=== PATIENT | male | born 1940 | race Caucasian/White ===

== ENCOUNTER → 2017-09-01 08:42 | Day surgery (SDC) | payer MEDICARE, SELFPAY ==
[2017-08-29 15:36] LABS: Bacteria 0 SEEN /hpf (None Seen); Mucous, Urine 0 SEEN /hpf (<or=2+); Red Blood Cells-Urine 0 SEEN /hpf (0-5); Squamous Epithelial Cells - UA 0 SEEN /hpf (0-5)
[2017-08-29 17:16] LABS: Color, Urine Yellow (Yellow); Glucose, Dipstick 250 mg/dl (Normal); Ketone-Dipstick Negative (Negative); Leukocyte Esterase-Dipstick 500 /ul (Negative); Nitrite-Dipstick Negative (Negative); Occult Blood-Urine 10 /ul (Negative); Protein-Dipstick 15 mg/dl (Negative); Specific Gravity, Urine 1.015 (1.002-1.030); Urine Bilirubin Dipstick Negative (Negative); Urine Clarity Clear (Clear); Urine Urobilinogen Normal (Normal)
[2017-08-29 17:18] LABS: Hematocrit 38.8 % (40-54); Mean Corp Hgb Conc 30.9 g/gl (32-36); Mean Corpuscular Hgb 28.4 pg (27.0-32.0); Mean Corpuscular Volume 91.9 fL (80-94); Mean Platelet Vol. 10.6 fl (6.2-12.0); Platelet Count 152 K/mm3 (150-450); RBC Distribution Width CV 14.8 % (11.6-14.6); RBC Distribution Width SD 49.3 fl (35.1-43.9); Red Blood Count 4.22 M/mm3 (4.6-6.2); White Blood Count 8.1 K/mm3 (4.4-11.0)
[2017-08-29 17:23] LABS: White Blood Cells 5-10 SEEN /hpf (0-5)
[2017-08-29 17:45] LABS: Anion Gap 6 (5-15); BUN 17 mg/dL (7-18); BUN/Creat Ratio 12.3 RATIO (10-20); Calcium,Total 9.8 mg/dL (8.5-10.1); Chloride 101 mmol/L (98-107); Creatinine, Serum 1.38 mg/dL (0.70-1.30); EST Glomerular Filtration Rate 53 mL/min (>60); Est Glom Filt Rate - Afr Amer 64 mL/min (>60); Glucose 259 mg/dL (70-110); International Normalized Ratio 1.4; Potassium 4.3 mmol/L (3.5-5.1); Sodium Level 140 mmol/L (136-145)
[2017-08-29 17:50] LABS: Scan Indicated on CBC? Y/N NO
[2017-08-31 09:07] VITALS: BMI 32.5
[2017-09-01 09:26] LABS: Bedside Glucose 192 mg/dL (70-110)
--- NOTE | 2017-09-01 11:57 | OP.PCM_ITS ---
Problem List (1) Automatic implantable cardiac defibrillator in situ Status: Chronic Comment: ICD implant: 02/2010 Operative Report Date of Procedure: 09/01/17 Preoperative diagnosis is device at end of life for normal battery depletion. Postoperative diagnosis same as above. After informed consent and IV antibiotics the patient was brought to the [facility] catheterization laboratory and the skin over the device was prepped and draped in the usual sterile manner. Intermittent boluses of Versed, fentanyl and propofol were used for sedation and analgesia as well as 1% subcutaneous lidocaine. An incision was made over the pre-existing device. Using blunt and Bovie dissection the pocket was opened and the dual chamber AV ICD device was removed. Careful attention was paid not to injure the pre-existing leads. The leads were removed from the device header and they were interrogated. There is normal lead function. Hemostasis was obtained. The pocket was flushed with antibiotic solution. The sponge and needle count were correct. The new device was brought to the field. The leads were placed in the appropriate position in the header and secured by the set screw. The leads and the device were then placed in the pocket. The pocket was closed with a deep layer of running 2-0 Vicryl, a superficial layer of running 4-0 Vicryl, skin with Steri-Strips which were covered with a rolled 4 x 4 and Tegaderm. Patient left the room with the device programmed to proper parameters and there were no complications. All lead parameters were tested and found to be functionally normal. Lead and device serial and model numbers are available in the chart documents provided by the device company sales representative cash registers procedure summary.
== END ==
PROVIDERS: Physician Assistant Medical; Family Provider Family Medicine Geriatric Medicine; PCP Family Medicine Geriatric Medicine; Visit Provider Internal Medicine Cardiovascular Disease
DX: Z45.02 Encounter for adjustment and management of automatic implantable cardiac defibrillator (principal); Z00.6 Encounter for examination for normal comparison and control in clinical research program; I25.10 Atherosclerotic heart disease of native coronary artery without angina pectoris; I73.9 Peripheral vascular disease, unspecified; E78.5 Hyperlipidemia, unspecified; I10 Essential (primary) hypertension; Z95.1 Presence of aortocoronary bypass graft; Z87.891 Personal history of nicotine dependence
CPT/HCPCS: 33263; 36415; 80048; 81001; 82962; 85027; 85610; 93641; 99152; 99153; J7040; J7050

== ENCOUNTER → 2017-09-28 16:21 | Outpatient (CLI) | payer MEDICARE, SELFPAY ==
[2017-09-28 17:28] LABS: Hematocrit 35.7 % (40-54); Hemoglobin 10.6 g/dl (13.0-16.5); Mean Corp Hgb Conc 29.7 g/gl (32-36); Mean Corpuscular Hgb 27.3 pg (27.0-32.0); Platelet Count 164 K/mm3 (150-450); RBC Distribution Width CV 15.4 % (11.6-14.6); RBC Distribution Width SD 51.8 fl (35.1-43.9); Red Blood Count 3.88 M/mm3 (4.6-6.2)
[2017-09-28 17:29] LABS: Differential Indicated MANUAL DIFF; POSITIVE COUNT YES; POSITIVE DIFFERENTIAL NO; POSITIVE MORPHOLOGY YES
[2017-09-28 17:48] LABS: Eosinophil 2 % (0-5); Lymphocyte 22 % (19-41); Monocyte 5 % (0-10); Neutrophil-Band 2 % (0-5); Neutrophil-Segmented 69 % (47-70); Total Cells Counted 100 (MANUAL DIFF)
[2017-09-28 17:49] LABS: Platelet Estimate ADEQUATE (ADEQ); Red Cell Morphology NORM C+C NORMAL (NORM C&C)
[2017-09-28 18:15] LABS: BUN 25 mg/dL (7-18); Creatinine, Serum 1.41 mg/dL (0.70-1.30); Glucose 206 mg/dL (74-106)
[2017-09-28 18:16] LABS: AST(SGOT) 15 U/L (15-37); Alanine Aminotransfer ALT/SGPT 27 U/L (16-61); Albumin, Serum 3.2 g/dL (3.2-5.0); Alkaline Phosphatase 53 U/L (45-117); Anion Gap 6 (5-15); BUN/Creat Ratio 17.7 RATIO (10-20); Calcium,Total 9.6 mg/dL (8.5-10.1); Chloride 103 mmol/L (98-107); EST Glomerular Filtration Rate 52 mL/min (>60); Est Glom Filt Rate - Afr Amer 63 mL/min (>60); Globulin 3.3 g/dL (2.2-4.2); Potassium 4.1 mmol/L (3.5-5.1); Protein, Total 6.5 g/dL (6.4-8.2); Sodium Level 141 mmol/L (136-145)
[2017-09-28 21:38] LABS: BNP,B-Type NATRIURETIC PEPTIDE 841.1 pg/mL (0-100)
[2017-09-29 00:21] LABS: Absolute Lymphocyte Count 1.98 X10^3/ul (0.83-4.51); Absolute Neutrophil Count 6.3 X10^3/uL (2.0-7.7)
[2017-09-29 10:25] LABS: Pathologist Review Reviewed
== END ==
PROVIDERS: Family Provider Family Medicine Geriatric Medicine; PCP Family Medicine Geriatric Medicine; Visit Provider Family Medicine Geriatric Medicine
DX: R06.02 Shortness of breath (principal); I50.9 Heart failure, unspecified; R60.9 Edema, unspecified
CPT/HCPCS: 36415; 80053; 83880; 85025

== ENCOUNTER → 2017-09-29 10:43 | Outpatient (CLI) | payer MEDICARE, SELFPAY ==
--- NOTE | 2017-09-29 10:45 | VDLE_ITS ---
Reason For Study: edema RIGHT LEFT GSV is normal. CFV is compressible, spontaneous, phasic, CFV is compressible, spontaneous, phasic, competent, and demonstrates normal competent and demonstrates normal augmentation. augmentation. FV is compressible, spontaneous, phasic, FV is compressible, spontaneous, phasic, competent and demonstrates normal competent and demonstrates normal augmentation. augmentation. POP V is compressible, spontaneous, phasic, POP V is compressible, spontaneous, phasic, competent and demonstrates normal competent and demonstrates normal augmentation. augmentation. T/P Trunk is compressible. T/P Trunk is compressible. PTV is compressible. PTV is compressible. GSV is harvested. Unable to image Peroneal V due to edema. Unable to image Peroneal V due to edema. Procedure Exam performed in department. The exam was of fair technical quality due to edema. A preliminary report was called and/or faxed to Dr. Gu. Interpretation Summary Deep veins of the lower extremities are bilaterally patent and compressible segmentally. There is no evidence of deep vein thrombosis on either side. Valvular competence appears intact within the proximal deep venous systems bilaterally. The right greater saphenous vein appears patent and compressible segmentally. The left greater saphenous vein is absent, having been previously harvested. Peroneal veins were not visualized on either side due to edema. Ordering Physician: Guy Gu Performed By: Chirag Palacios RVT
== END ==
PROVIDERS: Family Provider Family Medicine Geriatric Medicine; PCP Family Medicine Geriatric Medicine; Visit Provider Family Medicine Geriatric Medicine
DX: R60.0 Localized edema (principal)
CPT/HCPCS: 93970

== ENCOUNTER → 2017-10-19 16:11 | Outpatient (CLI) | payer MEDICARE, SELFPAY ==
[2017-10-19 17:11] LABS: Hematocrit 34.7 % (40-54); Hemoglobin 10.6 g/dl (13.0-16.5); Mean Corp Hgb Conc 30.5 g/gl (32-36); Mean Corpuscular Hgb 27.7 pg (27.0-32.0); Mean Corpuscular Volume 90.8 fL (80-94); Mean Platelet Vol. 10.4 fl (6.2-12.0); Platelet Count 158 K/mm3 (150-450); RBC Distribution Width CV 15.3 % (11.6-14.6); RBC Distribution Width SD 49.5 fl (35.1-43.9); Red Blood Count 3.82 M/mm3 (4.6-6.2); White Blood Count 9.4 K/mm3 (4.4-11.0)
[2017-10-19 17:34] LABS: AST(SGOT) 17 U/L (15-37); Alanine Aminotransfer ALT/SGPT 25 U/L (16-61); Albumin, Serum 3.2 g/dL (3.2-5.0); Alkaline Phosphatase 55 U/L (45-117); Anion Gap 7 (5-15); BUN 32 mg/dL (7-18); BUN/Creat Ratio 22.1 RATIO (10-20); Calcium,Total 9.5 mg/dL (8.5-10.1); Chloride 103 mmol/L (98-107); Cholesterol 160 mg/dL (200); Creatinine, Serum 1.45 mg/dL (0.70-1.30); EST Glomerular Filtration Rate 50 mL/min (>60); Est Glom Filt Rate - Afr Amer 61 mL/min (>60); Globulin 3.2 g/dL (2.2-4.2); Glucose 107 mg/dL (74-106); High Density Lipoprotein 45 mg/dL; Potassium 3.7 mmol/L (3.5-5.1); Protein, Total 6.4 g/dL (6.4-8.2); Sodium Level 143 mmol/L (136-145); Thyroid Stim Hormone (TSH) 0.77 uIU/mL (0.358-3.74); Triglycerides 98 mg/dL; Very Low Density Lipoprotein 20 mg/dL (5-40)
[2017-10-19 17:35] LABS: Vitamin D,25 Hydroxy 33.1 ng/mL (29.95-100.01)
[2017-10-19 18:11] LABS: Basophil 1 % (0-1); Lymphocyte 16 % (19-41); Metamyelocyte 1 % (0-1); Myelocyte 3 (0-0); Neutrophil-Band 2 % (0-5); Neutrophil-Segmented 77 % (47-70); Total Cells Counted 100 (MANUAL DIFF)
[2017-10-19 18:12] LABS: Ovalocyte RARE; Schistocytes RARE
[2017-10-19 18:13] LABS: Differential Indicated MANUAL DIFF; POSITIVE COUNT YES; POSITIVE DIFFERENTIAL NO; POSITIVE MORPHOLOGY YES
[2017-10-19 18:14] LABS: Absolute Neutrophil Count 7.4 X10^3/uL (2.0-7.7)
[2017-10-19 18:15] LABS: Absolute Lymphocyte Count 1.51 X10^3/ul (0.83-4.51)
[2017-10-20 14:11] LABS: Pathologist Review Reviewed
== END ==
PROVIDERS: Family Provider Family Medicine Geriatric Medicine; PCP Family Medicine Geriatric Medicine; Visit Provider Family Medicine Geriatric Medicine
DX: E11.9 Type 2 diabetes mellitus without complications (principal); E55.9 Vitamin D deficiency, unspecified; I10 Essential (primary) hypertension; E78.4 Other hyperlipidemia
CPT/HCPCS: 36415; 80053; 80061; 82306; 84443; 85025

== ENCOUNTER → 2017-10-28 16:41 | Outpatient (CLI) | payer MEDICARE, SELFPAY ==
--- NOTE | 2017-10-28 16:47 | VDLE_ITS ---
Reason For Study: LLE pain RIGHT LEFT CFV is compressible, spontaneous, phasic, CFV is compressible, spontaneous, phasic, competent and demonstrates normal competent, and demonstrates normal augmentation. augmentation. Procedure FV is compressible, spontaneous, phasic, Exam performed in department. competent and demonstrates normal The study was technically difficult. augmentation. The study was technically limited. POP V is compressible, spontaneous, phasic, A preliminary report was called and/or faxed competent and demonstrates normal to Dr. Suarez @ [phone] @ 5:20 pm. augmentation. T/P Trunk is compressible. PTV is compressible. GSV is absent due to CABG. Unable to visualize PER V due to edema. Interpretation Summary Deep veins of the left lower extremity are patent and compressible segmentally. There is no evidence of left lower extremity deep vein thrombosis. Valvular competence appears intact within the proximal deep venous system on the left . The left greater saphenous vein is absent, having been previously harvested. The left peroneal vein was not visualized due to edema. Ordering Physician: Madina Suarez Referring Physician: Messi Velazquez Performed By: Estelle Wagner, CHLOE, RVT
== END ==
PROVIDERS: Family Provider Family Medicine Geriatric Medicine; PCP Family Medicine Geriatric Medicine; Visit Provider Podiatrist
DX: M79.605 Pain in left leg (principal)
CPT/HCPCS: 93971

== ENCOUNTER 2017-10-29 11:28 | Emergency (ER) | payer MEDICARE, SELFPAY ==
--- NOTE | 2017-10-29 11:31 | EKG12_ITS ---
Test Reason : Blood Pressure : / mmHG Vent. Rate : 086 BPM Atrial Rate : 086 BPM P-R Int : 236 ms QRS Dur : 114 ms QT Int : 376 ms P-R-T Axes : 012 -35 130 degrees QTc Int : 449 ms Sinus rhythm with 1st degree A-V block with occasional Premature ventricular complexes and Fusion com plexes Left axis deviation Incomplete left bundle branch block Marked ST abnormality, possible lateral subendocardial injury Abnormal ECG Confirmed by JUAN CARRILLO, IRAIS ([id number]), desk editor DERECK MARAVILLA ([id number]) on 11/01/2017 3:01:27 PM Referred By: LACY Confirmed By:IRAIS MARTINEZ MD
--- NOTE | 2017-10-29 11:32 | RAD_ITS ---
STUDY: X-RAY CHEST REASON FOR EXAM: Male, 77 years old. COPD TECHNIQUE: 2 views of the chest were obtained COMPARISON: None. FINDINGS: Small left-sided pleural effusion with left lower lobe atelectasis and subtle airspace opacities. Bilateral perihilar congestive changes. Trace right-sided pleural effusion. Accentuated thoracic kyphotic curvature with chronic compression deformities. Pacemaker device is seen RAD/Chest PA and Lateral IMPRESSION: Small bilateral pleural effusions with bilateral pulmonary vascular congestion and subsegmental atelectasis in the left lower lobe with subtle airspace opacities. Subtle ill-defined nodules in the right upper lobe which can be assessed with follow-up chest radiograph in 3-6 months Electronically Signed: Jeff Jaffe, at 12:23 EDT Tel , Service support ,
[2017-10-29 11:37] VITALS: BP 122/72; PULSE 87; PULSE 90; RESP 14; RESP 18; TEMP 36.5; O2SAT 100; O2SAT 96; BMI 32.5
--- NOTE | 2017-10-29 11:48 | NURSING ---
NO LW OR POA
[2017-10-29 11:59] LABS: Anion Gap 6 (5-15); BUN 29 mg/dL (7-18); BUN/Creat Ratio 19.6 RATIO (10-20); Calcium,Total 9.7 mg/dL (8.5-10.1); Chloride 104 mmol/L (98-107); Creatinine, Serum 1.48 mg/dL (0.70-1.30); EST Glomerular Filtration Rate 49 mL/min (>60); Est Glom Filt Rate - Afr Amer 59 mL/min (>60); Glucose 141 mg/dL (74-106); Potassium 4.2 mmol/L (3.5-5.1); Sodium Level 141 mmol/L (136-145)
--- NOTE | 2017-10-29 12:00 | ED.DCSUM_ITS ---
- ER Visit Summary Date of Service: 10/29/17 Chief Complaint: Confusion History of Present Illness: The patient is a 77 M who is brought in by EMS after his called the ambulance for confusion. states that about 0300 hours this morning he was confused. He was sweaty. She tried to take his blood sugar but the machine was not working. She fed him peanut butter, candy bar, and a variety of other foods. She got their glucometer to work and his blood sugar read 103. states that he went back to bed got up around 10 and seemed confused again. Though this time not as severe as during the night. He has had hypoglycemic episodes in the past. He has not had any more to eat. He has not had any of his medications. Physical Examination: Afebrile vital signs are stable Gen: Well-nourished well-developed Head: Normocephalic atraumatic Eyes: Perrl EOMI ENT: TMs clear no rhinorrhea moist mucous membranes Neck: Supple no lymphadenopathy no JVD nontender CVS: Regular rate rhythm no murmurs normal S1-S2 Respiratory: No distress clear to auscultation bilaterally chest nontender Abdomen: Soft nontender nondistended normal bowel sounds no masses Back: Nontender Extremity: Nontender 3+ lower extremity edema Skin: Normal color no rash Neuro: alert orientated ?3 CN II-XII intact normal strength sensation Psych: Normal affect normal mood Test Results: EKG shows a sinus rhythm with a first-degree AV block with PVC. Globin 10.5. Creatinine 1.48. Digoxin low. Urinalysis no obvious infection Emergency Department Course and Treatment: Patient was fed lunch. He is resting comfortably. This point I believe the patient most likely had a hypoglycemic episode during the night. He is to return home continue eating and resume his medications. Return if worsening or concerns. I spoke with his at the bedside she is comfortable with this plan. Impression: 1. Diabetic hypoglycemia This note was generated with [employer] dictation software. It may contain incorrect words, spelling, and punctuation that were not noted in review of the chart prior to signing ED Disposition - Plan for ED Patient: Disposition: Home or Assisted Living Chief Complaint: Confusion Instructions: ED Diabetes Hypoglycemia Insulin React Referrals: Guy Gu Chi, MD [Primary Care Provider] - As Needed
[2017-10-29 12:10] LABS: Absolute Lymphocyte Count 0.84 X10^3/ul (0.83-4.51); Absolute Neutrophil Count 6.1 X10^3/uL (2.0-7.7); Basophil# 0.02 X10^3/uL; Basophil% 0.3 % (0-1); Eosinophil# 0.06 X10^3/uL; Eosinophils% 0.8 % (0-5); Hematocrit 35.4 % (40-54); Hemoglobin 10.5 g/dl (13.0-16.5); Lymphocyte # 0.84 X10^3/ul (4.0); Lymphocyte % 11.2 % (19-41); Mean Corp Hgb Conc 29.7 g/gl (32-36); Mean Corpuscular Hgb 26.5 pg (27.0-32.0); Mean Corpuscular Volume 89.4 fL (80-94); Mean Platelet Vol. 10.3 fl (6.2-12.0); Monocyte# 0.41 X10^3/uL; Monocyte% 5.5 % (0-10); Neutrophil # 6.08 X10^3/uL (2.7-7.7); Neutrophil % 80.7 % (47-70); POSITIVE COUNT NO; POSITIVE DIFFERENTIAL NO; POSITIVE MORPHOLOGY NO; Platelet Count 120 K/mm3 (150-450); RBC Distribution Width CV 15.3 % (11.6-14.6); RBC Distribution Width SD 50.1 fl (35.1-43.9); Red Blood Count 3.96 M/mm3 (4.6-6.2); White Blood Count 7.5 K/mm3 (4.4-11.0)
[2017-10-29 12:56] LABS: Mucous, Urine 0 SEEN /hpf (<or=2+)
[2017-10-29 13:01] LABS: Color, Urine Yellow (Yellow); Glucose, Dipstick Normal (Normal); Ketone-Dipstick Negative (Negative); Leukocyte Esterase-Dipstick 25 /ul (Negative); Nitrite-Dipstick Negative (Negative); Occult Blood-Urine 25 /ul (Negative); Protein-Dipstick 30 mg/dl (Negative); Urine Bilirubin Dipstick Negative (Negative); Urine Clarity Clear (Clear); Urine Urobilinogen Normal (Normal)
[2017-10-29 13:11] LABS: Bacteria RARE /hpf (None Seen); Red Blood Cells-Urine 0-5 SEEN /hpf (0-5); Squamous Epithelial Cells - UA 0-5 SEEN /hpf (0-5); White Blood Cells 0-5 SEEN /hpf (0-5)
[2017-10-29 13:45] VITALS: BP 122/77; PULSE 80; RESP 14; O2SAT 98
[2017-10-29 14:33] LABS: Digoxin Level 0.16 ng/mL (0.80-2.00)
[2017-10-29 15:22] VITALS: BP 118/70; PULSE 78; RESP 14; O2SAT 98
== END 2017-10-29 15:24 | disposition home or self-care (01) ==
PROVIDERS: Emergency Provider Emergency Medicine; Family Provider Family Medicine Geriatric Medicine; PCP Family Medicine Geriatric Medicine
DX: E11.649 Type 2 diabetes mellitus with hypoglycemia without coma (principal); I44.0 Atrioventricular block, first degree; I49.3 Ventricular premature depolarization; I12.9 Hypertensive chronic kidney disease with stage 1 through stage 4 chronic kidney disease, or unspecified chronic kidney disease; N18.9 Chronic kidney disease, unspecified; J44.9 Chronic obstructive pulmonary disease, unspecified; I25.10 Atherosclerotic heart disease of native coronary artery without angina pectoris; Z95.1 Presence of aortocoronary bypass graft; Z87.891 Personal history of nicotine dependence; Z95.810 Presence of automatic (implantable) cardiac defibrillator
CPT/HCPCS: 71046; 80048; 80162; 81001; 85025; 93005; 99285; A4216

== ENCOUNTER 2017-11-09 10:11 | Outpatient (RCR) | payer MEDICARE, SELFPAY ==
[2017-11-09 12:57] VITALS: BP 97/61; PULSE 72; RESP 18; TEMP 36.8; BMI 35.1
[2017-11-09 13:25] VITALS: BMI 35.1
--- NOTE | 2017-11-09 16:49 | PCM.WC.HP ---
(1) Ulcer of left lower extremity with fat layer exposed Status: Chronic Current Visit: Yes Code(s): L97.922 - Non-pressure chronic ulcer of unspecified part of left lower leg with fat layer exposed (2) Type 2 diabetes mellitus with diabetic polyneuropathy Status: Chronic Current Visit: Yes Code(s): E11.42 - Type 2 diabetes mellitus with diabetic polyneuropathy (3) Palpitations Status: Chronic Current Visit: Yes Code(s): R00.2 - Palpitations (4) Lymphedema of both lower extremities Status: Chronic Current Visit: Yes Code(s): I89.0 - Lymphedema, not elsewhere classified (5) Chronic renal insufficiency, stage III (moderate) Status: Chronic Current Visit: Yes Code(s): N18.3 - Chronic kidney disease, stage 3 (moderate) History of Present Illness Date of Service: 11/09/17 Chief Complaint: Follow-up left lower leg ulcer simon, bilateral lower leg edema. History of Wound: 77-year-old white male a month ago developed an ulcer on his left lower leg. History of diabetes type II uncontrolled severe edema of the lower extremities. History of coronary artery disease. Has been at the wound center before for edema of his lower extremities no longer wears his stockings. He is use compression pumps in the past and has an adjustable compressive garment that he will try to bring to his follow-up visit for evaluation. He denies redness odor or new trauma. He denies fever, chill, nausea, vomiting. Past Medical History Past Medical History: Chronic Problems (Last Updated 08/29/17 @ 10:33 by Karon Nick) Ulcer of left lower extremity with fat layer exposed (Chronic) Type 2 diabetes mellitus with diabetic polyneuropathy (Chronic) Pacemaker (Chronic) Atherosclerosis of [place] coronary artery of [place] heart without angina pectoris (Chronic) MOULTON to LAD, SVG to circumflex, and SVG to RCA in 1986 PVCs (premature ventricular contractions) (Chronic) Left ventricular failure (Chronic) Fatigue (Chronic) Edema (Chronic) Palpitations (Chronic) Peripheral vascular disease (Chronic) ASHD (arteriosclerotic heart disease) (Chronic) Automatic implantable cardiac defibrillator in situ (Chronic) ICD implant: 02/2010 HLD (hyperlipidemia) (Chronic) HTN (hypertension) (Chronic) Atherosclerosis 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 [facility] 1987, 01/29/2010, 02/24. Ischemic cardiomyopathy (Chronic) Paroxysmal ventricular tachycardia (Chronic) H/O coronary artery bypass surgery (Chronic) CABG MOULTON graft to anterior descending, saphenous vein graft to CFX, saphenous vein graft to RCA 1986. 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) Open wound of lower extremity without complication (Chronic) Chronic renal insufficiency, stage III (moderate) (Chronic) PAOD (peripheral arterial occlusive disease) (Chronic) Surgical History: coronary bypass surgery, pacemaker implantation, TURP Allergies/Adverse Reactions: Allergies cyclobenzaprine HCl [From Flexeril] Allergy (Verified 10/29/17 11:31) Rash latex Allergy (Verified 10/29/17 11:31) Swelling Penicillins Allergy (Verified 10/29/17 11:31) Rash Sulfa (Sulfonamide Antibiotics) Allergy (Verified 10/29/17 11:31) Rash erythromycin base Adverse Reaction (Mild, Verified 10/29/17 11:49) Hives tetracycline Adverse Reaction (Verified 10/29/17 11:31) Hives iv dye Adverse Reaction (Uncoded 10/29/17 11:49) only has 1 kidney Home Medications: Ambulatory Orders Medication Instructions Recorded Aspirin [Aspirin, Baby] 81 mg PO DAILY@0800 11/30/16 Insulin Glargine,Hum.rec.anlog 60 unit SQ BID 11/30/16 [Lantus] Doxazosin Mesylate [Cardura] 4 mg PO BID 07/24/17 Finasteride [Proscar] 5 mg PO DAILY 07/24/17 Furosemide [Furosemide] 40 mg PO BID 07/24/17 isosorbide mononitrate ER 30 mg 30 mg PO QDAY tab 01/15/18 tablet,extended release 24 hr Baclofen 10 mg PO DAILY 08/31/17 apixaban 5 mg tablet 5 mg PO BID #180 tab 09/01/17 digoxin 125 mcg tablet 125 mcg PO QDAY #90 tab 09/01/17 Amlodipine [Norvasc] 5 mg PO DAILY 11/09/17 Ergocalciferol [Vitamin D] 50,000 unit PO QMONTH 11/09/17 Insulin Lispro Protamin/Lispro 40 unit SQ TID 11/09/17 [Humalog Mix 75-25 Kwikpen] Sertraline HCl [Zoloft] 100 mg PO DAILY 11/09/17 - Family History Maternal Family History: Family History (Last Updated 08/29/17 @ 10:09 by Karon Nick) Father Diabetes CHF (congestive heart failure) Mother CHF (congestive heart failure) Hypertension Sister Hypertension Myocardial infarction, Onset Age: 79 No pertinent history Paternal Family History: Family History (Last Updated 08/29/17 @ 10:09 by Karon Nick) Father Diabetes CHF (congestive heart failure) Mother CHF (congestive heart failure) Hypertension Sister Hypertension Myocardial infarction, Onset Age: 79 No pertinent history Smoking Status: Former smoker Review of Systems Constitutional: Denies: Chills, Fever Gastrointestinal: Denies: Diarrhea, Nausea, Vomiting Musculoskeletal: Denies: Leg Pain Skin: Reports: Skin Changes, Wounds Neurological: Reports: Incoordination, Numbness Hematologic/ Lymphatic: Reports: Easy Bruising, Easy Bleeding - Physical Exam Vital Signs Temp Pulse Resp BP 98.2 F 72 18 97/61 11/09/17 12:57 11/09/17 12:57 11/09/17 12:57 11/09/17 12:57 General: Alert, Oriented x3, Cooperative HEENT: Atraumatic Extremities: No cyanosis, Capillary Refill Less than 3 Seconds, No Calf Tenderness, Diminished Peripheral Pulses, Edema Skin: Ulcer/ Wound - No purulence, no erythema, streaking, no infection. The fat layer is exposed. The skin is atrophic and without hair to bilateral lower extremities. Wound Measurements and Assessment WC - Nurse 1 - General Ulcer Measurement Start: 11/09/17 12:54 Freq: Status: Active Protocol: Activity Type Activity Date Activity User E-Sign Co-Sign Detail Recorded Client Recorded Date Recorded By Document 11/09/17 12:57 [facility] [id number] 11/09/17 13:13 [facility] 11/09/17 12:57 Wound Center Nurse 1 [Ulcer Assessment] #3- LT LOWER CALF CLUSTER -Combined with other wound No -Current Size (cm) - Length 1.8 -Current Size (cm) - Width 0.7 -Current Size (cm) - Depth 0.1 -Total Square Cm 1.26 -Date of Last Picture (Recall this 11/09/17 field) -Photo Taken Yes -Epithelialization None Present -Tunneling No -Undermining/Tunneling No -Circular Undermining No -Exudate Amt Small (1-33%) -Exudate Type Serosanguineous -Wound Margin Distinct, Outline Attached -Granulation Amt None Present (0 %) -Slough/Fibrin Yes -Necrosis Amt Large (67-100%) -Necrotic Tissue Type Adherent Slough -Structure Exposed N/A -Texture (Maggie-wound Skin Appearance) Scarring -Moisture (Maggie-wound Skin Appearance Maceration ) Dry/Scaly -Color (Maggie-wound Skin Appearance) Erythema Hemosiderin Staining -Temperature (Maggie-wound Skin No Abnormality Appearance) (Pt Warm) -Tenderness on Palpation (Maggie-wound No Skin Appearance) -Ulcer Cleansing Rinsed/ Irrigated with Saline -Foul Odor after Cleansing No -Anesthetic Used 4% Lidocaine Solution #2- LT SIMON CLUSTER -Combined with other wound No -Current Size (cm) - Length 9.5 -Current Size (cm) - Width 6.8 -Current Size (cm) - Depth 0.1 -Total Square Cm 64.60 -Date of Last Picture (Recall this 11/09/17 field) -Photo Taken Yes -Epithelialization None Present -Tunneling No -Undermining/Tunneling No -Exudate Amt Medium (34-66%) -Exudate Type Serosanguineous -Wound Margin Distinct, Outline Attached -Granulation Amt Large (67-100%) -Granulation Quality Red -Slough/Fibrin No -Necrosis Amt None Present (0 %) -Structure Exposed None/Limited to Skin Breakdown -Texture (Maggie-wound Skin Appearance) Scarring -Moisture (Maggie-wound Skin Appearance Maceration ) Weeping -Color (Maggie-wound Skin Appearance) Erythema Hemosiderin Staining -Temperature (Maggie-wound Skin No Abnormality Appearance) (Pt Warm) -Tenderness on Palpation (Maggie-wound No Skin Appearance) -Ulcer Cleansing Rinsed/ Irrigated with Saline -Foul Odor after Cleansing No -Anesthetic Used 4% Lidocaine Solution [Edema Assessment] -Lower Limb Edema Present Yes -Right Calf (cm) 40.7 -Right Ankle (cm) 29.6 -Left Calf (cm) 42.9 -Left Ankle (cm) 28.9 WC - Nurse 2 - General Ulcer CM Notes Start: 11/09/17 12:54 Freq: Status: Active Protocol: Activity Type Activity Date Activity User E-Sign Co-Sign Detail Recorded Client Recorded Date Recorded By Document 11/09/17 14:39 [id number] 11/09/17 14:45 11/09/17 14:39 Wound Center Nurse 2 [Procedure/Treatment] #3- LT LOWER CALF CLUSTER -Time 14:39 -Correct Patient Yes -Correct Side, Site, Position Yes -Correct Procedure Yes -Procedure Performed Yes -Type of Procedure Debridement -Clinical Debridement Subcutaneous -Post Debridement Size (cm) - Length 1.9 -Post Debridement Size (cm) - Width 0.8 -Post Debridement Size (cm) - Depth 0.1 -Total Square Cm 1.52 -Wound/Ulcer Outcome Not Healed -Ulcer Cleansing Rinsed/ Irrigated with Saline -Foul Odor after Cleansing No -Bioengineered Tissue No -Topical Lidocaine (%) 5 -Bleeding Controlled with Pressure -Treatment Response Procedure Tolerated Well #2- LT SIMON CLUSTER -Time 14:40 -Correct Patient Yes -Correct Side, Site, Position Yes -Correct Procedure Yes -Procedure Performed Yes -Type of Procedure Debridement -Clinical Debridement Subcutaneous -Post Debridement Size (cm) - Length 9.6 -Post Debridement Size (cm) - Width 6.9 -Post Debridement Size (cm) - Depth 0.1 -Total Square Cm 66.24 -Wound/Ulcer Outcome Not Healed -Ulcer Cleansing Rinsed/ Irrigated with Saline -Foul Odor after Cleansing No -Bioengineered Tissue No -Topical Lidocaine (%) 5 -Bleeding Controlled with Pressure -Treatment Response Procedure Tolerated Well [See Physician Procedure note for Specifics] Pain Scale: 0-10 Numeric [Pain] -Is Patient Pain Free? Yes Musculoskeletal: No Tenderness to Palpation of Joints or Extremities, Tenderness - No pain with wound manipulation left lower extremity. The compartments of bilateral lower extremities remains. Lymphedema is clinically noted., - - 5 out of 5 ankle muscle strength in all directions bilateral Neurological: - - Lack of epicritic sensation light touch consistent with neuropathy bilateral Psych/Mental Status: Normal Affect, Appropriate Debridement Note Post-Debridement Measurements/Treatment WC - Nurse 2 - General Ulcer CM Notes Start: 11/09/17 12:54 Freq: Status: Active Protocol: Activity Type Activity Date Activity User E-Sign Co-Sign Detail Recorded Client Recorded Date Recorded By Document 11/09/17 14:39 [id number] 11/09/17 14:45 11/09/17 14:39 Wound Center Nurse 2 #3- LT LOWER CALF CLUSTER -Time 14:39 -Correct Patient Yes -Correct Side, Site, Position Yes -Correct Procedure Yes -Procedure Performed Yes -Type of Procedure Debridement -Clinical Debridement Subcutaneous -Post Debridement Size (cm) - Length 1.9 -Post Debridement Size (cm) - Width 0.8 -Post Debridement Size (cm) - Depth 0.1 -Total Square Cm 1.52 -Wound/Ulcer Outcome Not Healed -Ulcer Cleansing Rinsed/ Irrigated with Saline -Foul Odor after Cleansing No -Bioengineered Tissue No -Topical Lidocaine (%) 5 -Bleeding Controlled with Pressure -Treatment Response Procedure Tolerated Well #2- LT SIMON CLUSTER -Time 14:40 -Correct Patient Yes -Correct Side, Site, Position Yes -Correct Procedure Yes -Procedure Performed Yes -Type of Procedure Debridement -Clinical Debridement Subcutaneous -Post Debridement Size (cm) - Length 9.6 -Post Debridement Size (cm) - Width 6.9 -Post Debridement Size (cm) - Depth 0.1 -Total Square Cm 66.24 -Wound/Ulcer Outcome Not Healed -Ulcer Cleansing Rinsed/ Irrigated with Saline -Foul Odor after Cleansing No -Bioengineered Tissue No -Topical Lidocaine (%) 5 -Bleeding Controlled with Pressure -Treatment Response Procedure Tolerated Well Pain Scale: 0-10 Numeric Is Patient Pain Free? Yes Wound debrided: anterior simon cluster Laterality: Left Wound Grade/Stage: grade 1 Type of Debridement: Excisional debridement Anesthesia Used: 4% Lidocaine Solution Depth: in the subcutaneous layer Percentage of wound debrided: - - 25% Instrument Used: #15 blade Tissue Removed: fibrous, devitalized subcutaneous, biofilm, slough Severity: Fat Layer Exposed Amount of bleeding with debridement: Mild Bleeding Controlled with: Pressure Patient tolerated procedure well - Additional Wound Wound debrided: posterior leg Laterality: Left Wound Grade/Stage: grade 1 Type of Debridement: Excisional debridement Anesthesia Used: 4% Lidocaine Solution Depth: in the subcutaneous layer Percentage of wound debrided: 100 Instrument Used: #15 blade Tissue Removed: fibrous, devitalized subcutaneous, biofilm, slough Severity: Fat Layer Exposed Amount of bleeding with debridement: Mild Bleeding Controlled with: Pressure Patient tolerated procedure: Patient tolerated procedure well Assessment/Plan Active Problems (Last Updated 08/29/17 @ 10:33 by Karon Nick) Ulcer of left lower extremity with fat layer exposed (Chronic) Type 2 diabetes mellitus with diabetic polyneuropathy (Chronic) Palpitations (Chronic) Lymphedema of both lower extremities (Chronic) Chronic renal insufficiency, stage III (moderate) (Chronic) Assessment: left leg ulcers with fat layer exposed. Lymphedema and edema of the bilateral lower legs. Diabetes type II uncontrolled. Stasis dermatitis with varicosities superficial. Peripheral arterial occlusive disease Plan: I reviewed and discussed the case with the patient today including his recommended care plan. His ulcer sites were debrided as noted in the clinical panel. I recommended application of hydrogel and Adaptic. Changes daily. I recommended compression dressing; these were applied today. I do not see any clinical signs of infection he was reassured. He was advised to elevate his limbs at rest. I reviewed his recent venous Doppler exam which was negative for deep venous thrombosis in the vessels appeared to be compressible. It is noted he had significant edema and some of the more distal veins were not visualized. He had noninvasive vascular studies performed over a year and a half ago which demonstrate normal arterial flow. Recommend updating his exam at this time. I also recommended nutritional supplementation with Rayshawn. Lymphedema clinic referral will also be considered even though it appears he has been through this workup in the past. To return to clinic in 1 week or call sooner if he has any questions or concerns.
== END 2017-11-12 23:59 ==
LOC: WC 10:11
PROVIDERS: Family Provider Family Medicine Geriatric Medicine; PCP Family Medicine Geriatric Medicine; Visit Provider Podiatrist
DX: E11.622 Type 2 diabetes mellitus with other skin ulcer (principal); L97.822 Non-pressure chronic ulcer of other part of left lower leg with fat layer exposed; E11.51 Type 2 diabetes mellitus with diabetic peripheral angiopathy without gangrene; E11.42 Type 2 diabetes mellitus with diabetic polyneuropathy; R00.2 Palpitations; I89.0 Lymphedema, not elsewhere classified; E11.22 Type 2 diabetes mellitus with diabetic chronic kidney disease; N18.3 Chronic kidney disease, stage 3 (moderate); R60.0 Localized edema; E11.65 Type 2 diabetes mellitus with hyperglycemia; I25.10 Atherosclerotic heart disease of native coronary artery without angina pectoris; Z95.810 Presence of automatic (implantable) cardiac defibrillator; E78.5 Hyperlipidemia, unspecified; I13.0 Hypertensive heart and chronic kidney disease with heart failure and stage 1 through stage 4 chronic kidney disease, or unspecified chronic kidney disease; I50.1 Left ventricular failure, unspecified; Z95.1 Presence of aortocoronary bypass graft; J44.9 Chronic obstructive pulmonary disease, unspecified; Z79.899 Other long term (current) drug therapy; Z79.4 Long term (current) use of insulin; Z79.82 Long term (current) use of aspirin
CPT/HCPCS: 11042; 99213; G0463

== ENCOUNTER 2017-11-21 12:29 | Inpatient (IN) | payer MEDICARE, SELFPAY ==
[2017-11-21] VITALS (9 sets, daily range): BP systolic 101–122; BP diastolic 51–71; PULSE 75–97; RESP 14–23; TEMP 36.3–38.2; O2SAT 82–100; BMI 35.2; BMI 35.3; BMI 33.7
--- NOTE | 2017-11-21 12:50 | EKG12_ITS ---
Test Reason : WEAKNESS Blood Pressure : / mmHG Vent. Rate : 090 BPM Atrial Rate : 090 BPM P-R Int : 310 ms QRS Dur : 110 ms QT Int : 370 ms P-R-T Axes : 000 -08 120 degrees QTc Int : 452 ms Sinus rhythm with 1st degree A-V block Inferior infarct , age undetermined Abnormal ECG Confirmed by JUAN CARRILLO, IRAIS ([id number]), department editor DERECK MARAVILLA ([id number]) on 11/24/2017 1:52:03 PM Referred By: JALEESA Confirmed By:IRAIS MARTINEZ MD
--- NOTE | 2017-11-21 12:50 | RAD_ITS ---
STUDY: X-RAY CHEST REASON FOR EXAM: Male, 77 years old. Rales at the left lung base. TECHNIQUE: Single AP portable view of the chest. COMPARISON: Comparison is made with prior study dated October 29, 2017. FINDINGS: EKG electrodes are seen. Increased markings at the lung bases with areas of confluence worse in the left lower lobe suggestive of bibasilar atelectasis and/or infiltrates. Blunting of both cost phrenic angles. Sternal cerclage wires and vascular clips are present from a prior sternotomy and coronary artery bypass graft procedure (CABG). Mild cardiomegaly. Left-sided ICD is seen. Normal mediastinum and gaye. Normal visualized pulmonary arteries. There is atherosclerotic calcification of the aortic arch with tortuosity. There are diffuse degenerative changes of the visualized thoracic spine. Normal visualized ribs, clavicles, and shoulders. There is no demonstrated abnormality of the visualized soft tissue structures of the upper abdomen. RAD/Chest 1 View (Portable) IMPRESSION: Findings suggesting bibasilar atelectasis and/or infiltrates worse on the left side with blunting of both cost phrenic angles. Electronically Signed: Peterson Horne MD at 13:15 EDT Tel [phone], Service support ,
--- NOTE | 2017-11-21 12:55 | ED.RN ---
PT HAS BLE WRAPPED WITH SPECIAL SHOES. SEES [facility]. PETECHIE LEFT LEG. DAUGHTER STATES LEGS WEEPING MORE THAN NORMAL. PT HAS SCD-LIKE MACHINE AT HOME THAT HE IS NONCOMPLIANT WITH. BLE EDEMA WORSENING.
[2017-11-21 13:04] LABS: Absolute Lymphocyte Count 0.53 X10^3/ul (0.83-4.51); Absolute Neutrophil Count 10.5 X10^3/uL (2.0-7.7); Basophil# 0.03 X10^3/uL; Basophil% 0.3 % (0-1); Eosinophil# 0.06 X10^3/uL; Eosinophils% 0.5 % (0-5); Hematocrit 34.3 % (40-54); Hemoglobin 10.6 g/dl (13.0-16.5); Lymphocyte # 0.53 X10^3/ul (4.0); Lymphocyte % 4.5 % (19-41); Mean Corp Hgb Conc 30.9 g/gl (32-36); Mean Corpuscular Hgb 27.2 pg (27.0-32.0); Mean Corpuscular Volume 87.9 fL (80-94); Mean Platelet Vol. 10.1 fl (6.2-12.0); Monocyte# 0.71 X10^3/uL; Neutrophil # 10.49 X10^3/uL (2.7-7.7); Platelet Count 120 K/mm3 (150-450); RBC Distribution Width CV 15.4 % (11.6-14.6); RBC Distribution Width SD 49.6 fl (35.1-43.9); White Blood Count 11.9 K/mm3 (4.4-11.0)
[2017-11-21 13:05] LABS: Differential Indicated SCAN CRITERIA MET; POSITIVE COUNT NO; POSITIVE DIFFERENTIAL YES; POSITIVE MORPHOLOGY NO
[2017-11-21 13:08] LABS: International Normalized Ratio 1.6
[2017-11-21 13:09] LABS: Partial Thromboplast Time 30.7 Seconds (24.1-36.2)
[2017-11-21 13:11] LABS: AST(SGOT) 12 U/L (15-37); Alanine Aminotransfer ALT/SGPT 22 U/L (16-61); Albumin, Serum 3.1 g/dL (3.2-5.0); Alkaline Phosphatase 46 U/L (45-117); Anion Gap 8 (5-15); BUN 29 mg/dL (7-18); BUN/Creat Ratio 19.2 RATIO (10-20); Calcium,Total 9.4 mg/dL (8.5-10.1); Chloride 107 mmol/L (98-107); Creatinine, Serum 1.51 mg/dL (0.70-1.30); EST Glomerular Filtration Rate 48 mL/min (>60); Est Glom Filt Rate - Afr Amer 58 mL/min (>60); Estimated Creatinine Clearance 39.64 ml/min; Globulin 3.2 g/dL (2.2-4.2); Glucose 109 mg/dL (74-106); Potassium 3.1 mmol/L (3.5-5.1); Protein, Total 6.3 g/dL (6.4-8.2); Sodium Level 146 mmol/L (136-145)
[2017-11-21 13:17] LABS: Lactic Acid 2.1 mmol/L (0.4-2.0)
[2017-11-21] MEDS: 0.9% Normal Saline 1,000 ML 250 ML IV (13:42)
[2017-11-21 13:53] LABS: Bacteria 0 SEEN /hpf (None Seen); Mucous, Urine 0 SEEN /hpf (<or=2+)
[2017-11-21 14:01] LABS: Color, Urine Yellow (Yellow); Glucose, Dipstick Normal (Normal); Ketone-Dipstick Negative (Negative); Leukocyte Esterase-Dipstick 500 /ul (Negative); Nitrite-Dipstick Negative (Negative); Occult Blood-Urine 10 /ul (Negative); Protein-Dipstick 15 mg/dl (Negative); Specific Gravity, Urine 1.015 (1.002-1.030); Urine Bilirubin Dipstick Negative (Negative); Urine Clarity Sl. Cloudy (Clear); Urine Urobilinogen Normal (Normal)
[2017-11-21 14:07] LABS: Red Blood Cells-Urine 0-5 SEEN /hpf (0-5); Squamous Epithelial Cells - UA 0-5 SEEN /hpf (0-5); White Blood Cells 25-50 SEEN /hpf (0-5)
--- NOTE | 2017-11-21 14:13 | ED.DCSUM_ITS ---
- ER Visit Summary Date of Service: 11/21/17 Chief Complaint: Confusion and generalized weakness History of Present Illness: The patient is a 77 M who was brought to the ER because of confusion, rapid heart rate and falling. Onset between 0700 and 1000 today. He is not alert nor is he oriented to date. He is not a good informant. Daughter was the informant. He was in his normal state of wellness yesterday. He was at his sister's house. Apparently his sister and just do smoke. Patient does not smoke. According to family member he does have history of frequent/recurrent urinary tract infections. Physical Examination: Vital signs are remarkable for a temperature 100.4?F orally and heart rate of 91%. Oxygen saturation 90% on oxygen. He is on oxygen for history of COPD. HEENT exam is marked for dry mucosa. Lungs remarkable for rales left base posteriorly. Heart is regular without appreciable murmur gallop rub. Abdomen soft nontender. He does have edema of the lower extremities and is seen at the lymphedema/wound center. Family member is concerned because of nonblanching red rash proximal the dressing. She states that the rash was not present last evening when she changed his dressings. He is not alert and he is not oriented today. Test Results: White count is 11.9 thousand with 88 segs. H&H 7.6 and 34.3. Electronic panel is marked for sodium of 146 and potassium 3.1. B1 and creatinine are 29 and 1.54 with a GFR 48. Coags are normal. Lactate elevated 2.1. Portable chest x-ray revealed increased interstitial markings left base compared to prior dated October 29, 2017. Urine was obtained by catheterization and reveals 25-50 WBCs and is positive for leukoesterase and blood. Negative for nitrites and no bacteria noted. Emergency Department Course and Treatment: Because there is a change in mental status elevated temperature infectious workup was undertaken. His urine dips positive for leukoesterase and blood and his chest x-ray is suggestive of an infiltrate. Will prescribe Rocephin and azithromycin will cover both respiratory and urogenital pathogens. Treatment Plan: Patient has acute change in mental status does have an elevated temperature and elevated white count however by definition does not qualify as serves will page hospitalist for 23 hour observation continued care MedSurg. Recent heart rate is 92 and respirator 28. Nurses obtained 8 temperature, which is 100 Disposition: 23 observation MedSurg Impression: 1. Acute change in mental status 2. Pyuria 3. History of coronary disease with history of ischemic cardia myopathy 4. History of diabetes 5. History of hypertension 6. History hypercholesteremia 7. History of end-stage renal disease 8. History of peripheral arterial disease 9. Infiltrate versus atelectasis left lower lobe 10. Elevated lactate, 2.1 This note was generated with [employer] dictation software. It may contain incorrect words, spelling, and punctuation that were not noted in review of the chart prior to signing ED Disposition - Plan for ED Patient: Chief Complaint: Weakness Referrals: Guy Gu Chi, MD [Primary Care Provider] -
[2017-11-21] MEDS: Ceftriaxone 1 GM/50 mL Premix x1 IV (14:38)
--- NOTE | 2017-11-21 16:14 | PCM.HP.STD ---
Problem List (1) Metabolic encephalopathy Status: Acute (2) UTI (urinary tract infection) Status: Acute Qualifiers: Urinary tract infection type: acute cystitis Hematuria presence: without hematuria Qualified Code(s): N30.00 - Acute cystitis without hematuria (3) Paroxysmal ventricular tachycardia Status: Chronic (4) Benign hypertension Status: Chronic (5) BPH (benign prostatic hypertrophy) with urinary obstruction Status: Chronic (6) CAD (coronary artery disease) Status: Chronic (7) Pacemaker Status: Chronic (8) COPD (chronic obstructive pulmonary disease) Status: Chronic (9) Type II diabetes mellitus Status: Chronic (10) HLD (hyperlipidemia) Status: Chronic Qualifiers: (11) Hypothyroidism Status: Chronic (12) Ischemic cardiomyopathy Status: Chronic (13) Diabetes mellitus type 2, uncontrolled, with complications Status: Chronic (14) Lymphedema of both lower extremities Status: Chronic (15) 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 She called her daughter who arrived and noted patient just was more listless today and sent the patient to the emergency room. In the emergency room, patient was noted to have a fever of 38.2 with respiratory rate as high as 23. White count was 11.9. Patient did have a lactic acid come back at 2.1. Patient had a chest x-ray that was equivocal and a urinalysis also that was equivocal. Patient received ceftriaxone and Rocephin to cover both pulmonary as well as a urinary source. Given the patient's change in mental status and unclear etiology of infection patient is being admitted for further evaluation and workup. [] Past Medical History Past Medical History (Chronic Problems): Chronic Problems (Last Updated 08/29/17 @ 10:33 by Karon Nick) Ulcer of left lower extremity with fat layer exposed (Chronic) Type 2 diabetes mellitus with diabetic polyneuropathy (Chronic) Foot ulcer with fat layer exposed (Chronic) Onycholysis (Chronic) Tinea unguium (Chronic) Ulcer of left lower extremity with fat layer exposed (Chronic) Pacemaker (Chronic) Atherosclerosis of [place] coronary artery of [place] heart without angina pectoris (Chronic) MOULTON to LAD, SVG to circumflex, and SVG to RCA in 1986 PVCs (premature ventricular contractions) (Chronic) Left ventricular failure (Chronic) Fatigue (Chronic) Edema (Chronic) Palpitations (Chronic) Peripheral vascular disease (Chronic) ASHD (arteriosclerotic heart disease) (Chronic) Automatic implantable cardiac defibrillator in situ (Chronic) ICD implant: 02/2010 HLD (hyperlipidemia) (Chronic) HTN (hypertension) (Chronic) Atherosclerosis 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 [facility] 1987, 01/29/2010, 02/24. Ischemic cardiomyopathy (Chronic) Paroxysmal ventricular tachycardia (Chronic) H/O coronary artery bypass surgery (Chronic) CABG MOULTON graft to anterior descending, saphenous vein graft to CFX, saphenous vein graft to RCA 1986. 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) Open wound of lower extremity without complication (Chronic) Chronic renal insufficiency, stage III (moderate) (Chronic) PAOD (peripheral arterial occlusive disease) (Chronic) Allergies cyclobenzaprine HCl [From Flexeril] Allergy (Verified 11/21/17 12:35) Rash latex Allergy (Verified 11/21/17 12:35) Swelling Penicillins Allergy (Verified 11/21/17 12:35) Rash Sulfa (Sulfonamide Antibiotics) Allergy (Verified 11/21/17 12:35) Rash erythromycin base Adverse Reaction (Mild, Verified 11/21/17 12:35) Hives acetaminophen [From Percocet] Adverse Reaction (Verified 11/21/17 12:35) Other HALLUCINATES oxycodone [From Percocet] Adverse Reaction (Verified 11/21/17 12:35) Other HALLUCINATES tetracycline Adverse Reaction (Verified 11/21/17 12:35) Hives iv dye Adverse Reaction (Uncoded 11/21/17 12:35) only has 1 kidney Home Medications: Ambulatory Orders Medication Instructions Recorded Baclofen 10 mg PO DAILY 08/31/17 Apixaban [Eliquis] 5 mg PO BID 11/21/17 Aspirin [Aspirin, Baby] 81 mg PO DAILY@0800 11/21/17 Carvedilol [Coreg] 25 mg PO BID 11/21/17 Doxazosin Mesylate [Cardura Xl] 4 mg PO BID 11/21/17 Ergocalciferol [Vitamin D] 50,000 unit PO Q7D 11/21/17 Escitalopram Oxalate [Lexapro] 20 mg PO DAILY 11/21/17 Finasteride [Proscar] 5 mg PO DAILY 11/21/17 Furosemide [Lasix] 40 mg PO BIDLX 11/21/17 Insulin Glargine,Hum.rec.anlog 60 unit SQ BID 11/21/17 [Lantus] Insulin Lispro Protamin/Lispro 40 unit SQ TID 11/21/17 [Humalog Mix 75-25 Kwikpen] Potassium Chloride [K-Dur] 20 meq PO DAILY 11/21/17 Prednisone 5 mg PO DAILY 11/21/17 Surgical History: coronary bypass surgery, pacemaker implantation, TURP Lives: Spouse/ Significant Other Smoking Status: Former smoker Tobacco Use: Non-smoker Alcohol: None Drugs: None - *Family History Maternal History Items: No pertinent history Paternal History Items: Heart Disease, No pertinent history Review of Systems Constitutional: Reports: Fever. Denies: Anorexia, Chills Eyes: Denies: Blurred vision, Double vision HEENT: Denies: Head Aches, Sinus Congestion, Sinus Drainage Cardiovascular: Reports: Edema. Denies: Chest Pain Respiratory: Denies: Cough, Shortness of Breath Gastrointestinal: Denies: Abdominal Pain, Constipation, Diarrhea, Hematemesis, Hematochezia Genitourinary: Reports: - - Abbott catheter placed in the emergency room.. Denies: Dysuria, Hematuria, Hesitancy Musculoskeletal: Denies: Arm Pain, Back Pain, Foot Pain, Hand Pain Skin: Denies: Dryness, Jaundice Neurological: Reports: - - Confusion. Denies: Focal weakness, Numbness, Tingling Psychiatric: Denies: Anxiety, Depression Endocrine: Reports: Change in Body Habitus - Patient is put on 10 pounds in the past 3-4 weeks. Denies: Heat/ Cold Intolerance Hematologic/ Lymphatic: Reports: Hx of blood clot. Denies: Easy Bruising, Easy Bleeding VTE Information - Inpt Only VTE Present on Admission: No VTE Pharm Prophylaxis ordered?: No Reason prophylaxis not ordered:: Medical Contraindication Patient Problems: Active and Suspected Problems (Last Updated 08/29/17 @ 10:33 by Karon Nick) Metabolic encephalopathy (Acute) UTI (urinary tract infection) (Acute) - Physical Exam General: Alert, Cooperative, No apparent distress, - - Oriented ?2 HEENT: Atraumatic, PERRLA, Normocephalic, - - No icterus Oral: Moist Mucosa, - - soft pallets erythema Lungs: Clear to auscultation, Normal air movement, No rhonchi, No wheeze Cardiovascular: Regular rate, Regular Rhythm, Normal S1, Normal S2, No murmurs Abdomen: Bowel Sounds Present, Soft, Non Tender, Non-Distended, No Hepato-splenomegaly Extremities: No Calf Tenderness, Edema - 3+ Skin: No rashes, - - His stasis ulcers on the distal left calf the right forefoot. Petechial rash just underneath the left knee. Musculoskeletal: No Tenderness to Palpation of Joints or Extremities, No Muscle Wasting Neurological: Neuro grossly intact, Muscle tone normal Psych/Mental Status: Normal Affect, Appropriate Vital Signs Temp Pulse Resp BP Pulse Ox 37.7 C H 88 22 H 101/58 L 99 11/21/17 15:54 11/21/17 15:54 11/21/17 15:54 11/21/17 15:54 11/21/17 15:54 Oxygen Flow Rate (L/min) 2 Oxygen Delivery Method Nasal Cannula Weight: 105.2 kg Body Mass Index (BMI) 35.2 Finger Stick Blood Glucose 357 Laboratory Tests Past 24 Hrs 11/21/17 11/21/17 11/21/17 12:40 12:40 12:40 WBC 11.9 H RBC 3.90 L Hgb 10.6 L Hct 34.3 L MCV 87.9 MCH 27.2 MCHC 30.9 L RDW 15.4 H RDW Differential 49.6 H Plt Count 120 L MPV 10.1 Immature Gran % (Auto) 0.700 Neut % (Auto) 88.0 H Lymph % (Auto) 4.5 L [place] % (Auto) 6.0 Eos % (Auto) 0.5 Baso % (Auto) 0.3 Absolute Neuts (auto) 10.5 H Absolute Lymphs (auto) 0.53 L Total Counted Not Reportable PT 19.0 H INR 1.6 APTT 30.7 Sodium 146 H Potassium 3.1 L Chloride 107 Carbon Dioxide 31.0 Anion Gap 8 BUN 29 H Creatinine 1.51 H Estim Creat Clear Calc 39.64 Est GFR (MDRD) Af Amer 58 L Est GFR (MDRD) Non-Af 48 L BUN/Creatinine Ratio 19.2 Glucose 109 H Lactic Acid Calcium 9.4 Total Bilirubin 0.60 AST 12 L ALT 22 Alkaline Phosphatase 46 Total Protein 6.3 L Albumin 3.1 L Globulin 3.2 Albumin/Globulin Ratio 1.0 Urine Color Urine Clarity Urine pH Ur Specific [place] Urine Protein Urine Glucose (UA) Urine Ketones Urine Occult Blood Urine Nitrite Urine Bilirubin Urine Urobilinogen Ur Leukocyte Esterase Urine RBC Urine WBC Ur Squamous Epith Cells Urine Bacteria Urine Mucus 11/21/17 11/21/17 12:40 13:35 WBC RBC Hgb Hct MCV MCH MCHC RDW RDW Differential Plt Count MPV Immature Gran % (Auto) Neut % (Auto) Lymph % (Auto) [place] % (Auto) Eos % (Auto) Baso % (Auto) Absolute Neuts (auto) Absolute Lymphs (auto) Total Counted PT INR APTT Sodium Potassium Chloride Carbon Dioxide Anion Gap BUN Creatinine Estim Creat Clear Calc Est GFR (MDRD) Af Amer Est GFR (MDRD) Non-Af BUN/Creatinine Ratio Glucose Lactic Acid 2.1 H Calcium Total Bilirubin AST ALT Alkaline Phosphatase Total Protein Albumin Globulin Albumin/Globulin Ratio Urine Color Yellow Urine Clarity Sl. Cloudy Urine pH 5.0 Ur Specific [place] 1.015 Urine Protein 15 H Urine Glucose (UA) Normal Urine Ketones Negative Urine Occult Blood 10 H Urine Nitrite Negative Urine Bilirubin Negative Urine Urobilinogen Normal Ur Leukocyte Esterase 500 H Urine RBC 0-5 SEEN Urine WBC 25-50 SEEN Ur Squamous Epith Cells 0-5 SEEN Urine Bacteria 0 SEEN Urine Mucus 0 SEEN EKG reviewed and showed normal sinus rhythm with first-degree AV block Chest x-ray reviewed and showed hypoventilatory film questionable infiltrate versus atelectasis in left lower lobe but this is obscured due to the patient's pacemaker. Unchanged from October 29 of this year. Assessment/Plan Active and Suspected Problems (Last Updated 08/29/17 @ 10:33 by Karon Nick) Metabolic encephalopathy (Acute) UTI (urinary tract infection) (Acute) 1. Metabolic encephalopathy Presumably due to an underlying infection Will monitor and assess for any decline. I do not feel that a stroke workup is necessary at this time. 2. UTI Urinalysis was equivocal but the patient be treated for potential urinary tract infection nonetheless Rocephin Follow-up urine culture and blood cultures. 3. Petechial rash It is slightly warm but does not confluence is to suggest cellulitis at this time. Could be a viral exanthem but will monitor for any change. 4. Debility Patient has a poor performance status at baseline Will ask for physical and occupational therapy to evaluate the patient 5. Venous stasis ulcers Will monitor but he will have wound care evaluate. No evidence of any infection at this time. 6. Venous thromboembolic disease Continue with Eliquis 7. CODE STATUS Addressed with the patient and his daughter, patient is DNR Comfort Care arrest at this time. 8. Elevated lactic acid Will monitor and reassess. Code Visit Inpatient E&M: 87520 Init Hosp L3
--- NOTE | 2017-11-21 16:26 | HP.PCM_ITS ---
Problem List (1) Metabolic encephalopathy Status: Acute (2) UTI (urinary tract infection) Status: Acute Qualifiers: Urinary tract infection type: acute cystitis Hematuria presence: without hematuria Qualified Code(s): N30.00 - Acute cystitis without hematuria (3) Paroxysmal ventricular tachycardia Status: Chronic (4) Benign hypertension Status: Chronic (5) BPH (benign prostatic hypertrophy) with urinary obstruction Status: Chronic (6) CAD (coronary artery disease) Status: Chronic (7) Pacemaker Status: Chronic (8) COPD (chronic obstructive pulmonary disease) Status: Chronic (9) Type II diabetes mellitus Status: Chronic (10) HLD (hyperlipidemia) Status: Chronic Qualifiers: (11) Hypothyroidism Status: Chronic (12) Ischemic cardiomyopathy Status: Chronic (13) Diabetes mellitus type 2, uncontrolled, with complications Status: Chronic (14) Lymphedema of both lower extremities Status: Chronic (15) 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 She called her daughter who arrived and noted patient just was more listless today and sent the patient to the emergency room. In the emergency room, patient was noted to have a fever of 38.2 with respiratory rate as high as 23. White count was 11.9. Patient did have a lactic acid come back at 2.1. Patient had a chest x-ray that was equivocal and a urinalysis also that was equivocal. Patient received ceftriaxone and Rocephin to cover both pulmonary as well as a urinary source. Given the patient's change in mental status and unclear etiology of infection patient is being admitted for further evaluation and workup. [] Past Medical History Past Medical History (Chronic Problems): Chronic Problems (Last Updated 08/29/17 @ 10:33 by Karon Nick) Ulcer of left lower extremity with fat layer exposed (Chronic) Type 2 diabetes mellitus with diabetic polyneuropathy (Chronic) Foot ulcer with fat layer exposed (Chronic) Onycholysis (Chronic) Tinea unguium (Chronic) Ulcer of left lower extremity with fat layer exposed (Chronic) Pacemaker (Chronic) Atherosclerosis of [place] coronary artery of [place] heart without angina pectoris (Chronic) MOULTON to LAD, SVG to circumflex, and SVG to RCA in 1986 PVCs (premature ventricular contractions) (Chronic) Left ventricular failure (Chronic) Fatigue (Chronic) Edema (Chronic) Palpitations (Chronic) Peripheral vascular disease (Chronic) ASHD (arteriosclerotic heart disease) (Chronic) Automatic implantable cardiac defibrillator in situ (Chronic) ICD implant: 02/2010 HLD (hyperlipidemia) (Chronic) HTN (hypertension) (Chronic) Atherosclerosis of coronary artery bypass graft without angina pectoris (Chronic ) CABG MOULTON graft to anterior descending, saphenous vein graft to CFX, saphenous vein graft to RCA 1986. [facility] 1987, 01/29/2010, 02/24. Ischemic cardiomyopathy (Chronic) Paroxysmal ventricular tachycardia (Chronic) H/O coronary artery bypass surgery (Chronic) CABG MOULTON graft to anterior descending, saphenous vein graft to CFX, saphenous vein graft to RCA 1986. 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) Open wound of lower extremity without complication (Chronic) Chronic renal insufficiency, stage III (moderate) (Chronic) PAOD (peripheral arterial occlusive disease) (Chronic) Allergies cyclobenzaprine HCl [From Flexeril] Allergy (Verified 11/21/17 12:35) Rash latex Allergy (Verified 11/21/17 12:35) Swelling Penicillins Allergy (Verified 11/21/17 12:35) Rash Sulfa (Sulfonamide Antibiotics) Allergy (Verified 11/21/17 12:35) Rash erythromycin base Adverse Reaction (Mild, Verified 11/21/17 12:35) Hives acetaminophen [From Percocet] Adverse Reaction (Verified 11/21/17 12:35) Other HALLUCINATES oxycodone [From Percocet] Adverse Reaction (Verified 11/21/17 12:35) Other HALLUCINATES tetracycline Adverse Reaction (Verified 11/21/17 12:35) Hives iv dye Adverse Reaction (Uncoded 11/21/17 12:35) only has 1 kidney Home Medications: Ambulatory Orders Medication Instructions Recorded Baclofen 10 mg PO DAILY 08/31/17 Apixaban [Eliquis] 5 mg PO BID 11/21/17 Aspirin [Aspirin, Baby] 81 mg PO DAILY@0800 11/21/17 Carvedilol [Coreg] 25 mg PO BID 11/21/17 Doxazosin Mesylate [Cardura Xl] 4 mg PO BID 11/21/17 Ergocalciferol [Vitamin D] 50,000 unit PO Q7D 11/21/17 Escitalopram Oxalate [Lexapro] 20 mg PO DAILY 11/21/17 Finasteride [Proscar] 5 mg PO DAILY 11/21/17 Furosemide [Lasix] 40 mg PO BIDLX 11/21/17 Insulin Glargine,Hum.rec.anlog 60 unit SQ BID 11/21/17 [Lantus] Insulin Lispro Protamin/Lispro 40 unit SQ TID 11/21/17 [Humalog Mix 75-25 Kwikpen] Potassium Chloride [K-Dur] 20 meq PO DAILY 11/21/17 Prednisone 5 mg PO DAILY 11/21/17 Surgical History: coronary bypass surgery, pacemaker implantation, TURP Lives: Spouse/ Significant Other Smoking Status: Former smoker Tobacco Use: Non-smoker Alcohol: None Drugs: None - *Family History Maternal History Items: No pertinent history Paternal History Items: Heart Disease, No pertinent history Review of Systems Constitutional: Reports: Fever. Denies: Anorexia, Chills Eyes: Denies: Blurred vision, Double vision HEENT: Denies: Head Aches, Sinus Congestion, Sinus Drainage Cardiovascular: Reports: Edema. Denies: Chest Pain Respiratory: Denies: Cough, Shortness of Breath Gastrointestinal: Denies: Abdominal Pain, Constipation, Diarrhea, Hematemesis, Hematochezia Genitourinary: Reports: - - Abbott catheter placed in the emergency room.. Denies: Dysuria, Hematuria, Hesitancy Musculoskeletal: Denies: Arm Pain, Back Pain, Foot Pain, Hand Pain Skin: Denies: Dryness, Jaundice Neurological: Reports: - - Confusion. Denies: Focal weakness, Numbness, Tingling Psychiatric: Denies: Anxiety, Depression Endocrine: Reports: Change in Body Habitus - Patient is put on 10 pounds in the past 3-4 weeks. Denies: Heat/ Cold Intolerance Hematologic/ Lymphatic: Reports: Hx of blood clot. Denies: Easy Bruising, Easy Bleeding VTE Information - Inpt Only VTE Present on Admission: No VTE Pharm Prophylaxis ordered?: No Reason prophylaxis not ordered:: Medical Contraindication Patient Problems: Active and Suspected Problems (Last Updated 08/29/17 @ 10:33 by Karon Nick) Metabolic encephalopathy (Acute) UTI (urinary tract infection) (Acute) - Physical Exam General: Alert, Cooperative, No apparent distress, - - Oriented ?2 HEENT: Atraumatic, PERRLA, Normocephalic, - - No icterus Oral: Moist Mucosa, - - soft pallets erythema Lungs: Clear to auscultation, Normal air movement, No rhonchi, No wheeze Cardiovascular: Regular rate, Regular Rhythm, Normal S1, Normal S2, No murmurs Abdomen: Bowel Sounds Present, Soft, Non Tender, Non-Distended, No Hepato- splenomegaly Extremities: No Calf Tenderness, Edema - 3+ Skin: No rashes, - - His stasis ulcers on the distal left calf the right forefoot. Petechial rash just underneath the left knee. Musculoskeletal: No Tenderness to Palpation of Joints or Extremities, No Muscle Wasting Neurological: Neuro grossly intact, Muscle tone normal Psych/Mental Status: Normal Affect, Appropriate Vital Signs Temp Pulse Resp BP Pulse Ox 37.7 C H 88 22 H 101/58 L 99 11/21/17 15:54 11/21/17 15:54 11/21/17 15:54 11/21/17 15:54 11/21/17 15:54 Oxygen Flow Rate (L/min) 2 Oxygen Delivery Method Nasal Cannula Weight: 105.2 kg Body Mass Index (BMI) 35.2 Finger Stick Blood Glucose 357 Laboratory Tests Past 24 Hrs 11/21/17 11/21/17 11/21/17 12:40 12:40 12:40 WBC 11.9 H RBC 3.90 L Hgb 10.6 L Hct 34.3 L MCV 87.9 MCH 27.2 MCHC 30.9 L RDW 15.4 H RDW Differential 49.6 H Plt Count 120 L MPV 10.1 Immature Gran % (Auto) 0.700 Neut % (Auto) 88.0 H Lymph % (Auto) 4.5 L [place] % (Auto) 6.0 Eos % (Auto) 0.5 Baso % (Auto) 0.3 Absolute Neuts (auto) 10.5 H Absolute Lymphs (auto) 0.53 L Total Counted Not Reportable PT 19.0 H INR 1.6 APTT 30.7 Sodium 146 H Potassium 3.1 L Chloride 107 Carbon Dioxide 31.0 Anion Gap 8 BUN 29 H Creatinine 1.51 H Estim Creat Clear Calc 39.64 Est GFR (MDRD) Af Amer 58 L Est GFR (MDRD) Non-Af 48 L BUN/Creatinine Ratio 19.2 Glucose 109 H Lactic Acid Calcium 9.4 Total Bilirubin 0.60 AST 12 L ALT 22 Alkaline Phosphatase 46 Total Protein 6.3 L Albumin 3.1 L Globulin 3.2 Albumin/Globulin Ratio 1.0 Urine Color Urine Clarity Urine pH Ur Specific [place] Urine Protein Urine Glucose (UA) Urine Ketones Urine Occult Blood Urine Nitrite Urine Bilirubin Urine Urobilinogen Ur Leukocyte Esterase Urine RBC Urine WBC Ur Squamous Epith Cells Urine Bacteria Urine Mucus 11/21/17 11/21/17 12:40 13:35 WBC RBC Hgb Hct MCV MCH MCHC RDW RDW Differential Plt Count MPV Immature Gran % (Auto) Neut % (Auto) Lymph % (Auto) [place] % (Auto) Eos % (Auto) Baso % (Auto) Absolute Neuts (auto) Absolute Lymphs (auto) Total Counted PT INR APTT Sodium Potassium Chloride Carbon Dioxide Anion Gap BUN Creatinine Estim Creat Clear Calc Est GFR (MDRD) Af Amer Est GFR (MDRD) Non-Af BUN/Creatinine Ratio Glucose Lactic Acid 2.1 H Calcium Total Bilirubin AST ALT Alkaline Phosphatase Total Protein Albumin Globulin Albumin/Globulin Ratio Urine Color Yellow Urine Clarity Sl. Cloudy Urine pH 5.0 Ur Specific [place] 1.015 Urine Protein 15 H Urine Glucose (UA) Normal Urine Ketones Negative Urine Occult Blood 10 H Urine Nitrite Negative Urine Bilirubin Negative Urine Urobilinogen Normal Ur Leukocyte Esterase 500 H Urine RBC 0-5 SEEN Urine WBC 25-50 SEEN Ur Squamous Epith Cells 0-5 SEEN Urine Bacteria 0 SEEN Urine Mucus 0 SEEN EKG reviewed and showed normal sinus rhythm with first-degree AV block Chest x-ray reviewed and showed hypoventilatory film questionable infiltrate versus atelectasis in left lower lobe but this is obscured due to the patient's pacemaker. Unchanged from October 29 of this year. Assessment/Plan Active and Suspected Problems (Last Updated 08/29/17 @ 10:33 by Karon Nick) Metabolic encephalopathy (Acute) UTI (urinary tract infection) (Acute) 1. Metabolic encephalopathy * Presumably due to an underlying infection * Will monitor and assess for any decline. * I do not feel that a stroke workup is necessary at this time. 2. UTI * Urinalysis was equivocal but the patient be treated for potential urinary tract infection nonetheless * Rocephin * Follow-up urine culture and blood cultures. 3. Petechial rash * It is slightly warm but does not confluence is to suggest cellulitis at this time. * Could be a viral exanthem but will monitor for any change. 4. Debility * Patient has a poor performance status at baseline * Will ask for physical and occupational therapy to evaluate the patient 5. Venous stasis ulcers * Will monitor but he will have wound care evaluate. No evidence of any infection at this time. 6. Venous thromboembolic disease * Continue with Eliquis 7. CODE STATUS * Addressed with the patient and his daughter, patient is DNR Comfort Care arrest at this time. 8. Elevated lactic acid * Will monitor and reassess. Code Visit Inpatient E&M: [id number] Init Hosp L3
[2017-11-21 16:56] LABS: Reflex Lactate? Y
[2017-11-21] MEDS: Furosemide 40 MG Tablet PO (17:56)
[2017-11-21] MEDS: Acetaminophen 325 MG Tablet 650 MG PO (17:56)
[2017-11-21 19:40] LABS: Lactic Acid 2.9 mmol/L (0.4-2.0)
[2017-11-21] MEDS: Doxazosin 4 MG Tablet PO (22:14)
[2017-11-21] MEDS: Carvedilol 25 MG Tablet PO (22:14)
[2017-11-21] MEDS: APIXABAN 5 MG TABLET PO (22:14)
[2017-11-21 22:21] LABS: Bedside Glucose 139 mg/dL (70-110)
[2017-11-21 22:59] LABS: Reflex Lactate? Y
[2017-11-21 23:23] LABS: Lactic Acid 1.5 mmol/L (0.4-2.0)
[2017-11-22] MEDS: Acetaminophen 325 MG Tablet 650 MG PO ×3 (02:12→23:05)
[2017-11-22 02:14] VITALS: BP 137/69; PULSE 92; RESP 20; TEMP 36.7; O2SAT 100
[2017-11-22 05:16] LABS: Bedside Glucose 54 mg/dL (70-110)
[2017-11-22 05:36] LABS: Bedside Glucose 84 mg/dL (70-110)
[2017-11-22 06:50] LABS: Absolute Lymphocyte Count 0.78 X10^3/ul (0.83-4.51); Absolute Neutrophil Count 7.8 X10^3/uL (2.0-7.7); Basophil# 0.01 X10^3/uL; Basophil% 0.1 % (0-1); Eosinophil# 0.03 X10^3/uL; Eosinophils% 0.3 % (0-5); Hematocrit 32.7 % (40-54); Lymphocyte # 0.78 X10^3/ul (4.0); Lymphocyte % 8.5 % (19-41); Mean Corp Hgb Conc 30.6 g/gl (32-36); Mean Corpuscular Hgb 27.2 pg (27.0-32.0); Mean Corpuscular Volume 88.9 fL (80-94); Mean Platelet Vol. 10.2 fl (6.2-12.0); Monocyte% 5.4 % (0-10); Neutrophil # 7.84 X10^3/uL (2.7-7.7); Neutrophil % 84.9 % (47-70); Platelet Count 109 K/mm3 (150-450); RBC Distribution Width CV 15.6 % (11.6-14.6); Red Blood Count 3.68 M/mm3 (4.6-6.2); White Blood Count 9.2 K/mm3 (4.4-11.0)
[2017-11-22 06:52] LABS: Anion Gap 5 (5-15); BUN 25 mg/dL (7-18); BUN/Creat Ratio 18.2 RATIO (10-20); Calcium,Total 9.6 mg/dL (8.5-10.1); Chloride 105 mmol/L (98-107); Creatinine, Serum 1.37 mg/dL (0.70-1.30); EST Glomerular Filtration Rate 54 mL/min (>60); Est Glom Filt Rate - Afr Amer 65 mL/min (>60); Estimated Creatinine Clearance 43.69 ml/min; Glucose 67 mg/dL (74-106); Potassium 3.4 mmol/L (3.5-5.1); Sodium Level 143 mmol/L (136-145)
[2017-11-22 07:02] LABS: POSITIVE COUNT NO; POSITIVE DIFFERENTIAL NO; POSITIVE MORPHOLOGY NO
[2017-11-22] MEDS: Aspirin 81 MG TAB.CHEW PO (08:13)
[2017-11-22] MEDS: predniSONE 5 MG Tablet PO (08:14)
--- NOTE | 2017-11-22 08:19 | NURSING ---
wound photo: right lower leg
--- NOTE | 2017-11-22 08:20 | NURSING ---
wound photo: left anterior lower leg
--- NOTE | 2017-11-22 08:20 | NURSING ---
wound photo: left posterior lower leg
[2017-11-22 08:40] VITALS: BP 122/71; PULSE 89; RESP 18; TEMP 36.6; O2SAT 93
--- NOTE | 2017-11-22 09:53 | PN_ITS ---
Patient Problems: Active and Suspected Problems (Last Updated 08/29/17 @ 10:33 by Karon Nick) Metabolic encephalopathy (Acute) UTI (urinary tract infection) (Acute) Subjective: The patient is more awake and alert today. The patient is oriented to time place and person. No fever. Patient had Abbott catheter in the ER; exact indication unclear probably for urine collection with mild hematuria and blood clots; as per the nursing staff. Patient has BPH and lower urinary tract symptoms of urgency for long time. He also has incontinence. Patient having pericatheter urine leak and perineal region is wet. 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 Petechial rash was noticed in the legs. Patient follows Dr. balderas at the wound healing center. Patient does have lymphedema pumps at home and wears compression wraps most of the time. Patient had a scattered skin tear on right dorsal foot and abrasion on the right lateral simon. Vitals/I&O's: Vital Signs Temp Pulse Resp BP Pulse Ox 97.9 F 89 18 122/71 H 93 11/22/17 08:40 11/22/17 08:40 11/22/17 08:40 11/22/17 08:40 11/22/17 08:40 Oxygen Flow Rate (L/min) 2 Oxygen Delivery Method Room Air Weight: 223 lb 1.725 oz Body Mass Index (BMI) 33.7 Intake and Output for Last 24 Hours 11/20/17 11/21/17 11/22/17 23:59 23:59 23:59 Intake Total 2191 / 2191 Output Total 950 / 950 Balance 1241 / 1241 General: Alert, Oriented x3, Cooperative HEENT: Atraumatic, PERRLA, EOMI, Normocephalic Neck: Supple, No JVD, Negative Carotid Bruits Lungs: No rhonchi, No wheeze, Diminished Cardiovascular: Regular rate, Regular Rhythm, Normal S1, Normal S2, No murmurs, - - AICD Abdomen: Bowel Sounds Present, Soft, Non Tender, Non-Distended Extremities: Capillary Refill Less than 3 Seconds, Edema Skin: Skin Tear, Rash Present - Petechial rash Musculoskeletal: Arthritic Changes, Muscle Wasting Neurological: Cranial nerves II-XII grossly intact, Neuro grossly intact Psych/Mental Status: Normal Affect, Appropriate Laboratory Results 11/21/17 18:47: Lactic Acid 2.9 H 11/21/17 22:11: POC Glucose 139 H 11/21/17 22:50: Lactic Acid 1.5 11/22/17 04:53: POC Glucose 54 L 11/22/17 05:29: POC Glucose 84 11/22/17 06:20: Sodium 143, Potassium 3.4 L, Chloride 105, Carbon Dioxide 33.0 H , Anion Gap 5, BUN 25 H, Creatinine 1.37 H, Estim Creat Clear Calc 43.69, Est GFR (MDRD) Af Amer 65, Est GFR (MDRD) Non-Af 54 L, BUN/Creatinine Ratio 18.2, Glucose 67 L, Calcium 9.6 11/22/17 06:27: WBC 9.2, RBC 3.68 L, Hgb 10.0 L, Hct 32.7 L, MCV 88.9, MCH 27.2 , MCHC 30.6 L, RDW 15.6 H, RDW Differential 50.0 H, Plt Count 109 L, MPV 10.2, Immature Gran % (Auto) 0.800, Neut % (Auto) 84.9 H, Lymph % (Auto) 8.5 L, Ventura % (Auto) 5.4, Eos % (Auto) 0.3, Baso % (Auto) 0.1, Absolute Neuts (auto) 7.8 H, Absolute Lymphs (auto) 0.78 L, Total Counted Not Reportable Current Medications Acetaminophen (Tylenol) 650 mg PO Q6H PRN PRN PRN Reason: Mild Pain (1-3)/Temp > 100.7 F Last Admin: 11/22/17 02:12 Dose: 650 mg Apixaban (Eliquis) 5 mg PO BID [facility] Last Admin: 11/21/17 22:14 Dose: 5 mg Aspirin (Aspirin, Baby) 81 mg PO DAILY@0800 [facility] Last Admin: 11/22/17 08:13 Dose: 81 mg Baclofen (Lioresal) 10 mg PO DAILY [facility] Carvedilol (Coreg) 25 mg PO BID [facility] Last Admin: 11/21/17 22:14 Dose: 25 mg Doxazosin Mesylate (Cardura) 4 mg PO BID [facility] Last Admin: 11/21/17 22:14 Dose: 4 mg Ergocalciferol (Vitamin D) 50,000 unit PO Q7D [facility] Last Admin: 11/22/17 08:16 Dose: 50,000 unit Escitalopram Oxalate (Lexapro) 20 mg PO DAILY [facility] Finasteride (Proscar) 5 mg PO DAILY [facility] Furosemide (Lasix) 40 mg PO BIDLX [facility] Last Admin: 11/21/17 17:56 Dose: 40 mg Ceftriaxone Sodium (Rocephin) 1 gm in 50 mls @ 100 mls/hr IV Q24 [facility] Insulin Aspart (Novolog Mix 70-30 Flexpen Syrn) 40 units SC TIDCM [facility] Last Admin: 11/22/17 08:15 Dose: 40 u Insulin Detemir (Levemir (Bkc)) 60 units SC BID [facility] Last Admin: 11/21/17 22:15 Dose: 30 unit Magnesium Hydroxide (Milk Of Magnesia) 30 ml PO DAILY PRN PRN PRN Reason: Constipation Ondansetron HCl (Zofran) 4 mg IV Q8H PRN PRN PRN Reason: NAUSEA Potassium Chloride (K-Dur) 20 meq PO DAILY [facility] Prednisone () 5 mg PO DAILY@0800 [facility] Last Admin: 11/22/17 08:14 Dose: 5 mg Sodium Chloride () 5 - 30 ml IV UD PRN PRN Reason: SALINE FLUSH Medical Necessity - Tobacco Use Smoking Status: Former smoker Tobacco Use: Non-smoker Assessment/Plan Active and Suspected Problems (Last Updated 08/29/17 @ 10:33 by Karon Nick) Metabolic encephalopathy (Acute) UTI (urinary tract infection) (Acute) This is a 77 gentleman with multiple comorbidities as listed above was admitted for confusion, altered mental status and restlessness through the emergency room. Patient was noted to have fever, T 38.2?C, RR 23/min, mild leukocytosis 11.9 thousand and lactic acidosis 2.1. Patient is on ceftriaxone. He was further admitted on the regular [facility] floor. 1. Acute metabolic/infectious encephalopathy * Presumably due to an underlying infection * No further stroke workup required. 2. SIRS (fever, T 38.2?C, RR 23/min, mild leukocytosis 11.9 thousand and lactic acidosis 2.1, 2.9) with sepsis due to UTI and gram-negative rods bacteremia * Urinalysis was pyuria and LE but negative nitrite. * Rocephin increased to 1 g every 12 hourly. * Follow-up urine culture and blood cultures. * Suspicion of left lower lobe community acquired pneumonia: There is worsening of infiltrate on the left lower lung as compared to August 29, 2017. This might be atelectatic band too. For suspicion, Zithromax was added. Urinary antigens ordered. Flu test ordered. 3. Petechial rash is clearly from mild thrombocytopenia * It is slightly warm but does not confluence is to suggest cellulitis at this time. * Could be a viral exanthem but will monitor for any change/due to mild thrombocytopenia platelet count is 109,000. 4. Debility * Patient has a poor performance status at baseline * PT and OT 5. Venous stasis ulcers with lymphedema and stasis dermatitis * Seen by Lisa wound nurse.. No evidence of any infection at this time. Wound dressing advised with hydrogel and Adaptic 6. Lower extremities peripheral arterial disease AND venous thromboembolic disease Patient is lower extremities arterial study in February 2016 which showed evidence of arterial calcification bilaterally and resting MADHURI cannot be calculated. Biphasic waveforms were noted at ankle level bilaterally. Digital brachial indices are moderately to severely diminished consistent with moderate to severe arterial occlusive disease in lower extremities bilaterally. * Continue with Eliquis. If significant hematuria, can discontinue Eliquis. 7. Cardiovascular disease: Coronary artery disease status post CABG, chronic combined systolic and diastolic heart failure status post AICD: Patient had echo in November 2014 which showed mildly dilated left ventricle, EF 50%, mild segmental systolic dysfunction, LA moderately enlarged with mild concentric LVH Diabetes mellitus type 2: Patient is running low blood sugar, 67 in BMP today. Will hold Levemir and NPH insulin. On coverage sliding scale NovoLog insulin. a1c jesus CODE STATUS * patient is DNR Comfort Care arrest at this time. Microbiology Past 72 Hours 11/21/17 12:40 Blood Culture (Wb) - Left Forearm Blood Culture - Preliminary Laboratory Results 11/21/17 12:40: WBC 11.9 H, RBC 3.90 L, Hgb 10.6 L, Hct 34.3 L, MCV 87.9, MCH 27.2, MCHC 30.9 L, RDW 15.4 H, RDW Differential 49.6 H, Plt Count 120 L, MPV 10.1, Immature Gran % (Auto) 0.700, Neut % (Auto) 88.0 H, Lymph % (Auto) 4.5 L, Ventura % (Auto) 6.0, Eos % (Auto) 0.5, Baso % (Auto) 0.3, Absolute Neuts (auto) 10.5 H, Absolute Lymphs (auto) 0.53 L, Total Counted Not Reportable 11/21/17 12:40: PT 19.0 H, INR 1.6, APTT 30.7 11/21/17 12:40: Sodium 146 H, Potassium 3.1 L, Chloride 107, Carbon Dioxide 31.0 , Anion Gap 8, BUN 29 H, Creatinine 1.51 H, Estim Creat Clear Calc 39.64, Est GFR (MDRD) Af Amer 58 L, Est GFR (MDRD) Non-Af 48 L, BUN/Creatinine Ratio 19.2, Glucose 109 H, Calcium 9.4, Total Bilirubin 0.60, AST 12 L, ALT 22, Alkaline Phosphatase 46, Total Protein 6.3 L, Albumin 3.1 L, Globulin 3.2, Albumin/ Globulin Ratio 1.0 11/21/17 12:40: Lactic Acid 2.1 H 11/21/17 13:35: Urine Color Yellow, Urine Clarity Sl. Cloudy, Urine pH 5.0, Ur Specific Hoyt 1.015, Urine Protein 15 H, Urine Glucose (UA) Normal, Urine Ketones Negative, Urine Occult Blood 10 H, Urine Nitrite Negative, Urine Bilirubin Negative, Urine Urobilinogen Normal, Ur Leukocyte Esterase 500 H, Urine RBC 0-5 SEEN, Urine WBC 25-50 SEEN, Ur Squamous Epith Cells 0-5 SEEN, Urine Bacteria 0 SEEN, Urine Mucus 0 SEEN 11/21/17 18:47: Lactic Acid 2.9 H 11/21/17 22:11: POC Glucose 139 H 11/21/17 22:50: Lactic Acid 1.5 11/22/17 04:53: POC Glucose 54 L 11/22/17 05:29: POC Glucose 84 11/22/17 06:20: Sodium 143, Potassium 3.4 L, Chloride 105, Carbon Dioxide 33.0 H , Anion Gap 5, BUN 25 H, Creatinine 1.37 H, Estim Creat Clear Calc 43.69, Est GFR (MDRD) Af Amer 65, Est GFR (MDRD) Non-Af 54 L, BUN/Creatinine Ratio 18.2, Glucose 67 L, Calcium 9.6 11/22/17 06:27: WBC 9.2, RBC 3.68 L, Hgb 10.0 L, Hct 32.7 L, MCV 88.9, MCH 27.2 , MCHC 30.6 L, RDW 15.6 H, RDW Differential 50.0 H, Plt Count 109 L, MPV 10.2, Immature Gran % (Auto) 0.800, Neut % (Auto) 84.9 H, Lymph % (Auto) 8.5 L, Ventura % (Auto) 5.4, Eos % (Auto) 0.3, Baso % (Auto) 0.1, Absolute Neuts (auto) 7.8 H, Absolute Lymphs (auto) 0.78 L, Total Counted Not Reportable Clinical Impression(s) from Imaging Studies Chest X-Ray 11/21/17 12:50 IMPRESSION: Findings suggesting bibasilar atelectasis and/or infiltrates worse on the left side with blunting of both cost phrenic angles. Electronically Signed: Peterson Horne MD at 13:15 EDT Tel [phone], Service support , Code Visit Inpatient E&M: 46497 Subs Hosp L3
[2017-11-22] MEDS: Ceftriaxone 1 GM/50 ML BAG IV ×2 (10:01→22:39)
[2017-11-22] MEDS: Doxazosin 4 MG Tablet PO ×2 (10:02→22:40)
[2017-11-22] MEDS: 0.9% NaCl Peripheral Flush Adult/Peds IV ×4 (10:02→23:41)
[2017-11-22] MEDS: Furosemide 40 MG Tablet PO (10:02)
[2017-11-22] MEDS: Escitalopram Oxalate 20 MG Tablet PO (10:03)
[2017-11-22] MEDS: Finasteride 5 MG Tablet PO (10:03)
[2017-11-22] MEDS: APIXABAN 5 MG TABLET PO (10:03)
[2017-11-22] MEDS: Carvedilol 25 MG Tablet PO ×2 (10:03→22:40)
--- NOTE | 2017-11-22 11:19 | CASEMGMT ---
ZAKIA BAUER Face to Face with patient for initial transition planning/care coordination assessment. RN CM introduced self and role at [facility]. Patient sitting in chair, alert and oriented. Patient willing to participate in assessment and is able to answer all questions appropriately. Care providers, pharmacy, and demographics verified. See link attached. Patient wishes to discharge home with possible HHC. Patient requested that RN CM follow-up with . Patient states he has no further needs or concerns at this time. CM to follow for discharge planning needs that may arise. Disposition Plan: Patient to discharge home with family support and follow-up plans in place. RN CM will follow up with family regarding possible HHC referral.
[2017-11-22] MEDS: Baclofen 10 MG Tablet 5 MG PO (11:22)
[2017-11-22 11:41] LABS: Bedside Glucose 82 mg/dL (70-110)
[2017-11-22 13:00] VITALS: O2SAT 93
[2017-11-22 14:48] VITALS: BP 112/65; PULSE 94; RESP 18; TEMP 36.4; O2SAT 94
[2017-11-22 15:01] LABS: Bedside Glucose 56 mg/dL (70-110)
--- NOTE | 2017-11-22 15:18 | NURSING ---
Pt daughter was called Jayshree Sanchez and updated that test result this am for infuenza A /B are all negative also his urine for strep pneumo. Also updated that pt is having hematuria prior hammer that was dc this am. Pt has voided hematuria post hammer removal.
[2017-11-22] MEDS: Dextrose 50%-Water 25 GM/50 ML DISP.SYRIN IV (16:03)
--- NOTE | 2017-11-22 16:35 | CHAPLAIN ---
Type of Pastoral Visit _x__ Initial Visit ___ Follow-up Visit ___ On-call Visit ___ General Patient Visit ___ Spiritual Assessment ___ Family Conference ___ Bereavement ___ Rapid Response ___ Code Blue ___ Other (describe below) Pastoral Care Referral From _x__ Patient ___ Family ___ Nurse ___ Physician ___ Hay Rake Operator ___ Management Recruiter ___ Other (describe below) Sacrament/Intervention _x__ Active listening ___ Anointing ___ Orthodox ___ Bereavement ___ Communion ___ Katalina exploration ___ _x__ Life review _x__ Prayer ___ Reconciliation ___ Sacrament of Sick _x__ Supportive presence ___ Wedding ___ Other (describe below) Pastoral Comments
[2017-11-22 17:06] LABS: Bedside Glucose 197 mg/dL (70-110)
--- NOTE | 2017-11-22 17:11 | CT_ITS ---
STUDY: CT ABDOMEN AND PELVIS WITHOUT CONTRAST REASON FOR EXAM: Male, 77 years old. Gross hematuria RADIATION DOSAGE (If Supplied By Facility): CTDIvol = ( 22.12 ) mGy, DLP = ( 1370.86 ) mGycm TECHNIQUE: Transaxial images were obtained from the dome of the diaphragm to the symphysis pubis without oral contrast, and without intravenous contrast. Sagittal and coronal images were reconstructed. Individualized dose optimization techniques were used for this CT. COMPARISON: May 08, 2015. FINDINGS: The visualized lung bases demonstrate pleural effusion with basilar consolidation/atelectasis. Mild cardiomegaly. Left hilar calcifications. There are partially visualized anterior mediastinal nodules measuring up to 3.8 cm. 3 cm right hepatic cyst adjacent to the gallbladder. Left hepatic 2 cm cyst. Normal gallbladder and extrahepatic biliary system. Granulomatous calcifications in the spleen. Slightly prominent spleen. There is a question of a 1.5 cm hypoattenuating nodule at the body of the pancreas posteriorly. Thickening of the right adrenal gland with a 1.5 cm nodule. 8 mm nonobstructive stone in the right kidney. Surgical removal of the left kidney. Normal visualized stomach. Normal small intestine. Normal colon. The appendix is visualized and appears normal. Calcified abdominal aorta. Mild focal dilatation at the infrarenal segment measuring 2.1 cm diameter Normal inferior vena cava. Normal retroperitoneum. Mild diffuse nonspecific mesenteric thickening. Wall thickening of a decompressed urinary bladder. Enlarged prostate measuring 4.7 x 5.8 cm. Fatty density at the inguinal canals. There is nonspecific presacral mesenteric thickening, not seen on previous study. Normal abdominal wall. Degenerative vertebral changes. CT/Abdomen/Pelvis without Cont IMPRESSION: Nonobstructive right renal stone. No hydronephrosis. Status post left nephrectomy. Mild wall thickening of a decompressed urinary bladder. Nonspecific mesenteric thickening in the presacral space. Enlarged prostate. Right renal thickening with a small nodule similar to previous study. Bilateral pleural effusion with basilar consolidation/atelectasis. Hepatic cysts. Questionable hypoattenuated pancreatic nodule posteriorly. Evaluation is limited without contrast. Partially visualized anterior mediastinal nodular densities requiring further evaluation. Cardiomegaly. Mild nonspecific diffuse mesenteric thickening. Mild focal infrarenal abdominal aortic dilatation. Electronically Signed: Renato Matute DO at 19:08 EDT Tel [phone], Service support ,
--- NOTE | 2017-11-22 17:11 | CON.PCM_ITS ---
Reason for Consult Date of Consultation: 11/22/17 Reason for Consultation: Urinary tract infection and sepsis and gross hematuria History of Present Illness: The patient is a 77 year old male with a history of solitary kidney he had his other kidney removed because of cancer long time ago by Dr. Lara. He also has a history of kidney stones in the past and BPH with obstruction he did require TURP in the past. At this point is a medical therapy for his prostate. He did have a bladder stone removed from his bladder in the past as well. Came into the hospital with a UTI and mental status changes positive blood cultures urine culture still pending. He does have gross hematuria. Past Medical History Past Medical History (Chronic Problems): Chronic Problems (Last Updated 08/29/17 @ 10:33 by Karon Nick) Ulcer of left lower extremity with fat layer exposed (Chronic) Type 2 diabetes mellitus with diabetic polyneuropathy (Chronic) Foot ulcer with fat layer exposed (Chronic) Onycholysis (Chronic) Tinea unguium (Chronic) Ulcer of left lower extremity with fat layer exposed (Chronic) Pacemaker (Chronic) Atherosclerosis of [place] coronary artery of [place] heart without angina pectoris (Chronic) MOULTON to LAD, SVG to circumflex, and SVG to RCA in 1986 PVCs (premature ventricular contractions) (Chronic) Left ventricular failure (Chronic) Fatigue (Chronic) Edema (Chronic) Palpitations (Chronic) Peripheral vascular disease (Chronic) ASHD (arteriosclerotic heart disease) (Chronic) Automatic implantable cardiac defibrillator in situ (Chronic) ICD implant: 02/2010 HLD (hyperlipidemia) (Chronic) HTN (hypertension) (Chronic) Atherosclerosis of coronary artery bypass graft without angina pectoris (Chronic ) CABG MOULTON graft to anterior descending, saphenous vein graft to CFX, saphenous vein graft to RCA 1986. [facility] 1987, 01/29/2010, 02/24. Ischemic cardiomyopathy (Chronic) Paroxysmal ventricular tachycardia (Chronic) H/O coronary artery bypass surgery (Chronic) CABG MOULTON graft to anterior descending, saphenous vein graft to CFX, saphenous vein graft to RCA 1986. 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) Open wound of lower extremity without complication (Chronic) Chronic renal insufficiency, stage III (moderate) (Chronic) PAOD (peripheral arterial occlusive disease) (Chronic) Allergies erythromycin base Allergy (Mild, Verified 11/22/17 10:36) Hives cyclobenzaprine HCl [From Flexeril] Allergy (Verified 11/21/17 12:35) Rash latex Allergy (Verified 11/21/17 12:35) Swelling Penicillins Allergy (Verified 11/21/17 12:35) Rash Sulfa (Sulfonamide Antibiotics) Allergy (Verified 11/21/17 12:35) Rash tetracycline Allergy (Verified 11/22/17 10:36) Hives acetaminophen [From Percocet] Adverse Reaction (Verified 11/21/17 12:35) Other HALLUCINATES oxycodone [From Percocet] Adverse Reaction (Verified 11/21/17 12:35) Other HALLUCINATES iv dye Adverse Reaction (Uncoded 11/21/17 12:35) only has 1 kidney Home Medications: Ambulatory Orders Medication Instructions Recorded Baclofen 10 mg PO DAILY 08/31/17 Apixaban [Eliquis] 5 mg PO BID 11/21/17 Aspirin [Aspirin, Baby] 81 mg PO DAILY@0800 11/21/17 Carvedilol [Coreg] 25 mg PO BID 11/21/17 Doxazosin Mesylate [Cardura Xl] 4 mg PO BID 11/21/17 Ergocalciferol [Vitamin D] 50,000 unit PO QMONTH 11/21/17 Escitalopram Oxalate [Lexapro] 20 mg PO DAILY 11/21/17 Finasteride [Proscar] 5 mg PO DAILY 11/21/17 Furosemide [Lasix] 40 mg PO BIDLX 11/21/17 Insulin Glargine,Hum.rec.anlog 60 unit SQ BID 11/21/17 [Lantus] Insulin Lispro Protamin/Lispro 40 unit SQ TID 11/21/17 [Humalog Mix 75-25 Kwikpen] Potassium Chloride [K-Dur] 20 meq PO DAILY 11/21/17 Prednisone 5 mg PO DAILY 11/21/17 Surgical History: coronary bypass surgery, pacemaker implantation, TURP Lives: Spouse/ Significant Other Smoking Status: Former smoker Tobacco Use: Non-smoker Alcohol: None Drugs: None - *Family History Maternal History Items: No pertinent history Paternal History Items: Heart Disease, No pertinent history Review of Systems Constitutional: Denies: Chills, Fever, Weight Change HEENT: Denies: Head Aches, Sinus Congestion, Sinus Drainage Cardiovascular: Denies: Chest Pain, Palpitations Respiratory: Denies: Cough, Shortness of breath at rest, Sputum production Gastrointestinal: Denies: Abdominal Pain, Nausea, Vomiting Genitourinary: Reports: Dysuria, Frequency, Hematuria Musculoskeletal: Denies: Joint Pain, Joint Tenderness Skin: Denies: Rash, Wounds Neurological: Denies: Numbness, Tingling, Focal weakness Psychiatric: Denies: Anxiety, Depression, Homicidal Ideations, Suicidal Ideations Hematologic/ Lymphatic: Denies: Easy Bruising, Easy Bleeding Physical Exam - Physical Exam Vital Signs Temp 97.5 F L 11/22/17 14:48 Pulse 94 11/22/17 14:48 Resp 18 11/22/17 14:48 BP 112/65 11/22/17 14:48 Pulse Ox 94 11/22/17 14:48 Intake & Output 11/20/17 11/21/17 11/22/17 23:59 23:59 23:59 Intake Total 2606 / 2606 Output Total 1250 / 1250 Balance 1356 / 1356 Weight: 101.2 kg 101.2 kg Intake: Oral 1480 / 1480 IV fluid/meds 1126 / 1126 Output: Urine 1250 / 1250 Other: Number of Bowel Movements 1 General: Alert, Oriented x3 HEENT: Atraumatic Oral: Moist Mucosa Neck: Supple Lungs: Normal air movement Cardiovascular: Regular rate Abdomen: Bowel Sounds Present, Soft, Obese Rectal: Exam deferred Microbiology Past 72 Hours 11/22/17 13:56 Streptococcus pneumoniae Antigen (M - Final Urine, Random 11/22/17 13:56 Legionella Antigen - Final Urine, Clean Catch 11/22/17 13:00 Influenza Types A,B Direct FA (KOURTNEY) - Final Mucosa - Nasopharyngeal Laboratory Tests Past 24 Hrs 11/21/17 11/21/17 11/22/17 18:47 22:50 06:20 WBC RBC Hgb Hct MCV MCH MCHC RDW RDW Differential Plt Count MPV Immature Gran % (Auto) Neut % (Auto) Lymph % (Auto) Tripp % (Auto) Eos % (Auto) Baso % (Auto) Absolute Neuts (auto) Absolute Lymphs (auto) Total Counted Sodium 143 Potassium 3.4 L Chloride 105 Carbon Dioxide 33.0 H Anion Gap 5 BUN 25 H Creatinine 1.37 H Estim Creat Clear Calc 43.69 Est GFR (MDRD) Af Amer 65 Est GFR (MDRD) Non-Af 54 L BUN/Creatinine Ratio 18.2 Glucose 67 L Lactic Acid 2.9 H 1.5 Calcium 9.6 11/22/17 06:27 WBC 9.2 RBC 3.68 L Hgb 10.0 L Hct 32.7 L MCV 88.9 MCH 27.2 MCHC 30.6 L RDW 15.6 H RDW Differential 50.0 H Plt Count 109 L MPV 10.2 Immature Gran % (Auto) 0.800 Neut % (Auto) 84.9 H Lymph % (Auto) 8.5 L Tripp % (Auto) 5.4 Eos % (Auto) 0.3 Baso % (Auto) 0.1 Absolute Neuts (auto) 7.8 H Absolute Lymphs (auto) 0.78 L Total Counted Not Reportable Sodium Potassium Chloride Carbon Dioxide Anion Gap BUN Creatinine Estim Creat Clear Calc Est GFR (MDRD) Af Amer Est GFR (MDRD) Non-Af BUN/Creatinine Ratio Glucose Lactic Acid Calcium Assessment/Plan Active and Suspected Problems (Last Updated 08/29/17 @ 10:33 by aKron Nick) Metabolic encephalopathy (Acute) UTI (urinary tract infection) (Acute) 77-year-old patient well-known to me with a history of BPH obstruction, history of kidney stones, history of a TURP in the past, history of prior nephrectomy from kidney cancer in the past. Comes in with gross hematuria. Multiple factors most likely hematuria is from a UTI. We will do a CT scan stone protocol just to evaluate. If this is clear he can follow-up in my office after discharge for urine check and follow-up.
[2017-11-22 20:00] VITALS: BP 123/75; PULSE 95; RESP 20; TEMP 37.3; O2SAT 96
[2017-11-22 21:27] LABS: Hematocrit 34.3 % (40-54); Hemoglobin 10.3 g/dl (13.0-16.5)
[2017-11-22 22:40] VITALS: BP 119/74; PULSE 88
[2017-11-22 23:01] LABS: Bedside Glucose 88 mg/dL (70-110)
[2017-11-23 01:21] LABS: Bedside Glucose 108 mg/dL (70-110)
[2017-11-23 03:00] VITALS: BP 134/82; PULSE 93; RESP 20; TEMP 36.7; O2SAT 100
--- NOTE | 2017-11-23 03:19 | NURSING ---
Pt blood sugar 72, gave crackers with peanut butter and oj, pt was slightly diaphoretic.
[2017-11-23 03:26] LABS: Bedside Glucose 72 mg/dL (70-110)
--- NOTE | 2017-11-23 06:35 | NURSING ---
blood sugar 67, gave oj as per protocol, pt stated he was asymptomatic.
[2017-11-23 06:43] LABS: Absolute Lymphocyte Count 1.01 X10^3/ul (0.83-4.51); Absolute Neutrophil Count 6.7 X10^3/uL (2.0-7.7); Basophil# 0.02 X10^3/uL; Basophil% 0.2 % (0-1); Eosinophil# 0.07 X10^3/uL; Eosinophils% 0.8 % (0-5); Hematocrit 34.9 % (40-54); Hemoglobin 10.5 g/dl (13.0-16.5); Lymphocyte # 1.01 X10^3/ul (4.0); Lymphocyte % 11.9 % (19-41); Mean Corp Hgb Conc 30.1 g/gl (32-36); Mean Corpuscular Hgb 26.5 pg (27.0-32.0); Mean Corpuscular Volume 88.1 fL (80-94); Mean Platelet Vol. 10.6 fl (6.2-12.0); Monocyte# 0.56 X10^3/uL; Monocyte% 6.6 % (0-10); Platelet Count 125 K/mm3 (150-450); RBC Distribution Width CV 15.5 % (11.6-14.6); RBC Distribution Width SD 49.8 fl (35.1-43.9); Red Blood Count 3.96 M/mm3 (4.6-6.2); White Blood Count 8.5 K/mm3 (4.4-11.0)
[2017-11-23 06:44] LABS: POSITIVE COUNT NO; POSITIVE DIFFERENTIAL NO; POSITIVE MORPHOLOGY NO
--- NOTE | 2017-11-23 06:45 | NURSING ---
Blood sugar 75, gave peanut butter cracker and milk
[2017-11-23 06:55] LABS: Hemoglobin A1c 8.5 % (4.2-6.3)
[2017-11-23 06:56] LABS: Bedside Glucose 75 mg/dL (70-110)
[2017-11-23 06:56] LABS: Bedside Glucose 67 mg/dL (70-110)
[2017-11-23 07:04] LABS: Anion Gap 7 (5-15); BUN 27 mg/dL (7-18); Calcium,Total 9.9 mg/dL (8.5-10.1); Chloride 103 mmol/L (98-107); Creatinine, Serum 1.59 mg/dL (0.70-1.30); EST Glomerular Filtration Rate 45 mL/min (>60); Est Glom Filt Rate - Afr Amer 55 mL/min (>60); Estimated Creatinine Clearance 37.64 ml/min; Glucose 62 mg/dL (74-106); Potassium 3.6 mmol/L (3.5-5.1); Sodium Level 140 mmol/L (136-145)
[2017-11-23 07:30] LABS: Bedside Glucose 105 mg/dL (70-110)
[2017-11-23] MEDS: Acetaminophen 325 MG Tablet 650 MG PO (07:52)
[2017-11-23 08:20] VITALS: BP 118/70; PULSE 86; RESP 18; TEMP 36.1; O2SAT 100
[2017-11-23] MEDS: predniSONE 5 MG Tablet PO (08:32)
[2017-11-23 08:52] VITALS: BP 134/72; PULSE 70; RESP 18; TEMP 36.8; O2SAT 100
[2017-11-23] MEDS: Carvedilol 25 MG Tablet PO (09:26)
[2017-11-23] MEDS: Escitalopram Oxalate 20 MG Tablet PO (09:30)
[2017-11-23] MEDS: Finasteride 5 MG Tablet PO (09:31)
[2017-11-23] MEDS: Furosemide 20 MG Tablet PO (09:32)
[2017-11-23] MEDS: Baclofen 10 MG Tablet 5 MG PO (09:32)
[2017-11-23] MEDS: Doxazosin 4 MG Tablet PO (09:33)
[2017-11-23 09:39] VITALS: PULSE 90; RESP 18
[2017-11-23] MEDS: Ceftriaxone 1 GM/50 ML BAG IV (10:46)
[2017-11-23] MEDS: Glucerna Shake 120 ML LIQUID PO (10:46)
[2017-11-23] MEDS: 0.9% NaCl Peripheral Flush Adult/Peds IV (10:46)
[2017-11-23 11:11] LABS: Bedside Glucose 228 mg/dL (70-110)
--- NOTE | 2017-11-23 11:58 | DCINST_ITS ---
- Discharge Diagnoses Current Active Problems: Current Active and Chronic Problems (Last Updated 08/29/17 @ 10:33 by Karon Nick) Metabolic encephalopathy (Acute) UTI (urinary tract infection) (Acute) You will use the following diet at home:: Calorie/Carbohydrate Controlled ( specify 1200, 1400, etc) - 1800 ADA diet Discharge Activity: May Not Drive Additional Instructions: Follow up wound center for skin tear/venous edema Allergies/Adverse Reactions: Allergies erythromycin base Allergy (Mild, Verified 11/22/17 10:36) Hives cyclobenzaprine HCl [From Flexeril] Allergy (Verified 11/21/17 12:35) Rash latex Allergy (Verified 11/21/17 12:35) Swelling Penicillins Allergy (Verified 11/21/17 12:35) Rash Sulfa (Sulfonamide Antibiotics) Allergy (Verified 11/21/17 12:35) Rash tetracycline Allergy (Verified 11/22/17 10:36) Hives acetaminophen [From Percocet] Adverse Reaction (Verified 11/21/17 12:35) Other HALLUCINATES oxycodone [From Percocet] Adverse Reaction (Verified 11/21/17 12:35) Other HALLUCINATES iv dye Adverse Reaction (Uncoded 11/21/17 12:35) only has 1 kidney Medications to take at Discharge Aspirin [Aspirin, Baby] 81 mg PO DAILY@0800 11/21/17 Carvedilol [Coreg (Beta Tae)] 25 mg PO BID 11/21/17 Doxazosin Mesylate [Cardura Xl] 4 mg PO BID 11/21/17 Ergocalciferol [Vitamin D] 50,000 unit PO QMONTH 11/21/17 Escitalopram Oxalate [Lexapro] 20 mg PO DAILY 11/21/17 Finasteride [Proscar] 5 mg PO DAILY 11/21/17 Potassium Chloride [K-Dur] 20 meq PO DAILY 11/21/17 Prednisone 5 mg PO DAILY 11/21/17 Apixaban [Eliquis] 5 mg PO BID #0 11/23/17 Baclofen 10 mg PO DAILY #0 11/23/17 Cefadroxil [Duracef] 500 mg PO BID #6 cap 11/23/17 Furosemide [Lasix] 20 mg PO BIDLX #0 11/23/17 Insulin Aspart [Novolog] See Protocol SQ ACHS #1 vial 11/23/17 Insulin Glargine,Hum.rec.anlog [Lantus] 20 unit SQ DAILY #0 11/23/17 The following prescriptions were given: Insulin Aspart [Novolog] See Protocol SQ ACHS #1 vial Cefadroxil [Duracef] 500 mg PO BID #6 cap Primary Care Physician: Guy Gu Chi, MD [Primary Care Provider] - Please follow up with your Primary Care Physician in: in 2 weeks Please Follow Up With: Vince Pérez MD When: in 4 weeks for hematuia, BPH
--- NOTE | 2017-11-23 11:59 | DS.PCM_ITS ---
Discharge Date and Diagnosis Date of Admission: 11/21/17 Date of Discharge: 11/23/17 - Primary Discharge Diagnosis Active and Suspected Problems (Last Updated 08/29/17 @ 10:33 by Karon Nick) 1. Acute metabolic/infectious encephalopathy most probably from UTI and possible pneumonia 2. SIRS (fever, T 38.2?C, RR 23/min, mild leukocytosis 11.9 thousand and lactic acidosis 2.1, 2.9) with sepsis due to UTI and gram-negative rods bacteremia Suspicion of left lower lobe community acquired pneumonia: 3. Petechial rash is clearly from mild thrombocytopenia 4 Hematuria, most probably from UTI/traumatic Abbott catheter and patient has history of kidney stones, BPH status post TURP and left renal cancer status post prior nephrectomy: - Secondary Discharge Diagnosis Chronic Problems (Last Updated 08/29/17 @ 10:33 by Karon Nick) Ulcer of left lower extremity with fat layer exposed (Chronic) Type 2 diabetes mellitus with diabetic polyneuropathy (Chronic) Foot ulcer with fat layer exposed (Chronic) Onycholysis (Chronic) Tinea unguium (Chronic) Ulcer of left lower extremity with fat layer exposed (Chronic) Pacemaker (Chronic) Atherosclerosis of [place] coronary artery of [place] heart without angina pectoris (Chronic) MOULTON to LAD, SVG to circumflex, and SVG to RCA in 1986 PVCs (premature ventricular contractions) (Chronic) Left ventricular failure (Chronic) Fatigue (Chronic) Edema (Chronic) Palpitations (Chronic) Peripheral vascular disease (Chronic) ASHD (arteriosclerotic heart disease) (Chronic) Automatic implantable cardiac defibrillator in situ (Chronic) ICD implant: 02/2010 HLD (hyperlipidemia) (Chronic) HTN (hypertension) (Chronic) Atherosclerosis of coronary artery bypass graft without angina pectoris (Chronic ) CABG MOULTON graft to anterior descending, saphenous vein graft to CFX, saphenous vein graft to RCA 1986. [facility] 1987, 01/29/2010, 02/24. Ischemic cardiomyopathy (Chronic) Paroxysmal ventricular tachycardia (Chronic) H/O coronary artery bypass surgery (Chronic) CABG MOULTON graft to anterior descending, saphenous vein graft to CFX, saphenous vein graft to RCA 1986. 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 Patient was noted to have fever, T 38.2?C, RR 23/min, mild leukocytosis 11.9 thousand and lactic acidosis 2.1. Patient is on ceftriaxone. [facility] 1. Acute metabolic/infectious encephalopathy * Presumably due to an underlying infection * No further stroke workup required. 2. SIRS (fever, T 38.2?C, RR 23/min, mild leukocytosis 11.9 thousand and lactic acidosis 2.1, 2.9) with sepsis due to UTI and gram-negative rods bacteremia * Urinalysis was pyuria and LE but negative nitrite. Preliminary urine culture shows gram-positive cocci. Prelim blood culture shows gram-negative rods therefore no consistency. * Rocephin increased to 1 g every 12 hourly. Patient is discharged on cefadroxil 500 mg twice daily for 10 more days. * Follow-up PCP in 1 weeks. Follow-up PCP for final blood and urine culture. Suspicion of left lower lobe community acquired pneumonia: There is worsening of infiltrate on the left lower lung as compared to August 29, 2017. This might be atelectatic band too. As patient has hives allergic history with erythromycin base and tetracycline and blood culture positive gram-negative rods , patient discharged on cefadroxil. 3. Petechial rash is clearly from mild thrombocytopenia * It is slightly warm but does not confluence is to suggest cellulitis at this time. * Could be a viral exanthem but will monitor for any change/due to mild thrombocytopenia platelet count is 109,000. 4. Debility * Patient has a poor performance status at baseline * PT and OT 5. Venous stasis ulcers with lymphedema and stasis dermatitis * Seen by Lisa wound nurse.. No evidence of any infection at this time. Wound dressing advised with hydrogel and Adaptic 6. Lower extremities peripheral arterial disease AND venous thromboembolic disease Patient is lower extremities arterial study in February 2016 which showed evidence of arterial calcification bilaterally and resting MADHURI cannot be calculated. Biphasic waveforms were noted at ankle level bilaterally. Digital brachial indices are moderately to severely diminished consistent with moderate to severe arterial occlusive disease in lower extremities bilaterally. 7 Hematuria, most probably from UTI/traumatic Abbott catheter and patient has history of kidney stones, BPH status post TURP and left renal cancer status post prior nephrectomy: Patient had gross hematuria yesterday probably from traumatic or from UTI. Urologist Dr. Pérez was consulted viewed CT scan stone protocol was ordered by urologist. CT scan shows 8 mm nonobstructive stone in right kidney. Enlarged prostate 4.[address] scan was reviewed by neurologist and no obvious obstructive kidney stone or abnormality of bladder. Earlier Abbott catheter was removed yesterday. Urine has cleared. Patient was advised to hold Eliquis for 3 days. Follow-up with the urologist in the office. 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 Will hold Levemir and NPH insulin. On coverage sliding scale NovoLog insulin. a1c jesus CODE STATUS * patient is DNR Comfort Care arrest at this time. Patient is being discharged home. Discharge meds reconciliation done. Was advised to follow-up PCP in 1 week follow with blood and urine culture. We will follow-up blood and urine cultures. Total time spent, exact 35 minutes on discharge meds reconciliation, examination , review of imaging and blood test and discussion with the patient on follow-up instructions. Clinical Impression(s) from Imaging Studies Chest X-Ray 11/21/17 12:50 IMPRESSION: Findings suggesting bibasilar atelectasis and/or infiltrates worse on the left side with blunting of both cost phrenic angles. Electronically Signed: Peterson Horne MD at 13:15 EDT Tel [phone], Service support , Abdomen/Pelvis CT 11/22/17 17:11 IMPRESSION: Nonobstructive right renal stone. No hydronephrosis. Status post left nephrectomy. Mild wall thickening of a decompressed urinary bladder. Nonspecific mesenteric thickening in the presacral space. Enlarged prostate. Right renal thickening with a small nodule similar to previous study. Bilateral pleural effusion with basilar consolidation/atelectasis. Hepatic cysts. Questionable hypoattenuated pancreatic nodule posteriorly. Evaluation is limited without contrast. Partially visualized anterior mediastinal nodular densities requiring further evaluation. Cardiomegaly. Mild nonspecific diffuse mesenteric thickening. Mild focal infrarenal abdominal aortic dilatation. Discharge Activity: May Not Drive Home Medications: Medications to take at Discharge Aspirin [Aspirin, Baby] 81 mg PO DAILY@0800 11/21/17 Carvedilol [Coreg (Beta Tae)] 25 mg PO BID 11/21/17 Doxazosin Mesylate [Cardura Xl] 4 mg PO BID 11/21/17 Ergocalciferol [Vitamin D] 50,000 unit PO QMONTH 11/21/17 Escitalopram Oxalate [Lexapro] 20 mg PO DAILY 11/21/17 Finasteride [Proscar] 5 mg PO DAILY 11/21/17 Potassium Chloride [K-Dur] 20 meq PO DAILY 11/21/17 Prednisone 5 mg PO DAILY 11/21/17 Apixaban [Eliquis] 5 mg PO BID #0 11/23/17 Baclofen 10 mg PO DAILY #0 11/23/17 Cefadroxil [Duracef] 500 mg PO BID #6 cap 11/23/17 Furosemide [Lasix] 20 mg PO BIDLX #0 11/23/17 Insulin Aspart [Novolog] See Protocol SQ ACHS #1 vial 11/23/17 Insulin Glargine,Hum.rec.anlog [Lantus] 20 unit SQ DAILY #0 11/23/17 Following Prescrptions Were Given to Patient: Insulin Aspart [Novolog] See Protocol SQ ACHS #1 vial Cefadroxil [Duracef] 500 mg PO BID #6 cap Primary Care Physician: Guy Gu Chi, MD [Primary Care Provider] - Please follow up with your Primary Care Physician in: in 2 weeks Please Follow Up With: Vince Pérez MD When: in 4 weeks for hematuia, BPH Medical Necessity - Tobacco Use Smoking Status: Former smoker Tobacco Use: Non-smoker Meaningful Use Info Meaningful Use Diagnoses (Choose all that apply): None applicable Code Visit Inpatient E&M: 72311 Disch Hosp
--- NOTE | 2017-11-23 12:08 | CASEMGMT ---
ZAKIA BAUER received update from MILLIE Hong that Dr. Du requesting [facility]. ZAKIA BAUER called patient's to discuss discharge needs. agreeable to [facility] and requesting [facility]. Denied need for additional DME at this time. RN CM sent referral to [facility] and they are able to accept the patient. ZAKIA BAUER will continue to follow and plan for a safe discharge.
[2017-11-23 12:46] VITALS: BP 119/72; PULSE 89; RESP 18; TEMP 36.8; O2SAT 100
[2017-11-23 16:01] VITALS: BP 114/74; PULSE 84; RESP 18; TEMP 36.8; O2SAT 98
--- NOTE | 2017-11-25 16:08 | CASEMGMT ---
ZAKIA BAUER Discharge Follow-UP Phone Call Cori:12 Strata:4 Call Date: 11/25/14 Discharge Date: 11/23/17 Time of Call:1605 Duration: 4 min Adm Dx:Metabolic Encephalopathy RN JUANCARLOS spoke with patient's Stephanie. states that patient has been tired since he has been home. stated that [facility] had been to see patient yesterday and to see him again tomorrow 11/26. stated she had no questions regarding discharge instructions and filled prescriptions with no problems. did voice concern regarding insulin vial and syringes and not sure on how to draw medication, had been using flex pens before. stated that she would ask C tomorrow at visit. No discharge appointment were scheduled prior to discharge. states she has numbers to schedule appt with PCP and Elisa. ZAKIA BAUER call [facility] liaison Jena and asked if nursing could do some teaching with regarding insulin and syringe. ZAKIA BAUER left contact information should she have any concerns.
== END 2017-11-23 16:02 | disposition home health service (06) | DRG 871 ==
LOC: ED 15:27 → MS3 16:21
PROVIDERS: Family Medicine; Emergency Provider Emergency Medicine; Family Provider Family Medicine Geriatric Medicine; PCP Family Medicine Geriatric Medicine; Visit Provider Internal Medicine
DX: A41.50 Gram-negative sepsis, unspecified (principal); G93.41 Metabolic encephalopathy; J18.9 Pneumonia, unspecified organism; I50.42 Chronic combined systolic (congestive) and diastolic (congestive) heart failure; N39.0 Urinary tract infection, site not specified; L97.922 Non-pressure chronic ulcer of unspecified part of left lower leg with fat layer exposed; I11.0 Hypertensive heart disease with heart failure; B09 Unspecified viral infection characterized by skin and mucous membrane lesions; N40.1 Benign prostatic hyperplasia with lower urinary tract symptoms; R31.0 Gross hematuria; D69.6 Thrombocytopenia, unspecified; Z87.442 Personal history of urinary calculi; Z95.810 Presence of automatic (implantable) cardiac defibrillator; Z87.891 Personal history of nicotine dependence; Z90.5 Acquired absence of kidney; Z85.528 Personal history of other malignant neoplasm of kidney; Z95.1 Presence of aortocoronary bypass graft; R32 Unspecified urinary incontinence; R39.15 Urgency of urination; I89.0 Lymphedema, not elsewhere classified; Z66 Do not resuscitate; E11.42 Type 2 diabetes mellitus with diabetic polyneuropathy; E78.5 Hyperlipidemia, unspecified; J44.9 Chronic obstructive pulmonary disease, unspecified; I25.10 Atherosclerotic heart disease of native coronary artery without angina pectoris; E03.9 Hypothyroidism, unspecified; E11.22 Type 2 diabetes mellitus with diabetic chronic kidney disease; N18.3 Chronic kidney disease, stage 3 (moderate); I87.2 Venous insufficiency (chronic) (peripheral); B35.1 Tinea unguium; L60.1 Onycholysis; I25.5 Ischemic cardiomyopathy; Z79.4 Long term (current) use of insulin
CPT/HCPCS: 36415; 51702; 71045; 74176; 80048; 80053; 81001; 82962; 83036; 83605; 85014; 85018; 85025; 85610; 85730; 87040; 87077; 87086; 87088; 87186; 87449; 87804; 93005; 97162; 97165; 97535; 97802; 99285; J7030; A4216

== ENCOUNTER → 2017-11-24 14:16 | Outpatient (CLI) | payer MEDICARE, SELFPAY | LOC: LAB 14:19 | PROVIDERS: Family Provider Family Medicine Geriatric Medicine; PCP Family Medicine Geriatric Medicine; Visit Provider Internal Medicine | DX: Z79.899 Other long term (current) drug therapy (principal) | CPT/HCPCS: 36415; 87040 ==

== ENCOUNTER → 2017-12-01 16:23 | Outpatient (CLI) | payer MEDICARE, SELFPAY | PROVIDERS: Family Provider Family Medicine Geriatric Medicine; PCP Family Medicine Geriatric Medicine; Visit Provider Family Medicine Geriatric Medicine | DX: N39.0 Urinary tract infection, site not specified (principal) | CPT/HCPCS: 87086; 87088 ==

== ENCOUNTER 2017-12-07 15:00 | Outpatient (RCR) | payer MEDICARE, SELFPAY ==
[2017-11-13 01:21] VITALS: PULSE 72; RESP 18; TEMP 36.8
[2017-11-16 14:16] VITALS: BP 132/74; PULSE 80; RESP 18; TEMP 36
--- NOTE | 2017-11-16 15:28 | PCM.WC.PN ---
(1) Ulcer of left lower extremity with fat layer exposed Status: Chronic Current Visit: Yes Code(s): L97.922 - Non-pressure chronic ulcer of unspecified part of left lower leg with fat layer exposed (2) Foot ulcer with fat layer exposed Status: Chronic Current Visit: Yes Qualifiers: Laterality: left Qualified Code(s): L97.522 - Non-pressure chronic ulcer of other part of left foot with fat layer exposed Code(s): L97.502 - Non-pressure chronic ulcer of other part of unspecified foot with fat layer exposed (3) Onycholysis Status: Chronic Current Visit: Yes Code(s): L60.1 - Onycholysis (4) Tinea unguium Status: Chronic Current Visit: Yes Code(s): B35.1 - Tinea unguium (5) Ulcer of left lower extremity with fat layer exposed Status: Chronic Current Visit: Yes Code(s): L97.922 - Non-pressure chronic ulcer of unspecified part of left lower leg with fat layer exposed (6) Type 2 diabetes mellitus with diabetic polyneuropathy Status: Chronic Current Visit: Yes Code(s): E11.42 - Type 2 diabetes mellitus with diabetic polyneuropathy (7) Edema Status: Chronic Current Visit: Yes Qualifiers: Code(s): R60.9 - Edema, unspecified (8) Peripheral vascular disease Status: Chronic Current Visit: Yes Code(s): I73.9 - Peripheral vascular disease, unspecified (9) Lymphedema of both lower extremities Status: Chronic Current Visit: Yes Code(s): I89.0 - Lymphedema, not elsewhere classified Type of Wound Date of Service: 11/18/17 Chief Complaint: Follow-up left lower leg ulcer simon, bilateral lower leg edema. History of Wound: 77-year-old white male a month ago developed an ulcer on his left lower leg. History of diabetes type II uncontrolled severe edema of the lower extremities. History of coronary artery disease. He is use compression pumps in the past and has an adjustable compressive garment that he will try to bring to his follow-up visit for evaluation. He denies redness odor or new trauma. He denies fever, chill, nausea, vomiting. He also complains his left fifth toenail is loose and causes discomfort while getting in and out of socks and shoes. All of his other toenails are long, thick and tender. he asks for help safely trimming his toenails today because he does not feel safe performing this on his own. He has diabetic neuropathy with continued rest parasthesias. Progress of Wound: stable - Physical Exam Vital Signs Temp Pulse Resp BP 96.8 F L 80 18 132/74 H 11/16/17 14:16 11/16/17 14:16 11/16/17 14:16 11/16/17 14:16 General: Alert, Oriented x3, Cooperative HEENT: Atraumatic Extremities: No cyanosis, Capillary Refill Less than 3 Seconds, No Calf Tenderness, Diminished Peripheral Pulses - palpable dp, left, Edema Skin: Ulcer/ Wound - no purulence, no erythema, no streaking, no infection noted., - - the skin is atrophic and hairless bilateral lower extremities. long thick and dystrophic nails with subungual debris is noted bilateral 1,2,3,4,5. loosening off the left 5th toe nail is noted and it is barely hanging on to the nail plate/bed. Upon removal, no deep tissue or infection is noted. Wound Measurements and Assessment WC - Nurse 1 - General Ulcer Measurement Start: 11/16/17 14:16 Freq: Status: Active Protocol: Activity Type Activity Date Activity User E-Sign Co-Sign Detail Recorded Client Recorded Date Recorded By Document 11/16/17 14:16 [facility] [id number] 11/16/17 14:35 [facility] 11/16/17 14:16 Wound Center Nurse 1 [Ulcer Assessment] #3- LT LOWER CALF CLUSTER -Current Size (cm) - Length 2 -Current Size (cm) - Width 1.1 -Current Size (cm) - Depth 0.2 -Total Square Cm 2.2 -Tunneling No -Undermining/Tunneling No -Circular Undermining No -Classification - Thickness Full Thickness without Exposed Support Structure -Exudate Amt Small (1-33%) -Exudate Type Serosanguineous -Wound Margin Distinct, Outline Attached -Granulation Amt Medium (34-66%) -Granulation Quality [place] -Slough/Fibrin Yes -Necrosis Amt Medium (34-66%) -Necrotic Tissue Type Adherent Slough -Structure Exposed N/A -Texture (Maggie-wound Skin Appearance) Assessed -Moisture (Maggie-wound Skin Appearance Assessed ) -Color (Maggie-wound Skin Appearance) Assessed -Temperature (Maggie-wound Skin No Abnormality Appearance) (Pt Warm) -Tenderness on Palpation (Maggie-wound No Skin Appearance) -Ulcer Cleansing Rinsed/ Irrigated with Saline -Foul Odor after Cleansing No -Anesthetic Used 4% Lidocaine Solution #2- LT SIMON CLUSTER -Combined with other wound No -Current Size (cm) - Length 4.6 -Current Size (cm) - Width 1.4 -Current Size (cm) - Depth 0.1 -Total Square Cm 6.44 -Tunneling No -Undermining/Tunneling No -Circular Undermining No -Classification - Thickness Full Thickness without Exposed Support Structure -Exudate Amt Small (1-33%) -Exudate Type Serosanguineous -Wound Margin Distinct, Outline Attached -Granulation Amt Medium (34-66%) -Granulation Quality [place] -Slough/Fibrin Yes -Necrosis Amt Medium (34-66%) -Necrotic Tissue Type Adherent Slough -Structure Exposed N/A -Texture (Maggie-wound Skin Appearance) Assessed -Moisture (Maggie-wound Skin Appearance Assessed ) -Color (Maggie-wound Skin Appearance) Assessed -Temperature (Maggie-wound Skin No Abnormality Appearance) (Pt Warm) -Tenderness on Palpation (Maggie-wound No Skin Appearance) -Ulcer Cleansing Rinsed/ Irrigated with Saline -Foul Odor after Cleansing No -Anesthetic Used 4% Lidocaine Solution [Edema Assessment] -Lower Limb Edema Present Yes -Right Calf (cm) 42.7 -Right Ankle (cm) 32.4 -Left Calf (cm) 44 -Left Ankle (cm) 30.1 WC - Nurse 2 - General Ulcer CM Notes Start: 11/16/17 14:16 Freq: Status: Active Protocol: Activity Type Activity Date Activity User E-Sign Co-Sign Detail Recorded Client Recorded Date Recorded By Document 11/16/17 15:16 [id number] 11/16/17 15:22 TM 11/16/17 15:16 Wound Center Nurse 2 [Procedure/Treatment] #3- LT LOWER CALF CLUSTER -Time 15:21 -Correct Patient Yes -Correct Side, Site, Position Yes -Correct Procedure Yes -Procedure Performed Yes -Type of Procedure Debridement -Clinical Debridement Subcutaneous -Post Debridement Size (cm) - Length 2.1 -Post Debridement Size (cm) - Width 1.2 -Post Debridement Size (cm) - Depth 0.2 -Total Square Cm 2.52 -Wound/Ulcer Outcome Not Healed -Ulcer Cleansing Rinsed/ Irrigated with Saline -Foul Odor after Cleansing No -Bioengineered Tissue No -Topical Lidocaine (%) 4 -Bleeding Controlled with Pressure -Treatment Response Procedure Tolerated Well #2- LT SIMON CLUSTER -Time 15:22 -Correct Patient Yes -Correct Side, Site, Position Yes -Correct Procedure Yes -Procedure Performed Yes -Type of Procedure Debridement -Clinical Debridement Subcutaneous -Post Debridement Size (cm) - Length 4.7 -Post Debridement Size (cm) - Width 1.5 -Post Debridement Size (cm) - Depth 0.1 -Total Square Cm 7.05 -Wound/Ulcer Outcome Not Healed -Ulcer Cleansing Rinsed/ Irrigated with Saline -Foul Odor after Cleansing No -Bioengineered Tissue No -Topical Lidocaine (%) 4 -Bleeding Controlled with Pressure -Treatment Response Procedure Tolerated Well [See Physician Procedure note for Specifics] Pain Scale: 0-10 Numeric [Pain] -Is Patient Pain Free? Yes Musculoskeletal: No Tenderness to Palpation of Joints or Extremities, Muscle Wasting Neurological: - - lack of epicritic sensation to lower extremity with light touch and to palpation to the ulcer site Psych/Mental Status: Normal Affect, Appropriate Debridement Note Post-Debridement Measurements/Treatment WC - Nurse 2 - General Ulcer CM Notes Start: 11/16/17 14:16 Freq: Status: Active Protocol: Activity Type Activity Date Activity User E-Sign Co-Sign Detail Recorded Client Recorded Date Recorded By Document 11/16/17 15:16 [id number] 11/16/17 15:22 11/16/17 15:16 Wound Center Nurse 2 #3- LT LOWER CALF CLUSTER -Time 15:21 -Correct Patient Yes -Correct Side, Site, Position Yes -Correct Procedure Yes -Procedure Performed Yes -Type of Procedure Debridement -Clinical Debridement Subcutaneous -Post Debridement Size (cm) - Length 2.1 -Post Debridement Size (cm) - Width 1.2 -Post Debridement Size (cm) - Depth 0.2 -Total Square Cm 2.52 -Wound/Ulcer Outcome Not Healed -Ulcer Cleansing Rinsed/ Irrigated with Saline -Foul Odor after Cleansing No -Bioengineered Tissue No -Topical Lidocaine (%) 4 -Bleeding Controlled with Pressure -Treatment Response Procedure Tolerated Well #2- LT SIMON CLUSTER -Time 15:22 -Correct Patient Yes -Correct Side, Site, Position Yes -Correct Procedure Yes -Procedure Performed Yes -Type of Procedure Debridement -Clinical Debridement Subcutaneous -Post Debridement Size (cm) - Length 4.7 -Post Debridement Size (cm) - Width 1.5 -Post Debridement Size (cm) - Depth 0.1 -Total Square Cm 7.05 -Wound/Ulcer Outcome Not Healed -Ulcer Cleansing Rinsed/ Irrigated with Saline -Foul Odor after Cleansing No -Bioengineered Tissue No -Topical Lidocaine (%) 4 -Bleeding Controlled with Pressure -Treatment Response Procedure Tolerated Well Pain Scale: 0-10 Numeric Is Patient Pain Free? Yes Wound debrided: simon Laterality: Left Wound Grade/Stage: grade 1 Type of Debridement: Excisional debridement Anesthesia Used: 4% Lidocaine Solution Depth: in the subcutaneous layer Percentage of wound debrided: 100 Instrument Used: #15 blade Tissue Removed: fibrous, devitalized subcutaneous, biofilm, slough Severity: Fat Layer Exposed Amount of bleeding with debridement: Mild Bleeding Controlled with: Pressure Patient tolerated procedure well - Additional Wound Wound debrided: lower leg Laterality: Left Wound Grade/Stage: grade 1 Type of Debridement: Excisional debridement Anesthesia Used: 4% Lidocaine Solution Depth: in the subcutaneous layer Percentage of wound debrided: 100 Instrument Used: #15 blade Tissue Removed: fibrous, devitalized subcutaneous, biofilm, slough Severity: Fat Layer Exposed Amount of bleeding with debridement: Mild Bleeding Controlled with: Pressure Patient tolerated procedure: Patient tolerated procedure well Assessment/Plan Active Problems (Last Updated 08/29/17 @ 10:33 by Karon Nick) Ulcer of left lower extremity with fat layer exposed (Chronic) Type 2 diabetes mellitus with diabetic polyneuropathy (Chronic) Foot ulcer with fat layer exposed (Chronic) Onycholysis (Chronic) Tinea unguium (Chronic) Ulcer of left lower extremity with fat layer exposed (Chronic) Edema (Chronic) Peripheral vascular disease (Chronic) Lymphedema of both lower extremities (Chronic) Assessment: left leg ulcers with fat layer exposed. Lymphedema and edema of the bilateral lower legs. Diabetes type II uncontrolled. Stasis dermatitis with varicosities superficial. Peripheral arterial occlusive disease Plan: I reviewed and discussed the case with the patient today including his recommended care plan. His ulcer sites were debrided as noted in the clinical panel.Hydrogel and adaptic was applied to the ulcers. I recommend the application of an advanced wound care product, epifix. The preauthorization will be started. I recommended compression dressing; these were applied today.To continue circaid compression wraps. I do not see any clinical signs of infection he was reassured. He was advised to elevate his limbs at rest. I reviewed his recent venous Doppler exam which was negative for deep venous thrombosis in the vessels appeared to be compressible. It is noted he had significant edema and some of the more distal veins were not visualized. He had noninvasive vascular studies performed over a year and a half ago which demonstrate normal arterial flow. An updated test was ordered. New labs were also ordered today; cbc and cmp. I also recommended nutritional supplementation with Rayshawn. Lymphedema clinic referral will also be considered even though it appears he has been through this workup in the past. A left fifth to nail avulsion was performed and he tolerted this. Local anesthetic was not needed due to his lack ok sensation. scant bleeding was noted and pressure was applied. a light gauze dressing was applied. An order for a left surgical shoe was provided to offload this site while healing is permitted. The toenails were cut with a nail nipper bilateral 1,2,3,4 and right 5th. He tolerated this well. To return to clinic in 1 week or call sooner if he has any questions or concerns.
[2017-11-30 14:26] VITALS: BP 123/71; PULSE 75; RESP 18; TEMP 36.3
--- NOTE | 2017-11-30 14:43 | WC ---
pt states when I woke up this morning my right foot was bruised in morning . eccomoysis of right dorsum foot and toes
--- NOTE | 2017-11-30 15:40 | PCM.WC.PN ---
(1) Ulcer of left lower extremity with fat layer exposed Status: Chronic Current Visit: Yes Code(s): L97.922 - Non-pressure chronic ulcer of unspecified part of left lower leg with fat layer exposed (2) Foot ulcer with fat layer exposed Status: Chronic Current Visit: Yes Qualifiers: Laterality: left Qualified Code(s): L97.522 - Non-pressure chronic ulcer of other part of left foot with fat layer exposed Code(s): L97.502 - Non-pressure chronic ulcer of other part of unspecified foot with fat layer exposed (3) Type 2 diabetes mellitus with diabetic polyneuropathy Status: Chronic Current Visit: Yes Code(s): E11.42 - Type 2 diabetes mellitus with diabetic polyneuropathy (4) Edema Status: Chronic Current Visit: Yes Qualifiers: Code(s): R60.9 - Edema, unspecified (5) Peripheral vascular disease Status: Chronic Current Visit: Yes Code(s): I73.9 - Peripheral vascular disease, unspecified (6) Lymphedema of both lower extremities Status: Chronic Current Visit: Yes Code(s): I89.0 - Lymphedema, not elsewhere classified Type of Wound Date of Service: 12/01/17 Chief Complaint: Follow-up left lower leg ulcer and toe ulcer bilateral lower leg edema. History of Wound: 77-year-old white male a month ago developed an ulcer on his left lower leg. History of diabetes type II uncontrolled severe edema of the lower extremities. History of coronary artery disease. He uses compression pumps in the past and has an adjustable compressive garment that he will try to bring to his follow-up visit for evaluation; he did not bring this today. He denies redness odor or new trauma. He denies fever, chill, nausea, vomiting. He is unaware of his toe ulcer. He has continued swelling of the limbs. He complains of right foot bruising he denies trauma. He denies night disturbance drainage or redness. Progress of Wound: stable - Physical Exam Vital Signs Temp Pulse Resp BP 97.3 F L 75 18 123/71 H 11/30/17 14:26 11/30/17 14:26 11/30/17 14:26 11/30/17 14:26 General: Alert, Oriented x3, Cooperative Extremities: No cyanosis, Capillary Refill Less than 3 Seconds, No Calf Tenderness - Negative Cory and Dietrich sign bilateral, Diminished Peripheral Pulses, Edema Skin: Ulcer/ Wound - No purulence, no erythema, streaking, odor, no acute infection noted bilateral lower extremities. There is a small posterior leg wound open that is fibrous and granular. There is no anterior leg or ankle ulcers noted; epithelialization noted. There is a small skin discontinuity to the dorsal proximal left second toe., - - New ecchymosis to the dorsal diffuse right midfoot and digital area. No plantar foot ecchymosis is noted. There is increased edema to the right foot Wound Measurements and Assessment WC - Nurse 1 - General Ulcer Measurement Start: 11/16/17 14:16 Freq: Status: Active Protocol: Activity Type Activity Date Activity User E-Sign Co-Sign Detail Recorded Client Recorded Date Recorded By Document 11/30/17 14:26 RB [id number] 11/30/17 14:44 RB 11/30/17 14:26 Wound Center Nurse 1 [Ulcer Assessment] #3- LT LOWER CALF CLUSTER -Combined with other wound No -Current Size (cm) - Length 1.8 -Current Size (cm) - Width 1 -Current Size (cm) - Depth 0.2 -Total Square Cm 1.8 -Photo Taken No -Epithelialization Small 1-33% -Tunneling No -Undermining/Tunneling No -Circular Undermining No -Classification - Thickness Full Thickness without Exposed Support Structure -Exudate Amt Small (1-33%) -Exudate Type Serosanguineous -Wound Margin Distinct, Outline Attached -Granulation Amt Medium (34-66%) -Granulation Quality [place] -Slough/Fibrin Yes -Necrosis Amt Large (67-100%) -Necrotic Tissue Type Adherent Slough -Structure Exposed N/A -Texture (Maggie-wound Skin Appearance) Assessed Excoriation -Moisture (Maggie-wound Skin Appearance Weeping ) -Color (Maggie-wound Skin Appearance) Assessed -Temperature (Maggie-wound Skin No Abnormality Appearance) (Pt Warm) -Tenderness on Palpation (Maggie-wound No Skin Appearance) -Ulcer Cleansing Rinsed/ Irrigated with Saline -Foul Odor after Cleansing No -Anesthetic Used 4% Lidocaine Solution #2- LT [place] CLUSTER -Combined with other wound No -Current Size (cm) - Length 0 -Current Size (cm) - Width 0 -Current Size (cm) - Depth 0 -Total Square Cm 0 -Photo Taken Yes -Epithelialization Large 67-100% -Tunneling No -Undermining/Tunneling No -Circular Undermining No -Classification - Thickness Full Thickness without Exposed Support Structure -Exudate Amt None Present (0 %) -Wound Margin Distinct, Outline Attached -Granulation Amt Large (67-100%) -Granulation Quality [place] -Necrosis Amt None Present (0 %) -Structure Exposed N/A -Texture (Maggie-wound Skin Appearance) Assessed -Moisture (Maggie-wound Skin Appearance Assessed ) -Color (Maggie-wound Skin Appearance) Assessed -Temperature (Maggie-wound Skin No Abnormality Appearance) (Pt Warm) -Tenderness on Palpation (Maggie-wound No Skin Appearance) -Ulcer Cleansing Rinsed/ Irrigated with Saline -Foul Odor after Cleansing No [Edema Assessment] -Lower Limb Edema Present Yes -Right Calf (cm) 43.5 -Right Ankle (cm) 32 -Left Calf (cm) 47 -Left Ankle (cm) 32 11/30/17 14:43 Wound Center by No [place] pt states when I woke up this morning my right foot was bruised in morning . eccomoysis of right dorsum foot and toes Initialized on 11/30/17 14:43 - END OF NOTE WC - Nurse 2 - General Ulcer CM Notes Start: 11/16/17 14:16 Freq: Status: Active Protocol: Activity Type Activity Date Activity User E-Sign Co-Sign Detail Recorded Client Recorded Date Recorded By Document 11/30/17 15:31 [id number] 11/30/17 15:38 11/30/17 15:31 Wound Center Nurse 2 [Procedure/Treatment] #4 left 2nd toe -Time 15:37 -Correct Patient Yes -Correct Side, Site, Position Yes -Correct Procedure Yes -Procedure Performed Yes -Type of Procedure Debridement -Clinical Debridement Subcutaneous -Post Debridement Size (cm) - Length 0.3 -Post Debridement Size (cm) - Width 0.3 -Post Debridement Size (cm) - Depth 0.1 -Total Square Cm 0.09 -Wound/Ulcer Outcome Not Healed -Ulcer Cleansing Rinsed/ Irrigated with Saline -Foul Odor after Cleansing No -Bioengineered Tissue No -Topical Lidocaine (%) 4 -Bleeding Controlled with Pressure -Treatment Response Procedure Tolerated Well #3- LT LOWER CALF CLUSTER -Time 15:31 -Correct Patient Yes -Correct Side, Site, Position Yes -Correct Procedure Yes -Procedure Performed Yes -Type of Procedure Debridement -Clinical Debridement Subcutaneous -Post Debridement Size (cm) - Length 1.9 -Post Debridement Size (cm) - Width 1.1 -Post Debridement Size (cm) - Depth 0.2 -Total Square Cm 2.09 -Wound/Ulcer Outcome Not Healed -Ulcer Cleansing Rinsed/ Irrigated with Saline -Foul Odor after Cleansing No -Bioengineered Tissue No -Topical Lidocaine (%) 4 -Bleeding Controlled with Pressure -Treatment Response Procedure Tolerated Well [See Physician Procedure note for Specifics] Pain Scale: 0-10 Numeric [Pain] -Is Patient Pain Free? Yes Musculoskeletal: No Tenderness to Palpation of Joints or Extremities, Muscle Wasting, Tenderness - No pain with manipulation left lower extremity. Pain with palpation to the dorsal right midfoot and not specifically with metatarsophalangeal joint or midfoot passive range of motion. No laxity or increased warmth or erythema is noted with manipulation of the right toes, foot, ankle. Lymphatic: - - Lymphedema presentation noted bilateral lower external Neurological: - - Lack of epicritic sensation light touch bilateral lower extremities Psych/Mental Status: Normal Affect, Appropriate Debridement Note Post-Debridement Measurements/Treatment WC - Nurse 2 - General Ulcer CM Notes Start: 11/16/17 14:16 Freq: Status: Active Protocol: Activity Type Activity Date Activity User E-Sign Co-Sign Detail Recorded Client Recorded Date Recorded By Document 11/16/17 15:16 [id number] 11/16/17 15:22 TM Document 11/30/17 15:31 [id number] 11/30/17 15:38 TM 11/16/17 11/30/17 15:16 15:31 Wound Center Nurse 2 #4 left 2nd toe -Time 15:37 -Correct Patient Yes -Correct Side, Site, Position Yes -Correct Procedure Yes -Procedure Performed Yes -Type of Procedure Debridement -Clinical Debridement Subcutaneous -Post Debridement Size (cm) - Length 0.3 -Post Debridement Size (cm) - Width 0.3 -Post Debridement Size (cm) - Depth 0.1 -Total Square Cm 0.09 -Wound/Ulcer Outcome Not Healed -Ulcer Cleansing Rinsed/ Irrigated with Saline -Foul Odor after Cleansing No -Bioengineered Tissue No -Topical Lidocaine (%) 4 -Bleeding Controlled with Pressure -Treatment Response Procedure Tolerated Well #3- LT LOWER CALF CLUSTER -Time 15:21 15:31 -Correct Patient Yes Yes -Correct Side, Site, Position Yes Yes -Correct Procedure Yes Yes -Procedure Performed Yes Yes -Type of Procedure Debridement Debridement -Clinical Debridement Subcutaneous Subcutaneous -Post Debridement Size (cm) - Length 2.1 1.9 -Post Debridement Size (cm) - Width 1.2 1.1 -Post Debridement Size (cm) - Depth 0.2 0.2 -Total Square Cm 2.52 2.09 -Wound/Ulcer Outcome Not Healed Not Healed -Ulcer Cleansing Rinsed/ Rinsed/ Irrigated with Irrigated with Saline Saline -Foul Odor after Cleansing No No -Bioengineered Tissue No No -Topical Lidocaine (%) 4 4 -Bleeding Controlled with Pressure Pressure -Treatment Response Procedure Procedure Tolerated Well Tolerated Well #2- LT HENDERSON CLUSTER -Time 15:22 -Correct Patient Yes -Correct Side, Site, Position Yes -Correct Procedure Yes -Procedure Performed Yes -Type of Procedure Debridement -Clinical Debridement Subcutaneous -Post Debridement Size (cm) - Length 4.7 -Post Debridement Size (cm) - Width 1.5 -Post Debridement Size (cm) - Depth 0.1 -Total Square Cm 7.05 -Wound/Ulcer Outcome Not Healed -Ulcer Cleansing Rinsed/ Irrigated with Saline -Foul Odor after Cleansing No -Bioengineered Tissue No -Topical Lidocaine (%) 4 -Bleeding Controlled with Pressure -Treatment Response Procedure Tolerated Well Pain Scale: 0-10 Numeric Is Patient Pain Free? Yes Yes Wound debrided: posterior leg Laterality: Left Wound Grade/Stage: grade 1 Type of Debridement: Excisional debridement Anesthesia Used: 4% Lidocaine Solution Depth: in the subcutaneous layer Percentage of wound debrided: 100 Instrument Used: #15 blade Tissue Removed: fibrous, devitalized subcutaneous, biofilm, slough Severity: Fat Layer Exposed Amount of bleeding with debridement: Mild Bleeding Controlled with: Pressure Patient tolerated procedure well - Additional Wound Wound debrided: dorsal second toe Laterality: Left Wound Grade/Stage: grade 1 Type of Debridement: Excisional debridement Anesthesia Used: 4% Lidocaine Solution Depth: in the subcutaneous layer Percentage of wound debrided: 100 Instrument Used: #15 blade Tissue Removed: fibrous, devitalized subcutaneous, biofilm, slough Severity: Fat Layer Exposed Amount of bleeding with debridement: Mild Bleeding Controlled with: Pressure Patient tolerated procedure: Patient tolerated procedure well Assessment/Plan Active Problems (Last Updated 08/29/17 @ 10:33 by Karon Nick) Ulcer of left lower extremity with fat layer exposed (Chronic) Type 2 diabetes mellitus with diabetic polyneuropathy (Chronic) Foot ulcer with fat layer exposed (Chronic) Edema (Chronic) Peripheral vascular disease (Chronic) Lymphedema of both lower extremities (Chronic) Assessment: left leg ulcers with fat layer exposed. Left second toe ulcer with fat layer exposed. New bruising and rule out injury right foot. Lymphedema and edema of the bilateral lower legs. Diabetes type II uncontrolled. Stasis dermatitis with varicosities superficial. Peripheral arterial occlusive disease Plan: I reviewed and discussed the case with the patient today including his recommended care plan. His ulcer sites were debrided as noted in the clinical panel.Hydrogel and adaptic was applied to the ulcers. I recommend the application of an advanced wound care product, epifix. The preauthorization was started and this is still pending. I recommended compression dressing; these were applied today.To continue circaid compression wraps. I do not see any clinical signs of infection he was reassured. He was advised to elevate his limbs at rest. I reviewed his recent venous Doppler exam which was negative for deep venous thrombosis in the vessels appeared to be compressible. It is noted he had significant edema and some of the more distal veins were not visualized. His left greater saphenous vein was also previously harvested and is absent on exam. He had noninvasive vascular studies performed over a year and a half ago which demonstrate normal arterial flow. He had biphasic PT and DP waveforms bilateral, and toe brachial index on the right of 0.38 and left 0.52. It is noted his ABIs were not calculated because they were not able and this makes this test is not reliable. An updated test was ordered and vascular referral will be considered pending results and progression with wound healing. New labs were previously, obtained on November 23, and reviewed today as the following; cbc and cmp. He did not demonstrate a leukocytosis and his white blood cell count was 8.5. His INR was 1.6 creatinine 1.59 and hemoglobin A1c 8.5%. I also recommended nutritional supplementation with R[place]hawn. Lymphedema clinic referral will also be considered even though it appears he has been through this workup in the past. I recommended he use his compression pumps for 1 hour twice daily. I am concerned she sustained a new right foot injury due to his bruising and pain on physical exam. I ordered a right foot x-ray and advised him to obtain this today. To heel weight-bear until he obtains exam to rule out fracture dislocation or other acute injuries. He relates he is amenable to this plan. To return to clinic in 1 week or call sooner if he has any questions or concerns.
--- NOTE | 2017-12-01 14:45 | RAD_ITS ---
STUDY: X-RAY - RIGHT FOOT CLINICAL: Male, 77 years old. Generalized right foot pain and swelling TECHNIQUE: 3 view(s) of the foot. COMPARISON: None. FINDINGS: There is demineralization of the rear and midfoot bones. There is a plantar spur. There is diffuse bony demineralization. Focal fracture or obvious cortical loss is not visualized. Normal visualized subtalar, talonavicular, calcaneocuboid, tarsal and tarsometatarsal articulations. There is demineralization of the metatarsi. Normal metatarsophalangeal joint of the great toe. Normal tibial and fibular sesamoid bones. There is degenerative arthrosis of the interphalangeal joint of the great toe. Normal phalanges of the great toe. Normal second through fifth metatarsophalangeal joints. Normal interphalangeal joints and phalanges of the lesser toes. No soft tissue calcifications. There is marked soft tissue swelling overlying the foot. This is primarily seen overlying the metatarsals and distal foot. RAD/Foot min 3 Views IMPRESSION: Soft tissue swelling. Consider cellulitis. Potentially venous insufficiency. No visualized fracture. There are vascular calcifications. Electronically Signed: Tejal Romeo MD at 15:12 EDT Tel , Service support ,
[2017-12-07 15:36] VITALS: BP 111/70; PULSE 85; RESP 18; TEMP 36.8
--- NOTE | 2017-12-07 15:47 | WC ---
left foot between toes maceration noted. left simon suoerfical small laceration noted.
--- NOTE | 2017-12-07 16:46 | PN.PCM_ITS ---
(1) Ulcer of left lower extremity with fat layer exposed Status: Chronic Current Visit: Yes Code(s): L97.922 - Non-pressure chronic ulcer of unspecified part of left lower leg with fat layer exposed (2) Foot ulcer with fat layer exposed Status: Chronic Current Visit: Yes Qualifiers: Laterality: left Qualified Code(s): L97.522 - Non-pressure chronic ulcer of other part of left foot with fat layer exposed Code(s): L97.502 - Non-pressure chronic ulcer of other part of unspecified foot with fat layer exposed (3) Type 2 diabetes mellitus with diabetic polyneuropathy Status: Chronic Current Visit: Yes Code(s): E11.42 - Type 2 diabetes mellitus with diabetic polyneuropathy (4) Edema Status: Chronic Current Visit: Yes Qualifiers: Code(s): R60.9 - Edema, unspecified (5) Peripheral vascular disease Status: Chronic Current Visit: Yes Code(s): I73.9 - Peripheral vascular disease, unspecified (6) Lymphedema of both lower extremities Status: Chronic Current Visit: Yes Code(s): I89.0 - Lymphedema, not elsewhere classified Type of Wound Date of Service: 12/08/17 Chief Complaint: Follow-up left lower leg ulcer and toe ulcer bilateral lower leg edema. History of Wound: 77-year-old white male a month ago developed an ulcer on his left lower leg. History of diabetes type II uncontrolled severe edema of the lower extremities. History of coronary artery disease. He uses compression pumps in the past and has an adjustable compressive garment that he will try to bring to his follow-up visit for evaluation; he did not bring this today. He denies redness odor or new trauma. He denies fever, chill, nausea, vomiting. He is unaware of his toe ulcer. He has continued swelling of the limbs. He complains of right foot bruising and is unable to bear full weight. He uses a surgical shoe and a walker. He does not understand his insurance deductible and elects to hold off on the advanced wound care product epi fix application until this anticipated cost is confirmed. Progress of Wound: stable - Physical Exam Vital Signs Temp Pulse Resp BP 98.2 F 85 18 111/70 12/07/17 15:36 12/07/17 15:36 12/07/17 15:36 12/07/17 15:36 General: Alert, Oriented x3, Cooperative HEENT: Atraumatic Extremities: No cyanosis, Capillary Refill Less than 3 Seconds, No Calf Tenderness - Negative Cory and Dietrich bilateral, Diminished Peripheral Pulses, Edema, - - Lymphedema bilateral lower extremities with induration Skin: Ulcer/ Wound - No purulence, no erythema, streaking, odor, no patient. The wound bed is fibrous and granular to the toe in the posterior left leg, - - Ecchymosis to right foot persists with diffuse palpation pain to the foot dorsum Wound Measurements and Assessment WC - Nurse 1 - General Ulcer Measurement Start: 11/16/17 14:16 Freq: Status: Active Protocol: Activity Type Activity Date Activity User E-Sign Co-Sign Detail Recorded Client Recorded Date Recorded By Document 12/07/17 15:36 RB [id number] 12/07/17 15:49 RB 12/07/17 15:36 Wound Center Nurse 1 [Ulcer Assessment] #4 left 2nd toe -Combined with other wound No -Current Size (cm) - Length 0.3 -Current Size (cm) - Width 0.2 -Current Size (cm) - Depth 0.1 -Total Square Cm 0.06 -Tunneling No -Undermining/Tunneling No -Circular Undermining No -Classification - Thickness Full Thickness without Exposed Support Structure -Exudate Amt Small (1-33%) -Exudate Type Serosanguineous -Wound Margin Distinct, Outline Attached -Granulation Amt Medium (34-66%) -Granulation Quality [place] -Slough/Fibrin Yes -Necrosis Amt Small (1-33%) -Structure Exposed N/A -Texture (Maggie-wound Skin Appearance) Assessed -Moisture (Maggie-wound Skin Appearance Assessed ) Maceration -Color (Maggie-wound Skin Appearance) Assessed -Temperature (Maggie-wound Skin No Abnormality Appearance) (Pt Warm) -Tenderness on Palpation (Maggie-wound No Skin Appearance) -Ulcer Cleansing Rinsed/ Irrigated with Saline -Anesthetic Used 5% Lidocaine Gel #3- LT LOWER CALF CLUSTER -Combined with other wound No -Current Size (cm) - Length 1.8 -Current Size (cm) - Width 0.9 -Current Size (cm) - Depth 0.2 -Total Square Cm 1.62 -Epithelialization Small 1-33% -Tunneling No -Undermining/Tunneling No -Circular Undermining No -Classification - Thickness Full Thickness without Exposed Support Structure -Exudate Amt Medium (34-66%) -Exudate Type Serosanguineous -Wound Margin Distinct, Outline Attached -Granulation Amt Medium (34-66%) -Granulation Quality [place] -Slough/Fibrin Yes -Necrosis Amt Small (1-33%) -Necrotic Tissue Type Adherent Slough -Structure Exposed N/A -Texture (Maggie-wound Skin Appearance) Assessed -Moisture (Maggie-wound Skin Appearance Assessed ) Maceration -Color (Maggie-wound Skin Appearance) Assessed -Temperature (Maggie-wound Skin No Abnormality Appearance) (Pt Warm) -Tenderness on Palpation (Maggie-wound No Skin Appearance) -Ulcer Cleansing Rinsed/ Irrigated with Saline -Foul Odor after Cleansing No -Anesthetic Used 5% Lidocaine Gel [Edema Assessment] -Lower Limb Edema Present Yes -Right Calf (cm) 44.5 -Right Ankle (cm) 33.5 -Left Calf (cm) 46.5 -Left Ankle (cm) 32 12/07/17 15:47 Wound Center by No [place] left foot between toes maceration noted. left simon suoerfical small laceration noted. Initialized on 12/07/17 15:47 - END OF NOTE WC - Nurse 2 - General Ulcer CM Notes Start: 11/16/17 14:16 Freq: Status: Active Protocol: Activity Type Activity Date Activity User E-Sign Co-Sign Detail Recorded Client Recorded Date Recorded By Document 12/07/17 16:06 [id number] 12/07/17 16:20 12/07/17 16:06 Wound Center Nurse 2 [Procedure/Treatment] #4 left 2nd toe -Time 16:07 -Correct Patient Yes -Correct Side, Site, Position Yes -Correct Procedure Yes -Procedure Performed Yes -Type of Procedure Debridement -Clinical Debridement Subcutaneous -Post Debridement Size (cm) - Length 0.4 -Post Debridement Size (cm) - Width 0.3 -Post Debridement Size (cm) - Depth 0.1 -Total Square Cm 0.12 -Wound/Ulcer Outcome Not Healed -Ulcer Cleansing Rinsed/ Irrigated with Saline -Foul Odor after Cleansing No -Bioengineered Tissue No -Topical Lidocaine (%) 5 -Bleeding Controlled with Pressure -Treatment Response Procedure Tolerated Well #3- LT LOWER CALF CLUSTER -Time 16:08 -Correct Patient Yes -Correct Side, Site, Position Yes -Correct Procedure Yes -Procedure Performed Yes -Type of Procedure Debridement -Clinical Debridement Subcutaneous -Post Debridement Size (cm) - Length 1.9 -Post Debridement Size (cm) - Width 1.0 -Post Debridement Size (cm) - Depth 0.2 -Total Square Cm 1.90 -Wound/Ulcer Outcome Not Healed -Ulcer Cleansing Rinsed/ Irrigated with Saline -Foul Odor after Cleansing No -Bioengineered Tissue No -Topical Lidocaine (%) 5 -Bleeding Controlled with Pressure -Treatment Response Procedure Tolerated Well [See Physician Procedure note for Specifics] Pain Scale: 0-10 Numeric [Pain] -Is Patient Pain Free? Yes Musculoskeletal: No Tenderness to Palpation of Joints or Extremities - Left, Muscle Wasting - ranges of motion, Tenderness - Pain to palpate right foot not distinctly with midfoot manipulation or metatarsophalangeal joint or digital Neurological: - - Lack of sensation light touch left lower extremity Psych/Mental Status: Normal Affect, Appropriate Debridement Note Post-Debridement Measurements/Treatment WC - Nurse 2 - General Ulcer CM Notes Start: 11/16/17 14:16 Freq: Status: Active Protocol: Activity Type Activity Date Activity User E-Sign Co-Sign Detail Recorded Client Recorded Date Recorded By Document 11/16/17 15:16 [id number] 11/16/17 15:22 TM Document 11/30/17 15:31 [id number] 11/30/17 15:38 TM Document 12/07/17 16:06 TM [id number] 12/07/17 16:20 TM 11/16/17 11/30/17 12/07/17 15:16 15:31 16:06 Wound Center Nurse 2 #4 left 2nd toe -Time 15:37 16:07 -Correct Patient Yes Yes -Correct Side, Site, Position Yes Yes -Correct Procedure Yes Yes -Procedure Performed Yes Yes -Type of Procedure Debridement Debridement -Clinical Debridement Subcutaneous Subcutaneous -Post Debridement Size (cm) - Length 0.3 0.4 -Post Debridement Size (cm) - Width 0.3 0.3 -Post Debridement Size (cm) - Depth 0.1 0.1 -Total Square Cm 0.09 0.12 -Wound/Ulcer Outcome Not Healed Not Healed -Ulcer Cleansing Rinsed/ Rinsed/ Irrigated with Irrigated with Saline Saline -Foul Odor after Cleansing No No -Bioengineered Tissue No No -Topical Lidocaine (%) 4 5 -Bleeding Controlled with Pressure Pressure -Treatment Response Procedure Procedure Tolerated Well Tolerated Well #3- LT LOWER CALF CLUSTER -Time 15:21 15:31 16:08 -Correct Patient Yes Yes Yes -Correct Side, Site, Position Yes Yes Yes -Correct Procedure Yes Yes Yes -Procedure Performed Yes Yes Yes -Type of Procedure Debridement Debridement Debridement -Clinical Debridement Subcutaneous Subcutaneous Subcutaneous -Post Debridement Size (cm) - Length 2.1 1.9 1.9 -Post Debridement Size (cm) - Width 1.2 1.1 1.0 -Post Debridement Size (cm) - Depth 0.2 0.2 0.2 -Total Square Cm 2.52 2.09 1.90 -Wound/Ulcer Outcome Not Healed Not Healed Not Healed -Ulcer Cleansing Rinsed/ Rinsed/ Rinsed/ Irrigated with Irrigated with Irrigated with Saline Saline Saline -Foul Odor after Cleansing No No No -Bioengineered Tissue No No No -Topical Lidocaine (%) 4 4 5 -Bleeding Controlled with Pressure Pressure Pressure -Treatment Response Procedure Procedure Procedure Tolerated Well Tolerated Well Tolerated Well #2- LT SIMON CLUSTER -Time 15:22 -Correct Patient Yes -Correct Side, Site, Position Yes -Correct Procedure Yes -Procedure Performed Yes -Type of Procedure Debridement -Clinical Debridement Subcutaneous -Post Debridement Size (cm) - Length 4.7 -Post Debridement Size (cm) - Width 1.5 -Post Debridement Size (cm) - Depth 0.1 -Total Square Cm 7.05 -Wound/Ulcer Outcome Not Healed -Ulcer Cleansing Rinsed/ Irrigated with Saline -Foul Odor after Cleansing No -Bioengineered Tissue No -Topical Lidocaine (%) 4 -Bleeding Controlled with Pressure -Treatment Response Procedure Tolerated Well Pain Scale: 0-10 Numeric Is Patient Pain Free? Yes Yes Yes Wound debrided: dorsal 2nd toe Laterality: Left Wound Grade/Stage: grade 1 Type of Debridement: Excisional debridement Anesthesia Used: 4% Lidocaine Solution Depth: Down to and including healthy tissue Percentage of wound debrided: 100 Instrument Used: #15 blade Tissue Removed: fibrous, devitalized subcutaneous, biofilm, slough Severity: Fat Layer Exposed Amount of bleeding with debridement: Mild Bleeding Controlled with: Pressure Patient tolerated procedure well - Additional Wound Wound debrided: posterior leg Laterality: Left Wound Grade/Stage: grade 1 Type of Debridement: Excisional debridement Anesthesia Used: 5% Lidocaine Gel Depth: in the subcutaneous layer Percentage of wound debrided: 100 Instrument Used: #15 blade Tissue Removed: fibrous, devitalized subcutaneous, biofilm, slough Severity: Fat Layer Exposed Amount of bleeding with debridement: Mild Bleeding Controlled with: Pressure Patient tolerated procedure: Patient tolerated procedure well Assessment/Plan Clinical Impression(s) from Imaging Studies Foot X-Ray 12/01/17 14:45 IMPRESSION: Soft tissue swelling. Consider cellulitis. Potentially venous insufficiency. No visualized fracture. There are vascular calcifications. Electronically Signed: Tejal Romeo MD at 15:12 EDT Tel , Service support , Active Problems (Last Updated 08/29/17 @ 10:33 by Karon Nick) Ulcer of left lower extremity with fat layer exposed (Chronic) Type 2 diabetes mellitus with diabetic polyneuropathy (Chronic) Foot ulcer with fat layer exposed (Chronic) Edema (Chronic) Peripheral vascular disease (Chronic) Lymphedema of both lower extremities (Chronic) Assessment: left leg ulcers with fat layer exposed. Left second toe ulcer with fat layer exposed. continued contusion right foot versus sprain. Lymphedema and edema of the bilateral lower legs. Diabetes type II uncontrolled. Stasis dermatitis with varicosities superficial. Peripheral arterial occlusive disease Plan: I reviewed and discussed the case with the patient today including his recommended care plan. His ulcer sites were debrided as noted in the clinical panel.Hydrogel and adaptic was applied to the ulcers. I recommend the application of an advanced wound care product, epifix. The preauthorization was sent over today and the patient does not understand his full out of pocket cost of deductible cost. I personally completed a peer to peer to progress this to get authorized due to his medical necessity. He would like to hold off until this is confirmed in the what is likely covered. I recommended compression dressing; these were applied today.To continue circaid compression wraps. I do not see any clinical signs of infection he was reassured. He was advised to elevate his limbs at rest. I reviewed his recent venous Doppler exam which was negative for deep venous thrombosis in the vessels appeared to be compressible. It is noted he had significant edema and some of the more distal veins were not visualized. His left greater saphenous vein was also previously harvested and is absent on exam. He had noninvasive vascular studies performed over a year and a half ago which demonstrate normal arterial flow. He had biphasic PT and DP waveforms bilateral, and toe brachial index on the right of 0.38 and left 0.52. It is noted his ABIs were not calculated because they were not able and this makes this test is not reliable. An updated test was ordered and vascular referral will be considered pending results and progression with wound healing. New labs were previously, obtained on November 23, and reviewed today as the following; cbc and cmp. He did not demonstrate a leukocytosis and his white blood cell count was 8.5. His INR was 1.6 creatinine 1.59 and hemoglobin A1c 8.5%. I also recommended nutritional supplementation with Rayshawn. Lymphedema clinic referral was recommended and he defers today because he is already been through the program. I recommended he use his compression pumps for 1 hour twice daily. He reports he has not even been doing this because they hurt and he is wondering if he can decrease the pressure slightly until he works in a tolerating this again. He reports today that he is actually not sure the pump are working at this time. I advised him to look for a local on the pump and bring this information with him next week. He is also advised to bring the pump consult and for evaluation. I am concerned he sustained a new right foot injury due to his bruising and pain on physical exam. I ordered a right foot x-ray and reviewed this with him in which no fracture dislocation or Charcot was identified. His distinct foot edema is noted on x-ray and correlates clinically. To heel weight-bear in his surgical shoe with walker assistance and to go nonweightbearing if this is not tolerated. He relates he is amenable to this plan. I offered him a cam walker boot. Further workup with MRI may be warranted if his pain persists. To return to clinic in 1 week or call sooner if he has any questions or concerns.
== END 2017-12-12 23:59 ==
LOC: WC 15:00
PROVIDERS: Family Provider Family Medicine Geriatric Medicine; PCP Family Medicine Geriatric Medicine; Visit Provider Podiatrist
DX: E11.622 Type 2 diabetes mellitus with other skin ulcer (principal); E11.621 Type 2 diabetes mellitus with foot ulcer; E11.42 Type 2 diabetes mellitus with diabetic polyneuropathy; L97.522 Non-pressure chronic ulcer of other part of left foot with fat layer exposed; L97.822 Non-pressure chronic ulcer of other part of left lower leg with fat layer exposed; L60.1 Onycholysis; B35.1 Tinea unguium; E11.51 Type 2 diabetes mellitus with diabetic peripheral angiopathy without gangrene; R60.0 Localized edema; I25.10 Atherosclerotic heart disease of native coronary artery without angina pectoris; E11.65 Type 2 diabetes mellitus with hyperglycemia; S93.601A Unspecified sprain of right foot, initial encounter; X58.XXXA Exposure to other specified factors, initial encounter; R09.89 Other specified symptoms and signs involving the circulatory and respiratory systems; M79.675 Pain in left toe(s); M79.674 Pain in right toe(s)
CPT/HCPCS: 11042; 11721; 11730; 73630

== ENCOUNTER 2017-12-14 12:43 | Inpatient (IN) | payer MEDICARE, SELFPAY ==
[2017-12-14] VITALS (8 sets, daily range): BP systolic 114–119; BP diastolic 58–96; PULSE 86–99; RESP 18–31; TEMP 36.1–36.4; O2SAT 92–100; BMI 33.3; BMI 33.4; BMI 32.4
--- NOTE | 2017-12-14 13:12 | CT_ITS ---
STUDY: CT BRAIN WITHOUT CONTRAST REASON FOR EXAM: Male, 77 years old. Confusion. RADIATION DOSAGE (If Supplied By Facility): CTDIvol = ( 44.99 ) mGy, DLP = ( 796.11 ) mGycm TECHNIQUE: Transaxial CT imaging of the brain was performed without administration of intravenous contrast material. Individualized dose optimization techniques were used for this CT. COMPARISON: None. FINDINGS: Normal soft tissue structures. Normal calvarium. There are atherosclerotic calcifications of the distal internal carotid and vertebral arteries. There is mild cerebral atrophy with widening of the extra-axial spaces and ventricular dilatation. There are areas of decreased attenuation within the white matter tracts of the supratentorial brain, consistent with microvascular disease changes. Normal basal ganglia and thalami. Normal brainstem. Normal cerebellum. There is no intracranial hemorrhage. There are no findings of an acute ischemic infarction. There is moderate mucoperiosteal thickening of the mid to anterior ethmoid sinuses and inferior recesses of the frontal sinuses. CT/Brain/Head without Contrast IMPRESSION: 1. Chronic involutional/microvascular ischemic changes of the brain. No acute intracranial pathology. 2. 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 Electronically Signed: Flavio Fischer MD at 14:25 EDT , Service support ,
--- NOTE | 2017-12-14 13:12 | RAD_ITS ---
STUDY: X-RAY CHEST REASON FOR EXAM: Male, 77 years old. Confusion. TECHNIQUE: Single AP portable upright view of the chest. COMPARISON: Portable AP upright chest x-ray November 21, 2017. FINDINGS: The dual lead left subclavian cardiac pacemaker/AICD is unchanged. The lungs again are under expanded, and there is stable right base subsegmental atelectasis. Stable ill-defined density in the left base may be additional atelectasis or infection. There is no demonstrated pleural abnormality. There is stable borderline to mild cardiac enlargement. Sternal cerclage wires and vascular clips are present from a prior sternotomy and coronary artery bypass graft procedure (CABG). Stable mediastinal fullness likely due to crowding. There are stable calcified lymph nodes at the left hilum. Normal visualized pulmonary arteries. There is stable mild atherosclerotic calcification of the aortic arch. There are stable multilevel degenerative changes of the visualized thoracic spine. Normal visualized ribs, clavicles, and shoulders. Surgical clips again seen in the left base of the neck. Surgical clips of prior left nephrectomy again noted to the left of the upper lumbar spine. RAD/Chest 1 View (Portable) IMPRESSION: Stable x-ray examination of the chest, as described. Electronically Signed: Flavio Fischer MD at 14:50 EDT , Service support ,
--- NOTE | 2017-12-14 13:12 | EKG12_ITS ---
Test Reason : ALTLOC Blood Pressure : / mmHG Vent. Rate : 096 BPM Atrial Rate : 096 BPM P-R Int : 084 ms QRS Dur : 118 ms QT Int : 376 ms P-R-T Axes : 180 018 143 degrees QTc Int : 475 ms Unusual P axis, possible ectopic atrial rhythm with occasional Premature ventricular complexes Inferior infarct , age undetermined ST & T wave abnormality, consider lateral ischemia Abnormal ECG Confirmed by JUAN CARRILLO, IRAIS ([id number]), editor managing director DERECK MARAVILLA ([id number]) on 12/16/2017 3:39:40 PM Referred By: PREETHI Confirmed By:IRAIS MARTINEZ MD
[2017-12-14 13:28] LABS: Absolute Lymphocyte Count 1.01 X10^3/ul (0.83-4.51); Absolute Neutrophil Count 5.8 X10^3/uL (2.0-7.7); Basophil# 0.04 X10^3/uL; Basophil% 0.5 % (0-1); Eosinophil# 0.03 X10^3/uL; Eosinophils% 0.4 % (0-5); Hematocrit 34.3 % (40-54); Hemoglobin 10.5 g/dl (13.0-16.5); Lymphocyte # 1.01 X10^3/ul (4.0); Lymphocyte % 13.4 % (19-41); Mean Corp Hgb Conc 30.6 g/gl (32-36); Mean Corpuscular Hgb 25.9 pg (27.0-32.0); Mean Corpuscular Volume 84.7 fL (80-94); Mean Platelet Vol. 10.5 fl (6.2-12.0); Monocyte# 0.51 X10^3/uL; Monocyte% 6.8 % (0-10); Neutrophil # 5.75 X10^3/uL (2.7-7.7); Neutrophil % 76.1 % (47-70); Platelet Count 145 K/mm3 (150-450); RBC Distribution Width CV 16.2 % (11.6-14.6); RBC Distribution Width SD 49.9 fl (35.1-43.9); Red Blood Count 4.05 M/mm3 (4.6-6.2); White Blood Count 7.6 K/mm3 (4.4-11.0)
[2017-12-14 13:29] LABS: POSITIVE COUNT YES; POSITIVE DIFFERENTIAL NO; POSITIVE MORPHOLOGY YES
--- NOTE | 2017-12-14 13:36 | NURSING ---
NO LW OR POA
[2017-12-14 13:40] LABS: AST(SGOT) 108 U/L (15-37); Alanine Aminotransfer ALT/SGPT 96 U/L (16-61); Albumin, Serum 3.2 g/dL (3.2-5.0); Alkaline Phosphatase 54 U/L (45-117); Anion Gap 8 (5-15); BUN 46 mg/dL (7-18); BUN/Creat Ratio 19.7 RATIO (10-20); Bilirubin, Direct 0.23 mg/dL (0.00-0.30); Calcium,Total 10.4 mg/dL (8.5-10.1); Chloride 95 mmol/L (98-107); Creatinine, Serum 2.34 mg/dL (0.70-1.30); EST Glomerular Filtration Rate 29 mL/min (>60); Est Glom Filt Rate - Afr Amer 35 mL/min (>60); Globulin 3.8 g/dL (2.2-4.2); Glucose 332 mg/dL (74-106); Potassium 4.6 mmol/L (3.5-5.1); Sodium Level 131 mmol/L (136-145)
[2017-12-14 13:48] LABS: Lactic Acid 2.4 mmol/L (0.4-2.0)
--- NOTE | 2017-12-14 13:48 | ED.RN ---
DR ORO NOTIFIED OF LACTIC ACID RESULTS
--- NOTE | 2017-12-14 14:00 | CPS ---
TWO UNSUCCESSFUL ATTEMPTS AT BLOOD GAS MADE, DR. ORO AWARE AND VERBAL ORDER TO DC ABG ORDER.
--- NOTE | 2017-12-14 14:03 | CASEMGMT ---
Social Work Note In to complete initial assessment as pt is targeted for admission. Pt being transported down for imaging. Will return to assess as time allows. Alea Camacho, RECORDS AND TAPE RECORDINGS ENGINEER, FORESTRY AIDE
--- NOTE | 2017-12-14 14:05 | RAD_ITS ---
STUDY: X-RAY - RIGHT FOOT CLINICAL: Male, 77 years old. Trauma. Swelling. TECHNIQUE: 3 view(s) of the foot. COMPARISON: 3 views of the right foot December 01, 2017. FINDINGS: There is a stable large enthesophyte involving the posterior superior calcaneus at the site of insertion of the Achilles tendon. There is a stable small plantar calcaneal spur. Normal talus and remaining tarsal bones. Normal visualized subtalar, talonavicular, calcaneocuboid, tarsal and tarsometatarsal articulations. Normal metatarsi. Normal metatarsophalangeal joint of the great toe. Mild degenerative sclerosis of the tibial and fibular sesamoid bones. Normal interphalangeal joint of the great toe. Mild cortical thickening along the lateral base of the first proximal phalanx. Normal distal phalanx of the great toe. Normal second through fifth metatarsophalangeal joints. Normal interphalangeal joints and phalanges of the lesser toes. There is stable anterior soft tissue swelling from the distal lower leg to the toes. Atherosclerotic vascular calcifications again noted. There is no demonstrated osseous destructive lesion or fracture. RAD/Foot min 3 Views IMPRESSION: Stable soft tissue swelling extending from the distal lower leg to the toes. Atherosclerotic vascular calcifications also again noted. No acute osseous abnormality. Electronically Signed: Flavio Fischer MD at 14:53 EDT , Service support ,
[2017-12-14 14:48] LABS: Bacteria 0 SEEN /hpf (None Seen); Mucous, Urine 0 SEEN /hpf (<or=2+); Red Blood Cells-Urine 0 SEEN /hpf (0-5); Squamous Epithelial Cells - UA 0 SEEN /hpf (0-5); White Blood Cells 0 SEEN /hpf (0-5)
[2017-12-14 14:49] LABS: Color, Urine Yellow (Yellow); Glucose, Dipstick 50 mg/dl (Normal); Ketone-Dipstick Negative (Negative); Leukocyte Esterase-Dipstick Negative /ul (Negative); Nitrite-Dipstick Negative (Negative); Occult Blood-Urine Negative /ul (Negative); Protein-Dipstick 30 mg/dl (Negative); Urine Bilirubin Dipstick Negative (Negative); Urine Clarity Clear (Clear); Urine Urobilinogen Normal (Normal)
[2017-12-14 15:06] LABS: Hyaline Cast 0-5 SEEN /lpf (0-5)
--- NOTE | 2017-12-14 16:16 | ED.VISSUMM ---
- ER Visit Summary Date of Service: 12/14/17 Chief Complaint: Confusion and decreased level of consciousness History of Present Illness: The patient is a [address] Marcus Gu. reports that Tuesday he had diarrhea 3-4 times. It was watery without blood. He has not had diarrhea since then. He also complained of abdominal pain and nausea at that time. That has since resolved. He has not vomited. reports that he was in his usual state of health until 945 this morning when he became confused. Family reports patient fell approximately 1 week ago. X-rays of his foot there were negative. He fell again 2 days ago. Did have a blow to head or loss of consciousness. He is on Eliquis. Patient is DNR Comfort Care arrest. Physical Examination: Vitals: 97.6, 118/79, 94, 24, 90% on 3 L nasal cannula.. General: Well-nourished and well-developed. Head: Normocephalic atraumatic. Neck: Supple, no lymphadenopathy. No JVD. Nontender. Cardiovascular: Regular rate and rhythm. 2 out of 6 systolic murmur. Respiratory: No respiratory distress. Clear to auscultation bilaterally. Abdominal: Soft, nontender, nondistended, normal bowel sounds. No guarding, rebound, or peritoneal signs. Back: Nontender. Extremities: Nontender, 4+ pitting edema to his lower extremities bilaterally. He has ecchymosis on his right foot. Skin: Normal color, no rash. Neurologic: Lethargic, but arouses to voice. Cranial nerves II through XII are intact. Normal strength and sensation. Test Results: EKG is sinus at [address] changes and artifact. It is not significantly changed from last month. CBC is marked for an H&H 10.5 and 34.3, segmented neutrophils 76, lymphocytes of 13, immature granulocytes 2.8%. Chem-7 is more for sodium 131, chloride 95, glucose of 332, BUN 46, creatinine 2.34, calcium 10.4. LFTs marked for an AST of 108 and ALT of 96. Troponin is indeterminate 0.35. Chest x-ray shows chronic changes. Atelectasis. Right foot x-ray shows swelling and no acute disease. CT brain shows chronic changes. No intracranial hemorrhage. He does have chronic mid to anterior ethmoid and inferior frontal sinusitis. Emergency Department Course and Treatment: Patient was given aspirin p.o. He was given a 500 cc bolus of normal saline. His blood pressures remained stable while here. Despite the lactic acidosis I do not think that giving him more fluids is in his best interest as he is clearly third spacing. Treatment Plan: Patient was discussed with Dr. Du. He will be admitted to the hospital for further evaluation and treatment. Disposition: Admitted in serious condition. Impression: 1. Mental status change. 2. Lactic acidosis. 3. Acute renal insufficiency. 4. Coagulopathy on Eliquis. 5. Indeterminate troponin. 6. Peripheral edema. 7. DNR Comfort Care arrest. This note was generated with [employer] dictation software. It may contain incorrect words, spelling, and punctuation that were not noted in review of the chart prior to signing ED Disposition - Plan for ED Patient: Chief Complaint: General Illness Referrals: Guy Gu Chi, MD [Primary Care Provider] -
--- NOTE | 2017-12-14 16:51 | ED.RN ---
HOME MED LIST REVIEWED WITH FAMILY AND PCP LIST. UNABLE TO VERIFY INSULINE KIND AND DOSAGE. DR BRADY NOTIFIED.
--- NOTE | 2017-12-14 17:11 | PCM.HP.STD ---
Problem List (1) Contusion of right foot Status: Acute (2) Ulcer of left lower extremity with fat layer exposed Status: Chronic (3) Type 2 diabetes mellitus with diabetic polyneuropathy Status: Chronic (4) Foot ulcer with fat layer exposed Status: Chronic Qualifiers: (5) Onycholysis Status: Chronic (6) Tinea unguium Status: Chronic (7) Ulcer of left lower extremity with fat layer exposed Status: Chronic (8) Metabolic encephalopathy Status: Acute (9) UTI (urinary tract infection) Status: Chronic Qualifiers: (10) Atherosclerosis of kashia coronary artery of kashia heart without angina pectoris Status: Chronic Comment: MOULTON to LAD, SVG to circumflex, and SVG to RCA in 1986 (11) Left ventricular failure Status: Chronic (12) Peripheral vascular disease Status: Chronic (13) ASHD (arteriosclerotic heart disease) Status: Chronic (14) Automatic implantable cardiac defibrillator in situ Status: Chronic Comment: ICD implant: 02/2010 (15) HLD (hyperlipidemia) Status: Chronic (16) HTN (hypertension) Status: Chronic Qualifiers: (17) Atherosclerosis of coronary artery bypass graft without angina pectoris Status: Chronic Comment: CABG MOULTON graft to anterior descending, saphenous vein graft to CFX, saphenous vein graft to RCA 1986. [facility] 1987, 01/29/2010, 02/24. (18) Ischemic cardiomyopathy Status: Chronic (19) Paroxysmal ventricular tachycardia Status: Chronic (20) H/O coronary artery bypass surgery Status: Chronic Comment: CABG MOULTON graft to anterior descending, saphenous vein graft to CFX, saphenous vein graft to RCA 1986. (21) Benign hypertension Status: Chronic (22) BPH (benign prostatic hypertrophy) with urinary obstruction Status: Chronic (23) Hx of CABG Status: Chronic (24) CAD (coronary artery disease) Status: Chronic (25) CRF (chronic renal failure) Status: Chronic Qualifiers: (26) Pacemaker Status: Chronic (27) COPD (chronic obstructive pulmonary disease) Status: Chronic (28) Type II diabetes mellitus Status: Chronic (29) HLD (hyperlipidemia) Status: Chronic Qualifiers: (30) Hypothyroidism Status: Chronic (31) Ischemic cardiomyopathy Status: Chronic (32) History of nephrolithiasis Status: Chronic (33) Diabetes mellitus type 2, uncontrolled, with complications Status: Chronic (34) Lymphedema of both lower extremities Status: Chronic (35) 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 As per the he had a diarrhea about 3-4 times since Tuesday, watery in consistency without blood and then has decreased intake and urine output. Patient is also confused, disoriented, drowsy and lethargic with eyes closed since morning today. As per the , he had some chills about 2 days ago. Bilateral lower extremity swelling. Denies chest pressure/shortness of breath. Patient had fall a week ago and has purple color/bruise on the right toes. [] In the ED, EKG shows unusual P-wave, possible ectopic atrial rhythm with multiple PACs. Nonspecific ST-T changes. Preliminary strep throat is negative. CT head shows chronic changes along with chronic ethmoid and inferior frontal sinusitis. Chest x-ray no acute change. In blood work his creatinine is 2.34, BUN 46 suggestive of acute on chronic kidney disease. His baseline creatinine runs around 1.35-1.6. Patient has left nephrectomy. He also has elevated lactic acid most probably from dehydration, mildly elevated troponin 0 0.35 and 38 ALT and AST and mild hyponatremia Past Medical History Past Medical History (Chronic Problems): Chronic Problems (Last Updated 08/29/17 @ 10:33 by Karon Nick) Ulcer of left lower extremity with fat layer exposed (Chronic) Type 2 diabetes mellitus with diabetic polyneuropathy (Chronic) Foot ulcer with fat layer exposed (Chronic) Onycholysis (Chronic) Tinea unguium (Chronic) Ulcer of left lower extremity with fat layer exposed (Chronic) UTI (urinary tract infection) (Chronic) Atherosclerosis of kashia coronary artery of kashia heart without angina pectoris (Chronic) MOULTON to LAD, SVG to circumflex, and SVG to RCA in 1986 Left ventricular failure (Chronic) Peripheral vascular disease (Chronic) ASHD (arteriosclerotic heart disease) (Chronic) Automatic implantable cardiac defibrillator in situ (Chronic) ICD implant: 02/2010 HLD (hyperlipidemia) (Chronic) HTN (hypertension) (Chronic) Atherosclerosis 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 [facility] 1987, 01/29/2010, 02/24. Ischemic cardiomyopathy (Chronic) Paroxysmal ventricular tachycardia (Chronic) H/O coronary artery bypass surgery (Chronic) CABG MOULTON graft to anterior descending, saphenous vein graft to CFX, saphenous vein graft to RCA 1986. 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) Open wound of lower extremity without complication (Chronic) Chronic renal insufficiency, stage III (moderate) (Chronic) PAOD (peripheral arterial occlusive disease) (Chronic) Allergies erythromycin base Allergy (Mild, Verified 11/22/17 10:36) Hives cyclobenzaprine HCl [From Flexeril] Allergy (Verified 11/21/17 12:35) Rash latex Allergy (Verified 11/21/17 12:35) Swelling Penicillins Allergy (Verified 11/21/17 12:35) Rash Sulfa (Sulfonamide Antibiotics) Allergy (Verified 11/21/17 12:35) Rash tetracycline Allergy (Verified 11/22/17 10:36) Hives acetaminophen [From Percocet] Adverse Reaction (Verified 11/21/17 12:35) Other HALLUCINATES oxycodone [From Percocet] Adverse Reaction (Verified 11/21/17 12:35) Other HALLUCINATES iv dye Adverse Reaction (Uncoded 11/21/17 12:35) only has 1 kidney Home Medications: Ambulatory Orders Medication Instructions Recorded Carvedilol [Coreg (Beta Tae)] 25 mg PO BID 11/21/17 Ergocalciferol [Vitamin D] 50,000 unit PO QMONTH 11/21/17 Escitalopram Oxalate [Lexapro] 20 mg PO DAILY 11/21/17 Finasteride [Proscar] 5 mg PO DAILY 11/21/17 Potassium Chloride [K-Dur] 20 meq PO DAILY 11/21/17 Apixaban [Eliquis] 5 mg PO BID #0 11/23/17 Insulin Aspart [Novolog] See Protocol SQ ACHS #1 vial 11/23/17 Doxazosin Mesylate [Cardura Xl] 4 mg PO BID 12/07/17 Baclofen 10 mg PO DAILY PRN PRN 12/14/17 Digoxin [Digox] 125 mcg PO DAILY 12/14/17 Doxazosin Mesylate [Cardura] 8 mg PO DAILY 12/14/17 Furosemide [Lasix] 40 mg PO DAILY 12/14/17 Insulin Degludec [Tresiba unit SQ 12/14/17 Flextouch U-100] Insulin Glargine,Hum.rec.anlog 20 unit SQ BID 12/14/17 [Lantus] Sertraline HCl [Zoloft] 100 mg PO DAILY 12/14/17 Surgical History: coronary bypass surgery, pacemaker implantation, TURP Smoking Status: Former smoker - *Family History Maternal History Items: No pertinent history Paternal History Items: Heart Disease, No pertinent history Review of Systems Constitutional: Reports: Chills, Malaise, Weakness HEENT: Reports: Difficulty Hearing Cardiovascular: Denies: Chest Pain Respiratory: Denies: Cough, Shortness of breath at rest, Sputum production Gastrointestinal: Reports: Diarrhea. Denies: Abdominal Pain, Nausea, Vomiting Neurological: Reports: Balance problems Unable to obtain accurate/complete ROS d/t: Rest 12 are all systems are unobtainable VTE Information - Inpt Only VTE Present on Admission: No VTE Mechan Device Prophylaxis: SCD's - On Eliquis Patient Problems: Active and Suspected Problems (Last Updated 08/29/17 @ 10:33 by Karon Nick) Acute metabolic encephalopathy (Acute) Acute kidney injury on CKD stage III (Acute) - Physical Exam General: Alert, Oriented x3, Cooperative HEENT: Atraumatic, PERRLA, EOMI, Normocephalic Neck: Supple, No JVD, Negative Carotid Bruits Lungs: Clear to auscultation, No rhonchi, No wheeze, No rales, Diminished Cardiovascular: Regular rate, Regular Rhythm, Normal S1, Normal S2, Murmur, - - Status post AICD CABG scar Abdomen: Bowel Sounds Present, Soft, Non Tender, Non-Distended Extremities: Capillary Refill Less than 3 Seconds, Edema Skin: No rashes, No breakdown Musculoskeletal: No Tenderness to Palpation of Joints or Extremities Neurological: Cranial nerves II-XII grossly intact Psych/Mental Status: Normal Affect, Appropriate Vital Signs Temp Pulse Resp BP Pulse Ox 97.6 F L 94 24 H 118/84 H 96 12/14/17 12:44 12/14/17 16:19 12/14/17 16:19 12/14/17 16:19 12/14/17 16:19 Assessment/Plan Active and Suspected Problems (Last Updated 08/29/17 @ 10:33 by Karon Nick) Acute metabolic encephalopathy (Acute) Acute kidney injury on CKD stage III (Acute) The patient is a 77 year old M with multiple comorbidities as listed above was brought in by family members for multiple complaints. As per the he had a diarrhea about 3-4 times since Tuesday, watery in consistency without blood and then has decreased intake and urine output. Patient is also confused, disoriented, drowsy and lethargic with eyes closed since morning today. As per the , he had some chills about 2 days ago. Bilateral lower extremity swelling. Denies chest pressure/shortness of breath. Patient had fall a week ago and has purple color/bruise on the right toes. [] In the ED, EKG shows unusual P-wave, possible ectopic atrial rhythm with multiple PACs. Nonspecific ST-T changes. Preliminary strep throat is negative. CT head shows chronic changes along with chronic ethmoid and inferior frontal sinusitis. Chest x-ray no acute change. In blood work his creatinine is 2.34, BUN 46 suggestive of acute on chronic kidney disease. His baseline creatinine runs around 1.35-1.6. Patient has left nephrectomy. He also has elevated lactic acid most probably from dehydration, mildly elevated troponin 0 0.35 and 38 ALT and AST and mild hyponatremia 1. Altered mental status most rapidly acute encephalopathy secondary to metabolic encephalopathy; rule out infectious encephalopathy: Patient is being admitted in PCU. IV fluid normal saline to correct her dehydration and lactic acid. UA is negative for pyuria, hematuria although shows mild proteinuria. Respiratory panel ordered. The patient was discharged on 11/23/2017 after admission for similar complaint with metabolic and infectious encephalopathy. 2. Acute kidney injury on CKD stage III status post nephrectomy: On IV fluid normal saline. Monitor kidney function and electrolytes. Monitor intake and output. Adult failure to thrive with multiple comorbidities: [facility] Chaplain consult. PT and OT ordered. Patient family refused for prison placement. 3. Lower extremities peripheral arterial disease AND venous thromboembolic disease Patient is lower extremities arterial study in February 2016 which showed evidence of arterial calcification bilaterally and resting MADHURI cannot be calculated. Biphasic waveforms were noted at ankle level bilaterally. Digital brachial indices are moderately to severely diminished consistent with moderate to severe arterial occlusive disease in lower extremities bilaterally. on Eliquis. 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 COPD: Stable. Does not seem to be an exacerbation. Continue inhalers Multiple other comorbidities including nephrolithiasis, left nephrectomy, foot ulcer, onychomycosis, hypertension, dyslipidemia, BPH and hypothyroidism on home medication reconciliation done CODE STATUS: Advanced directive discussed with the patient's and daughter. As per the , patient has living will and does not want intubation, life support measures or CPR. Time spent in [id number] encounter and discussion with the advanced directive 17 minutes patient is DNR Comfort Care arrest at this time. Microbiology Past 72 Hours 12/14/17 14:23 Mucosa - Throat Group A Streptococcus Rapid Screen - Preliminary Laboratory Results 12/14/17 12:59: WBC 7.6, RBC 4.05 L, Hgb 10.5 L, Hct 34.3 L, MCV 84.7, MCH 25.9 L, MCHC 30.6 L, RDW 16.2 H, RDW Differential 49.9 H, Plt Count 145 L, MPV 10.5, Immature Gran % (Auto) 2.800 H, Neut % (Auto) 76.1 H, Lymph % (Auto) 13.4 L, [place] % (Auto) 6.8, Eos % (Auto) 0.4, Baso % (Auto) 0.5, Absolute Neuts (auto) 5.8, Absolute Lymphs (auto) 1.01, Total Counted Not Reportable, Diff Path Review May 12/14/17 12:59: Sodium 131 L, Potassium 4.6, Chloride 95 L, Carbon Dioxide 28.0, Anion Gap 8, BUN 46 H, Creatinine 2.34 H, Estim Creat Clear Calc 27.30, Est GFR (MDRD) Af Amer 35 L, Est GFR (MDRD) Non-Af 29 L, BUN/Creatinine Ratio 19.7, Glucose 332 H, Calcium 10.4 H, Total Bilirubin 0.70, Direct Bilirubin 0.23, AST 108 H, ALT 96 H, Alkaline Phosphatase 54, Troponin I 0.35 H, Total Protein 7.0, Albumin 3.2, Globulin 3.8 12/14/17 12:59: Lactic Acid 2.4 H 12/14/17 14:37: Urine Color Yellow, Urine Clarity Clear, Urine pH 5.0, Ur Specific Warren 1.020, Urine Protein 30 H, Urine Glucose (UA) 50 H, Urine Ketones Negative, Urine Occult Blood Negative, Urine Nitrite Negative, Urine Bilirubin Negative, Urine Urobilinogen Normal, Ur Leukocyte Esterase Negative, Urine RBC 0 SEEN, Urine WBC 0 SEEN, Ur Squamous Epith Cells 0 SEEN, Urine Bacteria 0 SEEN, Hyaline Casts 0-5 SEEN, Urine Mucus 0 SEEN Clinical Impression(s) from Imaging Studies Brain CT 12/14/17 13:12 IMPRESSION: 1. Chronic involutional/microvascular ischemic changes of the brain. No acute intracranial pathology. 2. 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 Electronically Signed: Flavio Fischer MD at 14:25 EDT , Service support , Chest X-Ray 12/14/17 13:12 IMPRESSION: Stable x-ray examination of the chest, as described. Electronically Signed: Flavio Fischer MD at 14:50 EDT , Service support , Foot X-Ray 12/14/17 14:05 IMPRESSION: Stable soft tissue swelling extending from the distal lower leg to the toes. Atherosclerotic vascular calcifications also again noted. No acute osseous abnormality. Electronically Signed: Flavio Fischer MD at 14:53 EDT , Service support , Code Visit Inpatient E&M: 66759 Init Hosp L3 Procedures: 84316 Advncd Care Plan 30 Min
[2017-12-14 17:22] LABS: Reflex Lactate? Y
--- NOTE | 2017-12-14 17:25 | HP.PCM_ITS ---
Problem List (1) Contusion of right foot Status: Acute (2) Ulcer of left lower extremity with fat layer exposed Status: Chronic (3) Type 2 diabetes mellitus with diabetic polyneuropathy Status: Chronic (4) Foot ulcer with fat layer exposed Status: Chronic Qualifiers: (5) Onycholysis Status: Chronic (6) Tinea unguium Status: Chronic (7) Ulcer of left lower extremity with fat layer exposed Status: Chronic (8) Metabolic encephalopathy Status: Acute (9) UTI (urinary tract infection) Status: Chronic Qualifiers: (10) Atherosclerosis of [place] coronary artery of [place] heart without angina pectoris Status: Chronic Comment: MOULTON to LAD, SVG to circumflex, and SVG to RCA in 1986 (11) Left ventricular failure Status: Chronic (12) Peripheral vascular disease Status: Chronic (13) ASHD (arteriosclerotic heart disease) Status: Chronic (14) Automatic implantable cardiac defibrillator in situ Status: Chronic Comment: ICD implant: 02/2010 (15) HLD (hyperlipidemia) Status: Chronic (16) HTN (hypertension) Status: Chronic Qualifiers: (17) Atherosclerosis of coronary artery bypass graft without angina pectoris Status: Chronic Comment: CABG MOULTON graft to anterior descending, saphenous vein graft to CFX, saphenous vein graft to RCA 1986. [facility] 1987, 01/29/2010, 02/24. (18) Ischemic cardiomyopathy Status: Chronic (19) Paroxysmal ventricular tachycardia Status: Chronic (20) H/O coronary artery bypass surgery Status: Chronic Comment: CABG MOULTON graft to anterior descending, saphenous vein graft to CFX, saphenous vein graft to RCA 1986. (21) Benign hypertension Status: Chronic (22) BPH (benign prostatic hypertrophy) with urinary obstruction Status: Chronic (23) Hx of CABG Status: Chronic (24) CAD (coronary artery disease) Status: Chronic (25) CRF (chronic renal failure) Status: Chronic Qualifiers: (26) Pacemaker Status: Chronic (27) COPD (chronic obstructive pulmonary disease) Status: Chronic (28) Type II diabetes mellitus Status: Chronic (29) HLD (hyperlipidemia) Status: Chronic Qualifiers: (30) Hypothyroidism Status: Chronic (31) Ischemic cardiomyopathy Status: Chronic (32) History of nephrolithiasis Status: Chronic (33) Diabetes mellitus type 2, uncontrolled, with complications Status: Chronic (34) Lymphedema of both lower extremities Status: Chronic (35) 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 As per the he had a diarrhea about 3-4 times since Tuesday, watery in consistency without blood and then has decreased intake and urine output. Patient is also confused, disoriented, drowsy and lethargic with eyes closed since morning today. As per the , he had some chills about 2 days ago. Bilateral lower extremity swelling. Denies chest pressure/shortness of breath. Patient had fall a week ago and has purple color/bruise on the right toes. [] In the ED, EKG shows unusual P-wave, possible ectopic atrial rhythm with multiple PACs. Nonspecific ST-T changes. Preliminary strep throat is negative. CT head shows chronic changes along with chronic ethmoid and inferior frontal sinusitis. Chest x-ray no acute change. In blood work his creatinine is 2.34, BUN 46 suggestive of acute on chronic kidney disease. His baseline creatinine runs around 1.35-1.6. Patient has left nephrectomy. He also has elevated lactic acid most probably from dehydration, mildly elevated troponin 0 0.35 and 38 ALT and AST and mild hyponatremia Past Medical History Past Medical History (Chronic Problems): Chronic Problems (Last Updated 08/29/17 @ 10:33 by Karon Nick) Ulcer of left lower extremity with fat layer exposed (Chronic) Type 2 diabetes mellitus with diabetic polyneuropathy (Chronic) Foot ulcer with fat layer exposed (Chronic) Onycholysis (Chronic) Tinea unguium (Chronic) Ulcer of left lower extremity with fat layer exposed (Chronic) UTI (urinary tract infection) (Chronic) Atherosclerosis of [place] coronary artery of [place] heart without angina pectoris (Chronic) MOULTON to LAD, SVG to circumflex, and SVG to RCA in 1986 Left ventricular failure (Chronic) Peripheral vascular disease (Chronic) ASHD (arteriosclerotic heart disease) (Chronic) Automatic implantable cardiac defibrillator in situ (Chronic) ICD implant: 02/2010 HLD (hyperlipidemia) (Chronic) HTN (hypertension) (Chronic) Atherosclerosis of coronary artery bypass graft without angina pectoris (Chronic ) CABG MOULTON graft to anterior descending, saphenous vein graft to CFX, saphenous vein graft to RCA 1986. [facility] 1987, 01/29/2010, 02/24. Ischemic cardiomyopathy (Chronic) Paroxysmal ventricular tachycardia (Chronic) H/O coronary artery bypass surgery (Chronic) CABG MOULTON graft to anterior descending, saphenous vein graft to CFX, saphenous vein graft to RCA 1986. 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) Open wound of lower extremity without complication (Chronic) Chronic renal insufficiency, stage III (moderate) (Chronic) PAOD (peripheral arterial occlusive disease) (Chronic) Allergies erythromycin base Allergy (Mild, Verified 11/22/17 10:36) Hives cyclobenzaprine HCl [From Flexeril] Allergy (Verified 11/21/17 12:35) Rash latex Allergy (Verified 11/21/17 12:35) Swelling Penicillins Allergy (Verified 11/21/17 12:35) Rash Sulfa (Sulfonamide Antibiotics) Allergy (Verified 11/21/17 12:35) Rash tetracycline Allergy (Verified 11/22/17 10:36) Hives acetaminophen [From Percocet] Adverse Reaction (Verified 11/21/17 12:35) Other HALLUCINATES oxycodone [From Percocet] Adverse Reaction (Verified 11/21/17 12:35) Other HALLUCINATES iv dye Adverse Reaction (Uncoded 11/21/17 12:35) only has 1 kidney Home Medications: Ambulatory Orders Medication Instructions Recorded Carvedilol [Coreg (Beta Tae)] 25 mg PO BID 11/21/17 Ergocalciferol [Vitamin D] 50,000 unit PO QMONTH 11/21/17 Escitalopram Oxalate [Lexapro] 20 mg PO DAILY 11/21/17 Finasteride [Proscar] 5 mg PO DAILY 11/21/17 Potassium Chloride [K-Dur] 20 meq PO DAILY 11/21/17 Apixaban [Eliquis] 5 mg PO BID #0 11/23/17 Insulin Aspart [Novolog] See Protocol SQ ACHS #1 vial 11/23/17 Doxazosin Mesylate [Cardura Xl] 4 mg PO BID 12/07/17 Baclofen 10 mg PO DAILY PRN PRN 12/14/17 Digoxin [Digox] 125 mcg PO DAILY 12/14/17 Doxazosin Mesylate [Cardura] 8 mg PO DAILY 12/14/17 Furosemide [Lasix] 40 mg PO DAILY 12/14/17 Insulin Degludec [Tresiba unit SQ 12/14/17 Flextouch U-100] Insulin Glargine,Hum.rec.anlog 20 unit SQ BID 12/14/17 [Lantus] Sertraline HCl [Zoloft] 100 mg PO DAILY 12/14/17 Surgical History: coronary bypass surgery, pacemaker implantation, TURP Smoking Status: Former smoker - *Family History Maternal History Items: No pertinent history Paternal History Items: Heart Disease, No pertinent history Review of Systems Constitutional: Reports: Chills, Malaise, Weakness HEENT: Reports: Difficulty Hearing Cardiovascular: Denies: Chest Pain Respiratory: Denies: Cough, Shortness of breath at rest, Sputum production Gastrointestinal: Reports: Diarrhea. Denies: Abdominal Pain, Nausea, Vomiting Neurological: Reports: Balance problems Unable to obtain accurate/complete ROS d/t: Rest 12 are all systems are unobtainable VTE Information - Inpt Only VTE Present on Admission: No VTE Mechan Device Prophylaxis: SCD's - On Eliquis Patient Problems: Active and Suspected Problems (Last Updated 08/29/17 @ 10:33 by Karon Nick) Acute metabolic encephalopathy (Acute) Acute kidney injury on CKD stage III (Acute) - Physical Exam General: Alert, Oriented x3, Cooperative HEENT: Atraumatic, PERRLA, EOMI, Normocephalic Neck: Supple, No JVD, Negative Carotid Bruits Lungs: Clear to auscultation, No rhonchi, No wheeze, No rales, Diminished Cardiovascular: Regular rate, Regular Rhythm, Normal S1, Normal S2, Murmur, - - Status post AICD CABG scar Abdomen: Bowel Sounds Present, Soft, Non Tender, Non-Distended Extremities: Capillary Refill Less than 3 Seconds, Edema Skin: No rashes, No breakdown Musculoskeletal: No Tenderness to Palpation of Joints or Extremities Neurological: Cranial nerves II-XII grossly intact Psych/Mental Status: Normal Affect, Appropriate Vital Signs Temp Pulse Resp BP Pulse Ox 97.6 F L 94 24 H 118/84 H 96 12/14/17 12:44 12/14/17 16:19 12/14/17 16:19 12/14/17 16:19 12/14/17 16:19 Assessment/Plan Active and Suspected Problems (Last Updated 08/29/17 @ 10:33 by Karon Nick) Acute metabolic encephalopathy (Acute) Acute kidney injury on CKD stage III (Acute) The patient is a 77 year old M with multiple comorbidities as listed above was brought in by family members for multiple complaints. As per the he had a diarrhea about 3-4 times since Tuesday, watery in consistency without blood and then has decreased intake and urine output. Patient is also confused, disoriented, drowsy and lethargic with eyes closed since morning today. As per the , he had some chills about 2 days ago. Bilateral lower extremity swelling. Denies chest pressure/shortness of breath. Patient had fall a week ago and has purple color/bruise on the right toes. [] In the ED, EKG shows unusual P-wave, possible ectopic atrial rhythm with multiple PACs. Nonspecific ST-T changes. Preliminary strep throat is negative. CT head shows chronic changes along with chronic ethmoid and inferior frontal sinusitis. Chest x-ray no acute change. In blood work his creatinine is 2.34, BUN 46 suggestive of acute on chronic kidney disease. His baseline creatinine runs around 1.35-1.6. Patient has left nephrectomy. He also has elevated lactic acid most probably from dehydration, mildly elevated troponin 0 0.35 and 38 ALT and AST and mild hyponatremia 1. Altered mental status most rapidly acute encephalopathy secondary to metabolic encephalopathy; rule out infectious encephalopathy: Patient is being admitted in PCU. IV fluid normal saline to correct her dehydration and lactic acid. UA is negative for pyuria, hematuria although shows mild proteinuria. Respiratory panel ordered. The patient was discharged on 11/23/2017 after admission for similar complaint with metabolic and infectious encephalopathy. 2. Acute kidney injury on CKD stage III status post nephrectomy: On IV fluid normal saline. Monitor kidney function and electrolytes. Monitor intake and output. Adult failure to thrive with multiple comorbidities: Borematic Machine Operator consult. PT and OT ordered. Patient family refused for fpc placement. 3. Lower extremities peripheral arterial disease AND venous thromboembolic disease Patient is lower extremities arterial study in February 2016 which showed evidence of arterial calcification bilaterally and resting MADHURI cannot be calculated. Biphasic waveforms were noted at ankle level bilaterally. Digital brachial indices are moderately to severely diminished consistent with moderate to severe arterial occlusive disease in lower extremities bilaterally. on Eliquis. 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 COPD: Stable. Does not seem to be an exacerbation. Continue inhalers Multiple other comorbidities including nephrolithiasis, left nephrectomy, foot ulcer, onychomycosis, hypertension, dyslipidemia, BPH and hypothyroidism on home medication reconciliation done CODE STATUS: Advanced directive discussed with the patient's and daughter. As per the , patient has living will and does not want intubation, life support measures or CPR. Time spent in [id number] encounter and discussion with the advanced directive 17 minutes * patient is DNR Comfort Care arrest at this time. Microbiology Past 72 Hours 12/14/17 14:23 Mucosa - Throat Group A Streptococcus Rapid Screen - Preliminary Laboratory Results 12/14/17 12:59: WBC 7.6, RBC 4.05 L, Hgb 10.5 L, Hct 34.3 L, MCV 84.7, MCH 25.9 L, MCHC 30.6 L, RDW 16.2 H, RDW Differential 49.9 H, Plt Count 145 L, MPV 10.5, Immature Gran % (Auto) 2.800 H, Neut % (Auto) 76.1 H, Lymph % (Auto) 13.4 L, [place] % (Auto) 6.8, Eos % (Auto) 0.4, Baso % (Auto) 0.5, Absolute Neuts (auto) 5.8, Absolute Lymphs (auto) 1.01, Total Counted Not Reportable, Diff Path Review December12/14/17 12:59: Sodium 131 L, Potassium 4.6, Chloride 95 L, Carbon Dioxide 28.0 , Anion Gap 8, BUN 46 H, Creatinine 2.34 H, Estim Creat Clear Calc 27.30, Est GFR (MDRD) Af Amer 35 L, Est GFR (MDRD) Non-Af 29 L, BUN/Creatinine Ratio 19.7, Glucose 332 H, Calcium 10.4 H, Total Bilirubin 0.70, Direct Bilirubin 0.23, AST 108 H, ALT 96 H, Alkaline Phosphatase 54, Troponin I 0.35 H, Total Protein 7.0, Albumin 3.2, Globulin 3.8 12/14/17 12:59: Lactic Acid 2.4 H 12/14/17 14:37: Urine Color Yellow, Urine Clarity Clear, Urine pH 5.0, Ur Specific [place] 1.020, Urine Protein 30 H, Urine Glucose (UA) 50 H, Urine Ketones Negative, Urine Occult Blood Negative, Urine Nitrite Negative, Urine Bilirubin Negative, Urine Urobilinogen Normal, Ur Leukocyte Esterase Negative, Urine RBC 0 SEEN, Urine WBC 0 SEEN, Ur Squamous Epith Cells 0 SEEN, Urine Bacteria 0 SEEN, Hyaline Casts 0-5 SEEN, Urine Mucus 0 SEEN Clinical Impression(s) from Imaging Studies Brain CT 12/14/17 13:12 IMPRESSION: 1. Chronic involutional/microvascular ischemic changes of the brain. No acute intracranial pathology. 2. 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 Electronically Signed: Flavio Fischer MD at 14:25 EDT , Service support , Chest X-Ray 12/14/17 13:12 IMPRESSION: Stable x-ray examination of the chest, as described. Electronically Signed: Flavio Fischer MD at 14:50 EDT , Service support , Foot X-Ray 12/14/17 14:05 IMPRESSION: Stable soft tissue swelling extending from the distal lower leg to the toes. Atherosclerotic vascular calcifications also again noted. No acute osseous abnormality. Electronically Signed: Flavio Fischer MD at 14:53 EDT , Service support , Code Visit Inpatient E&M: 77830 Init Hosp L3 Procedures: 60141 Advncd Care Plan 30 Min
[2017-12-14] MEDS: 0.9% Normal Saline 1,000 ML 100 ML IV (18:34)
[2017-12-14 18:46] LABS: Bedside Glucose 301 mg/dL (70-110)
[2017-12-14 18:55] LABS: Lactic Acid 1.6 mmol/L (0.4-2.0)
[2017-12-14 23:26] LABS: Bedside Glucose 272 mg/dL (70-110)
[2017-12-15] VITALS (15 sets, daily range): BP systolic 98–118; BP diastolic 52–69; PULSE 70–99; RESP 16–24; TEMP 36.1–36.7; O2SAT 95–100
[2017-12-15 03:06] LABS: Bedside Glucose 223 mg/dL (70-110)
[2017-12-15 05:34] LABS: Hematocrit 33.1 % (40-54); Mean Corp Hgb Conc 30.2 g/gl (32-36); Mean Corpuscular Hgb 25.9 pg (27.0-32.0); Mean Corpuscular Volume 85.8 fL (80-94); Mean Platelet Vol. 10.9 fl (6.2-12.0); Platelet Count 135 K/mm3 (150-450); RBC Distribution Width CV 16.2 % (11.6-14.6); RBC Distribution Width SD 49.7 fl (35.1-43.9); Red Blood Count 3.86 M/mm3 (4.6-6.2); White Blood Count 7.2 K/mm3 (4.4-11.0)
[2017-12-15 05:35] LABS: Differential Indicated MANUAL DIFF; POSITIVE COUNT YES; POSITIVE DIFFERENTIAL NO; POSITIVE MORPHOLOGY YES
[2017-12-15 05:43] LABS: Anion Gap 8 (5-15); BUN 43 mg/dL (7-18); Calcium,Total 9.8 mg/dL (8.5-10.1); Chloride 101 mmol/L (98-107); Creatinine, Serum 1.87 mg/dL (0.70-1.30); EST Glomerular Filtration Rate 37 mL/min (>60); Est Glom Filt Rate - Afr Amer 45 mL/min (>60); Estimated Creatinine Clearance 34.16 ml/min; Glucose 209 mg/dL (74-106); Potassium 4.3 mmol/L (3.5-5.1); Sodium Level 136 mmol/L (136-145)
[2017-12-15 06:27] LABS: Eosinophil 1 % (0-5); Lymphocyte 12 % (19-41); Metamyelocyte 2 % (0-1); Monocyte 4 % (0-10); Neutrophil-Band 3 % (0-5); Neutrophil-Segmented 78 % (47-70); Total Cells Counted 100 (MANUAL DIFF)
[2017-12-15 06:30] LABS: Absolute Lymphocyte Count 0.86 X10^3/ul (0.83-4.51); Lymphocyte # 0.86 X10^3/ul (4.0); Neutrophil # 5.98 X10^3/uL (2.7-7.7)
[2017-12-15 06:31] LABS: Polychromasia RARE
[2017-12-15 06:32] LABS: Anisocytosis 2+; Crenated RBC 1+; Hypochromasia 1+; Ovalocyte RARE
[2017-12-15 07:11] LABS: Bedside Glucose 223 mg/dL (70-110)
[2017-12-15 09:47] LABS: Pathologist Review Reviewed
--- NOTE | 2017-12-15 10:03 | EKG12_ITS ---
Test Reason : ABNORMAL EKG Blood Pressure : / mmHG Vent. Rate : 098 BPM Atrial Rate : 098 BPM P-R Int : 238 ms QRS Dur : 108 ms QT Int : 354 ms P-R-T Axes : 050 068 168 degrees QTc Int : 451 ms Sinus rhythm with 1st degree A-V block with occasional Premature ventricular complexes Incomplete left bundle branch block Nonspecific ST and T wave abnormality Abnormal ECG Confirmed by JUAN CARRILLO, IRAIS ([id number]), editor magazine DERECK MARAVILLA ([id number]) on 12/19/2017 2:33:42 PM Referred By: CARLOS Confirmed By:IRAIS MARTINEZ MD
[2017-12-15] MEDS: 0.9% Normal Saline 1,000 ML 50 ML IV (10:49)
[2017-12-15] MEDS: Glucerna Shake 120 ML LIQUID PO ×4 (10:49→21:35)
[2017-12-15 11:06] LABS: Bedside Glucose 254 mg/dL (70-110)
--- NOTE | 2017-12-15 13:37 | PN_ITS ---
<Selwyn Shepard - Last Filed: 12/15/17 13:20> Patient Problems: Active and Suspected Problems (Last Updated 08/29/17 @ 10:33 by Karon Nick) Acute metabolic encephalopathy (Acute) Acute kidney injury on CKD stage III (Acute) Subjective: Pt admitted after presenting with increased confusion at home. He was here 2 weeks ago with UTI/pna and treated with abx. His says the last few days hes been more confused and also not eating or drinking, and having diarrhea 3-4 x / day. He is still somewhat confused this AM. As of this AM no further diarrhea. No abdominal pain / n / v. He does however complain of chest pain. When asked where exactly it is he points around his midepigastric region. He has a significant heart hx with prior CABG. He follows Dr. Velazquez. As his troponin was elevated I called Dr. Velazquez and discussed the case who plans to see him later today. He may not have been taking his nitrates at home. His cannot tell if his LE edema is any different than normal. - Physical Exam General: Alert, Oriented x3, Cooperative, Confused HEENT: Atraumatic, PERRLA, EOMI, Normocephalic Neck: Supple, No JVD, Negative Carotid Bruits Lungs: Clear to auscultation, Normal air movement Cardiovascular: Regular rate, No murmurs Abdomen: Bowel Sounds Present, Soft, Non Tender Extremities: No edema, Capillary Refill Less than 3 Seconds, Edema - 2+ pitting edema BL. tender to palp. Skin: No rashes, No breakdown Musculoskeletal: No Tenderness to Palpation of Joints or Extremities Neurological: Cranial nerves II-XII grossly intact Psych/Mental Status: Normal Affect, Appropriate, Alert and oriented to time, place, person, mood and affect Vital Signs Temp Pulse Resp BP Pulse Ox 97.6 F L 97 18 111/61 100 12/15/17 11:52 12/15/17 11:52 12/15/17 11:52 12/15/17 11:52 12/15/17 11:52 Oxygen Flow Rate (L/min) 2 Oxygen Delivery Method Room Air Weight: 104 kg Body Mass Index (BMI) 32.4 Intake and Output for Last 24 Hours 12/13/17 12/14/17 12/15/17 23:59 23:59 23:59 Intake Total 400 / 400 1325.5 / 1325.5 Balance 400 / 400 1325.5 / 1325.5 Microbiology Past 72 Hours 12/14/17 19:43 Respiratory Panel (PCR) - Final Mucosa - Nasopharyngeal Laboratory Tests Past 24 Hrs 12/14/17 12/14/17 12/15/17 18:14 20:51 00:05 WBC RBC Hgb Hct MCV MCH MCHC RDW RDW Differential Plt Count MPV Neut % (Auto) Absolute Neuts (auto) Absolute Lymphs (auto) Total Counted Neutrophils % (Manual) Band Neutrophils % Lymphocytes % (Manual) Monocytes % (Manual) Eosinophils % (Manual) Metamyelocytes % Diff Path Review RBC Morphology Polychromasia Hypochromasia Anisocytosis Ovalocytes Sodium Potassium Chloride Carbon Dioxide Anion Gap BUN Creatinine Estim Creat Clear Calc Est GFR (MDRD) Af Amer Est GFR (MDRD) Non-Af BUN/Creatinine Ratio Glucose Lactic Acid 1.6 Calcium Troponin I 0.36 H 0.35 H 12/15/17 12/15/17 05:02 05:02 WBC 7.2 RBC 3.86 L Hgb 10.0 L Hct 33.1 L MCV 85.8 MCH 25.9 L MCHC 30.2 L RDW 16.2 H RDW Differential 49.7 H Plt Count 135 L MPV 10.9 Neut % (Auto) Not Reportable Absolute Neuts (auto) 6.0 Absolute Lymphs (auto) 0.86 Total Counted 100 Neutrophils % (Manual) 78 H Band Neutrophils % 3 Lymphocytes % (Manual) 12 L Monocytes % (Manual) 4 Eosinophils % (Manual) 1 Metamyelocytes % 2 H Diff Path Review May foll RBC Morphology 1+ Polychromasia RARE Hypochromasia 1+ Anisocytosis 2+ Ovalocytes RARE Sodium 136 Potassium 4.3 Chloride 101 Carbon Dioxide 27.0 Anion Gap 8 BUN 43 H Creatinine 1.87 H Estim Creat Clear Calc 34.16 Est GFR (MDRD) Af Amer 45 L Est GFR (MDRD) Non-Af 37 L BUN/Creatinine Ratio 23.0 H Glucose 209 H Lactic Acid Calcium 9.8 Troponin I 0.28 H POC Glucose 12/15/17 12/15/17 12/15/17 10:47 06:26 02:43 POC Glucose 254 H 223 H 223 H 12/14/17 12/14/17 21:36 18:38 POC Glucose 272 H 301 H Medical Necessity - Tobacco Use Smoking Status: Former smoker Assessment/Plan Active and Suspected Problems (Last Updated 08/29/17 @ 10:33 by Karon Nick) Acute metabolic encephalopathy (Acute) Acute kidney injury on CKD stage III (Acute) 1. Acute severe sepsis 2/2 gastroenteritis, suspected viral . As evidenced by diarrhea, elevated lactate, pulse >90, and tachypneic at presentation. Improved now. 2. Acute metabolic encephalopathy 2/2 dehydration with HUGO 2/2 diarrhea - check c diff - recent admission/abx use. Probably viral as above. Slow IV fluids. Avoid overhydration. UA neg. LA improved. Blood cultures pending. Resp panel neg. Strep rapid negative prelim. CT brain with chronic changes and sinusitis. CXR neg. Pt was not eating/drinking at home. 3. Chest pain / Indeterminate troponin - hx CAD/CABG/pacer/AICD/ischemic cardiomyopathy - consult to Dr. Velazquez. Pt may have been off nitrates. Possibly needs stress test when stable. Nitrates continued. Lasix held. 4. Right foot sprain - xr without fracture. 5. COPD - some SOB at night, but this is chronic. No wheezing or worsening of SOB. 6. T2DM - restarted long acting insulin. 7. Hx DVT - on eliquis, held at admission. Restart. 8. Anx/Dep - lexapro. asked about DCing this to see if it would help, I advised that I would not recommend this at this time given the risk of acute withdrawal. 9. Obesity - dietary eval DVT ppx: Restart eliquis. DC planning: PTOT. This patient was seen by Selwyn Shepard PA-C under the supervision of Doctor Alonzo <Conor Alonzo - Last Filed: 12/15/17 14:49> - Physical Exam HEENT: Atraumatic, Normocephalic Lungs: Clear to auscultation, Normal air movement, No rhonchi, No wheeze Cardiovascular: Regular rate, Regular Rhythm, Normal S1, Normal S2 Abdomen: Bowel Sounds Present, Soft, Non Tender, Non-Distended Extremities: No edema, No Calf Tenderness Skin: No rashes, No breakdown Psych/Mental Status: Normal Affect, Appropriate Vital Signs Temp Pulse Resp BP Pulse Ox 36.4 C L 97 18 111/61 100 12/15/17 11:52 12/15/17 11:52 12/15/17 11:52 12/15/17 11:52 12/15/17 11:52 Oxygen Flow Rate (L/min) 2 Oxygen Delivery Method Room Air Weight: 104 kg Body Mass Index (BMI) 32.4 Intake and Output for Last 24 Hours 12/13/17 12/14/17 12/15/17 23:59 23:59 23:59 Intake Total 400 / 400 1325.5 / 1325.5 Balance 400 / 400 1325.5 / 1325.5 Microbiology Past 72 Hours 12/14/17 19:43 Respiratory Panel (PCR) - Final Mucosa - Nasopharyngeal Laboratory Tests Past 24 Hrs 12/14/17 12/14/17 12/15/17 18:14 20:51 00:05 WBC RBC Hgb Hct MCV MCH MCHC RDW RDW Differential Plt Count MPV Neut % (Auto) Absolute Neuts (auto) Absolute Lymphs (auto) Total Counted Neutrophils % (Manual) Band Neutrophils % Lymphocytes % (Manual) Monocytes % (Manual) Eosinophils % (Manual) Metamyelocytes % Diff Path Review RBC Morphology Polychromasia Hypochromasia Anisocytosis Ovalocytes Sodium Potassium Chloride Carbon Dioxide Anion Gap BUN Creatinine Estim Creat Clear Calc Est GFR (MDRD) Af Amer Est GFR (MDRD) Non-Af BUN/Creatinine Ratio Glucose Lactic Acid 1.6 Calcium Troponin I 0.36 H 0.35 H 12/15/17 12/15/17 05:02 05:02 WBC 7.2 RBC 3.86 L Hgb 10.0 L Hct 33.1 L MCV 85.8 MCH 25.9 L MCHC 30.2 L RDW 16.2 H RDW Differential 49.7 H Plt Count 135 L MPV 10.9 Neut % (Auto) Not Reportable Absolute Neuts (auto) 6.0 Absolute Lymphs (auto) 0.86 Total Counted 100 Neutrophils % (Manual) 78 H Band Neutrophils % 3 Lymphocytes % (Manual) 12 L Monocytes % (Manual) 4 Eosinophils % (Manual) 1 Metamyelocytes % 2 H Diff Path Review May foll RBC Morphology 1+ Polychromasia RARE Hypochromasia 1+ Anisocytosis 2+ Ovalocytes RARE Sodium 136 Potassium 4.3 Chloride 101 Carbon Dioxide 27.0 Anion Gap 8 BUN 43 H Creatinine 1.87 H Estim Creat Clear Calc 34.16 Est GFR (MDRD) Af Amer 45 L Est GFR (MDRD) Non-Af 37 L BUN/Creatinine Ratio 23.0 H Glucose 209 H Lactic Acid Calcium 9.8 Troponin I 0.28 H POC Glucose 12/15/17 12/15/17 12/15/17 10:47 06:26 02:43 POC Glucose 254 H 223 H 223 H 12/14/17 12/14/17 21:36 18:38 POC Glucose 272 H 301 H Assessment/Plan Patient seen and examined independently. Agree with the above notes by the physician foundation assistant. 1. Severe sepsis: Present on arrival. Secondary to gastroenteritis. Clinically resolved at this time. 2. Acute metabolic encephalopathy. Patient seems to be improved at this point time alert and oriented ?3. Likely related with dehydration and gastroenteritis. 3. Non-ST patient myocardial infarction: Cardiology is on consult. Code Visit Inpatient E&M: 99270 Subs Hosp L2
--- NOTE | 2017-12-15 13:57 | NURSING ---
wound photo: left posterior lower leg
[2017-12-15 15:06] LABS: Bedside Glucose 238 mg/dL (70-110)
[2017-12-15] MEDS: Acetaminophen 325 MG Tablet 650 MG PO (15:40)
--- NOTE | 2017-12-15 15:45 | CHAPLAIN ---
[patient was occupied when visit was attempted
[2017-12-15 17:41] LABS: Bedside Glucose 218 mg/dL (70-110)
--- NOTE | 2017-12-15 18:18 | PCM.CONS.C ---
Problem List (1) Abnormal cardiac enzyme level Status: Acute (2) ASHD (arteriosclerotic heart disease) Status: Chronic (3) H/O coronary artery bypass surgery Status: Chronic Comment: CABG MOULTON graft to anterior descending, saphenous vein graft to CFX, saphenous vein graft to RCA 1986. (4) Ischemic cardiomyopathy Status: Chronic (5) Automatic implantable cardiac defibrillator in situ Status: Chronic Comment: ICD implant: 02/2010 (6) HLD (hyperlipidemia) Status: Chronic (7) HTN (hypertension) Status: Chronic Qualifiers: (8) Type II diabetes mellitus Status: Chronic (9) CRF (chronic renal failure) Status: Chronic Qualifiers: (10) COPD (chronic obstructive pulmonary disease) Status: Chronic (11) UTI (urinary tract infection) Status: Chronic Qualifiers: (12) Sepsis Status: Acute Reason for Consult Date of Consultation: 12/15/17 History of Present Illness: The patient is a 77 year old male with a past medical history of underlying CAD, status post CABG, ischemic mediated cardiomyopathy, paroxysmal ventricular dysrhythmia, status post ICD placement, hyperlipidemia, hypertension, diabetes mellitus, chronic renal insufficiency, COPD, who presents for concerns of abnormal cardiac enzymes in the setting of concerns of a UTI and sepsis syndrome. The patient has been undergoing evaluation care for concerns of an underlying infectious disease event as well as altered mental status. The patient denies ongoing chest discomfort. He has complained of chronic shortness of breath. He denies any loss of consciousness. His family members present state that he has not been complaining of any obvious chest discomfort. They note he does get short of breath with activity. They have noted no loss of consciousness. They note that he is more tired and fatigued and lethargic. He state that he has had falling episodes. This has resulted in injuries to his lower extremities including his right lower extremity becoming ecchymotic requiring x-ray evaluation. They note that his medications have been altered as well. The patient has been undergoing cardiovascular evaluation during his hospitalization with cardiac enzymes. They have been indeterminate. His ECGs have demonstrated the appearance of an underlying sinus versus ectopic atrial rhythm with an inferior VT pattern of indeterminate age cannot be excluded and nonspecific ST and T-wave abnormality. [] Past Medical History Allergies/Adverse Reactions: Allergies erythromycin base Allergy (Mild, Verified 11/22/17 10:36) Hives cyclobenzaprine HCl [From Flexeril] Allergy (Verified 11/21/17 12:35) Rash latex Allergy (Verified 11/21/17 12:35) Swelling Penicillins Allergy (Verified 11/21/17 12:35) Rash Sulfa (Sulfonamide Antibiotics) Allergy (Verified 11/21/17 12:35) Rash tetracycline Allergy (Verified 11/22/17 10:36) Hives acetaminophen [From Percocet] Adverse Reaction (Verified 11/21/17 12:35) Other HALLUCINATES oxycodone [From Percocet] Adverse Reaction (Verified 11/21/17 12:35) Other HALLUCINATES iv dye Adverse Reaction (Uncoded 11/21/17 12:35) only has 1 kidney Home Medications: Ambulatory Orders Medication Instructions Recorded Carvedilol [Coreg (Beta Tae)] 25 mg PO BID 11/21/17 Ergocalciferol [Vitamin D] 50,000 unit PO QMONTH 11/21/17 Escitalopram Oxalate [Lexapro] 20 mg PO DAILY 11/21/17 Finasteride [Proscar] 5 mg PO DAILY 11/21/17 Potassium Chloride [K-Dur] 20 meq PO DAILY 11/21/17 Apixaban [Eliquis] 5 mg PO BID #0 11/23/17 Insulin Aspart [Novolog] See Protocol SQ ACHS #1 vial 11/23/17 Doxazosin Mesylate [Cardura Xl] 4 mg PO BID 12/07/17 Baclofen 10 mg PO QHS PRN PRN 12/14/17 Furosemide [Lasix] 40 mg PO DAILY 12/14/17 Insulin Degludec [Tresiba unit SQ 12/14/17 Flextouch U-100] Insulin Glargine,Hum.rec.anlog 20 unit SQ BID 12/14/17 [Lantus] Isosorbide Mononitrate [Imdur] 30 mg PO DAILY 12/14/17 Prednisone 5 mg PO DAILY 12/14/17 Past Medical History (Chronic Problems): Chronic Problems (Last Updated 08/29/17 @ 10:33 by Karon Nick) Ulcer of left lower extremity with fat layer exposed (Chronic) Type 2 diabetes mellitus with diabetic polyneuropathy (Chronic) Foot ulcer with fat layer exposed (Chronic) Onycholysis (Chronic) Tinea unguium (Chronic) Ulcer of left lower extremity with fat layer exposed (Chronic) UTI (urinary tract infection) (Chronic) Atherosclerosis of [place] coronary artery of [place] heart without angina pectoris (Chronic) MOULTON to LAD, SVG to circumflex, and SVG to RCA in 1986 Left ventricular failure (Chronic) Peripheral vascular disease (Chronic) ASHD (arteriosclerotic heart disease) (Chronic) Automatic implantable cardiac defibrillator in situ (Chronic) ICD implant: 02/2010 HLD (hyperlipidemia) (Chronic) HTN (hypertension) (Chronic) Atherosclerosis 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 [facility] 1987, 01/29/2010, 02/24. Ischemic cardiomyopathy (Chronic) Paroxysmal ventricular tachycardia (Chronic) H/O coronary artery bypass surgery (Chronic) CABG MOULTON graft to anterior descending, saphenous vein graft to CFX, saphenous vein graft to RCA 1986. 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) Open wound of lower extremity without complication (Chronic) Chronic renal insufficiency, stage III (moderate) (Chronic) PAOD (peripheral arterial occlusive disease) (Chronic) Surgical History: coronary bypass surgery, pacemaker implantation, TURP - *Family History Maternal Family History: Family History (Last Updated 08/29/17 @ 10:09 by Karon Nick) Father Diabetes CHF (congestive heart failure) Mother CHF (congestive heart failure) Hypertension Sister Hypertension Myocardial infarction, Onset Age: 79 History Items: No pertinent history Paternal Family History: Family History (Last Updated 08/29/17 @ 10:09 by Karon Nick) Father Diabetes CHF (congestive heart failure) Mother CHF (congestive heart failure) Hypertension Sister Hypertension Myocardial infarction, Onset Age: 79 History Items: Heart Disease, No pertinent history Lives: Spouse/ Significant Other Smoking Status: Former smoker Alcohol: None Drugs: None Review of Systems - Review of Systems General: Reports: Fatigue, Decreased Appetite. Denies: Fever, Night Sweats Cardiovascular: Reports: Shortness of Breath, Peripheral Edema. Denies: Chest Discomfort, Orthopnea, PND, Palpitations, Lightheadedness, Dizziness, Near Syncope, Syncope Respiratory: Denies: Cough, Sputum Production, Hemoptysis Gastrointestinal: Denies: Hematemesis, Hematochezia, Melena Genitourinary: Denies: Dysuria, Hematuria Skin: Denies: Rash Subjectve: This is a 77-year-old white male who appears to be resting comfortably at the moment no acute distress and also appears to be somewhat confused at this time. Objective: Vital Signs Temp Pulse Resp BP Pulse Ox 98.1 F 82 18 98/57 L 99 12/15/17 17:32 12/15/17 17:32 12/15/17 17:32 12/15/17 17:32 12/15/17 17:32 Oxygen Flow Rate (L/min) 2 Oxygen Delivery Method Room Air Weight: 229 lb 4.492 oz Body Mass Index (BMI) 32.4 Intake and Output for Last 24 Hours 12/13/17 12/14/17 12/15/17 23:59 23:59 23:59 Intake Total 400 / 400 1887.5 / 1887.5 Output Total 250 / 250 Balance 400 / 400 1637.5 / 1637.5 General: Awake, Cooperative, No Acute Distress, Obese Neck: No JVD Lungs: Clear to auscultation Cardiovascular: Regular Rhythm, Normal S1, Normal S2 Murmur Murmur: Grade 2/6, Mid Systolic, LLSB Abdomen: Bowel Sounds Present, Soft, Non Tender Extremities: Severe RLE Edema, Severe LLE Edema 12/14/17 18:14: Lactic Acid 1.6 12/14/17 20:51: Troponin I 0.36 H 12/15/17 00:05: Troponin I 0.35 H 12/15/17 05:02: WBC 7.2, RBC 3.86 L, Hgb 10.0 L, Hct 33.1 L, MCV 85.8, MCH 25.9 L, MCHC 30.2 L, RDW 16.2 H, RDW Differential 49.7 H, Plt Count 135 L, MPV 10.9, Neut % (Auto) Not Reportable, Absolute Neuts (auto) 6.0, Total Counted 100, Neutrophils % (Manual) 78 H, Band Neutrophils % 3, Lymphocytes % (Manual) 12 L, Monocytes % (Manual) 4, Eosinophils % (Manual) 1, Metamyelocytes % 2 H 12/15/17 05:02: Sodium 136, Potassium 4.3, Chloride 101, Carbon Dioxide 27.0, Anion Gap 8, BUN 43 H, Creatinine 1.87 H, Est GFR (MDRD) Af Amer 45 L, Est GFR (MDRD) Non-Af 37 L, BUN/Creatinine Ratio 23.0 H, Glucose 209 H, Calcium 9.8, Troponin I 0.28 H Rhythm: Sinus versus ectopic atrial rhythm EKG: As noted above ECHO: 12/03/2014: Left ventricle: LVEF of 50%; paradoxical septal wall motion; mild concentric LVH; moderate left atrial enlargement; mild mitral annular calcification; mild MR; mild TR; aortic valve sclerosis; trivial AI; trivial pulmonic valve insufficiency; estimated RV systolic pressure of 33 mmHg; ICD/pacemaker leads in the right atrium and right ventricle Stress Test: 2012: Pharmacologic stress nuclear imaging study: Findings compatible with the effects of previous myocardial injury/infarction involving portions of the basal inferior septal, inferior, inferolateral segments as well as being concerning for associated stress-induced myocardial ischemia involving portions of the mid towards distal anterior lateral, anterior apical, and lateral apical segments with notation that an element of soft tissue attenuation/artifact cannot be excluded; gated LVEF of 44% Cardiac Cath: 02/27/2013: [place], [place]: Elevated left ventricular end-diastolic pressure; main coronary artery was 70% stenosis; LAD occluded; LCx occluded; CA with right PDA with 80% stenosis; MOULTON to the LAD patent; SVG to the OM patent with notation to the OM has a superior limb and a small caliber with a 90% stenosis in an inferior limb and a very small caliber with a 70% stenosis; SVG to the right PDA patent with the right PDA demonstrating distal 80% stenosis CAB02/18/1987: [facility]: MOULTON to the LAD; SVG to the posterior lateral circumflex; SVG to the right PDA ICD: [place]: Current DR: Model number: CD2 211-36: Serial number: [id number]: Date implanted: 02/19/2010: Dual-chamber defibrillator Chest x-ray: Per radiology: No acute cardiopulmonary disease process reported: Please see official report Assessment/Plan 1. Abnormal cardiac enzymes The patient does have abnormal cardiac enzymes. The etiology is unclear whether this truly represents an underlying cardiovascular event either a type I event or potentially secondary to his multiple medical issues a type II event. At the present time he will continue to be monitored. He will have cardiac enzyme and ECG follow-up as deemed appropriate. He will a follow-up transthoracic echocardiogram in an attempt to reassess his left ventricular wall motion and overall systolic function. At some point in time, when he is clinically improved with respect to his mental status and his overall multiple medical conditions, he could be considered for further noninvasive evaluation with a pharmacologic stress nuclear imaging study to reassess his coronary physiology/ischemic burden and assist in determining whether or not he may need to be considered for future repeat diagnostic cardiac catheterization. Otherwise in the interim, when he is able, it would be reasonable to reassess his medications from a cardiovascular standpoint. This would include agents such as aspirin if able, nitrates if needed, beta-blockers, afterload reducing agents taking into consideration his renal dysfunction, and lipid-lowering agents. 2. CAD status post CABG The patient has undergone extensive noninvasive and invasive evaluation as noted above. At the present time he does not appear to have symptoms of ongoing acute coronary syndrome. Ideally he would continue medical management as described above. However his medications may need to be temporarily interrupted and were adjusted based on concerns of his mental status changes and/or other medical conditions. 3. Ischemic mediated cardiomyopathy The patient does have the aforementioned ischemic mediated cardiomyopathy. It is unclear whether there is been a significant change in his left ventricular systolic function that would be contributing to any of his clinical presentations. It would not be unreasonable to reassess this with a transthoracic echocardiogram. Ideally he would continue medical management for this such as beta blockers and afterload reducing agents as well as other medications as needed. Again his medications are being altered based on concerns of his underlying mental status changes and other multiple medical issues. 4. ICD The patient does have an underlying ICD. It has been evaluated in the past. It has been functioning appropriately. He will be reassessed as needed. 5. Hyperlipidemia Ideally the patient would continue lipid-lowering therapy for his cardiovascular risk factor modification. 6. Hypertension The patient has had episodes of hypotension. Thus his medications are being altered to avoid significant hypotension. 7. Diabetes mellitus The patient will continue evaluation care per internal medicine. 8. Chronic renal insufficiency The patient has had acute on chronic renal insufficiency. Is unclear whether his fluctuating renal function is contributing to his indeterminate troponin I levels. However, the patient's renal dysfunction would have to be taken into consideration as to whether or not he would ever be a candidate for future invasive evaluation with IV contrast based upon the concerns of IV contrast related nephropathy. 9. COPD The patient will continue evaluation care per internal medicine. 10. UTI/sepsis The patient is undergoing evaluation care for an underlying infectious disease etiology and possible sepsis syndrome. Again this could contribute to indeterminate troponin I levels. Continue evaluation care per internal medicine. The above was discussed with the patient, his spouse, other family members present, and the [facility] staff. This note was generated with [employer] dictation software. It may contain incorrect words, spelling, and punctuation that were not noted in checking the note before signing.
--- NOTE | 2017-12-15 18:33 | CON.PCM_ITS ---
Problem List (1) Abnormal cardiac enzyme level Status: Acute (2) ASHD (arteriosclerotic heart disease) Status: Chronic (3) H/O coronary artery bypass surgery Status: Chronic Comment: CABG MOULTON graft to anterior descending, saphenous vein graft to CFX, saphenous vein graft to RCA 1986. (4) Ischemic cardiomyopathy Status: Chronic (5) Automatic implantable cardiac defibrillator in situ Status: Chronic Comment: ICD implant: 02/2010 (6) HLD (hyperlipidemia) Status: Chronic (7) HTN (hypertension) Status: Chronic Qualifiers: (8) Type II diabetes mellitus Status: Chronic (9) CRF (chronic renal failure) Status: Chronic Qualifiers: (10) COPD (chronic obstructive pulmonary disease) Status: Chronic (11) UTI (urinary tract infection) Status: Chronic Qualifiers: (12) Sepsis Status: Acute Reason for Consult Date of Consultation: 12/15/17 History of Present Illness: The patient is a 77 year old male with a past medical history of underlying CAD , status post CABG, ischemic mediated cardiomyopathy, paroxysmal ventricular dysrhythmia, status post ICD placement, hyperlipidemia, hypertension, diabetes mellitus, chronic renal insufficiency, COPD, who presents for concerns of abnormal cardiac enzymes in the setting of concerns of a UTI and sepsis syndrome. The patient has been undergoing evaluation care for concerns of an underlying infectious disease event as well as altered mental status. The patient denies ongoing chest discomfort. He has complained of chronic shortness of breath. He denies any loss of consciousness. His family members present state that he has not been complaining of any obvious chest discomfort. They note he does get short of breath with activity. They have noted no loss of consciousness. They note that he is more tired and fatigued and lethargic. He state that he has had falling episodes. This has resulted in injuries to his lower extremities including his right lower extremity becoming ecchymotic requiring x-ray evaluation. They note that his medications have been altered as well. The patient has been undergoing cardiovascular evaluation during his hospitalization with cardiac enzymes. They have been indeterminate. His ECGs have demonstrated the appearance of an underlying sinus versus ectopic atrial rhythm with an inferior ND pattern of indeterminate age cannot be excluded and nonspecific ST and T-wave abnormality. [] Past Medical History Allergies/Adverse Reactions: Allergies erythromycin base Allergy (Mild, Verified 11/22/17 10:36) Hives cyclobenzaprine HCl [From Flexeril] Allergy (Verified 11/21/17 12:35) Rash latex Allergy (Verified 11/21/17 12:35) Swelling Penicillins Allergy (Verified 11/21/17 12:35) Rash Sulfa (Sulfonamide Antibiotics) Allergy (Verified 11/21/17 12:35) Rash tetracycline Allergy (Verified 11/22/17 10:36) Hives acetaminophen [From Percocet] Adverse Reaction (Verified 11/21/17 12:35) Other HALLUCINATES oxycodone [From Percocet] Adverse Reaction (Verified 11/21/17 12:35) Other HALLUCINATES iv dye Adverse Reaction (Uncoded 11/21/17 12:35) only has 1 kidney Home Medications: Ambulatory Orders Medication Instructions Recorded Carvedilol [Coreg (Beta Tae)] 25 mg PO BID 11/21/17 Ergocalciferol [Vitamin D] 50,000 unit PO QMONTH 11/21/17 Escitalopram Oxalate [Lexapro] 20 mg PO DAILY 11/21/17 Finasteride [Proscar] 5 mg PO DAILY 11/21/17 Potassium Chloride [K-Dur] 20 meq PO DAILY 11/21/17 Apixaban [Eliquis] 5 mg PO BID #0 11/23/17 Insulin Aspart [Novolog] See Protocol SQ ACHS #1 vial 11/23/17 Doxazosin Mesylate [Cardura Xl] 4 mg PO BID 12/07/17 Baclofen 10 mg PO QHS PRN PRN 12/14/17 Furosemide [Lasix] 40 mg PO DAILY 12/14/17 Insulin Degludec [Tresiba unit SQ 12/14/17 Flextouch U-100] Insulin Glargine,Hum.rec.anlog 20 unit SQ BID 12/14/17 [Lantus] Isosorbide Mononitrate [Imdur] 30 mg PO DAILY 12/14/17 Prednisone 5 mg PO DAILY 12/14/17 Past Medical History (Chronic Problems): Chronic Problems (Last Updated 08/29/17 @ 10:33 by Karon Nick) Ulcer of left lower extremity with fat layer exposed (Chronic) Type 2 diabetes mellitus with diabetic polyneuropathy (Chronic) Foot ulcer with fat layer exposed (Chronic) Onycholysis (Chronic) Tinea unguium (Chronic) Ulcer of left lower extremity with fat layer exposed (Chronic) UTI (urinary tract infection) (Chronic) Atherosclerosis of [place] coronary artery of [place] heart without angina pectoris (Chronic) MOULTON to LAD, SVG to circumflex, and SVG to RCA in 1986 Left ventricular failure (Chronic) Peripheral vascular disease (Chronic) ASHD (arteriosclerotic heart disease) (Chronic) Automatic implantable cardiac defibrillator in situ (Chronic) ICD implant: 02/2010 HLD (hyperlipidemia) (Chronic) HTN (hypertension) (Chronic) Atherosclerosis of coronary artery bypass graft without angina pectoris (Chronic ) CABG MOULTON graft to anterior descending, saphenous vein graft to CFX, saphenous vein graft to RCA 1986. [facility] 1987, 01/29/2010, 02/24. Ischemic cardiomyopathy (Chronic) Paroxysmal ventricular tachycardia (Chronic) H/O coronary artery bypass surgery (Chronic) CABG MOULTON graft to anterior descending, saphenous vein graft to CFX, saphenous vein graft to RCA 1986. 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) Open wound of lower extremity without complication (Chronic) Chronic renal insufficiency, stage III (moderate) (Chronic) PAOD (peripheral arterial occlusive disease) (Chronic) Surgical History: coronary bypass surgery, pacemaker implantation, TURP - *Family History Maternal Family History: Family History (Last Updated 08/29/17 @ 10:09 by Karon Nick) Father Diabetes CHF (congestive heart failure) Mother CHF (congestive heart failure) Hypertension Sister Hypertension Myocardial infarction, Onset Age: 79 History Items: No pertinent history Paternal Family History: Family History (Last Updated 08/29/17 @ 10:09 by Karon Nick) Father Diabetes CHF (congestive heart failure) Mother CHF (congestive heart failure) Hypertension Sister Hypertension Myocardial infarction, Onset Age: 79 History Items: Heart Disease, No pertinent history Lives: Spouse/ Significant Other Smoking Status: Former smoker Alcohol: None Drugs: None Review of Systems - Review of Systems General: Reports: Fatigue, Decreased Appetite. Denies: Fever, Night Sweats Cardiovascular: Reports: Shortness of Breath, Peripheral Edema. Denies: Chest Discomfort, Orthopnea, PND, Palpitations, Lightheadedness, Dizziness, Near Syncope, Syncope Respiratory: Denies: Cough, Sputum Production, Hemoptysis Gastrointestinal: Denies: Hematemesis, Hematochezia, Melena Genitourinary: Denies: Dysuria, Hematuria Skin: Denies: Rash Subjectve: This is a 77-year-old white male who appears to be resting comfortably at the moment no acute distress and also appears to be somewhat confused at this time. Objective: Vital Signs Temp Pulse Resp BP Pulse Ox 98.1 F 82 18 98/57 L 99 12/15/17 17:32 12/15/17 17:32 12/15/17 17:32 12/15/17 17:32 12/15/17 17:32 Oxygen Flow Rate (L/min) 2 Oxygen Delivery Method Room Air Weight: 229 lb 4.492 oz Body Mass Index (BMI) 32.4 Intake and Output for Last 24 Hours 12/13/17 12/14/17 12/15/17 23:59 23:59 23:59 Intake Total 400 / 400 1887.5 / 1887.5 Output Total 250 / 250 Balance 400 / 400 1637.5 / 1637.5 General: Awake, Cooperative, No Acute Distress, Obese Neck: No JVD Lungs: Clear to auscultation Cardiovascular: Regular Rhythm, Normal S1, Normal S2 Murmur Murmur: Grade 2/6, Mid Systolic, LLSB Abdomen: Bowel Sounds Present, Soft, Non Tender Extremities: Severe RLE Edema, Severe LLE Edema 12/14/17 18:14: Lactic Acid 1.6 12/14/17 20:51: Troponin I 0.36 H 12/15/17 00:05: Troponin I 0.35 H 12/15/17 05:02: WBC 7.2, RBC 3.86 L, Hgb 10.0 L, Hct 33.1 L, MCV 85.8, MCH 25.9 L, MCHC 30.2 L, RDW 16.2 H, RDW Differential 49.7 H, Plt Count 135 L, MPV 10.9, Neut % (Auto) Not Reportable, Absolute Neuts (auto) 6.0, Total Counted 100, Neutrophils % (Manual) 78 H, Band Neutrophils % 3, Lymphocytes % (Manual) 12 L, Monocytes % (Manual) 4, Eosinophils % (Manual) 1, Metamyelocytes % 2 H 12/15/17 05:02: Sodium 136, Potassium 4.3, Chloride 101, Carbon Dioxide 27.0, Anion Gap 8, BUN 43 H, Creatinine 1.87 H, Est GFR (MDRD) Af Amer 45 L, Est GFR ( MDRD) Non-Af 37 L, BUN/Creatinine Ratio 23.0 H, Glucose 209 H, Calcium 9.8, Troponin I 0.28 H Rhythm: Sinus versus ectopic atrial rhythm EKG: As noted above ECHO: 12/03/2014: Left ventricle: LVEF of 50%; paradoxical septal wall motion; mild concentric LVH; moderate left atrial enlargement; mild mitral annular calcification; mild MR; mild TR; aortic valve sclerosis; trivial AI; trivial pulmonic valve insufficiency; estimated RV systolic pressure of 33 mmHg; ICD/ pacemaker leads in the right atrium and right ventricle Stress Test: 2012: Pharmacologic stress nuclear imaging study: Findings compatible with the effects of previous myocardial injury/infarction involving portions of the basal inferior septal, inferior, inferolateral segments as well as being concerning for associated stress-induced myocardial ischemia involving portions of the mid towards distal anterior lateral, anterior apical, and lateral apical segments with notation that an element of soft tissue attenuation /artifact cannot be excluded; gated LVEF of 44% Cardiac Cath: 02/27/2013: [place], [place]: Elevated left ventricular end-diastolic pressure; main coronary artery was 70% stenosis; LAD occluded; LCx occluded; CA with right PDA with 80% stenosis; MOULTON to the LAD patent; SVG to the OM patent with notation to the OM has a superior limb and a small caliber with a 90% stenosis in an inferior limb and a very small caliber with a 70% stenosis; SVG to the right PDA patent with the right PDA demonstrating distal 80% stenosis CAB02/18/1987: [facility]: MOULTON to the LAD; SVG to the posterior lateral circumflex; SVG to the right PDA ICD: [place]: Current DR: Model number: CD2 [id number]: Serial number: [id number]: Date implanted: 02/19/2010: Dual-chamber defibrillator Chest x-ray: Per radiology: No acute cardiopulmonary disease process reported: Please see official report Assessment/Plan 1. Abnormal cardiac enzymes The patient does have abnormal cardiac enzymes. The etiology is unclear whether this truly represents an underlying cardiovascular event either a type I event or potentially secondary to his multiple medical issues a type II event. At the present time he will continue to be monitored. He will have cardiac enzyme and ECG follow-up as deemed appropriate. He will a follow-up transthoracic echocardiogram in an attempt to reassess his left ventricular wall motion and overall systolic function. At some point in time, when he is clinically improved with respect to his mental status and his overall multiple medical conditions, he could be considered for further noninvasive evaluation with a pharmacologic stress nuclear imaging study to reassess his coronary physiology/ischemic burden and assist in determining whether or not he may need to be considered for future repeat diagnostic cardiac catheterization. Otherwise in the interim, when he is able, it would be reasonable to reassess his medications from a cardiovascular standpoint. This would include agents such as aspirin if able, nitrates if needed, beta-blockers, afterload reducing agents taking into consideration his renal dysfunction, and lipid-lowering agents. 2. CAD status post CABG The patient has undergone extensive noninvasive and invasive evaluation as noted above. At the present time he does not appear to have symptoms of ongoing acute coronary syndrome. Ideally he would continue medical management as described above. However his medications may need to be temporarily interrupted and were adjusted based on concerns of his mental status changes and /or other medical conditions. 3. Ischemic mediated cardiomyopathy The patient does have the aforementioned ischemic mediated cardiomyopathy. It is unclear whether there is been a significant change in his left ventricular systolic function that would be contributing to any of his clinical presentations. It would not be unreasonable to reassess this with a transthoracic echocardiogram. Ideally he would continue medical management for this such as beta blockers and afterload reducing agents as well as other medications as needed. Again his medications are being altered based on concerns of his underlying mental status changes and other multiple medical issues. 4. ICD The patient does have an underlying ICD. It has been evaluated in the past. It has been functioning appropriately. He will be reassessed as needed. 5. Hyperlipidemia Ideally the patient would continue lipid-lowering therapy for his cardiovascular risk factor modification. 6. Hypertension The patient has had episodes of hypotension. Thus his medications are being altered to avoid significant hypotension. 7. Diabetes mellitus The patient will continue evaluation care per internal medicine. 8. Chronic renal insufficiency The patient has had acute on chronic renal insufficiency. Is unclear whether his fluctuating renal function is contributing to his indeterminate troponin I levels. However, the patient's renal dysfunction would have to be taken into consideration as to whether or not he would ever be a candidate for future invasive evaluation with IV contrast based upon the concerns of IV contrast related nephropathy. 9. COPD The patient will continue evaluation care per internal medicine. 10. UTI/sepsis The patient is undergoing evaluation care for an underlying infectious disease etiology and possible sepsis syndrome. Again this could contribute to indeterminate troponin I levels. Continue evaluation care per internal medicine. The above was discussed with the patient, his spouse, other family members present, and the [facility] staff. This note was generated with [employer] dictation software. It may contain incorrect words, spelling, and punctuation that were not noted in checking the note before signing.
[2017-12-15] MEDS: APIXABAN 5 MG TABLET PO (21:36)
[2017-12-15 22:21] LABS: Bedside Glucose 147 mg/dL (70-110)
[2017-12-15] MEDS: Ondansetron 4 MG/2 ML Vial IV (23:57)
[2017-12-15] MEDS: 0.9% NaCl Peripheral Flush Adult/Peds IV (23:57)
[2017-12-16] VITALS (11 sets, daily range): BP systolic 111–127; BP diastolic 66–84; PULSE 70–103; RESP 12–18; TEMP 36.8–37; O2SAT 94–98
--- NOTE | 2017-12-16 05:55 | ECHOD_ITS ---
Reason For Study: CAD/ASHD Procedure This was a 2D Doppler, Color Flow transthoracic echocardiogram. DEFINITY NOT USED DUE TO ELEVATED PULMONARY PRESSURE. Exam performed portable in patient room. Left Ventricle Mildly dilated left ventricle. Severe segmental systolic dysfunction (see wall motion). The estimated ejection fraction is 15 %. Unable to assess diastolic dysfunction. Anterio-Basal: Severely hypokinetic. Lateral-Basal: Hypokinetic. Posterior-Basal: Severely hypokinetic. Infero- Basal: Akinetic. Basal inferoseptal: Akinetic. Basal anteroseptal: Akinetic. Mid-Anterior : Akinetic. Mid-Lateral : Severely Hypokinetic. Mid-Posterior: Severely Hypokinetic. Mid-Inferior: Akinetic. Mid-inferoseptal : Akinetic. Mid-anteroseptal : Akinetic. Anterior [place] : Akinetic. Inferior [place] : Hypokinetic. Lateral [place] : Severely Hypokinetic. Septal [place] : Hypokinetic. Right Ventricle Normal RV size. ICD or pacer leads identified within the right ventricle. Mild global right ventricular systolic dysfunction. Atria The left atrium is moderately enlarged. The right atrium is mildly enlarged. ICD or pacer leads identified within the right atrium. No doppler evidence for ASD. Mitral Valve There is mild to moderate mitral annular calcification. Extension of the mitral annular calcification onto the posterior mitral valve leaflet. Mild diffuse mitral valve thickening. Mild (1+) mitral valve insufficiency. Tricuspid Valve Poor coaptation of the tricuspid valve. Moderate (2+) tricuspid valve insufficiency. Right ventricular systolic pressure estimated to be 65 mmHg. Aortic Valve Trisinus/trileaflet aortic valve. Mild focal aortic valve thickening. Mild focal aortic valve calcification. Mild aortic stenosis. Pulmonic Valve The pulmonic valve is not well visualized. Great Vessels Normal sized aortic root. Pericardium/Pleural No pericardial effusion. MMode/2D Measurements & Calculations LVIDd: 5.5 cm IVSd: 1.2 cm LVOT diam: 2.0 cm LVIDs: 5.2 cm LVPWd: 1.3 cm LVOT area: 3.0 cm2 RVDd: 4.1 cm FS: 5.4 % Ao root diam: 3.1 cm LAV(MOD-bp): 79.0 ml LA A4 area: 21.3 cm2 LAV(MOD-bp) Indexed: 35.5 ml/m2 LAV(MOD-sp2): 92.7 ml LAV(MOD-sp4): 68.2 ml RA A4 area: 20.4 cm2 Doppler Measurements & Calculations MV E max beni: 90.7 cm/sec Ao V2 max: 143.0 cm/sec LV V1 max: 84.4 cm/sec Ao max P.2 mmHg LV V1 max P.9 mmHg ALBERTO(V,D): 1.8 cm2 PA V2 max: 85.3 cm/sec TR max beni: 352.3 cm/sec TR max P.8 mmHg Interpretation Summary Mildly dilated left ventricle. Severe segmental systolic dysfunction (see wall motion). The estimated ejection fraction is 15 %. Mild global right ventricular systolic dysfunction. The left atrium is moderately enlarged. The right atrium is mildly enlarged. There is mild to moderate mitral annular calcification. Extension of the mitral annular calcification onto the posterior mitral valve leaflet. Mild diffuse mitral valve thickening. Mild (1+) mitral valve insufficiency. Poor coaptation of the tricuspid valve. Moderate (2+) tricuspid valve insufficiency. Mild aortic stenosis. Right ventricular systolic pressure estimated to be 65 mmHg c/w pulmonary hypertension. Unable to assess diastolic dysfunction. ICD or pacer leads identified within the right atrium ICD or pacer leads identified within the right ventricle. Ordering Physician: Messi Velazquez Referring Physician: AMPARO CULLEN CHI Performed By: Purnima Titus RDCS
[2017-12-16 06:09] LABS: Hematocrit 33.7 % (40-54); Hemoglobin 10.3 g/dl (13.0-16.5); Mean Corp Hgb Conc 30.6 g/gl (32-36); Mean Corpuscular Hgb 26.2 pg (27.0-32.0); Mean Corpuscular Volume 85.8 fL (80-94); Mean Platelet Vol. 9.9 fl (6.2-12.0); Platelet Count 147 K/mm3 (150-450); RBC Distribution Width CV 16.1 % (11.6-14.6); RBC Distribution Width SD 49.3 fl (35.1-43.9); Red Blood Count 3.93 M/mm3 (4.6-6.2); White Blood Count 7.4 K/mm3 (4.4-11.0)
[2017-12-16 06:16] LABS: Anion Gap 6 (5-15); BUN 41 mg/dL (7-18); BUN/Creat Ratio 25.5 RATIO (10-20); Calcium,Total 9.8 mg/dL (8.5-10.1); Chloride 103 mmol/L (98-107); Creatinine, Serum 1.61 mg/dL (0.70-1.30); EST Glomerular Filtration Rate 44 mL/min (>60); Est Glom Filt Rate - Afr Amer 54 mL/min (>60); Estimated Creatinine Clearance 39.67 ml/min; Glucose 94 mg/dL (74-106); Potassium 3.9 mmol/L (3.5-5.1); Sodium Level 137 mmol/L (136-145)
[2017-12-16 06:29] LABS: Differential Indicated MANUAL DIFF; POSITIVE COUNT YES; POSITIVE DIFFERENTIAL NO; POSITIVE MORPHOLOGY YES
[2017-12-16 06:48] LABS: Blast 1 % (0-0); Eosinophil 1 % (0-5); Lymphocyte 19 % (19-41); Metamyelocyte 2 % (0-1); Monocyte 4 % (0-10); Neutrophil-Segmented 73 % (47-70); Platelet Estimate ADEQUATE (ADEQ); Red Cell Morphology NORM C+C NORMAL (NORM C&C); Total Cells Counted 100 (MANUAL DIFF)
[2017-12-16 06:49] LABS: Absolute Lymphocyte Count 1.41 X10^3/ul (0.83-4.51); Absolute Neutrophil Count 5.4 X10^3/uL (2.0-7.7); Lymphocyte # 1.41 X10^3/ul (4.0)
[2017-12-16 06:55] LABS: Bedside Glucose 104 mg/dL (70-110)
[2017-12-16] MEDS: 0.9% Normal Saline 1,000 ML 50 ML IV (07:03)
[2017-12-16 09:28] LABS: Pathologist Review Reviewed
[2017-12-16] MEDS: APIXABAN 5 MG TABLET PO ×2 (09:42→21:58)
--- NOTE | 2017-12-16 09:49 | US_ITS ---
STUDY: ABDOMINAL ULTRASOUND - RIGHT UPPER QUADRANT REASON FOR VISIT: Male, 77 years old. Right upper quadrant pain. TECHNIQUE: Ultrasound evaluation of the right upper quadrant was performed with real-time and static etienne-scale imaging. TECHNICAL QUALITY: Adequate. Examination limited due to the patient?s condition and body habitus. COMPARISON: CT abdomen and pelvis November 22, 2017. FINDINGS: Incidental note of a right pleural effusion. Liver: The liver measures 10.2 cm. There is a mildly heterogeneous echogenicity of the liver. The bile ducts are within normal limits. There is hepatic color flow. The direction of portal flow is hepatopetal. The well-defined 2.9 x 3.1 x 3.0 cm subcapsular cyst is again seen at the medial inferior right lobe of the liver. Gallbladder: Normal distended gallbladder. The gallbladder wall measures 3 mm. There is a negative sonographic Chavez's sign. There is no pericholecystic fluid. There are no gallstones. Common Bile Duct (C.B.D.): The common bile duct measures 4 mm. Pancreas: There is limited visualization of the pancreas. There is increased echogenicity of the visualized body of the pancreas. There is no demonstrated pancreatic mass or cyst. Right Kidney: Normal size of the right kidney. The right kidney measures 13.7 x 6.0 x 5.3 cm. Normal renal cortex. The right cortex measures 1.4 cm. There is no demonstrated renal mass or cyst. The lower pole subcentimeter stone seen on CT is not apparent in these images. There is no right hydronephrosis. US/Abdomen Limited IMPRESSION: 1. Mildly heterogeneous texture of the normal sized liver. A 3 cm subcapsular cyst at the medial inferior right lobe is unchanged. 2. Incidental note of a right pleural effusion. 3. Incomplete visualization of the pancreas. There is suggestion of fatty pancreatic infiltration. 4. No gallstones, nor signs of cholecystitis or bile duct obstruction. 5. Lower pole subcentimeter right renal stone seen on CT is not apparent here. No right hydronephrosis. Electronically Signed: Flavio Fischer MD at 16:40 EDT , Service support ,
[2017-12-16 10:20] LABS: ALB/GLOB Ratio 0.8 RATIO (0.9-2.4); AST(SGOT) 38 U/L (15-37); Alanine Aminotransfer ALT/SGPT 68 U/L (16-61); Albumin, Serum 2.7 g/dL (3.2-5.0); Alkaline Phosphatase 50 U/L (45-117); Globulin 3.5 g/dL (2.2-4.2); Protein, Total 6.2 g/dL (6.4-8.2)
[2017-12-16 11:25] LABS: Bedside Glucose 174 mg/dL (70-110)
--- NOTE | 2017-12-16 11:45 | CASEMGMT ---
Face to Face with patient for initial transition planning/care coordination assessment. RN JUANCARLOS introduced self and role at [facility], pt voices understanding and consents to assessment at this time. Pt is hard of hearing. Pt is sitting up in chair during assessment. answers all questions for pt at this time. Care providers, pharmacy, and demographics verified. See attached link. Pt voices no further concerns/needs at this time. Advised pt to ask for CM if any further questions/concerns/needs arise, voices understanding. Referral to [facility] for TCU, voices understanding. PLAN: [facility]
--- NOTE | 2017-12-16 13:02 | PCM.PROGNOTE ---
<Selwyn Shepard - Last Filed: 12/16/17 13:02> Patient Problems: Active and Suspected Problems (Last Updated 08/29/17 @ 10:33 by Karon Nick) Acute metabolic encephalopathy (Acute) Acute kidney injury on CKD stage III (Acute) Abnormal cardiac enzyme level (Acute) Sepsis (Acute) Subjective: Patient had one further episode of watery diarrhea yesterday, however this was not sent for C. difficile testing unfortunately. He still continues to have abdominal pain and midepigastric pain. He has not had any further bowel activity this morning. When asked if he has chest pain he is still complains of yes he has chest pain however still points to the midepigastric region on description. He does not feel short of breath. He does wear oxygen at home at night, he is currently comfortable on oxygen. He denies cough. He denies dysuria. He denies fevers or chills overnight. He did undergo an echocardiogram per cardiology this morning for his elevated troponin. - Physical Exam General: Alert, Oriented x3, Cooperative HEENT: Atraumatic, PERRLA, EOMI, Normocephalic Neck: Supple, No JVD, Negative Carotid Bruits Lungs: Clear to auscultation, Normal air movement Cardiovascular: Regular rate, No murmurs Abdomen: Bowel Sounds Present, Soft, Tender - He is significantly tender in the right upper quadrant to moderate palpation, reporting severe pain and grimacing on palpation. He also has some tenderness, less markedly, in the left lower quadrant and right lower quadrant. He has no guarding or rigidity. The belly is soft. Extremities: No edema, Capillary Refill Less than 3 Seconds Skin: No rashes, No breakdown Musculoskeletal: No Tenderness to Palpation of Joints or Extremities Neurological: Cranial nerves II-XII grossly intact Psych/Mental Status: Normal Affect, Appropriate, Alert and oriented to time, place, person, mood and affect Vital Signs Temp Pulse Resp BP Pulse Ox 98.6 F 86 12 111/69 96 12/16/17 09:49 12/16/17 09:49 12/16/17 09:49 12/16/17 09:49 12/16/17 09:49 Oxygen Flow Rate (L/min) 2 Oxygen Delivery Method Room Air Weight: 105.7 kg Body Mass Index (BMI) 32.4 Intake and Output for Last 24 Hours 12/14/17 12/15/17 12/16/17 23:59 23:59 23:59 Intake Total 400 / 400 1887.5 / 1887.5 1404 / 1404 Output Total 250 / 250 Balance 400 / 400 1637.5 / 1637.5 1404 / 1404 Microbiology Past 72 Hours 12/14/17 19:43 Respiratory Panel (PCR) - Final Mucosa - Nasopharyngeal Laboratory Tests Past 24 Hrs 12/15/17 12/16/17 12/16/17 05:02 05:35 05:35 WBC 7.4 RBC 3.93 L Hgb 10.3 L Hct 33.7 L MCV 85.8 MCH 26.2 L MCHC 30.6 L RDW 16.1 H RDW Differential 49.3 H Plt Count 147 L MPV 9.9 Neut % (Auto) Not Reportable Absolute Neuts (auto) 5.4 Absolute Lymphs (auto) 1.41 Total Counted 100 Neutrophils % (Manual) 73 H Lymphocytes % (Manual) 19 Monocytes % (Manual) 4 Eosinophils % (Manual) 1 Metamyelocytes % 2 H Blast Cells % 1 H* Diff Path Review Reviewed May foll Platelet Estimate ADEQUATE RBC Morphology NORM C+C Sodium 137 Potassium 3.9 Chloride 103 Carbon Dioxide 28.0 Anion Gap 6 BUN 41 H Creatinine 1.61 H Estim Creat Clear Calc 39.67 Est GFR (MDRD) Af Amer 54 L Est GFR (MDRD) Non-Af 44 L BUN/Creatinine Ratio 25.5 H Glucose 94 Calcium 9.8 Total Bilirubin 0.40 AST 38 H ALT 68 H Alkaline Phosphatase 50 Total Protein 6.2 L Albumin 2.7 L Globulin 3.5 Albumin/Globulin Ratio 0.8 L POC Glucose 12/16/17 12/16/17 12/15/17 11:14 06:46 21:38 POC Glucose 174 H 104 147 H 12/15/17 12/15/17 17:29 14:58 POC Glucose 218 H 238 H Medical Necessity - Tobacco Use Smoking Status: Former smoker Assessment/Plan Active and Suspected Problems (Last Updated 08/29/17 @ 10:33 by Karon Nick) Acute metabolic encephalopathy (Acute) Acute kidney injury on CKD stage III (Acute) Abnormal cardiac enzyme level (Acute) Sepsis (Acute) 1. Acute severe sepsis 2/2 gastroenteritis, suspected viral . As evidenced by diarrhea, elevated lactate, pulse >90, and tachypneic at presentation. He remains afebrile, has no elevated white count. Still waiting for stool to be sent for C. difficile. One further episode of diarrhea yesterday. He has significant abdominal discomfort and pain on palpation. Most notably over the right upper quadrant. Will obtain abdominal ultrasound right upper quadrant as he still has his gallbladder. We will also check CMP, at admission LFTs were mildly elevated. 2. Acute metabolic encephalopathy 2/2 dehydration with HUGO 2/2 diarrhea -renal function continues to improve with slow IV fluids. still somewhat lethargic. CT brain with chronic changes and sinusitis. CXR neg. Pt was not eating/drinking at home. -Per wound care nursing, his edema of his lower extremities is actually significantly improved since yesterday despite that he has received some slow IV fluids for his HUGO as above. We will plan to continue at least today and probably discontinue tomorrow if his mental status and renal function continues to improve. He had not been eating or drinking at home and was likely severely dehydrated at presentation. 3. Chest pain / Indeterminate troponin - hx CAD/CABG/pacer/AICD/ischemic cardiomyopathy -echocardiogram results are back, very poor echocardiogram. Will await cardiology recommendation. 4. Right foot sprain - xr without fracture. 5. COPD with chronic hypoxic respiratory failure - some SOB at night, but this is chronic. No wheezing or worsening of SOB. He does wear oxygen at night at baseline. 6. T2DM -improved. Continue to titrate therapy. 7. Hx DVT - on eliquis 8. Anx/Dep - lexapro. 9. Obesity - dietary eval DVT ppx: eliquis. DC planning: PTOT. This patient was seen by Selwyn Shepard PA-C under the supervision of Doctor Clinton <Conor Alonzo - Last Filed: 12/16/17 14:41> - Physical Exam General: Confused HEENT: Atraumatic, Normocephalic Lungs: Clear to auscultation, Normal air movement, No rhonchi, No wheeze Cardiovascular: Regular rate, Regular Rhythm, Normal S1, Normal S2 Abdomen: Bowel Sounds Present, Soft, Non Tender, Non-Distended Extremities: Edema Skin: No rashes, No breakdown Vital Signs Temp Pulse Resp BP Pulse Ox 37.0 C 101 H 12 111/69 96 12/16/17 09:49 12/16/17 11:00 12/16/17 09:49 12/16/17 09:49 12/16/17 09:49 Oxygen Flow Rate (L/min) 2 Oxygen Delivery Method Room Air Weight: 105.7 kg Body Mass Index (BMI) 32.4 Intake and Output for Last 24 Hours 12/14/17 12/15/17 12/16/17 23:59 23:59 23:59 Intake Total 400 / 400 1887.5 / 1887.5 1404 / 1404 Output Total 250 / 250 Balance 400 / 400 1637.5 / 1637.5 1404 / 1404 Microbiology Past 72 Hours 12/14/17 19:43 Respiratory Panel (PCR) - Final Mucosa - Nasopharyngeal Laboratory Tests Past 24 Hrs 12/15/17 12/16/17 12/16/17 05:02 05:35 05:35 WBC 7.4 RBC 3.93 L Hgb 10.3 L Hct 33.7 L MCV 85.8 MCH 26.2 L MCHC 30.6 L RDW 16.1 H RDW Differential 49.3 H Plt Count 147 L MPV 9.9 Neut % (Auto) Not Reportable Absolute Neuts (auto) 5.4 Absolute Lymphs (auto) 1.41 Total Counted 100 Neutrophils % (Manual) 73 H Lymphocytes % (Manual) 19 Monocytes % (Manual) 4 Eosinophils % (Manual) 1 Metamyelocytes % 2 H Blast Cells % 1 H* Diff Path Review Reviewed May foll Platelet Estimate ADEQUATE RBC Morphology NORM C+C Sodium 137 Potassium 3.9 Chloride 103 Carbon Dioxide 28.0 Anion Gap 6 BUN 41 H Creatinine 1.61 H Estim Creat Clear Calc 39.67 Est GFR (MDRD) Af Amer 54 L Est GFR (MDRD) Non-Af 44 L BUN/Creatinine Ratio 25.5 H Glucose 94 Calcium 9.8 Total Bilirubin 0.40 AST 38 H ALT 68 H Alkaline Phosphatase 50 Total Protein 6.2 L Albumin 2.7 L Globulin 3.5 Albumin/Globulin Ratio 0.8 L POC Glucose 12/16/17 12/16/17 12/15/17 11:14 06:46 21:38 POC Glucose 174 H 104 147 H 12/15/17 12/15/17 17:29 14:58 POC Glucose 218 H 238 H Assessment/Plan Patient seen and examined independently. I agree with the above note by the physician assistant media planner. 1. Acute severe sepsis Presumed due to a viral gastroenteritis. Cultures have been negative. Clinically improved at this time. Present on arrival 2. Acute metabolic encephalopathy Overall, patient is improved but not much improvement since December 15 Secondary to dehydration. 3. Ischemic cardiomyopathy Ejection fraction is now 15%. It was 50% in 2015. Discussed with Dr. Velazquez, he stated that given the patient's medical comorbidities, he would recommend a viability study which should be an MRI before proceeding with a catheterization. He stated that he would defer the patient's family in regards to aggressiveness of care and if they want to pursue more aggressive measures that he would recommend transferring the patient to a tertiary facility where they would be able to do a viability study. Discussed with the patient's , Stephanie Arevalo, and discussed the recommendations of cardiology. She is going to begin later on today is again discussed with her daughter. They are apprehensive about the patient having a heart catheterization given his chronic kidney disease and a solitary kidney. She is aware that if you would proceed with aggressive measures and getting viability study that he would need to be transferred to another facility for that. 4. Acute kidney injury Creatinine overall improved. Patient does have chronic kidney disease with a variable baseline of 1.3-1.5. Continue to monitor for now. 5. Diabetes mellitus type II Control. Continue with Levemir and NovoLog for now. 6. VTE: Eliquis Code Visit Inpatient E&M: 61185 Subs Hosp L2
--- NOTE | 2017-12-16 13:08 | PN_ITS ---
<Selwyn Shepard - Last Filed: 12/16/17 13:02> Patient Problems: Active and Suspected Problems (Last Updated 08/29/17 @ 10:33 by Karon Nick) Acute metabolic encephalopathy (Acute) Acute kidney injury on CKD stage III (Acute) Abnormal cardiac enzyme level (Acute) Sepsis (Acute) Subjective: Patient had one further episode of watery diarrhea yesterday, however this was not sent for C. difficile testing unfortunately. He still continues to have abdominal pain and midepigastric pain. He has not had any further bowel activity this morning. When asked if he has chest pain he is still complains of yes he has chest pain however still points to the midepigastric region on description. He does not feel short of breath. He does wear oxygen at home at night, he is currently comfortable on oxygen. He denies cough. He denies dysuria. He denies fevers or chills overnight. He did undergo an echocardiogram per cardiology this morning for his elevated troponin. - Physical Exam General: Alert, Oriented x3, Cooperative HEENT: Atraumatic, PERRLA, EOMI, Normocephalic Neck: Supple, No JVD, Negative Carotid Bruits Lungs: Clear to auscultation, Normal air movement Cardiovascular: Regular rate, No murmurs Abdomen: Bowel Sounds Present, Soft, Tender - He is significantly tender in the right upper quadrant to moderate palpation, reporting severe pain and grimacing on palpation. He also has some tenderness, less markedly, in the left lower quadrant and right lower quadrant. He has no guarding or rigidity. The belly is soft. Extremities: No edema, Capillary Refill Less than 3 Seconds Skin: No rashes, No breakdown Musculoskeletal: No Tenderness to Palpation of Joints or Extremities Neurological: Cranial nerves II-XII grossly intact Psych/Mental Status: Normal Affect, Appropriate, Alert and oriented to time, place, person, mood and affect Vital Signs Temp Pulse Resp BP Pulse Ox 98.6 F 86 12 111/69 96 12/16/17 09:49 12/16/17 09:49 12/16/17 09:49 12/16/17 09:49 12/16/17 09:49 Oxygen Flow Rate (L/min) 2 Oxygen Delivery Method Room Air Weight: 105.7 kg Body Mass Index (BMI) 32.4 Intake and Output for Last 24 Hours 12/14/17 12/15/17 12/16/17 23:59 23:59 23:59 Intake Total 400 / 400 1887.5 / 1887.5 1404 / 1404 Output Total 250 / 250 Balance 400 / 400 1637.5 / 1637.5 1404 / 1404 Microbiology Past 72 Hours 12/14/17 19:43 Respiratory Panel (PCR) - Final Mucosa - Nasopharyngeal Laboratory Tests Past 24 Hrs 12/15/17 12/16/17 12/16/17 05:02 05:35 05:35 WBC 7.4 RBC 3.93 L Hgb 10.3 L Hct 33.7 L MCV 85.8 MCH 26.2 L MCHC 30.6 L RDW 16.1 H RDW Differential 49.3 H Plt Count 147 L MPV 9.9 Neut % (Auto) Not Reportable Absolute Neuts (auto) 5.4 Absolute Lymphs (auto) 1.41 Total Counted 100 Neutrophils % (Manual) 73 H Lymphocytes % (Manual) 19 Monocytes % (Manual) 4 Eosinophils % (Manual) 1 Metamyelocytes % 2 H Blast Cells % 1 H* Diff Path Review Reviewed May foll Platelet Estimate ADEQUATE RBC Morphology NORM C+C Sodium 137 Potassium 3.9 Chloride 103 Carbon Dioxide 28.0 Anion Gap 6 BUN 41 H Creatinine 1.61 H Estim Creat Clear Calc 39.67 Est GFR (MDRD) Af Amer 54 L Est GFR (MDRD) Non-Af 44 L BUN/Creatinine Ratio 25.5 H Glucose 94 Calcium 9.8 Total Bilirubin 0.40 AST 38 H ALT 68 H Alkaline Phosphatase 50 Total Protein 6.2 L Albumin 2.7 L Globulin 3.5 Albumin/Globulin Ratio 0.8 L POC Glucose 12/16/17 12/16/17 12/15/17 11:14 06:46 21:38 POC Glucose 174 H 104 147 H 12/15/17 12/15/17 17:29 14:58 POC Glucose 218 H 238 H Medical Necessity - Tobacco Use Smoking Status: Former smoker Assessment/Plan Active and Suspected Problems (Last Updated 08/29/17 @ 10:33 by Karon Nick) Acute metabolic encephalopathy (Acute) Acute kidney injury on CKD stage III (Acute) Abnormal cardiac enzyme level (Acute) Sepsis (Acute) 1. Acute severe sepsis 2/2 gastroenteritis, suspected viral . As evidenced by diarrhea, elevated lactate, pulse >90, and tachypneic at presentation. He remains afebrile, has no elevated white count. Still waiting for stool to be sent for C. difficile. One further episode of diarrhea yesterday. He has significant abdominal discomfort and pain on palpation. Most notably over the right upper quadrant. Will obtain abdominal ultrasound right upper quadrant as he still has his gallbladder. We will also check CMP, at admission LFTs were mildly elevated. 2. Acute metabolic encephalopathy 2/2 dehydration with HUGO 2/2 diarrhea -renal function continues to improve with slow IV fluids. still somewhat lethargic. CT brain with chronic changes and sinusitis. CXR neg. Pt was not eating/ drinking at home. -Per wound care nursing, his edema of his lower extremities is actually significantly improved since yesterday despite that he has received some slow IV fluids for his HUGO as above. We will plan to continue at least today and probably discontinue tomorrow if his mental status and renal function continues to improve. He had not been eating or drinking at home and was likely severely dehydrated at presentation. 3. Chest pain / Indeterminate troponin - hx CAD/CABG/pacer/AICD/ischemic cardiomyopathy -echocardiogram results are back, very poor echocardiogram. Will await cardiology recommendation. 4. Right foot sprain - xr without fracture. 5. COPD with chronic hypoxic respiratory failure - some SOB at night, but this is chronic. No wheezing or worsening of SOB. He does wear oxygen at night at baseline. 6. T2DM -improved. Continue to titrate therapy. 7. Hx DVT - on eliquis 8. Anx/Dep - lexapro. 9. Obesity - dietary eval DVT ppx: eliquis. DC planning: PTOT. This patient was seen by Selwyn Shepard PA-C under the supervision of Doctor Clinton <Conor Alonzo - Last Filed: 12/16/17 14:41> - Physical Exam General: Confused HEENT: Atraumatic, Normocephalic Lungs: Clear to auscultation, Normal air movement, No rhonchi, No wheeze Cardiovascular: Regular rate, Regular Rhythm, Normal S1, Normal S2 Abdomen: Bowel Sounds Present, Soft, Non Tender, Non-Distended Extremities: Edema Skin: No rashes, No breakdown Vital Signs Temp Pulse Resp BP Pulse Ox 37.0 C 101 H 12 111/69 96 12/16/17 09:49 12/16/17 11:00 12/16/17 09:49 12/16/17 09:49 12/16/17 09:49 Oxygen Flow Rate (L/min) 2 Oxygen Delivery Method Room Air Weight: 105.7 kg Body Mass Index (BMI) 32.4 Intake and Output for Last 24 Hours 12/14/17 12/15/17 12/16/17 23:59 23:59 23:59 Intake Total 400 / 400 1887.5 / 1887.5 1404 / 1404 Output Total 250 / 250 Balance 400 / 400 1637.5 / 1637.5 1404 / 1404 Microbiology Past 72 Hours 12/14/17 19:43 Respiratory Panel (PCR) - Final Mucosa - Nasopharyngeal Laboratory Tests Past 24 Hrs 12/15/17 12/16/17 12/16/17 05:02 05:35 05:35 WBC 7.4 RBC 3.93 L Hgb 10.3 L Hct 33.7 L MCV 85.8 MCH 26.2 L MCHC 30.6 L RDW 16.1 H RDW Differential 49.3 H Plt Count 147 L MPV 9.9 Neut % (Auto) Not Reportable Absolute Neuts (auto) 5.4 Absolute Lymphs (auto) 1.41 Total Counted 100 Neutrophils % (Manual) 73 H Lymphocytes % (Manual) 19 Monocytes % (Manual) 4 Eosinophils % (Manual) 1 Metamyelocytes % 2 H Blast Cells % 1 H* Diff Path Review Reviewed May foll Platelet Estimate ADEQUATE RBC Morphology NORM C+C Sodium 137 Potassium 3.9 Chloride 103 Carbon Dioxide 28.0 Anion Gap 6 BUN 41 H Creatinine 1.61 H Estim Creat Clear Calc 39.67 Est GFR (MDRD) Af Amer 54 L Est GFR (MDRD) Non-Af 44 L BUN/Creatinine Ratio 25.5 H Glucose 94 Calcium 9.8 Total Bilirubin 0.40 AST 38 H ALT 68 H Alkaline Phosphatase 50 Total Protein 6.2 L Albumin 2.7 L Globulin 3.5 Albumin/Globulin Ratio 0.8 L POC Glucose 12/16/17 12/16/17 12/15/17 11:14 06:46 21:38 POC Glucose 174 H 104 147 H 12/15/17 12/15/17 17:29 14:58 POC Glucose 218 H 238 H Assessment/Plan Patient seen and examined independently. I agree with the above note by the physician statistical assistant. 1. Acute severe sepsis * Presumed due to a viral gastroenteritis. Cultures have been negative. * Clinically improved at this time. * Present on arrival 2. Acute metabolic encephalopathy * Overall, patient is improved but not much improvement since December 3 * Secondary to dehydration. 3. Ischemic cardiomyopathy * Ejection fraction is now 15%. It was 50% in 2015. * Discussed with Dr. Velazquez, he stated that given the patient's medical comorbidities, he would recommend a viability study which should be an MRI before proceeding with a catheterization. He stated that he would defer the patient's family in regards to aggressiveness of care and if they want to pursue more aggressive measures that he would recommend transferring the patient to a tertiary facility where they would be able to do a viability study. * Discussed with the patient's , Stephanie Arevalo, and discussed the recommendations of cardiology. She is going to begin later on today is again discussed with her daughter. They are apprehensive about the patient having a heart catheterization given his chronic kidney disease and a solitary kidney. She is aware that if you would proceed with aggressive measures and getting viability study that he would need to be transferred to another facility for that. 4. Acute kidney injury * Creatinine overall improved. Patient does have chronic kidney disease with a variable baseline of 1.3-1.5. * Continue to monitor for now. 5. Diabetes mellitus type II * Control. Continue with Levemir and NovoLog for now. 6. VTE: Eliquis Code Visit Inpatient E&M: 38858 Subs Hosp L2
--- NOTE | 2017-12-16 13:12 | CASEMGMT ---
MILLIE spoke with RN JUANCARLOS and patient and his are interested in patient going to TCU. MILLIE called [facility] in TCU and she would have a bed for patient. He needs a pre-cert so it would not happen today or over the weekend. MILLIE told patient this information and will also tell his . Plan: d/c to [facility] T[facility] pending insurance approval Hansa RIDLEY
[2017-12-16 14:36] LABS: Pathologist Review Reviewed
--- NOTE | 2017-12-16 15:16 | PCM.PN.CARD ---
Subjectve: The patient is awake. He answers some questions appropriately. However, he continues to appear somewhat confused regarding other questions and answers. He does not appear to complain of any acute chest discomfort. He does seem to suggest that when he is up and about he become short of breath and dyspneic. He continues to note bilateral lower extremity peripheral pitting edema. Objective: Vital Signs Temp Pulse Resp BP Pulse Ox 98.6 F 101 H 12 111/69 96 12/16/17 09:49 12/16/17 11:00 12/16/17 09:49 12/16/17 09:49 12/16/17 09:49 Oxygen Flow Rate (L/min) 2 Oxygen Delivery Method Room Air Weight: 233 lb 0.458 oz Body Mass Index (BMI) 32.4 Intake and Output for Last 24 Hours 12/14/17 12/15/17 12/16/17 23:59 23:59 23:59 Intake Total 400 / 400 1887.5 / 1887.5 1404 / 1404 Output Total 250 / 250 Balance 400 / 400 1637.5 / 1637.5 1404 / 1404 General: Awake, Cooperative, No Acute Distress, Obese Neck: No JVD Lungs: Diminished Manpreet Bases Cardiovascular: Regular Rhythm, Premature Ectopic Beats, Normal S1, Normal S2 Abdomen: Bowel Sounds Present, Soft, Non Tender Extremities: Severe RLE Edema, Severe LLE Edema Psych/Mental Status: - - Confused 12/16/17 05:35: WBC 7.4, RBC 3.93 L, Hgb 10.3 L, Hct 33.7 L, MCV 85.8, MCH 26.2 L, MCHC 30.6 L, RDW 16.1 H, RDW Differential 49.3 H, Plt Count 147 L, MPV 9.9, Neut % (Auto) Not Reportable, Absolute Neuts (auto) 5.4, Total Counted 100, Neutrophils % (Manual) 73 H, Lymphocytes % (Manual) 19, Monocytes % (Manual) 4, Eosinophils % (Manual) 1, Metamyelocytes % 2 H, Blast Cells % 1 H* 12/16/17 05:35: Sodium 137, Potassium 3.9, Chloride 103, Carbon Dioxide 28.0, Anion Gap 6, BUN 41 H, Creatinine 1.61 H, Est GFR (MDRD) Af Amer 54 L, Est GFR (MDRD) Non-Af 44 L, BUN/Creatinine Ratio 25.5 H, Glucose 94, Calcium 9.8, Total Bilirubin 0.40 Rhythm: Sinus rhythm ECHO: Left ventricle: Dilated: Severe segmental left ventricular systolic dysfunction: Estimated LVEF 15%: Please see official report Medical Necessity - Tobacco Use Smoking Status: Former smoker Assessment/Plan 1. Abnormal cardiac enzymes The patient does have abnormal cardiac enzymes. The etiology is unclear whether this truly represents an underlying cardiovascular event either a type I event or potentially secondary to his multiple medical issues a type II event. At the present time he will continue to be monitored. His cardiac enzyme levels appear to have stabilized and were decreased. He did undergo further evaluation with a transthoracic echocardiogram. His left ventricle appeared to be dilated and severely dysfunctional with an estimated LVEF 15% which is decreased compared to his previous transthoracic echocardiogram. At the present time, noting the change in his overall left ventricular wall motion and systolic function he should continue medical management. This will include reattempting medication such as his nitrates, beta-blockers, diuretics, and afterload reducing agents. With respect afterload reducing agents if he cannot tolerate YUMIKO inhibitors and ARB's that he can be treated with a alternative agent such as hydralazine. Ideally he would be considered for reevaluation of his coronary anatomy and graft anatomy with a diagnostic cardiac catheterization. However based upon his continued confusion, concerns of infectious disease related etiologies, fluctuating renal function, significant decline in his LV systolic function with multiple areas appearing akinetic, it may not be unreasonable to consider him for further evaluation with a myocardial viability study such as a cardiac MRI or PET scan prior to proceeding with further invasive evaluation such as diagnostic cardiac catheterization, etc. The studies would need to be performed at a tertiary care center disease of note: The patient's previous CABG was performed at [facility] in [facility] and his most recent diagnostic cardiac catheterization was performed at [facility] in [place], [place]). 2. CAD status post CABG The patient has undergone extensive noninvasive and invasive evaluation as noted above. At the present time he will reinitiate medical management. This will include low-dose nitrates and low-dose beta blockers. If his blood pressure tolerates these medications can be advanced. Other medications can be added as tolerated. Again he should be considered for further cardiovascular evaluation and care as noted above when he is able to from a noncardiac standpoint. 3. Ischemic mediated cardiomyopathy The patient does have the aforementioned ischemic mediated cardiomyopathy. Based upon his echocardiographic studies there appears to be a significant decline in his overall LV wall motion and systolic function compared to his previous transthoracic echocardiogram. He will reinitiate medical management as tolerated. He should be considered for further evaluation as noted above if he is clinically improved from a noncardiac standpoint and he and his family want to pursue additional cardiac evaluation. 4. ICD The patient does have an underlying ICD. It has been evaluated in the past. It has been functioning appropriately. He will be reassessed as needed. 5. Hyperlipidemia Ideally the patient would continue lipid-lowering therapy for his cardiovascular risk factor modification. 6. Hypertension The patient has had episodes of hypotension. Thus his medications are being altered to avoid significant hypotension. 7. Diabetes mellitus The patient will continue evaluation care per internal medicine. 8. Chronic renal insufficiency The patient has had acute on chronic renal insufficiency. Is unclear whether his fluctuating renal function is contributing to his indeterminate troponin I levels. However, the patient's renal dysfunction would have to be taken into consideration as to whether or not he would ever be a candidate for future invasive evaluation with IV contrast based upon the concerns of IV contrast related nephropathy. 9. COPD The patient will continue evaluation care per internal medicine. 10. UTI/sepsis The patient is undergoing evaluation care for an underlying infectious disease etiology and possible sepsis syndrome. Again this could contribute to indeterminate troponin I levels. Continue evaluation care per internal medicine. The above was discussed with the patient and Dr. Alonzo. This note was generated with [employer] software. It may contain incorrect words, spelling, and punctuation that were not noted in checking the note before signing.
[2017-12-16] MEDS: Glucerna Shake 120 ML LIQUID PO (17:35)
[2017-12-16 18:01] LABS: Bedside Glucose 87 mg/dL (70-110)
[2017-12-16] MEDS: Acetaminophen 325 MG Tablet 650 MG PO (20:11)
[2017-12-16] MEDS: Carvedilol 3.125 MG TABLET PO (21:58)
[2017-12-16] MEDS: Isosorbide DN 10 MG Tablet PO (21:58)
[2017-12-16 22:06] LABS: Bedside Glucose 137 mg/dL (70-110)
[2017-12-17] VITALS (10 sets, daily range): BP systolic 108–120; BP diastolic 62–76; PULSE 76–99; RESP 16–18; TEMP 36.7–37.1; O2SAT 96–100
[2017-12-17] MEDS: 0.9% Normal Saline 1,000 ML 50 ML IV (02:11)
[2017-12-17 03:05] LABS: Bedside Glucose 75 mg/dL (70-110)
[2017-12-17] MEDS: Isosorbide DN 10 MG Tablet PO ×3 (06:24→21:00)
[2017-12-17 06:56] LABS: Bedside Glucose 80 mg/dL (70-110)
[2017-12-17 07:26] LABS: ALB/GLOB Ratio 0.8 RATIO (0.9-2.4); AST(SGOT) 34 U/L (15-37); Alanine Aminotransfer ALT/SGPT 59 U/L (16-61); Albumin, Serum 2.6 g/dL (3.2-5.0); Alkaline Phosphatase 52 U/L (45-117); Anion Gap 6 (5-15); BUN 33 mg/dL (7-18); BUN/Creat Ratio 23.9 RATIO (10-20); Calcium,Total 9.3 mg/dL (8.5-10.1); Chloride 105 mmol/L (98-107); Creatinine, Serum 1.38 mg/dL (0.70-1.30); EST Glomerular Filtration Rate 53 mL/min (>60); Est Glom Filt Rate - Afr Amer 64 mL/min (>60); Estimated Creatinine Clearance 46.29 ml/min; Globulin 3.2 g/dL (2.2-4.2); Glucose 71 mg/dL (74-106); Protein, Total 5.8 g/dL (6.4-8.2); Sodium Level 140 mmol/L (136-145)
[2017-12-17 07:27] LABS: Hematocrit 32.4 % (40-54); Hemoglobin 9.8 g/dl (13.0-16.5); Mean Corp Hgb Conc 30.2 g/gl (32-36); Mean Corpuscular Hgb 26.3 pg (27.0-32.0); Mean Corpuscular Volume 86.9 fL (80-94); Mean Platelet Vol. 10.8 fl (6.2-12.0); Platelet Count 152 K/mm3 (150-450); RBC Distribution Width CV 16.4 % (11.6-14.6); RBC Distribution Width SD 50.3 fl (35.1-43.9); Red Blood Count 3.73 M/mm3 (4.6-6.2); White Blood Count 6.9 K/mm3 (4.4-11.0)
[2017-12-17 07:31] LABS: Differential Indicated MANUAL DIFF; POSITIVE COUNT YES; POSITIVE DIFFERENTIAL NO; POSITIVE MORPHOLOGY YES
[2017-12-17 08:04] LABS: Eosinophil 3 % (0-5); Hypochromasia 1+; Lymphocyte 12 % (19-41); Metamyelocyte 6 % (0-1); Monocyte 1 % (0-10); Myelocyte 2 (0-0); Neutrophil-Band 4 % (0-5); Neutrophil-Segmented 72 % (47-70); Platelet Estimate ADEQUATE (ADEQ); Total Cells Counted 100 (MANUAL DIFF)
[2017-12-17] MEDS: Carvedilol 3.125 MG TABLET PO ×2 (09:14→21:00)
[2017-12-17] MEDS: APIXABAN 5 MG TABLET PO ×2 (09:15→21:00)
[2017-12-17] MEDS: Glucerna Shake 120 ML LIQUID PO ×4 (09:17→21:00)
[2017-12-17 11:46] LABS: Bedside Glucose 87 mg/dL (70-110)
--- NOTE | 2017-12-17 12:34 | PCM.PN.CARD ---
Subjectve: patient seen and evaluated Objective: Vital Signs Temp Pulse Resp BP Pulse Ox 98.0 F 90 16 118/74 98 12/17/17 02:45 12/17/17 03:00 12/17/17 02:45 12/17/17 02:45 12/17/17 11:29 Oxygen Flow Rate (L/min) 2 Oxygen Delivery Method Nasal Cannula Weight: 233 lb 0.458 oz Body Mass Index (BMI) 32.4 Intake and Output for Last 24 Hours 12/15/17 12/16/17 12/17/17 23:59 23:59 23:59 Intake Total 1887.5 / 1887.5 1660 / 1660 909 / 909 Output Total 250 / 250 200 / 200 Balance 1637.5 / 1637.5 1660 / 1660 709 / 709 General: Awake, Alert, Oriented x 3 HEENT: PERRL, EOMI, Sclera Non Icteric Neck: Supple, Good ROM, No Lymph Node Enlargement Lungs: Clear to auscultation Cardiovascular: Regular Rhythm, Normal S1, Normal S2, No Murmurs, No Rubs, No Gallops Vascular: No Carotid Bruits, Normal Femoral Pulses, Normal Radial Pulses, Normal Dorsalis Pedal Pulse, Normal Posterior Tibial Pulses Abdomen: Bowel Sounds Present, Soft, Non Tender, No HSM, No Organomegaly Extremities: No Cyanosis, No Clubbing, No edema Neurological: No Focal Motor or Sensory Deficit 12/17/17 06:03: WBC 6.9, RBC 3.73 L, Hgb 9.8 L, Hct 32.4 L, MCV 86.9, MCH 26.3 L, MCHC 30.2 L, RDW 16.4 H, RDW Differential 50.3 H, Plt Count 152, MPV 10.8, Neut % (Auto) Not Reportable, Absolute Neuts (auto) Not Reportable, Total Counted 100, Neutrophils % (Manual) 72 H, Band Neutrophils % 4, Lymphocytes % (Manual) 12 L, Monocytes % (Manual) 1, Eosinophils % (Manual) 3, Metamyelocytes % 6 H, Myelocytes % 2 H 12/17/17 06:03: Sodium 140, Potassium 4.0, Chloride 105, Carbon Dioxide 29.0, Anion Gap 6, BUN 33 H, Creatinine 1.38 H, Est GFR (MDRD) Af Amer 64, Est GFR (MDRD) Non-Af 53 L, BUN/Creatinine Ratio 23.9 H, Glucose 71 L, Calcium 9.3, Total Bilirubin 0.40 Rhythm: EKG: ECHO: Stress Test: Cardiac Cath: PCI: CT Surgery: Holter monitor: EPS: PPM: CXR: Chest CT Scan: Medical Necessity - Tobacco Use Smoking Status: Former smoker Assessment/Plan 1. Abnormal cardiac enzymes The patient does have abnormal cardiac enzymes. The etiology is unclear whether this truly represents an underlying cardiovascular event either a type I event or potentially secondary to his multiple medical issues a type II event. He did undergo further evaluation with a transthoracic echocardiogram. His left ventricle appeared to be dilated and severely dysfunctional with an estimated LVEF 15% which is decreased compared to his previous transthoracic echocardiogram. At the present time, noting the change in his overall left ventricular wall motion and systolic function he should continue medical management. This will include reattempting medication such as his nitrates, beta-blockers, diuretics, and afterload reducing agents. With respect afterload reducing agents if he cannot tolerate YUMIKO inhibitors and ARB's that he can be treated with a alternative agent such as hydralazine. Ideally he would be considered for reevaluation of his coronary anatomy and graft anatomy with a diagnostic cardiac catheterization. However based upon his continued confusion, concerns of infectious disease related etiologies, fluctuating renal function, significant decline in his LV systolic function with multiple areas appearing akinetic, it may not be unreasonable to consider him for further evaluation with a myocardial viability study such as a cardiac MRI or PET scan prior to proceeding with further invasive evaluation such as diagnostic cardiac catheterization, etc. The studies would need to be performed at a tertiary care center disease of note: The patient's previous CABG was performed at [facility] in [facility] and his most recent diagnostic cardiac catheterization was performed at [facility] in [place], [place]). 2. CAD status post CABG The patient has undergone extensive noninvasive and invasive evaluation as noted above. At the present time he will reinitiate medical management. This will include low-dose nitrates and low-dose beta blockers. If his blood pressure tolerates these medications can be advanced. Other medications can be added as tolerated. Again he should be considered for further cardiovascular evaluation and care as noted above when he is able to from a noncardiac standpoint. 3. Ischemic mediated cardiomyopathy The patient does have the aforementioned ischemic mediated cardiomyopathy. Based upon his echocardiographic studies there appears to be a significant decline in his overall LV wall motion and systolic function compared to his previous transthoracic echocardiogram. He will reinitiate medical management as tolerated. He should be considered for further evaluation as noted above if he is clinically improved from a noncardiac standpoint and he and his family want to pursue additional cardiac evaluation. 4. ICD The patient does have an underlying ICD. It has been evaluated in the past. It has been functioning appropriately. He will be reassessed as needed. 5. Hyperlipidemia Ideally the patient would continue lipid-lowering therapy for his cardiovascular risk factor modification. 6. Hypertension The patient has had episodes of hypotension. Thus his medications are being altered to avoid significant hypotension. Thank you for allowing me to participate in the care of your patient. Please don't hesitate to call if any issues arise
--- NOTE | 2017-12-17 12:38 | PCM.PROGNOTE ---
<Selwyn Shepard - Last Filed: 12/17/17 12:38> Patient Problems: Active and Suspected Problems (Last Updated 08/29/17 @ 10:33 by Karon Nick) Acute metabolic encephalopathy (Acute) Acute kidney injury on CKD stage III (Acute) Abnormal cardiac enzyme level (Acute) Sepsis (Acute) Subjective: No CP/tightness/pressure today. No SOB. Describes aching all over. No cough. 4-5 episodes per pt of watery yesterday, reports he has had one episode of diarrhea today. C. difficile and respiratory panel also been negative. Strep screen and blood cultures are also negative. Urine culture negative. He remains confused today. He does answer questions yes or no about his symptoms and seems to be able to perform ideas and sentences correctly. He does however have moments of confusion for example, he told me his was just out back and asked me if I saw her car in the garage on the way end. He also cannot figure out how to manipulate his nasal cannula. The o2 delivery portion was around his forehead, and he was attempting to place the fastener in his mouth. - Physical Exam General: Alert, Oriented x3, Cooperative HEENT: Atraumatic, PERRLA, EOMI, Normocephalic Neck: Supple, No JVD, Negative Carotid Bruits Lungs: Clear to auscultation, Normal air movement Cardiovascular: Regular rate, No murmurs Abdomen: Bowel Sounds Present, Soft, Non Tender Extremities: No edema, Capillary Refill Less than 3 Seconds, - - YUMIKO wraps in place. Skin: No rashes, No breakdown Musculoskeletal: No Tenderness to Palpation of Joints or Extremities Neurological: Cranial nerves II-XII grossly intact Psych/Mental Status: Normal Affect, Appropriate, Alert and oriented to time, place, person, mood and affect Vital Signs Temp Pulse Resp BP Pulse Ox 98.0 F 90 16 118/74 98 12/17/17 02:45 12/17/17 03:00 12/17/17 02:45 12/17/17 02:45 12/17/17 11:29 Oxygen Flow Rate (L/min) 2 Oxygen Delivery Method Nasal Cannula Weight: 105.7 kg Body Mass Index (BMI) 32.4 Intake and Output for Last 24 Hours 12/15/17 12/16/17 12/17/17 23:59 23:59 23:59 Intake Total 1887.5 / 1887.5 1660 / 1660 909 / 909 Output Total 250 / 250 200 / 200 Balance 1637.5 / 1637.5 1660 / 1660 709 / 709 Microbiology Past 72 Hours 12/15/17 19:20 C. difficile DNA Amplification - Final Stool 12/14/17 19:43 Respiratory Panel (PCR) - Final Mucosa - Nasopharyngeal Laboratory Tests Past 24 Hrs 12/16/17 12/17/17 12/17/17 05:35 06:03 06:03 WBC 6.9 RBC 3.73 L Hgb 9.8 L Hct 32.4 L MCV 86.9 MCH 26.3 L MCHC 30.2 L RDW 16.4 H RDW Differential 50.3 H Plt Count 152 MPV 10.8 Neut % (Auto) Not Reportable Absolute Neuts (auto) Not Reportable Total Counted 100 Neutrophils % (Manual) 72 H Band Neutrophils % 4 Lymphocytes % (Manual) 12 L Monocytes % (Manual) 1 Eosinophils % (Manual) 3 Metamyelocytes % 6 H Myelocytes % 2 H Diff Path Review Reviewed May foll Platelet Estimate ADEQUATE Hypochromasia 1+ Sodium 140 Potassium 4.0 Chloride 105 Carbon Dioxide 29.0 Anion Gap 6 BUN 33 H Creatinine 1.38 H Estim Creat Clear Calc 46.29 Est GFR (MDRD) Af Amer 64 Est GFR (MDRD) Non-Af 53 L BUN/Creatinine Ratio 23.9 H Glucose 71 L Calcium 9.3 Total Bilirubin 0.40 AST 34 ALT 59 Alkaline Phosphatase 52 Total Protein 5.8 L Albumin 2.6 L Globulin 3.2 Albumin/Globulin Ratio 0.8 L POC Glucose 12/17/17 12/17/17 12/17/17 11:31 06:52 02:38 POC Glucose 87 80 75 12/16/17 12/16/17 21:48 17:18 POC Glucose 137 H 87 Medical Necessity - Tobacco Use Smoking Status: Former smoker Assessment/Plan Active and Suspected Problems (Last Updated 08/29/17 @ 10:33 by Karon Nick) Acute metabolic encephalopathy (Acute) Acute kidney injury on CKD stage III (Acute) Abnormal cardiac enzyme level (Acute) Sepsis (Acute) 1. Acute severe sepsis 2/2 gastroenteritis, suspected viral . Continue supportive care. Infectious workup NTD. 2. Acute metabolic encephalopathy 2/2 dehydration with HUGO 2/2 diarrhea -renal function continues to improve with slow IV fluids. DC fluids today to avoid overhydrating as he has significant cardiomyopathy. CT brain with chronic changes and sinusitis. CXR neg. Pt was not eating/drinking at home. 3. Chest pain / Indeterminate troponin - hx CAD/CABG/pacer/AICD/ischemic cardiomyopathy - if pt and family decides they would like invasive workup he will need transferred to tertiary care. Family not present at time of this interview. 4. Right foot sprain - xr without fracture. 5. COPD with chronic hypoxic respiratory failure - some SOB at night, but this is chronic. No wheezing or worsening of SOB. He does wear oxygen at night at baseline. 6. T2DM -improved. Continue to titrate therapy. 7. Hx DVT - on eliquis 8. Anx/Dep - lexapro. 9. Obesity - dietary eval DVT ppx: eliquis. DC planning: Tx vs stabilize and follow up as outpatient. May need placed. This patient was seen by Selwyn Shepard PA-C under the supervision of Doctor Clinton <Conor Alonzo - Last Filed: 12/17/17 14:05> - Physical Exam General: Cooperative HEENT: Atraumatic, Normocephalic Neck: No Nodes, Thyroid Normal Size and Texture Lungs: Clear to auscultation, Normal air movement, No rhonchi, No wheeze Cardiovascular: Regular rate, Regular Rhythm, Normal S1, Normal S2, No murmurs Abdomen: Bowel Sounds Present, Soft, Non Tender, Non-Distended, No Hepato-splenomegaly Extremities: Edema, - Skin: No rashes, No breakdown Psych/Mental Status: Normal Affect, Appropriate Vital Signs Temp Pulse Resp BP Pulse Ox 36.7 C 96 18 120/76 98 12/17/17 08:45 12/17/17 08:45 12/17/17 10:00 12/17/17 08:45 12/17/17 11:29 Oxygen Flow Rate (L/min) 2 Oxygen Delivery Method Nasal Cannula Weight: 105.7 kg Body Mass Index (BMI) 32.4 Intake and Output for Last 24 Hours 12/15/17 12/16/17 12/17/17 23:59 23:59 23:59 Intake Total 1887.5 / 1887.5 1660 / 1660 909 / 909 Output Total 250 / 250 200 / 200 Balance 1637.5 / 1637.5 1660 / 1660 709 / 709 Microbiology Past 72 Hours 12/15/17 19:20 C. difficile DNA Amplification - Final Stool 12/14/17 19:43 Respiratory Panel (PCR) - Final Mucosa - Nasopharyngeal Laboratory Tests Past 24 Hrs 12/16/17 12/17/17 12/17/17 05:35 06:03 06:03 WBC 6.9 RBC 3.73 L Hgb 9.8 L Hct 32.4 L MCV 86.9 MCH 26.3 L MCHC 30.2 L RDW 16.4 H RDW Differential 50.3 H Plt Count 152 MPV 10.8 Neut % (Auto) Not Reportable Absolute Neuts (auto) Not Reportable Total Counted 100 Neutrophils % (Manual) 72 H Band Neutrophils % 4 Lymphocytes % (Manual) 12 L Monocytes % (Manual) 1 Eosinophils % (Manual) 3 Metamyelocytes % 6 H Myelocytes % 2 H Diff Path Review Reviewed December foll Platelet Estimate ADEQUATE Hypochromasia 1+ Sodium 140 Potassium 4.0 Chloride 105 Carbon Dioxide 29.0 Anion Gap 6 BUN 33 H Creatinine 1.38 H Estim Creat Clear Calc 46.29 Est GFR (MDRD) Af Amer 64 Est GFR (MDRD) Non-Af 53 L BUN/Creatinine Ratio 23.9 H Glucose 71 L Calcium 9.3 Total Bilirubin 0.40 AST 34 ALT 59 Alkaline Phosphatase 52 Total Protein 5.8 L Albumin 2.6 L Globulin 3.2 Albumin/Globulin Ratio 0.8 L POC Glucose 12/17/17 12/17/17 12/17/17 11:31 06:52 02:38 POC Glucose 87 80 75 12/16/17 12/16/17 21:48 17:18 POC Glucose 137 H 87 Assessment/Plan Patient seen and examined independently. I agree with the above note by the PA 1. Acute severe sepsis Presumed due to a viral gastroenteritis. Cultures have been negative. Clinically improved at this time. Present on arrival 2. Acute metabolic encephalopathy Overall, patient is improved but not much improvement since December 15 Secondary to dehydration. 3. Ischemic cardiomyopathy Ejection fraction is now 15%. It was 50% in 2015. Discussed with Dr. Velazquez, he stated that given the patient's medical comorbidities, he would recommend a viability study which should be an MRI before proceeding with a catheterization. He stated that he would defer the patient's family in regards to aggressiveness of care and if they want to pursue more aggressive measures that he would recommend transferring the patient to a tertiary facility where they would be able to do a viability study. Discussed with the patient's , Stephanie Arevalo, and discussed the recommendations of cardiology. She is going to begin later on today is again discussed with her daughter. They are apprehensive about the patient having a heart catheterization given his chronic kidney disease and a solitary kidney. She is aware that if you would proceed with aggressive measures and getting viability study that he would need to be transferred to another facility for that. Family today after discussing with Selwyn Devyn, not wishing to pursue a more aggressive work up at this time. 4. Acute kidney injury Creatinine overall improved. Patient does have chronic kidney disease with a variable baseline of 1.3-1.5. Continue to monitor for now. 5. Diabetes mellitus type II Fair Control. Continue with Levemir and NovoLog for now. 6. VTE: Eliquis 7. HFrEF EF 15% resume lasix, but at 40 BID monitor Creatinine. 8. Debility: Plan for SNF on discharge 9. Cognitive Impairment chronic recommended outpt evaluation for dementia with geriatrics DW patient's Code Visit Inpatient E&M: 13901 Subs Hosp L2
--- NOTE | 2017-12-17 12:40 | PN.CARD_ITS ---
Subjectve: patient seen and evaluated Objective: Vital Signs Temp Pulse Resp BP Pulse Ox 98.0 F 90 16 118/74 98 12/17/17 02:45 12/17/17 03:00 12/17/17 02:45 12/17/17 02:45 12/17/17 11:29 Oxygen Flow Rate (L/min) 2 Oxygen Delivery Method Nasal Cannula Weight: 233 lb 0.458 oz Body Mass Index (BMI) 32.4 Intake and Output for Last 24 Hours 12/15/17 12/16/17 12/17/17 23:59 23:59 23:59 Intake Total 1887.5 / 1887.5 1660 / 1660 909 / 909 Output Total 250 / 250 200 / 200 Balance 1637.5 / 1637.5 1660 / 1660 709 / 709 General: Awake, Alert, Oriented x 3 HEENT: PERRL, EOMI, Sclera Non Icteric Neck: Supple, Good ROM, No Lymph Node Enlargement Lungs: Clear to auscultation Cardiovascular: Regular Rhythm, Normal S1, Normal S2, No Murmurs, No Rubs, No Gallops Vascular: No Carotid Bruits, Normal Femoral Pulses, Normal Radial Pulses, Normal Dorsalis Pedal Pulse, Normal Posterior Tibial Pulses Abdomen: Bowel Sounds Present, Soft, Non Tender, No HSM, No Organomegaly Extremities: No Cyanosis, No Clubbing, No edema Neurological: No Focal Motor or Sensory Deficit 12/17/17 06:03: WBC 6.9, RBC 3.73 L, Hgb 9.8 L, Hct 32.4 L, MCV 86.9, MCH 26.3 L , MCHC 30.2 L, RDW 16.4 H, RDW Differential 50.3 H, Plt Count 152, MPV 10.8, Neut % (Auto) Not Reportable, Absolute Neuts (auto) Not Reportable, Total Counted 100, Neutrophils % (Manual) 72 H, Band Neutrophils % 4, Lymphocytes % ( Manual) 12 L, Monocytes % (Manual) 1, Eosinophils % (Manual) 3, Metamyelocytes % 6 H, Myelocytes % 2 H 12/17/17 06:03: Sodium 140, Potassium 4.0, Chloride 105, Carbon Dioxide 29.0, Anion Gap 6, BUN 33 H, Creatinine 1.38 H, Est GFR (MDRD) Af Amer 64, Est GFR ( MDRD) Non-Af 53 L, BUN/Creatinine Ratio 23.9 H, Glucose 71 L, Calcium 9.3, Total Bilirubin 0.40 Rhythm: EKG: ECHO: Stress Test: Cardiac Cath: PCI: CT Surgery: Holter monitor: EPS: PPM: CXR: Chest CT Scan: Medical Necessity - Tobacco Use Smoking Status: Former smoker Assessment/Plan 1. Abnormal cardiac enzymes The patient does have abnormal cardiac enzymes. The etiology is unclear whether this truly represents an underlying cardiovascular event either a type I event or potentially secondary to his multiple medical issues a type II event. He did undergo further evaluation with a transthoracic echocardiogram. His left ventricle appeared to be dilated and severely dysfunctional with an estimated LVEF 15% which is decreased compared to his previous transthoracic echocardiogram. At the present time, noting the change in his overall left ventricular wall motion and systolic function he should continue medical management. This will include reattempting medication such as his nitrates, beta-blockers, diuretics, and afterload reducing agents. With respect afterload reducing agents if he cannot tolerate YUMIKO inhibitors and ARB's that he can be treated with a alternative agent such as hydralazine. Ideally he would be considered for reevaluation of his coronary anatomy and graft anatomy with a diagnostic cardiac catheterization. However based upon his continued confusion, concerns of infectious disease related etiologies, fluctuating renal function, significant decline in his LV systolic function with multiple areas appearing akinetic, it may not be unreasonable to consider him for further evaluation with a myocardial viability study such as a cardiac MRI or PET scan prior to proceeding with further invasive evaluation such as diagnostic cardiac catheterization, etc. The studies would need to be performed at a tertiary care center disease of note: The patient's previous CABG was performed at [facility] in [facility] and his most recent diagnostic cardiac catheterization was performed at [facility] in [place], [place]). 2. CAD status post CABG The patient has undergone extensive noninvasive and invasive evaluation as noted above. At the present time he will reinitiate medical management. This will include low-dose nitrates and low-dose beta blockers. If his blood pressure tolerates these medications can be advanced. Other medications can be added as tolerated. Again he should be considered for further cardiovascular evaluation and care as noted above when he is able to from a noncardiac standpoint. 3. Ischemic mediated cardiomyopathy The patient does have the aforementioned ischemic mediated cardiomyopathy. Based upon his echocardiographic studies there appears to be a significant decline in his overall LV wall motion and systolic function compared to his previous transthoracic echocardiogram. He will reinitiate medical management as tolerated. He should be considered for further evaluation as noted above if he is clinically improved from a noncardiac standpoint and he and his family want to pursue additional cardiac evaluation. 4. ICD The patient does have an underlying ICD. It has been evaluated in the past. It has been functioning appropriately. He will be reassessed as needed. 5. Hyperlipidemia Ideally the patient would continue lipid-lowering therapy for his cardiovascular risk factor modification. 6. Hypertension The patient has had episodes of hypotension. Thus his medications are being altered to avoid significant hypotension. Thank you for allowing me to participate in the care of your patient. Please don't hesitate to call if any issues arise
--- NOTE | 2017-12-17 12:44 | PN_ITS ---
<Selwyn Shepard - Last Filed: 12/17/17 12:38> Patient Problems: Active and Suspected Problems (Last Updated 08/29/17 @ 10:33 by Karon Nick) Acute metabolic encephalopathy (Acute) Acute kidney injury on CKD stage III (Acute) Abnormal cardiac enzyme level (Acute) Sepsis (Acute) Subjective: No CP/tightness/pressure today. No SOB. Describes aching all over. No cough. 4- 5 episodes per pt of watery yesterday, reports he has had one episode of diarrhea today. C. difficile and respiratory panel also been negative. Strep screen and blood cultures are also negative. Urine culture negative. He remains confused today. He does answer questions yes or no about his symptoms and seems to be able to perform ideas and sentences correctly. He does however have moments of confusion for example, he told me his was just out back and asked me if I saw her car in the garage on the way end. He also cannot figure out how to manipulate his nasal cannula. The o2 delivery portion was around his forehead, and he was attempting to place the fastener in his mouth. - Physical Exam General: Alert, Oriented x3, Cooperative HEENT: Atraumatic, PERRLA, EOMI, Normocephalic Neck: Supple, No JVD, Negative Carotid Bruits Lungs: Clear to auscultation, Normal air movement Cardiovascular: Regular rate, No murmurs Abdomen: Bowel Sounds Present, Soft, Non Tender Extremities: No edema, Capillary Refill Less than 3 Seconds, - - YUMIKO wraps in place. Skin: No rashes, No breakdown Musculoskeletal: No Tenderness to Palpation of Joints or Extremities Neurological: Cranial nerves II-XII grossly intact Psych/Mental Status: Normal Affect, Appropriate, Alert and oriented to time, place, person, mood and affect Vital Signs Temp Pulse Resp BP Pulse Ox 98.0 F 90 16 118/74 98 12/17/17 02:45 12/17/17 03:00 12/17/17 02:45 12/17/17 02:45 12/17/17 11:29 Oxygen Flow Rate (L/min) 2 Oxygen Delivery Method Nasal Cannula Weight: 105.7 kg Body Mass Index (BMI) 32.4 Intake and Output for Last 24 Hours 12/15/17 12/16/17 12/17/17 23:59 23:59 23:59 Intake Total 1887.5 / 1887.5 1660 / 1660 909 / 909 Output Total 250 / 250 200 / 200 Balance 1637.5 / 1637.5 1660 / 1660 709 / 709 Microbiology Past 72 Hours 12/15/17 19:20 C. difficile DNA Amplification - Final Stool 12/14/17 19:43 Respiratory Panel (PCR) - Final Mucosa - Nasopharyngeal Laboratory Tests Past 24 Hrs 12/16/17 12/17/17 12/17/17 05:35 06:03 06:03 WBC 6.9 RBC 3.73 L Hgb 9.8 L Hct 32.4 L MCV 86.9 MCH 26.3 L MCHC 30.2 L RDW 16.4 H RDW Differential 50.3 H Plt Count 152 MPV 10.8 Neut % (Auto) Not Reportable Absolute Neuts (auto) Not Reportable Total Counted 100 Neutrophils % (Manual) 72 H Band Neutrophils % 4 Lymphocytes % (Manual) 12 L Monocytes % (Manual) 1 Eosinophils % (Manual) 3 Metamyelocytes % 6 H Myelocytes % 2 H Diff Path Review Reviewed May foll Platelet Estimate ADEQUATE Hypochromasia 1+ Sodium 140 Potassium 4.0 Chloride 105 Carbon Dioxide 29.0 Anion Gap 6 BUN 33 H Creatinine 1.38 H Estim Creat Clear Calc 46.29 Est GFR (MDRD) Af Amer 64 Est GFR (MDRD) Non-Af 53 L BUN/Creatinine Ratio 23.9 H Glucose 71 L Calcium 9.3 Total Bilirubin 0.40 AST 34 ALT 59 Alkaline Phosphatase 52 Total Protein 5.8 L Albumin 2.6 L Globulin 3.2 Albumin/Globulin Ratio 0.8 L POC Glucose 12/17/17 12/17/17 12/17/17 11:31 06:52 02:38 POC Glucose 87 80 75 12/16/17 12/16/17 21:48 17:18 POC Glucose 137 H 87 Medical Necessity - Tobacco Use Smoking Status: Former smoker Assessment/Plan Active and Suspected Problems (Last Updated 08/29/17 @ 10:33 by Karon Nick) Acute metabolic encephalopathy (Acute) Acute kidney injury on CKD stage III (Acute) Abnormal cardiac enzyme level (Acute) Sepsis (Acute) 1. Acute severe sepsis 2/2 gastroenteritis, suspected viral . Continue supportive care. Infectious workup NTD. 2. Acute metabolic encephalopathy 2/2 dehydration with HUGO 2/2 diarrhea -renal function continues to improve with slow IV fluids. DC fluids today to avoid overhydrating as he has significant cardiomyopathy. CT brain with chronic changes and sinusitis. CXR neg. Pt was not eating/drinking at home. 3. Chest pain / Indeterminate troponin - hx CAD/CABG/pacer/AICD/ischemic cardiomyopathy - if pt and family decides they would like invasive workup he will need transferred to tertiary care. Family not present at time of this interview. 4. Right foot sprain - xr without fracture. 5. COPD with chronic hypoxic respiratory failure - some SOB at night, but this is chronic. No wheezing or worsening of SOB. He does wear oxygen at night at baseline. 6. T2DM -improved. Continue to titrate therapy. 7. Hx DVT - on eliquis 8. Anx/Dep - lexapro. 9. Obesity - dietary eval DVT ppx: eliquis. DC planning: Tx vs stabilize and follow up as outpatient. May need placed. This patient was seen by Selwyn Shepard PA-C under the supervision of Doctor Clinton <Conor Alonzo - Last Filed: 12/17/17 14:05> - Physical Exam General: Cooperative HEENT: Atraumatic, Normocephalic Neck: No Nodes, Thyroid Normal Size and Texture Lungs: Clear to auscultation, Normal air movement, No rhonchi, No wheeze Cardiovascular: Regular rate, Regular Rhythm, Normal S1, Normal S2, No murmurs Abdomen: Bowel Sounds Present, Soft, Non Tender, Non-Distended, No Hepato- splenomegaly Extremities: Edema, - Skin: No rashes, No breakdown Psych/Mental Status: Normal Affect, Appropriate Vital Signs Temp Pulse Resp BP Pulse Ox 36.7 C 96 18 120/76 98 12/17/17 08:45 12/17/17 08:45 12/17/17 10:00 12/17/17 08:45 12/17/17 11:29 Oxygen Flow Rate (L/min) 2 Oxygen Delivery Method Nasal Cannula Weight: 105.7 kg Body Mass Index (BMI) 32.4 Intake and Output for Last 24 Hours 12/15/17 12/16/17 12/17/17 23:59 23:59 23:59 Intake Total 1887.5 / 1887.5 1660 / 1660 909 / 909 Output Total 250 / 250 200 / 200 Balance 1637.5 / 1637.5 1660 / 1660 709 / 709 Microbiology Past 72 Hours 12/15/17 19:20 C. difficile DNA Amplification - Final Stool 12/14/17 19:43 Respiratory Panel (PCR) - Final Mucosa - Nasopharyngeal Laboratory Tests Past 24 Hrs 12/16/17 12/17/17 12/17/17 05:35 06:03 06:03 WBC 6.9 RBC 3.73 L Hgb 9.8 L Hct 32.4 L MCV 86.9 MCH 26.3 L MCHC 30.2 L RDW 16.4 H RDW Differential 50.3 H Plt Count 152 MPV 10.8 Neut % (Auto) Not Reportable Absolute Neuts (auto) Not Reportable Total Counted 100 Neutrophils % (Manual) 72 H Band Neutrophils % 4 Lymphocytes % (Manual) 12 L Monocytes % (Manual) 1 Eosinophils % (Manual) 3 Metamyelocytes % 6 H Myelocytes % 2 H Diff Path Review Reviewed December foll Platelet Estimate ADEQUATE Hypochromasia 1+ Sodium 140 Potassium 4.0 Chloride 105 Carbon Dioxide 29.0 Anion Gap 6 BUN 33 H Creatinine 1.38 H Estim Creat Clear Calc 46.29 Est GFR (MDRD) Af Amer 64 Est GFR (MDRD) Non-Af 53 L BUN/Creatinine Ratio 23.9 H Glucose 71 L Calcium 9.3 Total Bilirubin 0.40 AST 34 ALT 59 Alkaline Phosphatase 52 Total Protein 5.8 L Albumin 2.6 L Globulin 3.2 Albumin/Globulin Ratio 0.8 L POC Glucose 12/17/17 12/17/17 12/17/17 11:31 06:52 02:38 POC Glucose 87 80 75 12/16/17 12/16/17 21:48 17:18 POC Glucose 137 H 87 Assessment/Plan Patient seen and examined independently. I agree with the above note by the PA 1. Acute severe sepsis * Presumed due to a viral gastroenteritis. Cultures have been negative. * Clinically improved at this time. * Present on arrival 2. Acute metabolic encephalopathy * Overall, patient is improved but not much improvement since December 3 * Secondary to dehydration. 3. Ischemic cardiomyopathy * Ejection fraction is now 15%. It was 50% in 2015. * Discussed with Dr. Velazquez, he stated that given the patient's medical comorbidities, he would recommend a viability study which should be an MRI before proceeding with a catheterization. He stated that he would defer the patient's family in regards to aggressiveness of care and if they want to pursue more aggressive measures that he would recommend transferring the patient to a tertiary facility where they would be able to do a viability study. * Discussed with the patient's , Stephanie Arevalo, and discussed the recommendations of cardiology. She is going to begin later on today is again discussed with her daughter. They are apprehensive about the patient having a heart catheterization given his chronic kidney disease and a solitary kidney. She is aware that if you would proceed with aggressive measures and getting viability study that he would need to be transferred to another facility for that. * Family today after discussing with Selwyn Devyn, not wishing to pursue a more aggressive work up at this time. 4. Acute kidney injury * Creatinine overall improved. Patient does have chronic kidney disease with a variable baseline of 1.3-1.5. * Continue to monitor for now. 5. Diabetes mellitus type II * Fair Control. * Continue with Levemir and NovoLog for now. 6. VTE: Eliquis 7. HFrEF * EF 15% * resume lasix, but at 40 BID * monitor Creatinine. 8. Debility: Plan for SNF on discharge 9. Cognitive Impairment * chronic * recommended outpt evaluation for dementia with geriatrics CHRIS patient's Code Visit Inpatient E&M: 69573 Subs Hosp L2
[2017-12-17] MEDS: Acetaminophen 325 MG Tablet 650 MG PO (13:04)
[2017-12-17 16:45] LABS: Bedside Glucose 111 mg/dL (70-110)
[2017-12-17] MEDS: Furosemide 40 MG Tablet PO (18:02)
[2017-12-17 21:11] LABS: Bedside Glucose 134 mg/dL (70-110)
[2017-12-18] VITALS (11 sets, daily range): BP systolic 99–131; BP diastolic 62–70; PULSE 73–97; RESP 16–20; TEMP 36.5–37.1; O2SAT 94–100
[2017-12-18] MEDS: Acetaminophen 325 MG Tablet 650 MG PO ×3 (04:09→20:42)
[2017-12-18] MEDS: Isosorbide DN 10 MG Tablet PO ×2 (06:04→21:24)
[2017-12-18 06:35] LABS: Bedside Glucose 60 mg/dL (70-110)
[2017-12-18 07:05] LABS: Bedside Glucose 92 mg/dL (70-110)
[2017-12-18 07:50] LABS: Anion Gap 5 (5-15); BUN 27 mg/dL (7-18); BUN/Creat Ratio 20.5 RATIO (10-20); Calcium,Total 9.3 mg/dL (8.5-10.1); Chloride 107 mmol/L (98-107); Creatinine, Serum 1.32 mg/dL (0.70-1.30); EST Glomerular Filtration Rate 56 mL/min (>60); Est Glom Filt Rate - Afr Amer 68 mL/min (>60); Estimated Creatinine Clearance 48.39 ml/min; Glucose 59 mg/dL (74-106); Potassium 3.8 mmol/L (3.5-5.1); Sodium Level 142 mmol/L (136-145); Thyroid Stim Hormone (TSH) 0.49 uIU/mL (0.358-3.74)
[2017-12-18 09:30] LABS: Magnesium 1.8 mg/dL (1.6-2.6)
[2017-12-18] MEDS: Furosemide 40 MG Tablet PO ×2 (09:50→17:12)
[2017-12-18] MEDS: Carvedilol 3.125 MG TABLET PO ×2 (09:50→11:35)
[2017-12-18] MEDS: APIXABAN 5 MG TABLET PO ×2 (09:51→21:23)
[2017-12-18 10:01] LABS: Bedside Glucose 109 mg/dL (70-110)
--- NOTE | 2017-12-18 10:08 | PCM.PROGNOTE ---
<Selwyn Shepard - Last Filed: 12/18/17 11:48> Patient Problems: Active and Suspected Problems (Last Updated 08/29/17 @ 10:33 by Karon Nick) Acute metabolic encephalopathy (Acute) Acute kidney injury on CKD stage III (Acute) Abnormal cardiac enzyme level (Acute) Sepsis (Acute) Subjective: Pt lethargic this AM, still confused. Does report LLQ abdominal pain. No BM yet this AM. No fever/chills. No CP, SOB. No palp/LH/Dizzy. He had a self terminating episode of VTach last night with no ICD discharge. - Physical Exam General: Alert, Cooperative, Confused, - - a/ox2 HEENT: Atraumatic, PERRLA, EOMI, Normocephalic Neck: Supple, No JVD, Negative Carotid Bruits Lungs: Clear to auscultation, Normal air movement Cardiovascular: Regular rate, No murmurs Abdomen: Bowel Sounds Present, Soft, Non Tender Extremities: Capillary Refill Less than 3 Seconds, - - samuel wraps in palce Skin: No rashes, No breakdown Musculoskeletal: No Tenderness to Palpation of Joints or Extremities Neurological: Cranial nerves II-XII grossly intact Psych/Mental Status: Normal Affect, Appropriate Vital Signs Temp Pulse Resp BP Pulse Ox 97.7 F L 97 20 H 131/67 H 100 12/18/17 09:46 12/18/17 09:46 12/18/17 09:46 12/18/17 09:46 12/18/17 09:46 Oxygen Flow Rate (L/min) 1 Oxygen Delivery Method Nasal Cannula Weight: 150.1 kg Body Mass Index (BMI) 32.4 Intake and Output for Last 24 Hours 12/16/17 12/17/17 12/18/17 23:59 23:59 23:59 Intake Total 1660 / 1660 1665 / 1665 480 / 480 Output Total 200 / 200 Balance 1660 / 1660 1465 / 1465 480 / 480 Microbiology Past 72 Hours 12/15/17 19:20 C. difficile DNA Amplification - Final Stool 12/14/17 19:43 Respiratory Panel (PCR) - Final Mucosa - Nasopharyngeal Laboratory Tests Past 24 Hrs 12/18/17 12/18/17 05:32 05:32 Sodium 142 Potassium 3.8 Chloride 107 Carbon Dioxide 30.0 Anion Gap 5 BUN 27 H Creatinine 1.32 H Estim Creat Clear Calc 48.39 Est GFR (MDRD) Af Amer 68 Est GFR (MDRD) Non-Af 56 L BUN/Creatinine Ratio 20.5 H Glucose 59 L Calcium 9.3 Magnesium 1.8 TSH 0.49 POC Glucose 12/18/17 12/18/17 12/18/17 09:54 06:50 06:22 POC Glucose 109 92 60 L 12/17/17 12/17/17 12/17/17 21:00 16:28 11:31 POC Glucose 134 H 111 H 87 Medical Necessity - Tobacco Use Smoking Status: Former smoker Assessment/Plan Active and Suspected Problems (Last Updated 08/29/17 @ 10:33 by Karon Nick) Acute metabolic encephalopathy (Acute) Acute kidney injury on CKD stage III (Acute) Abnormal cardiac enzyme level (Acute) Sepsis (Acute) 1. Acute severe sepsis 2/2 gastroenteritis, suspected viral . Continue supportive care. Infectious workup NTD. Afebrile, no leukocytosis. 2. Acute metabolic encephalopathy 2/2 dehydration with HUGO 2/2 diarrhea -HUGO resolved. Still confused. 3. Chest pain / Indeterminate troponin - hx CAD/CABG/pacer/AICD/ischemic cardiomyopathy - cardiology following. Family prefers no aggressive intervention at this time. Episode of Vtach x 1 last night. Electrolytes WNL. Consider bumping coreg dose. Lasix resumed. 4. Right foot sprain - xr without fracture. 5. COPD with chronic hypoxic respiratory failure - some SOB at night, but this is chronic. No wheezing or worsening of SOB. He does wear oxygen at night at baseline. 6. T2DM -improved. Continue to titrate therapy. 7. Hx DVT - on eliquis 8. Anx/Dep - lexapro. 9. Obesity - dietary eval DVT ppx: eliquis. DC planning: DC to TCU when accepted by insurance. This patient was seen by Selwyn Shepard PA-C under the supervision of Doctor Clinton <Conor Alonzo - Last Filed: 12/18/17 12:05> - Physical Exam General: Alert, Cooperative, - HEENT: Atraumatic, Normocephalic Lungs: Clear to auscultation, Normal air movement, No rhonchi, No wheeze Cardiovascular: Regular rate, Regular Rhythm, Normal S1, Normal S2, No murmurs Abdomen: Bowel Sounds Present, Soft, Non Tender, Obese Extremities: Edema, - Skin: No rashes, No breakdown Psych/Mental Status: Appropriate, Flat Affect Vital Signs Temp Pulse Resp BP Pulse Ox 36.5 C L 97 20 H 131/67 H 94 12/18/17 09:46 12/18/17 09:46 12/18/17 09:46 12/18/17 09:46 12/18/17 11:40 Oxygen Flow Rate (L/min) 1 Oxygen Delivery Method Nasal Cannula Weight: 150.1 kg Body Mass Index (BMI) 32.4 Intake and Output for Last 24 Hours 12/16/17 12/17/17 12/18/17 23:59 23:59 23:59 Intake Total 1660 / 1660 1665 / 1665 930 / 930 Output Total 200 / 200 Balance 1660 / 1660 1465 / 1465 930 / 930 Microbiology Past 72 Hours 12/15/17 19:20 C. difficile DNA Amplification - Final Stool 12/14/17 19:43 Respiratory Panel (PCR) - Final Mucosa - Nasopharyngeal Laboratory Tests Past 24 Hrs 12/18/17 12/18/17 05:32 05:32 Sodium 142 Potassium 3.8 Chloride 107 Carbon Dioxide 30.0 Anion Gap 5 BUN 27 H Creatinine 1.32 H Estim Creat Clear Calc 48.39 Est GFR (MDRD) Af Amer 68 Est GFR (MDRD) Non-Af 56 L BUN/Creatinine Ratio 20.5 H Glucose 59 L Calcium 9.3 Magnesium 1.8 TSH 0.49 POC Glucose 12/18/17 12/18/17 12/18/17 09:54 06:50 06:22 POC Glucose 109 92 60 L 12/17/17 12/17/17 21:00 16:28 POC Glucose 134 H 111 H Assessment/Plan Patient seen and examined independently. Agree with the above note by the physician lead assistant manager. 1. Acute severe sepsis Presumed due to a viral gastroenteritis. Cultures have been negative. Clinically improved at this time. Present on arrival 2. Acute metabolic encephalopathy Overall, patient is improved but not much improvement since December 15 Secondary to dehydration. 3. Ischemic cardiomyopathy Ejection fraction is now 15%. It was 50% in 2015. Discussed with Dr. Velazquez, he stated that given the patient's medical comorbidities, he would recommend a viability study which should be an MRI before proceeding with a catheterization. He stated that he would defer the patient's family in regards to aggressiveness of care and if they want to pursue more aggressive measures that he would recommend transferring the patient to a tertiary facility where they would be able to do a viability study. Discussed with the patient's , Stephanie Arevalo, and discussed the recommendations of cardiology. She is going to begin later on today is again discussed with her daughter. They are apprehensive about the patient having a heart catheterization given his chronic kidney disease and a solitary kidney. She is aware that if you would proceed with aggressive measures and getting viability study that he would need to be transferred to another facility for that. Family on 12/17 after discussing with Selwyn Shepard, not wishing to pursue a more aggressive work up at this time. 4. Acute kidney injury Creatinine overall improved. Patient does have chronic kidney disease with a variable baseline of 1.3-1.5. Continue to monitor for now. 5. Diabetes mellitus type II Fair Control. Continue with Levemir and NovoLog for now. 6. VTE: Eliquis 7. HFrEF EF 15% resume lasix, but at 40 BID monitor Creatinine. 8. Debility: Plan for SNF on discharge 9. Cognitive Impairment chronic recommended outpt evaluation for dementia with geriatrics Code Visit Inpatient E&M: 35673 Subs Hosp L2
[2017-12-18] MEDS: Glucerna Shake 120 ML LIQUID PO ×4 (10:10→21:24)
--- NOTE | 2017-12-18 10:14 | PN_ITS ---
Addendum entered and electronically signed by KAROLINE Cristina 12/18/17 11:49: Code Visit Problem list #10 - Polymyalgia - restarted home prednisone maintenance dose Original Note: <Selwyn Shepard - Last Filed: 12/18/17 11:48> Patient Problems: Active and Suspected Problems (Last Updated 08/29/17 @ 10:33 by Karon Nick) Acute metabolic encephalopathy (Acute) Acute kidney injury on CKD stage III (Acute) Abnormal cardiac enzyme level (Acute) Sepsis (Acute) Subjective: Pt lethargic this AM, still confused. Does report LLQ abdominal pain. No BM yet this AM. No fever/chills. No CP, SOB. No palp/LH/Dizzy. He had a self terminating episode of VTach last night with no ICD discharge. - Physical Exam General: Alert, Cooperative, Confused, - - a/ox2 HEENT: Atraumatic, PERRLA, EOMI, Normocephalic Neck: Supple, No JVD, Negative Carotid Bruits Lungs: Clear to auscultation, Normal air movement Cardiovascular: Regular rate, No murmurs Abdomen: Bowel Sounds Present, Soft, Non Tender Extremities: Capillary Refill Less than 3 Seconds, - - samuel wraps in palce Skin: No rashes, No breakdown Musculoskeletal: No Tenderness to Palpation of Joints or Extremities Neurological: Cranial nerves II-XII grossly intact Psych/Mental Status: Normal Affect, Appropriate Vital Signs Temp Pulse Resp BP Pulse Ox 97.7 F L 97 20 H 131/67 H 100 12/18/17 09:46 12/18/17 09:46 12/18/17 09:46 12/18/17 09:46 12/18/17 09:46 Oxygen Flow Rate (L/min) 1 Oxygen Delivery Method Nasal Cannula Weight: 150.1 kg Body Mass Index (BMI) 32.4 Intake and Output for Last 24 Hours 12/16/17 12/17/17 12/18/17 23:59 23:59 23:59 Intake Total 1660 / 1660 1665 / 1665 480 / 480 Output Total 200 / 200 Balance 1660 / 1660 1465 / 1465 480 / 480 Microbiology Past 72 Hours 12/15/17 19:20 C. difficile DNA Amplification - Final Stool 12/14/17 19:43 Respiratory Panel (PCR) - Final Mucosa - Nasopharyngeal Laboratory Tests Past 24 Hrs 12/18/17 12/18/17 05:32 05:32 Sodium 142 Potassium 3.8 Chloride 107 Carbon Dioxide 30.0 Anion Gap 5 BUN 27 H Creatinine 1.32 H Estim Creat Clear Calc 48.39 Est GFR (MDRD) Af Amer 68 Est GFR (MDRD) Non-Af 56 L BUN/Creatinine Ratio 20.5 H Glucose 59 L Calcium 9.3 Magnesium 1.8 TSH 0.49 POC Glucose 12/18/17 12/18/17 12/18/17 09:54 06:50 06:22 POC Glucose 109 92 60 L 12/17/17 12/17/17 12/17/17 21:00 16:28 11:31 POC Glucose 134 H 111 H 87 Medical Necessity - Tobacco Use Smoking Status: Former smoker Assessment/Plan Active and Suspected Problems (Last Updated 08/29/17 @ 10:33 by Karon Nick) Acute metabolic encephalopathy (Acute) Acute kidney injury on CKD stage III (Acute) Abnormal cardiac enzyme level (Acute) Sepsis (Acute) 1. Acute severe sepsis 2/2 gastroenteritis, suspected viral . Continue supportive care. Infectious workup NTD. Afebrile, no leukocytosis. 2. Acute metabolic encephalopathy 2/2 dehydration with HUGO 2/2 diarrhea -HUGO resolved. Still confused. 3. Chest pain / Indeterminate troponin - hx CAD/CABG/pacer/AICD/ischemic cardiomyopathy - cardiology following. Family prefers no aggressive intervention at this time. Episode of Vtach x 1 last night. Electrolytes WNL. Consider bumping coreg dose. Lasix resumed. 4. Right foot sprain - xr without fracture. 5. COPD with chronic hypoxic respiratory failure - some SOB at night, but this is chronic. No wheezing or worsening of SOB. He does wear oxygen at night at baseline. 6. T2DM -improved. Continue to titrate therapy. 7. Hx DVT - on eliquis 8. Anx/Dep - lexapro. 9. Obesity - dietary eval DVT ppx: eliquis. DC planning: DC to TCU when accepted by insurance. This patient was seen by Selwyn Shepard PA-C under the supervision of Doctor Alonzo <Conor Alonzo - Last Filed: 12/18/17 12:05> - Physical Exam General: Alert, Cooperative, - HEENT: Atraumatic, Normocephalic Lungs: Clear to auscultation, Normal air movement, No rhonchi, No wheeze Cardiovascular: Regular rate, Regular Rhythm, Normal S1, Normal S2, No murmurs Abdomen: Bowel Sounds Present, Soft, Non Tender, Obese Extremities: Edema, - Skin: No rashes, No breakdown Psych/Mental Status: Appropriate, Flat Affect Vital Signs Temp Pulse Resp BP Pulse Ox 36.5 C L 97 20 H 131/67 H 94 12/18/17 09:46 12/18/17 09:46 12/18/17 09:46 12/18/17 09:46 12/18/17 11:40 Oxygen Flow Rate (L/min) 1 Oxygen Delivery Method Nasal Cannula Weight: 150.1 kg Body Mass Index (BMI) 32.4 Intake and Output for Last 24 Hours 12/16/17 12/17/17 12/18/17 23:59 23:59 23:59 Intake Total 1660 / 1660 1665 / 1665 930 / 930 Output Total 200 / 200 Balance 1660 / 1660 1465 / 1465 930 / 930 Microbiology Past 72 Hours 12/15/17 19:20 C. difficile DNA Amplification - Final Stool 12/14/17 19:43 Respiratory Panel (PCR) - Final Mucosa - Nasopharyngeal Laboratory Tests Past 24 Hrs 12/18/17 12/18/17 05:32 05:32 Sodium 142 Potassium 3.8 Chloride 107 Carbon Dioxide 30.0 Anion Gap 5 BUN 27 H Creatinine 1.32 H Estim Creat Clear Calc 48.39 Est GFR (MDRD) Af Amer 68 Est GFR (MDRD) Non-Af 56 L BUN/Creatinine Ratio 20.5 H Glucose 59 L Calcium 9.3 Magnesium 1.8 TSH 0.49 POC Glucose 12/18/17 12/18/17 12/18/17 09:54 06:50 06:22 POC Glucose 109 92 60 L 12/17/17 12/17/17 21:00 16:28 POC Glucose 134 H 111 H Assessment/Plan Patient seen and examined independently. Agree with the above note by the physician child care center assistant director. 1. Acute severe sepsis * Presumed due to a viral gastroenteritis. Cultures have been negative. * Clinically improved at this time. * Present on arrival 2. Acute metabolic encephalopathy * Overall, patient is improved but not much improvement since December 15 * Secondary to dehydration. 3. Ischemic cardiomyopathy * Ejection fraction is now 15%. It was 50% in 2015. * Discussed with Dr. Velazquez, he stated that given the patient's medical comorbidities, he would recommend a viability study which should be an MRI before proceeding with a catheterization. He stated that he would defer the patient's family in regards to aggressiveness of care and if they want to pursue more aggressive measures that he would recommend transferring the patient to a tertiary facility where they would be able to do a viability study. * Discussed with the patient's , Stephanie Arevalo, and discussed the recommendations of cardiology. She is going to begin later on today is again discussed with her daughter. They are apprehensive about the patient having a heart catheterization given his chronic kidney disease and a solitary kidney. She is aware that if you would proceed with aggressive measures and getting viability study that he would need to be transferred to another facility for that. * Family on 12/17 after discussing with Selwyn Shepard, not wishing to pursue a more aggressive work up at this time. 4. Acute kidney injury * Creatinine overall improved. Patient does have chronic kidney disease with a variable baseline of 1.3-1.5. * Continue to monitor for now. 5. Diabetes mellitus type II * Fair Control. * Continue with Levemir and NovoLog for now. 6. VTE: Eliquis 7. HFrEF * EF 15% * resume lasix, but at 40 BID * monitor Creatinine. 8. Debility: Plan for SNF on discharge 9. Cognitive Impairment * chronic * recommended outpt evaluation for dementia with geriatrics Code Visit Inpatient E&M: 12043 Subs Hosp L2
--- NOTE | 2017-12-18 10:28 | PN.CARD_ITS ---
Subjectve: Patient seen and evaluated. Appears to be doing well. Objective: Vital Signs Temp Pulse Resp BP Pulse Ox 97.7 F L 97 20 H 131/67 H 100 12/18/17 09:46 12/18/17 09:46 12/18/17 09:46 12/18/17 09:46 12/18/17 09:46 Oxygen Flow Rate (L/min) 1 Oxygen Delivery Method Nasal Cannula Weight: 330 lb 14.621 oz Body Mass Index (BMI) 32.4 Intake and Output for Last 24 Hours 12/16/17 12/17/17 12/18/17 23:59 23:59 23:59 Intake Total 1660 / 1660 1665 / 1665 480 / 480 Output Total 200 / 200 Balance 1660 / 1660 1465 / 1465 480 / 480 General: Awake, Alert, Oriented x 3 HEENT: PERRL, EOMI, Sclera Non Icteric Neck: Supple, Good ROM, No Lymph Node Enlargement Lungs: Clear to auscultation Cardiovascular: Regular Rhythm, Normal S1, Normal S2, No Murmurs, No Rubs, No Gallops Vascular: No Carotid Bruits, Normal Femoral Pulses, Normal Radial Pulses, Normal Dorsalis Pedal Pulse, Normal Posterior Tibial Pulses Abdomen: Bowel Sounds Present, Soft, Non Tender, No HSM, No Organomegaly Extremities: No Cyanosis, No Clubbing, No edema, - - Wrinkling Neurological: No Focal Motor or Sensory Deficit 12/18/17 05:32: Sodium 142, Potassium 3.8, Chloride 107, Carbon Dioxide 30.0, Anion Gap 5, BUN 27 H, Creatinine 1.32 H, Est GFR (MDRD) Af Amer 68, Est GFR ( MDRD) Non-Af 56 L, BUN/Creatinine Ratio 20.5 H, Glucose 59 L, Calcium 9.3 12/18/17 05:32: Magnesium 1.8 Rhythm: EKG: ECHO: Stress Test: Cardiac Cath: PCI: CT Surgery: Holter monitor: EPS: PPM: CXR: Chest CT Scan: Medical Necessity - Tobacco Use Smoking Status: Former smoker Assessment/Plan 1. Abnormal cardiac enzymes The patient does have abnormal cardiac enzymes. The etiology is unclear whether this truly represents an underlying cardiovascular event either a type I event or potentially secondary to his multiple medical issues a type II event. He did undergo further evaluation with a transthoracic echocardiogram. His left ventricle appeared to be dilated and severely dysfunctional with an estimated LVEF 15% which is decreased compared to his previous transthoracic echocardiogram. At the present time, noting the change in his overall left ventricular wall motion and systolic function he should continue medical management. This will include reattempting medication such as his nitrates, beta-blockers, diuretics, and afterload reducing agents. With respect afterload reducing agents if he cannot tolerate YUMIKO inhibitors and ARB's that he can be treated with a alternative agent such as hydralazine. There is a consideration as to whether he should undergo a myocardial viability study and whether he needs to be transferred for this or recuperating the transitional care unit and then a decision made later on. 2. CAD status post CABG The patient has undergone extensive noninvasive and invasive evaluation as noted above. At the present time he will reinitiate medical management. This will include low-dose nitrates and low-dose beta blockers. If his blood pressure tolerates these medications can be advanced. Other medications can be added as tolerated.Again he should be considered for further cardiovascular evaluation and care as noted above when he is able to from a noncardiac standpoint. 3. Ischemic mediated cardiomyopathy The patient does have the aforementioned ischemic mediated cardiomyopathy. Based upon his echocardiographic studies there appears to be a significant decline in his overall LV wall motion and systolic function compared to his previous transthoracic echocardiogram. He will reinitiate medical management as tolerated. He should be considered for further evaluation as noted above if he is clinically improved from a noncardiac standpoint and he and his family want to pursue additional cardiac evaluation. 4. ICD The patient had at least a 15 beat run of nonsustained ventricular tachycardia. He did not meet the threshold for the ICD to fire. The patient does have an underlying ICD. It has been evaluated in the past. It has been functioning appropriately. As you know the patient's family and himself have preferred conservative management for the above. We will continue with the beta-charles. Electrolytes have been obtained and were normal. 5. Hyperlipidemia Ideally the patient would continue lipid-lowering therapy for his cardiovascular risk factor modification. 6. Hypertension The patient has had episodes of hypotension. Thus his medications are being altered to avoid significant hypotension. Thank you for allowing me to participate in the care of your patient. Please don't hesitate to call if any issues arise
[2017-12-18] MEDS: 0.9% NaCl Peripheral Flush Adult/Peds IV (11:35)
[2017-12-18] MEDS: Furosemide 40 MG/4 ML Vial IV (11:35)
[2017-12-18 17:21] LABS: Bedside Glucose 181 mg/dL (70-110)
[2017-12-18] MEDS: Carvedilol 6.25 MG Tablet PO (21:23)
[2017-12-18 21:36] LABS: Bedside Glucose 263 mg/dL (70-110)
[2017-12-19 03:00] VITALS: BP 133/62; PULSE 78; PULSE 87; RESP 16; TEMP 36.9; O2SAT 96
[2017-12-19 06:21] LABS: Anion Gap 5 (5-15); BUN 24 mg/dL (7-18); BUN/Creat Ratio 18.6 RATIO (10-20); Calcium,Total 9.5 mg/dL (8.5-10.1); Chloride 106 mmol/L (98-107); Creatinine, Serum 1.29 mg/dL (0.70-1.30); EST Glomerular Filtration Rate 57 mL/min (>60); Est Glom Filt Rate - Afr Amer 69 mL/min (>60); Estimated Creatinine Clearance 49.52 ml/min; Glucose 79 mg/dL (74-106); Potassium 3.6 mmol/L (3.5-5.1); Sodium Level 143 mmol/L (136-145)
[2017-12-19] MEDS: Isosorbide DN 10 MG Tablet PO ×2 (06:30→13:58)
[2017-12-19 06:50] LABS: Bedside Glucose 173 mg/dL (70-110)
[2017-12-19 07:00] VITALS: PULSE 70
[2017-12-19 07:44] VITALS: O2SAT 93
[2017-12-19 08:13] VITALS: BP 108/59; PULSE 83; RESP 16; TEMP 36.8; O2SAT 97
[2017-12-19] MEDS: APIXABAN 5 MG TABLET PO (08:18)
[2017-12-19] MEDS: Furosemide 40 MG Tablet PO (08:18)
[2017-12-19] MEDS: Carvedilol 6.25 MG Tablet PO (08:18)
[2017-12-19] MEDS: Glucerna Shake 120 ML LIQUID PO ×2 (08:24→14:01)
[2017-12-19 11:12] VITALS: PULSE 99
[2017-12-19] MEDS: predniSONE 5 MG Tablet PO (11:47)
[2017-12-19 12:10] LABS: Bedside Glucose 238 mg/dL (70-110)
[2017-12-19 13:56] VITALS: BP 116/71; PULSE 90; RESP 24; TEMP 37.1; O2SAT 97
[2017-12-19 13:57] LABS: Pathologist Review Reviewed
[2017-12-19] MEDS: Acetaminophen 325 MG Tablet 650 MG PO (13:58)
--- NOTE | 2017-12-19 14:28 | PN_ITS ---
<Selwyn Shepard - Last Filed: 12/19/17 14:26> Patient Problems: Active and Suspected Problems (Last Updated 08/29/17 @ 10:33 by Karon Nick) Acute metabolic encephalopathy (Acute) Acute kidney injury on CKD stage III (Acute) Abnormal cardiac enzyme level (Acute) Sepsis (Acute) Subjective: Pt resting comfortably in chair at bedside. NAD. Feels overall more improved. No further generalized aches. No SOB. Ambulated with therapy in the lopez. No F/ C. Legs are swollen but he has the YUMIKO wraps off currently. No CP. Still some generalized abdominal discomfort. So far no diarrhea this AM. - Physical Exam General: Alert, Oriented x3, Cooperative HEENT: Atraumatic, PERRLA, EOMI, Normocephalic Neck: Supple, No JVD, Negative Carotid Bruits Lungs: Clear to auscultation, Normal air movement Cardiovascular: Regular rate, No murmurs Abdomen: Bowel Sounds Present, Soft, Non Tender Extremities: No edema, Capillary Refill Less than 3 Seconds Skin: No rashes, No breakdown Musculoskeletal: No Tenderness to Palpation of Joints or Extremities Neurological: Cranial nerves II-XII grossly intact Psych/Mental Status: Normal Affect, Appropriate, Alert and oriented to time, place, person, mood and affect Vital Signs Temp Pulse Resp BP Pulse Ox 98.7 F 90 24 H 116/71 97 12/19/17 13:56 12/19/17 13:56 12/19/17 13:56 12/19/17 13:56 12/19/17 13:56 Oxygen Flow Rate (L/min) 1 Oxygen Delivery Method Room Air Weight: 104.7 kg Body Mass Index (BMI) 32.4 Intake and Output for Last 24 Hours 12/17/17 12/18/17 12/19/17 23:59 23:59 23:59 Intake Total 1665 / 1665 1450 / 1450 810 / 810 Output Total 200 / 200 650 / 650 Balance 1465 / 1465 800 / 800 810 / 810 Microbiology Past 72 Hours 12/15/17 19:20 C. difficile DNA Amplification - Final Stool Laboratory Tests Past 24 Hrs 12/17/17 12/19/17 06:03 05:30 Diff Path Review Reviewed Sodium 143 Potassium 3.6 Chloride 106 Carbon Dioxide 32.0 Anion Gap 5 BUN 24 H Creatinine 1.29 Estim Creat Clear Calc 49.52 Est GFR (MDRD) Af Amer 69 Est GFR (MDRD) Non-Af 57 L BUN/Creatinine Ratio 18.6 Glucose 79 Calcium 9.5 POC Glucose 12/19/17 12/19/17 12/18/17 11:26 06:40 21:21 POC Glucose 238 H 173 H 263 H 12/18/17 17:08 POC Glucose 181 H Medical Necessity - Tobacco Use Smoking Status: Former smoker Assessment/Plan Active and Suspected Problems (Last Updated 08/29/17 @ 10:33 by Karon Nick) Acute metabolic encephalopathy (Acute) Acute kidney injury on CKD stage III (Acute) Abnormal cardiac enzyme level (Acute) Sepsis (Acute) 1. Acute severe sepsis 2/2 gastroenteritis, suspected viral .Improved. Continue supportive care. Infectious workup NTD. Afebrile, no leukocytosis. 2. Acute metabolic encephalopathy 2/2 dehydration with HUGO 2/2 diarrhea -HUGO resolved. Still confused. 3. Chest pain / Indeterminate troponin - hx CAD/CABG/pacer/AICD/ischemic cardiomyopathy - cardiology following. Family prefers no aggressive intervention at this time. Electrolytes WNL. Consider bumping coreg dose. Lasix resumed. -No further Vtach after increase in coreg. 4. Right foot sprain - xr without fracture. 5. COPD with chronic hypoxic respiratory failure - some SOB at night, but this is chronic. No wheezing or worsening of SOB. He does wear oxygen at night at baseline. 6. T2DM -improved. Continue to titrate therapy. 7. Hx DVT - on eliquis 8. Anx/Dep - lexapro. 9. Obesity - dietary eval DVT ppx: eliquis. DC planning: DC to TCU when accepted by insurance. This patient was seen by Selwyn Shepard PA-C under the supervision of Doctor Fay <Alireza Aponte - Last Filed: 12/19/17 14:55> - Physical Exam Vital Signs Temp Pulse Resp BP Pulse Ox 98.7 F 90 24 H 116/71 97 12/19/17 13:56 12/19/17 13:56 12/19/17 13:56 12/19/17 13:56 12/19/17 13:56 Oxygen Flow Rate (L/min) 1 Oxygen Delivery Method Room Air Weight: 104.7 kg Body Mass Index (BMI) 32.4 Intake and Output for Last 24 Hours 12/17/17 12/18/17 12/19/17 23:59 23:59 23:59 Intake Total 1665 / 1665 1450 / 1450 810 / 810 Output Total 200 / 200 650 / 650 Balance 1465 / 1465 800 / 800 810 / 810 Microbiology Past 72 Hours 12/15/17 19:20 C. difficile DNA Amplification - Final Stool Laboratory Tests Past 24 Hrs 12/17/17 12/19/17 06:03 05:30 Diff Path Review Reviewed Sodium 143 Potassium 3.6 Chloride 106 Carbon Dioxide 32.0 Anion Gap 5 BUN 24 H Creatinine 1.29 Estim Creat Clear Calc 49.52 Est GFR (MDRD) Af Amer 69 Est GFR (MDRD) Non-Af 57 L BUN/Creatinine Ratio 18.6 Glucose 79 Calcium 9.5 POC Glucose 12/19/17 12/19/17 12/18/17 11:26 06:40 21:21 POC Glucose 238 H 173 H 263 H 12/18/17 17:08 POC Glucose 181 H Assessment/Plan This patient was seen in conjunction with Selywn Shepard PA-C . I have independently interviewed and examined the patient and reviewed pertinent historical, laboratory, and other data. Please refer to Selwyn Shepard PA-C note for details of this patient's presentation, findings, and recommendations. I have reviewed Selwyn Shepard PA-C note and concur with documented findings. In brief, patient is a 77-year-old gentleman admitted with altered mental status in addition to diarrhea. Physical Examination: GENERAL: cooperative HEENT: Clear conjunctiva, NECK; supple, normal thyroid, CHEST: Diminished to auscultation HEART: Regular S1 S2, MOVING PICTURE OPERATOR: Awake, no lateralizing signs. SKIN: No rash Assessment: 1. Acute gastroenteritis suspected to be 2. Acute kidney injury secondary to above 3. Acute metabolic encephalopathy secondary to patient's acute kidney injury 4. Elevated troponin secondary to demand ischemia 5. Chronic hypoxic respiratory failure secondary to COPD on baseline home O2 4. Essential hypertension 5. Diabetes mellitus type II 6. History of DVT patient is on Eliquis 7. EGD with previous CABG 8. Ischemic cardiomyopathy status post AICD placement 9. Right foot strain 10. Chronic kidney disease stage III 11. Physical deconditioning 12. Obesity with BMI of 33.1 13. Depression with anxiety 14. DVT prophylaxis patient on Eliquis Recommendations: 1. I have discussed the results of my overview and impressions with the patient 2. Options for management were reviewed Clinical Impression(s) from Imaging Studies Brain CT 12/14/17 13:12 IMPRESSION: 1. Chronic involutional/microvascular ischemic changes of the brain. No acute intracranial pathology. 2. 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 Electronically Signed: Flavio Fischer MD at 14:25 EDT , Service support , Chest X-Ray 12/14/17 13:12 IMPRESSION: Stable x-ray examination of the chest, as described. Electronically Signed: Flavio Fischer MD at 14:50 EDT , Service support , Foot X-Ray 12/14/17 14:05 IMPRESSION: Stable soft tissue swelling extending from the distal lower leg to the toes. Atherosclerotic vascular calcifications also again noted. No acute osseous abnormality. Electronically Signed: Flavio Fischer MD at 14:53 EDT , Service support , Abdomen Ultrasound 12/16/17 09:49 IMPRESSION: 1. Mildly heterogeneous texture of the normal sized liver. A 3 cm subcapsular cyst at the medial inferior right lobe is unchanged. 2. Incidental note of a right pleural effusion. 3. Incomplete visualization of the pancreas. There is suggestion of fatty pancreatic infiltration. 4. No gallstones, nor signs of cholecystitis or bile duct obstruction. 5. Lower pole subcentimeter right renal stone seen on CT is not apparent here. No right hydronephrosis. Electronically Signed: Flavio Fischer MD at 16:40 EDT , Service support , Code Visit Inpatient E&M: 97490 Subs Hosp L2
--- NOTE | 2017-12-19 14:37 | CASEMGMT ---
Received insurance approval for patient to go to TCU. MILLIE let RN and patient know. MILLIE called patient's , but she does not have her vm set up. Patient told MILLIE to call his daughter, Jayshree. MILLIE called Jayshree and let her know patient will be d/c to TCU today. She thanked MILLIE. Plan: d/c to [facility] TCU under skilled level of care. Hansa RIDLEY
--- NOTE | 2017-12-19 14:56 | TREXTCAR_ITS ---
- Diet 12/16/17 17:23 Diet < 2 gram sodium per day, low carb, 1800 archana, low fat/chol - Routine Orders/Code Status Suppository Type: Dulcolax 10mg Suppository Frequency: Daily PRN O2 Frequency: Qhs Routine Lab Work: CBC, BMP [facility] - Wound(s) Left Calf Wound Type: Pressure Injury Dressing Change: hydrogel with Adaptic - Therapies Physical Therapy: Eval and Treat Occupational Therapy: Eval and Treat - Problem/Diagnosis (1) Acute metabolic encephalopathy Status: Acute Current Visit: Yes (2) Acute kidney injury on CKD stage III Status: Acute Current Visit: Yes (3) Abnormal cardiac enzyme level Status: Acute Current Visit: Yes (4) Sepsis Status: Acute Current Visit: Yes (5) Type 2 diabetes mellitus with diabetic polyneuropathy Status: Chronic Current Visit: No (6) ASHD (arteriosclerotic heart disease) Status: Chronic Current Visit: No (7) HLD (hyperlipidemia) Status: Chronic Current Visit: No (8) HTN (hypertension) Status: Chronic Current Visit: No (9) Benign hypertension Status: Chronic Current Visit: No (10) BPH (benign prostatic hypertrophy) with urinary obstruction Status: Chronic Current Visit: No (11) Hx of CABG Status: Chronic Current Visit: No (12) CAD (coronary artery disease) Status: Chronic Current Visit: No (13) CRF (chronic renal failure) Status: Chronic Current Visit: No (14) Pacemaker Status: Chronic Current Visit: No (15) COPD (chronic obstructive pulmonary disease) Status: Chronic Current Visit: No (16) Hypothyroidism Status: Chronic Current Visit: No (17) Ischemic cardiomyopathy Status: Chronic Current Visit: No (18) Lymphedema of both lower extremities Status: Chronic Current Visit: No - Allergies/Procedures Done in Hospital Allergies/Adverse Reactions: Allergies erythromycin base Allergy (Mild, Verified 11/22/17 10:36) Hives cyclobenzaprine HCl [From Flexeril] Allergy (Verified 11/21/17 12:35) Rash latex Allergy (Verified 11/21/17 12:35) Swelling Penicillins Allergy (Verified 11/21/17 12:35) Rash Sulfa (Sulfonamide Antibiotics) Allergy (Verified 11/21/17 12:35) Rash tetracycline Allergy (Verified 11/22/17 10:36) Hives acetaminophen [From Percocet] Adverse Reaction (Verified 11/21/17 12:35) Other HALLUCINATES oxycodone [From Percocet] Adverse Reaction (Verified 11/21/17 12:35) Other HALLUCINATES iv dye Adverse Reaction (Uncoded 11/21/17 12:35) only has 1 kidney Procedures: 2-D Echocardiogram - Type of Care/Length of Stay Estimated LOS: Convalescent Care Less Than 30 days Type of Care Needed: Skilled Rehab Potential: Fair Prognosis: Fair - Additional Orders/Day of Discharge Day of Discharge: 12/19/17 - Dietary and Speech Recommendations Dietitian Recommendations/Changes: Rec continue liberal Regular diet d/t poor po intake. Rec continue Glucerna Shake on medpass. Rec 1 pkt Rayshawn BID for wound healing - please order from pharmacy. - Follow Up Care Primary Care Physician: Guy Gu Chi, MD [Primary Care Provider] - Please follow up with your Primary Care Physician in: 1 week Please Follow Up With: Messi Velazquez MD When: 2 weeks
--- NOTE | 2017-12-19 14:56 | PCM.DC.SUM ---
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 Anxiety and depression Obesity - Secondary Discharge Diagnosis Chronic Problems (Last Updated 08/29/17 @ 10:33 by Karon Nick) Ulcer of left lower extremity with fat layer exposed (Chronic) Type 2 diabetes mellitus with diabetic polyneuropathy (Chronic) Foot ulcer with fat layer exposed (Chronic) Onycholysis (Chronic) Tinea unguium (Chronic) Ulcer of left lower extremity with fat layer exposed (Chronic) UTI (urinary tract infection) (Chronic) Atherosclerosis of [place] coronary artery of [place] heart without angina pectoris (Chronic) MOULTON to LAD, SVG to circumflex, and SVG to RCA in 1986 Left ventricular failure (Chronic) Peripheral vascular disease (Chronic) ASHD (arteriosclerotic heart disease) (Chronic) Automatic implantable cardiac defibrillator in situ (Chronic) ICD implant: 02/2010 HLD (hyperlipidemia) (Chronic) HTN (hypertension) (Chronic) Atherosclerosis 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 [facility] 1987, 01/29/2010, 02/24. Ischemic cardiomyopathy (Chronic) Paroxysmal ventricular tachycardia (Chronic) H/O coronary artery bypass surgery (Chronic) CABG MOULTON graft to anterior descending, saphenous vein graft to CFX, saphenous vein graft to RCA 1986. 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) Open wound of lower extremity without complication (Chronic) Chronic renal insufficiency, stage III (moderate) (Chronic) PAOD (peripheral arterial occlusive disease) (Chronic) Hospital Course and Treatment Imaging Results: CT/Brain/Head without Contrast IMPRESSION: 1. Chronic involutional/microvascular ischemic changes of the brain. No acute intracranial pathology. 2. 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 RAD/Chest 1 View (Portable) IMPRESSION: Stable x-ray examination of the chest, as described. RAD/Foot min 3 Views IMPRESSION: Stable soft tissue swelling extending from the distal lower leg to the toes. Atherosclerotic vascular calcifications also again noted. No acute osseous abnormality. Echo: Interpretation Summary Mildly dilated left ventricle. Severe segmental systolic dysfunction (see wall motion). The estimated ejection fraction is 15 %. Mild global right ventricular systolic dysfunction. The left atrium is moderately enlarged. The right atrium is mildly enlarged. There is mild to moderate mitral annular calcification. Extension of the mitral annular calcification onto the posterior mitral valve leaflet. Mild diffuse mitral valve thickening. Mild (1+) mitral valve insufficiency. Poor coaptation of the tricuspid valve. Moderate (2+) tricuspid valve insufficiency. Mild aortic stenosis. Right ventricular systolic pressure estimated to be 65 mmHg c/w pulmonary hypertension. Unable to assess diastolic dysfunction. ICD or pacer leads identified within the right atrium ICD or pacer leads identified within the right ventricle. US/Abdomen Limited IMPRESSION: 1. Mildly heterogeneous texture of the normal sized liver. A 3 cm subcapsular cyst at the medial inferior right lobe is unchanged. 2. Incidental note of a right pleural effusion. 3. Incomplete visualization of the pancreas. There is suggestion of fatty pancreatic infiltration. 4. No gallstones, nor signs of cholecystitis or bile duct obstruction. 5. Lower pole subcentimeter right renal stone seen on CT is not apparent here. No right hydronephrosis. Consultations [facility] 12/14/17 17:21 Consult: Onc/Wound/water trainer Routine Comment: Operations: None Procedures: 2-D Echocardiogram Summary of Care Provided: Physical exam on day of discharge: See daily progress note Hospital course: The patient is a 77 year old M with a history of CAD, prior CABG, ischemic cardiomyopathy, chronic systolic congestive heart failure, polymyalgia rheumatica, COPD with chronic hypoxic respiratory failure dependent on oxygen at night, type 2 diabetes, history of DVTs, history of anxiety and depression, obesity, who presented to the emergency room with chief complaint of confusion. He had diarrhea and abdominal pain for about 3-4 days prior to presentation and his noted he was not eating or drinking very much at home. He is found to be in AK I, he had a mildly elevated troponin, negative EKG, read of CT of the brain, negative chest x-ray. He was admitted as he was found to be severely septic with an elevated lactic acid, leukocytosis, pulse greater than 90, tachypnea. Following morning he was complaining of chest pain continued to have indeterminate troponins. His crystalizer tender Dr. Velazquez was consulted. He underwent an echocardiogram which demonstrated a significant decrease in his ejection fraction as well as new wall abnormalities. Due to the patient's multiple comorbidities and current acute sickness he was felt to require further evaluation at a tertiary tertiary care center if his family decided to pursue aggressive workup. This would include potentially having a cardiac MR which we do not have here to evaluate whether he had viability to undergo a catheterization. Given his acute kidney injury and his solitary kidney he was at high risk for complications. The options were discussed with the family who decided they did not want any aggressive intervention at this time did not want any transfer. They wanted to get him stabilized and have him transferred to [facility] facility for rehab and potentially pursue options down the road depending on how he was doing. The patient's AK I improved gradually. He was started on medications to manage his underlying cardiomyopathy including beta blockers and restarting his Lasix., And adjusting his home medication doses. Patient continued to have intermittent diarrhea. He was checked for C. difficile which was negative. He remained intermittently confused while here. He had no further chest pain after his medications were adjusted. At one point he did develop some right upper quadrant tenderness and an abdominal ultrasound was done to look at his gallbladder. This was negative for any acute process. As the family desire placement and TCU will start the process for precertification. When he was accepted he was transferred in stable condition to TCU. He will need to follow-up with his PCP as well as with his crystalizer tender in 1-2 weeks. He is in stable condition and discharged to [facility]. Please follow his BMP with his adjustment of his Lasix and potassium. This patient was seen by Selwyn Shepard PA-C under the supervision of Doctor Fay. [] Discharge Diet: Low fat/ Low Cholesterol, 1800 Calorie Control Diet, 2000 mg Sodium Diet Discharge Activity: Return to Normal Activity Home Medications: Medications to take at Discharge Ergocalciferol [Vitamin D] 50,000 unit PO QMONTH 11/21/17 Escitalopram Oxalate [Lexapro] 20 mg PO DAILY 11/21/17 Finasteride [Proscar] 5 mg PO DAILY 11/21/17 Potassium Chloride [K-Dur] 20 meq PO DAILY 11/21/17 Apixaban [Eliquis] 5 mg PO BID #0 11/23/17 Baclofen 10 mg PO QHS PRN PRN 12/14/17 Insulin Glargine,Hum.rec.anlog [Lantus] 20 unit SQ BID 12/14/17 Prednisone 5 mg PO DAILY 12/14/17 Carvedilol [Coreg (Beta Tae)] 6.25 mg PO BID 12/19/17 Furosemide [Lasix] 40 mg PO BID@1000,1800 12/19/17 Ipratropium/Albuterol Sulfate [Duoneb] 3 ml INHALATION Q4H PRN ampul.neb 12/19/17 Isosorbide DN [Isordil] 10 mg PO TID 12/19/17 Psyllium [Metamucil] 1 packet PO DAILY PRN PRN packet 12/19/17 Senna/Docusate Sodium [Senokot-S] 2 tablet PO BID PRN tablet 12/19/17 Primary Care Physician: Guy Gu Chi, MD [Primary Care Provider] - Please follow up with your Primary Care Physician in: 1 week Please Follow Up With: Messi Velazquez MD When: 2 weeks Disposition: Nursing Home facility Minutes spent on discharge:: 40 Patient Condition:: Stable Medical Necessity - Tobacco Use Smoking Status: Former smoker Meaningful Use Info Meaningful Use Diagnoses (Choose all that apply): None applicable <Alireza Aponte - Last Filed: 12/19/17 16:03> Discharge Date and Diagnosis - Secondary Discharge Diagnosis Chronic Problems (Last Updated 08/29/17 @ 10:33 by Karon Nick) Ulcer of left lower extremity with fat layer exposed (Chronic) Type 2 diabetes mellitus with diabetic polyneuropathy (Chronic) Foot ulcer with fat layer exposed (Chronic) Onycholysis (Chronic) Tinea unguium (Chronic) Ulcer of left lower extremity with fat layer exposed (Chronic) UTI (urinary tract infection) (Chronic) Atherosclerosis of [place] coronary artery of [place] heart without angina pectoris (Chronic) [place] to LAD, SVG to circumflex, and SVG to RCA in 1986 Left ventricular failure (Chronic) Peripheral vascular disease (Chronic) ASHD (arteriosclerotic heart disease) (Chronic) Automatic implantable cardiac defibrillator in situ (Chronic) ICD implant: 02/2010 HLD (hyperlipidemia) (Chronic) HTN (hypertension) (Chronic) Atherosclerosis 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 [facility] 1987, 01/29/2010, 02/24. Ischemic cardiomyopathy (Chronic) Paroxysmal ventricular tachycardia (Chronic) H/O coronary artery bypass surgery (Chronic) CABG MOULTON graft to anterior descending, saphenous vein graft to CFX, saphenous vein graft to RCA 1986. 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 I have independently interviewed and examined the patient and reviewed pertinent historical, laboratory, and other data. Please refer to Selwyn Shepard PA-C note for details of this patient's presentation, findings, and recommendations. I have reviewed Selwyn Shepard PA-C note and concur with documented findings. In brief, patient is a 77-year-old gentleman admitted with altered mental status in addition to diarrhea. Assessment: 1. Acute gastroenteritis suspected to be 2. Acute kidney injury secondary to above 3. Acute metabolic encephalopathy secondary to patient's acute kidney injury 4. Elevated troponin secondary to demand ischemia 5. Chronic hypoxic respiratory failure secondary to COPD on baseline home O2 4. Essential hypertension 5. Diabetes mellitus type II 6. History of DVT patient is on Eliquis 7. EGD with previous CABG 8. Ischemic cardiomyopathy status post AICD placement 9. Right foot strain 10. Chronic kidney disease stage III 11. Physical deconditioning 12. Obesity with BMI of 33.1 13. Depression with anxiety 14. DVT prophylaxis patient on [facility] Hospital course as detailed above by Selwyn Shepard PA-C Time spent on discharge 45 minutes Code Visit Inpatient E&M: 33639 Disch Hosp
--- NOTE | 2017-12-19 15:05 | DS.PCM_ITS ---
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 Anxiety and depression Obesity - Secondary Discharge Diagnosis Chronic Problems (Last Updated 08/29/17 @ 10:33 by Karon Nick) Ulcer of left lower extremity with fat layer exposed (Chronic) Type 2 diabetes mellitus with diabetic polyneuropathy (Chronic) Foot ulcer with fat layer exposed (Chronic) Onycholysis (Chronic) Tinea unguium (Chronic) Ulcer of left lower extremity with fat layer exposed (Chronic) UTI (urinary tract infection) (Chronic) Atherosclerosis of [place] coronary artery of [place] heart without angina pectoris (Chronic) MOULTON to LAD, SVG to circumflex, and SVG to RCA in 1986 Left ventricular failure (Chronic) Peripheral vascular disease (Chronic) ASHD (arteriosclerotic heart disease) (Chronic) Automatic implantable cardiac defibrillator in situ (Chronic) ICD implant: 02/2010 HLD (hyperlipidemia) (Chronic) HTN (hypertension) (Chronic) Atherosclerosis of coronary artery bypass graft without angina pectoris (Chronic ) CABG MOULTON graft to anterior descending, saphenous vein graft to CFX, saphenous vein graft to RCA 1986. [facility] 1987, 01/29/2010, 02/24. Ischemic cardiomyopathy (Chronic) Paroxysmal ventricular tachycardia (Chronic) H/O coronary artery bypass surgery (Chronic) CABG MOULTON graft to anterior descending, saphenous vein graft to CFX, saphenous vein graft to RCA 1986. 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) Open wound of lower extremity without complication (Chronic) Chronic renal insufficiency, stage III (moderate) (Chronic) PAOD (peripheral arterial occlusive disease) (Chronic) Hospital Course and Treatment Imaging Results: CT/Brain/Head without Contrast IMPRESSION: 1. Chronic involutional/microvascular ischemic changes of the brain. No acute intracranial pathology. 2. 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 RAD/Chest 1 View (Portable) IMPRESSION: Stable x-ray examination of the chest, as described. RAD/Foot min 3 Views IMPRESSION: Stable soft tissue swelling extending from the distal lower leg to the toes. Atherosclerotic vascular calcifications also again noted. No acute osseous abnormality. Echo: Interpretation Summary Mildly dilated left ventricle. Severe segmental systolic dysfunction (see wall motion). The estimated ejection fraction is 15 %. Mild global right ventricular systolic dysfunction. The left atrium is moderately enlarged. The right atrium is mildly enlarged. There is mild to moderate mitral annular calcification. Extension of the mitral annular calcification onto the posterior mitral valve leaflet. Mild diffuse mitral valve thickening. Mild (1+) mitral valve insufficiency. Poor coaptation of the tricuspid valve. Moderate (2+) tricuspid valve insufficiency. Mild aortic stenosis. Right ventricular systolic pressure estimated to be 65 mmHg c/w pulmonary hypertension. Unable to assess diastolic dysfunction. ICD or pacer leads identified within the right atrium ICD or pacer leads identified within the right ventricle. US/Abdomen Limited IMPRESSION: 1. Mildly heterogeneous texture of the normal sized liver. A 3 cm subcapsular cyst at the medial inferior right lobe is unchanged. 2. Incidental note of a right pleural effusion. 3. Incomplete visualization of the pancreas. There is suggestion of fatty pancreatic infiltration. 4. No gallstones, nor signs of cholecystitis or bile duct obstruction. 5. Lower pole subcentimeter right renal stone seen on CT is not apparent here. No right hydronephrosis. Consultations [facility] 12/14/17 17:21 Consult: Onc/Wound/mainframe systems programmer Routine Comment: Operations: None Procedures: 2-D Echocardiogram Summary of Care Provided: Physical exam on day of discharge: See daily progress note Hospital course: The patient is a 77 year old M with a history of CAD, prior CABG, ischemic cardiomyopathy, chronic systolic congestive heart failure, polymyalgia rheumatica, COPD with chronic hypoxic respiratory failure dependent on oxygen at night, type 2 diabetes, history of DVTs, history of anxiety and depression, obesity, who presented to the emergency room with chief complaint of confusion. He had diarrhea and abdominal pain for about 3-4 days prior to presentation and his noted he was not eating or drinking very much at home. He is found to be in AK I, he had a mildly elevated troponin, negative EKG, read of CT of the brain, negative chest x-ray. He was admitted as he was found to be severely septic with an elevated lactic acid, leukocytosis, pulse greater than 90, tachypnea. Following morning he was complaining of chest pain continued to have indeterminate troponins. His radio assembler Dr. Velazquez was consulted. He underwent an echocardiogram which demonstrated a significant decrease in his ejection fraction as well as new wall abnormalities. Due to the patient's multiple comorbidities and current acute sickness he was felt to require further evaluation at a tertiary tertiary care center if his family decided to pursue aggressive workup. This would include potentially having a cardiac MR which we do not have here to evaluate whether he had viability to undergo a catheterization. Given his acute kidney injury and his solitary kidney he was at high risk for complications. The options were discussed with the family who decided they did not want any aggressive intervention at this time did not want any transfer. They wanted to get him stabilized and have him transferred to [facility] facility for rehab and potentially pursue options down the road depending on how he was doing. The patient's AK I improved gradually. He was started on medications to manage his underlying cardiomyopathy including beta blockers and restarting his Lasix., And adjusting his home medication doses. Patient continued to have intermittent diarrhea. He was checked for C. difficile which was negative. He remained intermittently confused while here. He had no further chest pain after his medications were adjusted. At one point he did develop some right upper quadrant tenderness and an abdominal ultrasound was done to look at his gallbladder. This was negative for any acute process. As the family desire placement and TCU will start the process for precertification. When he was accepted he was transferred in stable condition to TCU. He will need to follow-up with his PCP as well as with his radio assembler in 1-2 weeks. He is in stable condition and discharged to [facility]. Please follow his BMP with his adjustment of his Lasix and potassium. This patient was seen by Selwyn Shepard PA-C under the supervision of Doctor Fay. [] Discharge Diet: Low fat/ Low Cholesterol, 1800 Calorie Control Diet, 2000 mg Sodium Diet Discharge Activity: Return to Normal Activity Home Medications: Medications to take at Discharge Ergocalciferol [Vitamin D] 50,000 unit PO QMONTH 11/21/17 Escitalopram Oxalate [Lexapro] 20 mg PO DAILY 11/21/17 Finasteride [Proscar] 5 mg PO DAILY 11/21/17 Potassium Chloride [K-Dur] 20 meq PO DAILY 11/21/17 Apixaban [Eliquis] 5 mg PO BID #0 11/23/17 Baclofen 10 mg PO QHS PRN PRN 12/14/17 Insulin Glargine,Hum.rec.anlog [Lantus] 20 unit SQ BID 12/14/17 Prednisone 5 mg PO DAILY 12/14/17 Carvedilol [Coreg (Beta Tae)] 6.25 mg PO BID 12/19/17 Furosemide [Lasix] 40 mg PO BID@1000,1800 12/19/17 Ipratropium/Albuterol Sulfate [Duoneb] 3 ml INHALATION Q4H PRN ampul.neb Isosorbide DN [Isordil] 10 mg PO TID 12/19/17 Psyllium [Metamucil] 1 packet PO DAILY PRN PRN packet 12/19/17 Senna/Docusate Sodium [Senokot-S] 2 tablet PO BID PRN tablet 12/19/17 Primary Care Physician: Guy Gu Chi, MD [Primary Care Provider] - Please follow up with your Primary Care Physician in: 1 week Please Follow Up With: Messi Velazquez MD When: 2 weeks Disposition: Snf facility Minutes spent on discharge:: 40 Patient Condition:: Stable Medical Necessity - Tobacco Use Smoking Status: Former smoker Meaningful Use Info Meaningful Use Diagnoses (Choose all that apply): None applicable <Alireza Aponte - Last Filed: 12/19/17 16:03> Discharge Date and Diagnosis - Secondary Discharge Diagnosis Chronic Problems (Last Updated 08/29/17 @ 10:33 by Karon Nick) Ulcer of left lower extremity with fat layer exposed (Chronic) Type 2 diabetes mellitus with diabetic polyneuropathy (Chronic) Foot ulcer with fat layer exposed (Chronic) Onycholysis (Chronic) Tinea unguium (Chronic) Ulcer of left lower extremity with fat layer exposed (Chronic) UTI (urinary tract infection) (Chronic) Atherosclerosis of [place] coronary artery of [place] heart without angina pectoris (Chronic) MOULTON to LAD, SVG to circumflex, and SVG to RCA in 1986 Left ventricular failure (Chronic) Peripheral vascular disease (Chronic) ASHD (arteriosclerotic heart disease) (Chronic) Automatic implantable cardiac defibrillator in situ (Chronic) ICD implant: 02/2010 HLD (hyperlipidemia) (Chronic) HTN (hypertension) (Chronic) Atherosclerosis of coronary artery bypass graft without angina pectoris (Chronic ) CABG MOULTON graft to anterior descending, saphenous vein graft to CFX, saphenous vein graft to RCA 1986. [facility] 1987, 01/29/2010, 02/24. Ischemic cardiomyopathy (Chronic) Paroxysmal ventricular tachycardia (Chronic) H/O coronary artery bypass surgery (Chronic) CABG MOULTON graft to anterior descending, saphenous vein graft to CFX, saphenous vein graft to RCA 1986. 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 I have independently interviewed and examined the patient and reviewed pertinent historical, laboratory, and other data. Please refer to Selwyn Shepard PA-C note for details of this patient's presentation, findings, and recommendations. I have reviewed Selwyn Shepard PA-C note and concur with documented findings. In brief, patient is a 77-year-old gentleman admitted with altered mental status in addition to diarrhea. Assessment: 1. Acute gastroenteritis suspected to be 2. Acute kidney injury secondary to above 3. Acute metabolic encephalopathy secondary to patient's acute kidney injury 4. Elevated troponin secondary to demand ischemia 5. Chronic hypoxic respiratory failure secondary to COPD on baseline home O2 4. Essential hypertension 5. Diabetes mellitus type II 6. History of DVT patient is on Eliquis 7. EGD with previous CABG 8. Ischemic cardiomyopathy status post AICD placement 9. Right foot strain 10. Chronic kidney disease stage III 11. Physical deconditioning 12. Obesity with BMI of 33.1 13. Depression with anxiety 14. DVT prophylaxis patient on [facility] Hospital course as detailed above by Selwyn Shepard PA-C Time spent on discharge 45 minutes Code Visit Inpatient E&M: 22029 Disch Hosp
== END 2017-12-19 15:38 | disposition skilled nursing facility (03) | DRG 871 ==
LOC: ED 13:20 → PCU 16:54
PROVIDERS: Physician Assistant; Admitting Provider Internal Medicine; Emergency Provider Emergency Medicine; Family Provider Family Medicine Geriatric Medicine; PCP Family Medicine Geriatric Medicine; Visit Provider Internal Medicine
DX: A41.89 Other specified sepsis (principal); G93.41 Metabolic encephalopathy; I21.4 Non-ST elevation (NSTEMI) myocardial infarction; N17.9 Acute kidney failure, unspecified; I47.2 Ventricular tachycardia; N13.8 Other obstructive and reflux uropathy; E87.1 Hypo-osmolality and hyponatremia; I13.0 Hypertensive heart and chronic kidney disease with heart failure and stage 1 through stage 4 chronic kidney disease, or unspecified chronic kidney disease; I50.42 Chronic combined systolic (congestive) and diastolic (congestive) heart failure; J96.11 Chronic respiratory failure with hypoxia; N39.0 Urinary tract infection, site not specified; A08.4 Viral intestinal infection, unspecified; K52.9 Noninfective gastroenteritis and colitis, unspecified; R65.20 Severe sepsis without septic shock; E11.42 Type 2 diabetes mellitus with diabetic polyneuropathy; L97.522 Non-pressure chronic ulcer of other part of left foot with fat layer exposed; L60.1 Onycholysis; B35.1 Tinea unguium; I25.10 Atherosclerotic heart disease of native coronary artery without angina pectoris; E78.5 Hyperlipidemia, unspecified; I25.5 Ischemic cardiomyopathy; N40.1 Benign prostatic hyperplasia with lower urinary tract symptoms; E11.65 Type 2 diabetes mellitus with hyperglycemia; E03.9 Hypothyroidism, unspecified; J44.9 Chronic obstructive pulmonary disease, unspecified; I89.0 Lymphedema, not elsewhere classified; I87.2 Venous insufficiency (chronic) (peripheral); N18.3 Chronic kidney disease, stage 3 (moderate); E11.22 Type 2 diabetes mellitus with diabetic chronic kidney disease; E86.0 Dehydration; Z66 Do not resuscitate; M35.3 Polymyalgia rheumatica; E66.9 Obesity, unspecified; I73.9 Peripheral vascular disease, unspecified; Z87.891 Personal history of nicotine dependence; Z95.1 Presence of aortocoronary bypass graft; Z95.4 Presence of other heart-valve replacement; Z95.810 Presence of automatic (implantable) cardiac defibrillator; Z68.32 Body mass index [BMI] 32.0-32.9, adult; Z86.718 Personal history of other venous thrombosis and embolism; Z99.81 Dependence on supplemental oxygen
CPT/HCPCS: 36415; 70450; 71045; 73630; 76705; 80048; 80053; 80076; 81001; 82962; 83605; 83735; 84443; 84484; 85025; 87040; 87086; 87493; 87633; 87880; 93005; 93306; 97110; 97116; 97162; 97165; 97530; 97535; 97802; 99285; J7030; J7040; P9612; A4216; J1940; J2405

== ENCOUNTER 2017-12-19 15:46 | Inpatient (IN) | payer MEDICARE, SELFPAY ==
[2017-12-19 15:53] VITALS: BP 100/57; PULSE 83; RESP 18; TEMP 35.9; O2SAT 98
--- NOTE | 2017-12-19 15:59 | NURSING ---
pt arrived via WC from [facility] @ [phone]
[2017-12-19 16:00] VITALS: BP 100/57; PULSE 83; RESP 18; TEMP 35.9; O2SAT 98
[2017-12-19 17:00] VITALS: BMI 35.0
[2017-12-19 17:02] VITALS: BMI 35.0
[2017-12-19 17:06] LABS: Bedside Glucose 161 mg/dL (70-110)
[2017-12-19] MEDS: Carvedilol 6.25 MG Tablet PO (17:32)
[2017-12-19] MEDS: Furosemide 40 MG Tablet PO (17:32)
--- NOTE | 2017-12-19 20:31 | PCM.HP.STD ---
Problem List (1) Chronic systolic congestive heart failure Status: Chronic (2) Depression Status: Chronic (3) Acute kidney injury Status: Acute (4) Acute metabolic encephalopathy Status: Acute (5) Acute kidney injury on CKD stage III Status: Acute (6) Abnormal cardiac enzyme level Status: Acute (7) Ulcer of left lower extremity with fat layer exposed Status: Chronic (8) Type 2 diabetes mellitus with diabetic polyneuropathy Status: Chronic (9) HLD (hyperlipidemia) Status: Chronic (10) HTN (hypertension) Status: Chronic Qualifiers: (11) BPH (benign prostatic hypertrophy) with urinary obstruction Status: Chronic (12) COPD (chronic obstructive pulmonary disease) Status: Chronic (13) Lymphedema of both lower extremities Status: Chronic History of Present Illness Date of Admission: 12/19/17 Chief Complaint: Here for rehabilitation, strengthening, prior to discharge home with spouse. The patient is a 77 year old Male with below past medical history presented to [facility] Emergency Department 12/14/2017 with confusion, change in mental status. 12/14/2018 CT brain chronic involutional changes, chronic sinusitis. 12/14/2017 Chest X-ray stable. 12/14/2017 X-ray right foot swelling, vascular calcifications. Diarrhea 3-4 times per day, watery, no blood. Abdominal pain, nausea, resolved. Became acutely confused. EKG sinus rhythm, rate 96, non-specific ST changes. Hemoglobin 10.9, Hematocrit 34.3. Sodium 131, Glucose 332, BUN 46, Cr 2.34. AST 108, ALT 96, Troponin 0.35. Aspirin, NS 500ML given. 12/14/2017 Admit to Hospital. IV fluids for dehydration, acute kidney injury. Infection work-up for encephalopathy. 12/15/2017 Dr. Velazquez recommended echo, possible stress test for elevated troponin. 12/16/2017 Abdominal ultrasound showed liver cyst, right pleural effusion. 12/16/2017 Echo EF 15% Severe segmental systolic dysfunction. Mild global RV dysfunction. Patient/family offered transfer to tertiary care center for further evaluation of cardiac status. Family declined transfer, opting for conservative medical management. Beta blockers, Lasix for cardiomyopathy. C. Diff negative. 12/19/2017 Admit to TCU for rehabilitation, strengthening, prior to discharge home with spouse. 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) Foot ulcer with fat layer exposed (Chronic) Onycholysis (Chronic) Tinea unguium (Chronic) Ulcer of left lower extremity with fat layer exposed (Chronic) UTI (urinary tract infection) (Chronic) Atherosclerosis of [place] coronary artery of [place] heart without angina pectoris (Chronic) MOULTON to LAD, SVG to circumflex, and SVG to RCA in 1986 Left ventricular failure (Chronic) Peripheral vascular disease (Chronic) ASHD (arteriosclerotic heart disease) (Chronic) Automatic implantable cardiac defibrillator in situ (Chronic) ICD implant: 02/2010 HLD (hyperlipidemia) (Chronic) HTN (hypertension) (Chronic) Atherosclerosis 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 [facility] 1987, 01/29/2010, 02/24. Ischemic cardiomyopathy (Chronic) Paroxysmal ventricular tachycardia (Chronic) H/O coronary artery bypass surgery (Chronic) CABG MOULTON graft to anterior descending, saphenous vein graft to CFX, saphenous vein graft to RCA 1986. 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) Open wound of lower extremity without complication (Chronic) Chronic renal insufficiency, stage III (moderate) (Chronic) PAOD (peripheral arterial occlusive disease) (Chronic) Allergies erythromycin base Allergy (Mild, Verified 11/22/17 10:36) Hives cyclobenzaprine HCl [From Flexeril] Allergy (Verified 11/21/17 12:35) Rash latex Allergy (Verified 11/21/17 12:35) Swelling Penicillins Allergy (Verified 11/21/17 12:35) Rash Sulfa (Sulfonamide Antibiotics) Allergy (Verified 11/21/17 12:35) Rash tetracycline Allergy (Verified 11/22/17 10:36) Hives acetaminophen [From Percocet] Adverse Reaction (Verified 11/21/17 12:35) Other HALLUCINATES oxycodone [From Percocet] Adverse Reaction (Verified 11/21/17 12:35) Other HALLUCINATES iv dye Adverse Reaction (Uncoded 11/21/17 12:35) only has 1 kidney Home Medications: Ambulatory Orders Medication Instructions Recorded Ergocalciferol [Vitamin D] 50,000 unit PO QMONTH 11/21/17 Escitalopram Oxalate [Lexapro] 20 mg PO DAILY 11/21/17 Finasteride [Proscar] 5 mg PO DAILY 11/21/17 Potassium Chloride [K-Dur] 20 meq PO DAILY 11/21/17 Apixaban [Eliquis] 5 mg PO BID #0 11/23/17 Baclofen 10 mg PO QHS PRN PRN 12/14/17 Insulin Glargine,Hum.rec.anlog 20 unit SQ BID 12/14/17 [Lantus] Prednisone 5 mg PO DAILY 12/14/17 Carvedilol [Coreg (Beta Tae)] 6.25 mg PO BID 12/19/17 Furosemide [Lasix] 40 mg PO BID@1000,1800 12/19/17 Ipratropium/Albuterol Sulfate 3 ml INHALATION Q4H PRN ampul.neb 12/19/17 [Duoneb] Isosorbide DN [Isordil] 10 mg PO TID 12/19/17 Psyllium [Metamucil] 1 packet PO DAILY PRN PRN packet 12/19/17 Senna/Docusate Sodium [Senokot-S] 2 tablet PO BID PRN tablet 12/19/17 Surgical History: coronary bypass surgery, pacemaker implantation, TURP Psychiatric History: Anxiety, Depression Lives: Spouse/ Significant Other Smoking Status: Former smoker Tobacco Use: Non-smoker Alcohol: None Drugs: None - *Family History Maternal History Items: No pertinent history Paternal History Items: Heart Disease, No pertinent history Review of Systems Constitutional: Denies: Chills, Fever, Weight Change HEENT: Denies: Head Aches, Sinus Congestion, Sinus Drainage Cardiovascular: Denies: Chest Pain, Palpitations Respiratory: Denies: Cough, Shortness of breath at rest, Sputum production Gastrointestinal: Denies: Abdominal Pain, Nausea, Vomiting Genitourinary: Denies: Dysuria Musculoskeletal: Denies: Joint Pain, Joint Tenderness Skin: Denies: Rash, Wounds Neurological: Denies: Numbness, Tingling, Focal weakness Psychiatric: Denies: Anxiety, Depression, Homicidal Ideations, Suicidal Ideations Hematologic/ Lymphatic: Denies: Easy Bruising, Easy Bleeding VTE Information - Inpt Only VTE Present on Admission: No VTE Mechan Device Prophylaxis: Knee High BRAULIO Hose VTE Pharm Prophylaxis ordered?: No Reason prophylaxis not ordered:: Treatment Not Indicated Patient Problems: Active and Suspected Problems (Last Updated 08/29/17 @ 10:33 by Karon Nick) Acute kidney injury (Acute) - Physical Exam General: Alert, Oriented x3, Cooperative HEENT: Atraumatic, PERRLA, EOMI, Normocephalic Neck: Supple, No JVD, Negative Carotid Bruits Lungs: Clear to auscultation, Normal air movement Cardiovascular: Regular rate, No murmurs Abdomen: Bowel Sounds Present, Soft, Non Tender Extremities: Capillary Refill Less than 3 Seconds, Edema - 1+ itting edema bilaterally. Skin: No rashes, No breakdown Musculoskeletal: No Tenderness to Palpation of Joints or Extremities Neurological: Cranial nerves II-XII grossly intact Psych/Mental Status: Normal Affect, Appropriate Vital Signs Temp Pulse Resp BP Pulse Ox 96.7 F L 83 18 100/57 L 98 12/19/17 16:00 12/19/17 16:00 12/19/17 16:00 12/19/17 16:00 12/19/17 16:00 Oxygen Flow Rate (L/min) 1 Oxygen Delivery Method Nasal Cannula Weight: 104.553 kg Body Mass Index (BMI) 35.0 Finger Stick Blood Glucose 357 Intake and Output for Last 24 Hours 12/17/17 12/18/17 12/19/17 23:59 23:59 23:59 Intake Total 310 / 310 Balance 310 / 310 POC Glucose 12/19/17 17:02 POC Glucose 161 H Assessment/Plan Active and Suspected Problems (Last Updated 08/29/17 @ 10:33 by Karon Nick) Acute kidney injury (Acute) 77 year old male with below past medical history hospitalized for acute encephalopathy secondary to viral gastroenteritis, complicated by acute kidney injury, chronic systolic heart failure (EF 15%), elevated troponin, admitted to TCU with debility, here for rehabilitation, strengthening, prior to discharge home with spouse. Debility - PT/OT. Pain - Tylenol 1000MG Q8H PRN mild pain. Bowel - Miralax 17GM daily, Senna/colace 1 tablet BID, Dulcolax 10MG CT daily PRN. Pneumonia vaccination - Administer Prevnar 13 and/or Pneumovax 23 as necessary. DVT prophylaxis - Not necessary, already on Eliquis 5MG BID. DVT/PE - Eliquis 5MG BID. Muscle spasm - Baclofen 10MG QHS PRN. Chronic systolic heart failure - Coreg 6.25MG BID, Lasix 40MG BID. Vitamin D deficiency - D2 50,000 units per month. Depression - Lexapro 20MG daily. BPH - Finasteride 5MG daily. Nutrition - Glucerna shake 120ML 4x/day, Rayshawn 1 packet BID. Diabetes Mellitus II - Levemir 20 units twice daily. Shortness of breath - Duoneb 3ML Q4H PRN. Coronary Artery Disease - Coreg 6.25MG BID, Isordil 10MG TID. Hypokalemia - K-Dur 20MEQ daily. Polymyalgia Rheumatica - Prednisone 5MG daily.
--- NOTE | 2017-12-19 20:41 | HP.PCM_ITS ---
Problem List (1) Chronic systolic congestive heart failure Status: Chronic (2) Depression Status: Chronic (3) Acute kidney injury Status: Acute (4) Acute metabolic encephalopathy Status: Acute (5) Acute kidney injury on CKD stage III Status: Acute (6) Abnormal cardiac enzyme level Status: Acute (7) Ulcer of left lower extremity with fat layer exposed Status: Chronic (8) Type 2 diabetes mellitus with diabetic polyneuropathy Status: Chronic (9) HLD (hyperlipidemia) Status: Chronic (10) HTN (hypertension) Status: Chronic Qualifiers: (11) BPH (benign prostatic hypertrophy) with urinary obstruction Status: Chronic (12) COPD (chronic obstructive pulmonary disease) Status: Chronic (13) Lymphedema of both lower extremities Status: Chronic History of Present Illness Date of Admission: 12/19/17 Chief Complaint: Here for rehabilitation, strengthening, prior to discharge home with spouse. The patient is a 77 year old Male with below past medical history presented to [facility] Emergency Department 12/14/2017 with confusion, change in mental status. 12/14/2018 CT brain chronic involutional changes, chronic sinusitis. 12/14/2017 Chest X-ray stable. 12/14/2017 X-ray right foot swelling, vascular calcifications. Diarrhea 3-4 times per day, watery, no blood. Abdominal pain, nausea, resolved. Became acutely confused. EKG sinus rhythm, rate 96, non-specific ST changes. Hemoglobin 10.9, Hematocrit 34.3. Sodium 131, Glucose 332, BUN 46, Cr 2.34. AST 108, ALT 96, Troponin 0.35. Aspirin, NS 500ML given. 12/14/2017 Admit to Hospital. IV fluids for dehydration, acute kidney injury. Infection work-up for encephalopathy. 12/15/2017 Dr. Velazquez recommended echo, possible stress test for elevated troponin. 12/16/2017 Abdominal ultrasound showed liver cyst, right pleural effusion. 12/16/2017 Echo EF 15% Severe segmental systolic dysfunction. Mild global RV dysfunction. Patient/family offered transfer to tertiary care center for further evaluation of cardiac status. Family declined transfer, opting for conservative medical management. Beta blockers, Lasix for cardiomyopathy. C. Diff negative. 12/19/2017 Admit to TCU for rehabilitation, strengthening, prior to discharge home with spouse. 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) Foot ulcer with fat layer exposed (Chronic) Onycholysis (Chronic) Tinea unguium (Chronic) Ulcer of left lower extremity with fat layer exposed (Chronic) UTI (urinary tract infection) (Chronic) Atherosclerosis of [place] coronary artery of [place] heart without angina pectoris (Chronic) MOULTON to LAD, SVG to circumflex, and SVG to RCA in 1986 Left ventricular failure (Chronic) Peripheral vascular disease (Chronic) ASHD (arteriosclerotic heart disease) (Chronic) Automatic implantable cardiac defibrillator in situ (Chronic) ICD implant: 02/2010 HLD (hyperlipidemia) (Chronic) HTN (hypertension) (Chronic) Atherosclerosis of coronary artery bypass graft without angina pectoris (Chronic ) CABG MOULTON graft to anterior descending, saphenous vein graft to CFX, saphenous vein graft to RCA 1986. [facility] 1987, 01/29/2010, 02/24. Ischemic cardiomyopathy (Chronic) Paroxysmal ventricular tachycardia (Chronic) H/O coronary artery bypass surgery (Chronic) CABG MOULTON graft to anterior descending, saphenous vein graft to CFX, saphenous vein graft to RCA 1986. 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) Open wound of lower extremity without complication (Chronic) Chronic renal insufficiency, stage III (moderate) (Chronic) PAOD (peripheral arterial occlusive disease) (Chronic) Allergies erythromycin base Allergy (Mild, Verified 11/22/17 10:36) Hives cyclobenzaprine HCl [From Flexeril] Allergy (Verified 11/21/17 12:35) Rash latex Allergy (Verified 11/21/17 12:35) Swelling Penicillins Allergy (Verified 11/21/17 12:35) Rash Sulfa (Sulfonamide Antibiotics) Allergy (Verified 11/21/17 12:35) Rash tetracycline Allergy (Verified 11/22/17 10:36) Hives acetaminophen [From Percocet] Adverse Reaction (Verified 11/21/17 12:35) Other HALLUCINATES oxycodone [From Percocet] Adverse Reaction (Verified 11/21/17 12:35) Other HALLUCINATES iv dye Adverse Reaction (Uncoded 11/21/17 12:35) only has 1 kidney Home Medications: Ambulatory Orders Medication Instructions Recorded Ergocalciferol [Vitamin D] 50,000 unit PO QMONTH 11/21/17 Escitalopram Oxalate [Lexapro] 20 mg PO DAILY 11/21/17 Finasteride [Proscar] 5 mg PO DAILY 11/21/17 Potassium Chloride [K-Dur] 20 meq PO DAILY 11/21/17 Apixaban [Eliquis] 5 mg PO BID #0 11/23/17 Baclofen 10 mg PO QHS PRN PRN 12/14/17 Insulin Glargine,Hum.rec.anlog 20 unit SQ BID 12/14/17 [Lantus] Prednisone 5 mg PO DAILY 12/14/17 Carvedilol [Coreg (Beta Tae)] 6.25 mg PO BID 12/19/17 Furosemide [Lasix] 40 mg PO BID@1000,1800 12/19/17 Ipratropium/Albuterol Sulfate 3 ml INHALATION Q4H PRN ampul.neb 12/19/17 [Duoneb] Isosorbide DN [Isordil] 10 mg PO TID 12/19/17 Psyllium [Metamucil] 1 packet PO DAILY PRN PRN packet 12/19/17 Senna/Docusate Sodium [Senokot-S] 2 tablet PO BID PRN tablet 12/19/17 Surgical History: coronary bypass surgery, pacemaker implantation, TURP Psychiatric History: Anxiety, Depression Lives: Spouse/ Significant Other Smoking Status: Former smoker Tobacco Use: Non-smoker Alcohol: None Drugs: None - *Family History Maternal History Items: No pertinent history Paternal History Items: Heart Disease, No pertinent history Review of Systems Constitutional: Denies: Chills, Fever, Weight Change HEENT: Denies: Head Aches, Sinus Congestion, Sinus Drainage Cardiovascular: Denies: Chest Pain, Palpitations Respiratory: Denies: Cough, Shortness of breath at rest, Sputum production Gastrointestinal: Denies: Abdominal Pain, Nausea, Vomiting Genitourinary: Denies: Dysuria Musculoskeletal: Denies: Joint Pain, Joint Tenderness Skin: Denies: Rash, Wounds Neurological: Denies: Numbness, Tingling, Focal weakness Psychiatric: Denies: Anxiety, Depression, Homicidal Ideations, Suicidal Ideations Hematologic/ Lymphatic: Denies: Easy Bruising, Easy Bleeding VTE Information - Inpt Only VTE Present on Admission: No VTE Mechan Device Prophylaxis: Knee High BRAULIO Hose VTE Pharm Prophylaxis ordered?: No Reason prophylaxis not ordered:: Treatment Not Indicated Patient Problems: Active and Suspected Problems (Last Updated 08/29/17 @ 10:33 by Karon Nick) Acute kidney injury (Acute) - Physical Exam General: Alert, Oriented x3, Cooperative HEENT: Atraumatic, PERRLA, EOMI, Normocephalic Neck: Supple, No JVD, Negative Carotid Bruits Lungs: Clear to auscultation, Normal air movement Cardiovascular: Regular rate, No murmurs Abdomen: Bowel Sounds Present, Soft, Non Tender Extremities: Capillary Refill Less than 3 Seconds, Edema - 1+ itting edema bilaterally. Skin: No rashes, No breakdown Musculoskeletal: No Tenderness to Palpation of Joints or Extremities Neurological: Cranial nerves II-XII grossly intact Psych/Mental Status: Normal Affect, Appropriate Vital Signs Temp Pulse Resp BP Pulse Ox 96.7 F L 83 18 100/57 L 98 12/19/17 16:00 12/19/17 16:00 12/19/17 16:00 12/19/17 16:00 12/19/17 16:00 Oxygen Flow Rate (L/min) 1 Oxygen Delivery Method Nasal Cannula Weight: 104.553 kg Body Mass Index (BMI) 35.0 Finger Stick Blood Glucose 357 Intake and Output for Last 24 Hours 12/17/17 12/18/17 12/19/17 23:59 23:59 23:59 Intake Total 310 / 310 Balance 310 / 310 POC Glucose 12/19/17 17:02 POC Glucose 161 H Assessment/Plan Active and Suspected Problems (Last Updated 08/29/17 @ 10:33 by Karon Nick) Acute kidney injury (Acute) 77 year old male with below past medical history hospitalized for acute encephalopathy secondary to viral gastroenteritis, complicated by acute kidney injury, chronic systolic heart failure (EF 15%), elevated troponin, admitted to TCU with debility, here for rehabilitation, strengthening, prior to discharge home with spouse. * Debility - PT/OT. * Pain - Tylenol 1000MG Q8H PRN mild pain. * Bowel - Miralax 17GM daily, Senna/colace 1 tablet BID, Dulcolax 10MG WI daily PRN. * Pneumonia vaccination - Administer Prevnar 13 and/or Pneumovax 23 as necessary. * DVT prophylaxis - Not necessary, already on Eliquis 5MG BID. * DVT/PE - Eliquis 5MG BID. * Muscle spasm - Baclofen 10MG QHS PRN. * Chronic systolic heart failure - Coreg 6.25MG BID, Lasix 40MG BID. * Vitamin D deficiency - D2 50,000 units per month. * Depression - Lexapro 20MG daily. * BPH - Finasteride 5MG daily. * Nutrition - Glucerna shake 120ML 4x/day, Rayshawn 1 packet BID. * Diabetes Mellitus II - Levemir 20 units twice daily. * Shortness of breath - Duoneb 3ML Q4H PRN. * Coronary Artery Disease - Coreg 6.25MG BID, Isordil 10MG TID. * Hypokalemia - K-Dur 20MEQ daily. * Polymyalgia Rheumatica - Prednisone 5MG daily.
[2017-12-19] MEDS: Glucerna Shake 120 ML LIQUID PO (21:06)
[2017-12-19] MEDS: Isosorbide DN 10 MG Tablet PO (21:07)
[2017-12-19 21:36] LABS: Bedside Glucose 245 mg/dL (70-110)
--- NOTE | 2017-12-20 00:55 | NURSING ---
Pt keeps getting out of bed without help. instructed pt not to get up without calling for someone first. pa applied do to multiple times being up and not calling
--- NOTE | 2017-12-20 00:55 | NURSING ---
Pt transferring to the restroom and bed numerous times without calling for help. Explained the safety of using the call light and PA was applied. Pt returned back to bed with call light in reach.
[2017-12-20] MEDS: Finasteride 5 MG Tablet PO (05:01)
[2017-12-20] MEDS: Escitalopram Oxalate 20 MG Tablet PO (05:01)
[2017-12-20] MEDS: Carvedilol 6.25 MG Tablet PO ×2 (05:01→17:18)
[2017-12-20] MEDS: Isosorbide DN 10 MG Tablet PO ×3 (05:01→20:21)
[2017-12-20] MEDS: Glucerna Shake 120 ML LIQUID PO ×3 (05:01→20:20)
[2017-12-20] MEDS: Menthol/Lanolin/Calamine/Znox 113 GM Tube 1 APPLIC TOPICAL ×2 (05:05→17:19)
[2017-12-20 06:19] LABS: Hematocrit 33.2 % (40-54); Hemoglobin 9.9 g/dl (13.0-16.5); Mean Corp Hgb Conc 29.8 g/gl (32-36); Mean Corpuscular Hgb 25.8 pg (27.0-32.0); Mean Corpuscular Volume 86.5 fL (80-94); Mean Platelet Vol. 10.3 fl (6.2-12.0); Platelet Count 190 K/mm3 (150-450); RBC Distribution Width CV 16.2 % (11.6-14.6); RBC Distribution Width SD 50.6 fl (35.1-43.9); Red Blood Count 3.84 M/mm3 (4.6-6.2); White Blood Count 7.8 K/mm3 (4.4-11.0)
[2017-12-20 06:20] LABS: Anion Gap 5 (5-15); BUN 28 mg/dL (7-18); BUN/Creat Ratio 21.9 RATIO (10-20); Calcium,Total 9.5 mg/dL (8.5-10.1); Chloride 105 mmol/L (98-107); Creatinine, Serum 1.28 mg/dL (0.70-1.30); Differential Indicated MANUAL DIFF; EST Glomerular Filtration Rate 58 mL/min (>60); Est Glom Filt Rate - Afr Amer 70 mL/min (>60); Estimated Creatinine Clearance 46.76 ml/min; Glucose 105 mg/dL (74-106); POSITIVE COUNT YES; POSITIVE DIFFERENTIAL NO; POSITIVE MORPHOLOGY YES; Potassium 3.6 mmol/L (3.5-5.1); Sodium Level 143 mmol/L (136-145)
[2017-12-20 06:35] LABS: Anisocytosis 1+; Basophil 1 % (0-1); Hypochromasia 1+; Lymphocyte 16 % (19-41); Metamyelocyte 3 % (0-1); Monocyte 3 % (0-10); Neutrophil-Band 2 % (0-5); Neutrophil-Segmented 75 % (47-70); Nucleated Red Bld Cells,Manual 2 % (0-5); Total Cells Counted 100 (MANUAL DIFF)
[2017-12-20 06:36] LABS: Microcytosis 1+; Platelet Estimate ADEQUATE (ADEQ); Polychromasia 1+
[2017-12-20 06:37] VITALS: O2SAT 98
[2017-12-20 06:39] LABS: Absolute Lymphocyte Count 1.25 X10^3/ul (0.83-4.51)
[2017-12-20 06:46] LABS: Bedside Glucose 118 mg/dL (70-110)
[2017-12-20] MEDS: predniSONE 5 MG Tablet PO (08:10)
[2017-12-20] MEDS: Furosemide 40 MG Tablet PO ×2 (08:10→17:18)
[2017-12-20] MEDS: Tuberculin,Purif.prot.deriv. 50 TU/ML Vial 5 ML ID (11:39)
[2017-12-20 11:55] LABS: Bedside Glucose 137 mg/dL (70-110)
[2017-12-20 13:21] LABS: Pathologist Review Reviewed
--- NOTE | 2017-12-20 14:39 | NURSING ---
wound photo: left posterior lower leg
[2017-12-20 14:44] VITALS: BP 121/72; PULSE 92; RESP 18; TEMP 36.3; O2SAT 96
[2017-12-20 17:00] LABS: Bedside Glucose 149 mg/dL (70-110)
[2017-12-20] MEDS: SACUBITRIL/VALSARTAN 24/26 MG TABLET 1 EACH PO (17:18)
[2017-12-20 21:12] VITALS: PULSE 88; RESP 16; O2SAT 100
[2017-12-20 22:01] LABS: Bedside Glucose 213 mg/dL (70-110)
[2017-12-21] MEDS: Baclofen 10 MG Tablet PO (00:26)
[2017-12-21] MEDS: Menthol/Lanolin/Calamine/Znox 113 GM Tube 1 APPLIC TOPICAL ×2 (04:54→17:04)
[2017-12-21] MEDS: Glucerna Shake 120 ML LIQUID PO ×4 (04:54→21:15)
[2017-12-21] MEDS: Senna/Docusate Sodium 1 Tablet PO ×2 (04:56→17:08)
[2017-12-21] MEDS: Finasteride 5 MG Tablet PO (04:56)
[2017-12-21] MEDS: Escitalopram Oxalate 20 MG Tablet PO (04:57)
[2017-12-21] MEDS: Carvedilol 6.25 MG Tablet PO ×2 (04:57→17:06)
[2017-12-21] MEDS: SACUBITRIL/VALSARTAN 24/26 MG TABLET 1 EACH PO ×2 (04:57→17:08)
[2017-12-21] MEDS: Isosorbide DN 10 MG Tablet PO ×3 (04:57→21:15)
--- NOTE | 2017-12-21 06:05 | NURSING ---
PATIENT HAS EDEMA LEGS AND FEET. FOUND EATING PEANUT BUTTER CRACKERS X 2 DURING THE NIGHT. ENC TO HAVE BETTER SNACK TO DECREASE EDEMA. VERBALIZES UNDERSTANDING. CLARITA, RN AND KELLY RN NOTIFIED OF SAME. WILL CONT TO MONITOR.
[2017-12-21 06:35] LABS: Bedside Glucose 175 mg/dL (70-110)
[2017-12-21 07:47] VITALS: O2SAT 98
[2017-12-21] MEDS: Furosemide 40 MG Tablet PO ×2 (08:15→17:08)
[2017-12-21] MEDS: predniSONE 5 MG Tablet PO (08:15)
[2017-12-21 11:31] LABS: Bedside Glucose 214 mg/dL (70-110)
--- NOTE | 2017-12-21 12:21 | CASEMGMT ---
Insurance Clinical information faxed. Pending continued stay approval at this time. Auth# - waiting to obtain at this time. Donna PATEL, [employer]
[2017-12-21 12:45] VITALS: BP 107/68; PULSE 83; RESP 18; TEMP 36.6; O2SAT 96
--- NOTE | 2017-12-21 12:47 | NURSING ---
Addendum entered by Joann Reynolds 12/21/17 18:07: DR GU AWARE, NEW ORDER TO D/C BACLOFEN. PT MORE ALERT/AWAKE THIS EVENING. Original Note: pt noted to be lethargic today. Vitals stable, neurocheck WNL. Pt had trouble opening eyes. Baclofen was given after midnight. Able to follow commands appropriately. Pt stated he did not sleep well last hs. Will update Dr Gu. Pt resting in recliner chair, PA in place.
[2017-12-21 15:25] VITALS: BP 100/62; PULSE 80; RESP 18; TEMP 37.1; O2SAT 98
[2017-12-21 16:51] LABS: Bedside Glucose 224 mg/dL (70-110)
[2017-12-21] MEDS: CLARIFY ORDER NOTE (18:28)
[2017-12-21] MEDS: APIXABAN 5 MG TABLET PO (18:30)
[2017-12-21 21:06] LABS: Bedside Glucose 310 mg/dL (70-110)
[2017-12-21 22:00] VITALS: PULSE 88; RESP 18; O2SAT 98
[2017-12-22] MEDS: Glucerna Shake 120 ML LIQUID PO ×3 (04:18→21:15)
[2017-12-22] MEDS: APIXABAN 5 MG TABLET PO ×2 (04:21→17:13)
[2017-12-22] MEDS: SACUBITRIL/VALSARTAN 24/26 MG TABLET 1 EACH PO ×2 (04:21→17:13)
[2017-12-22] MEDS: Escitalopram Oxalate 20 MG Tablet PO (04:22)
[2017-12-22] MEDS: Finasteride 5 MG Tablet PO (04:22)
[2017-12-22] MEDS: Isosorbide DN 10 MG Tablet PO ×3 (04:23→21:15)
[2017-12-22] MEDS: Senna/Docusate Sodium 1 Tablet PO ×2 (04:23→17:51)
[2017-12-22] MEDS: Carvedilol 6.25 MG Tablet PO ×2 (04:23→17:13)
[2017-12-22] MEDS: Menthol/Lanolin/Calamine/Znox 113 GM Tube 1 APPLIC TOPICAL ×2 (04:24→17:14)
[2017-12-22 06:25] LABS: Bedside Glucose 155 mg/dL (70-110)
[2017-12-22 07:00] VITALS: PULSE 82; RESP 18; O2SAT 97
[2017-12-22] MEDS: predniSONE 5 MG Tablet PO (08:07)
[2017-12-22] MEDS: Furosemide 40 MG Tablet PO ×2 (08:07→17:21)
[2017-12-22 11:21] LABS: Bedside Glucose 193 mg/dL (70-110)
--- NOTE | 2017-12-22 12:08 | PCM.PN.RX ---
<Lee Sy D - Last Filed: 12/22/17 12:08> Progress Note - Pharmacy Subjective: TCU Admission Objective: Allergies erythromycin base Allergy (Mild, Verified 11/22/17 10:36) Hives cyclobenzaprine HCl [From Flexeril] Allergy (Verified 11/21/17 12:35) Rash latex Allergy (Verified 11/21/17 12:35) Swelling Penicillins Allergy (Verified 11/21/17 12:35) Rash Sulfa (Sulfonamide Antibiotics) Allergy (Verified 11/21/17 12:35) Rash tetracycline Allergy (Verified 11/22/17 10:36) Hives acetaminophen [From Percocet] Adverse Reaction (Verified 11/21/17 12:35) Other HALLUCINATES oxycodone [From Percocet] Adverse Reaction (Verified 11/21/17 12:35) Other HALLUCINATES iv dye Adverse Reaction (Uncoded 11/21/17 12:35) only has 1 kidney Home Medications Medication Instructions Recorded Ergocalciferol [Vitamin D] 50,000 unit PO QMONTH 11/21/17 Escitalopram Oxalate [Lexapro] 20 mg PO DAILY 11/21/17 Finasteride [Proscar] 5 mg PO DAILY 11/21/17 Potassium Chloride [K-Dur] 20 meq PO DAILY 11/21/17 Apixaban [Eliquis] 5 mg PO BID #0 11/23/17 Baclofen 10 mg PO QHS PRN PRN 12/14/17 Insulin Glargine,Hum.rec.anlog 20 unit SQ BID 12/14/17 [Lantus] Prednisone 5 mg PO DAILY 12/14/17 Carvedilol [Coreg (Beta Tae)] 6.25 mg PO BID 12/19/17 Furosemide [Lasix] 40 mg PO BID@1000,1800 12/19/17 Ipratropium/Albuterol Sulfate 3 ml INHALATION Q4H PRN ampul.neb 12/19/17 [Duoneb] Isosorbide DN [Isordil] 10 mg PO TID 12/19/17 Psyllium [Metamucil] 1 packet PO DAILY PRN PRN packet 12/19/17 Senna/Docusate Sodium [Senokot-S] 2 tablet PO BID PRN tablet 12/19/17 Current Medications Generic Name Dose Route Start Last Admin Trade Name Freq PRN Reason Stop Dose Admin Acetaminophen 1,000 mg 12/19/17 21:00 Tylenol PO Q8H PRN PRN MILD PAIN (1-3/10) Albuterol/Ipratropium 3 ml 12/19/17 15:59 Duoneb INHALATION Q4H PRN sob Apixaban 5 mg 12/21/17 18:00 12/22/17 04:21 Eliquis PO 5 mg BID [facility] Administration Bisacodyl 10 mg 12/19/17 16:06 Dulcolax RECTAL DAILY PRN Constipation Calamine/Phenol 1 applic 12/20/17 06:00 12/22/17 04:24 Calmoseptine Ointment TOPICAL 1 applicatio BID [facility] Administration Protocol Carvedilol 6.25 mg 12/19/17 18:00 12/22/17 04:23 Coreg PO 6.25 mg BID SEAN Administration Dextrose 0 gm 12/20/17 01:00 D50w Syringe IV X1 PRN Hypoglycemia Protocol Ergocalciferol 50,000 unit 01/01/18 08:00 Vitamin D PO QMONTH [facility] Escitalopram Oxalate 20 mg 12/20/17 06:00 12/22/17 04:22 Lexapro PO 20 mg DAILY SEAN Administration Finasteride 5 mg 12/20/17 06:00 12/22/17 04:22 Proscar PO 5 mg DAILY [facility] Administration Furosemide 40 mg 12/19/17 18:00 12/22/17 08:07 Lasix PO 40 mg BID@1000,1800 [facility] Administration Glucagon 1 mg 12/20/17 01:00 IM .X1 PRN Hypoglycemia Insulin Aspart 10 units 12/22/17 06:45 12/22/17 11:48 Novolog Flexpen (Bkc) SC 10 units TIDAC [facility] Administration Insulin Detemir 15 units 12/21/17 21:25 12/22/17 08:10 Levemir (Bkc) SC 15 units BID [facility] Administration Isosorbide Dinitrate 10 mg 12/19/17 22:00 12/22/17 04:23 Isordil PO 10 mg TID [facility] Administration Nutritional Formula 1 packet 12/19/17 17:00 12/22/17 08:07 Rayshawn - [place] Flavor PO 1 packet BIDCM [facility] Administration Nutritional Formula (Lactose Free) 120 ml 12/19/17 22:00 12/22/17 11:47 Glucerna Shake PO 120 ml 4X/DAY SE[facility] Administration Polyethylene Glycol 17 gm 12/20/17 06:00 12/22/17 04:24 Miralax PO Not Given DAILY [facility] Potassium Chloride 20 meq 12/20/17 06:00 12/22/17 04:21 K-Dur PO 20 meq DAILY [facility] Administration Prednisone 5 mg 12/20/17 08:00 12/22/17 08:07 PO 5 mg DAILYCM [facility] Administration Senna/Docusate Sodium 1 tablet 12/20/17 06:00 12/22/17 04:23 Senokot-S, Maggie-Colace PO 1 tablet BID [facility] Administration Tuberculin PPD 5 tu 12/27/17 10:00 Tubersol, Aplisol, Ppd ID 12/27/17 10:01 X1 ONE Problem List (Last Updated 08/29/17 @ 10:33 by Karon Nick) Chronic systolic congestive heart failure (Chronic) Depression (Chronic) Acute kidney injury (Acute) Vital Signs Temp Pulse Resp BP Pulse Ox 98.7 F 82 18 100/62 97 12/21/17 15:25 12/22/17 07:00 12/22/17 07:00 12/21/17 15:25 12/22/17 07:00 Oxygen Flow Rate (L/min) 2 Oxygen Delivery Method Nasal Cannula Weight: 104.15 kg Body Mass Index (BMI) 35.0 Finger Stick Blood Glucose 357 Sodium 143 mmol/L (136-145) 12/20/17 05:05 Potassium 3.6 mmol/L (3.5-5.1) 12/20/17 05:05 Chloride 105 mmol/L (98-107) 12/20/17 05:05 Carbon Dioxide 33.0 mmol/L (21.0-32.0) H 12/20/17 05:05 Anion Gap 5 (5-15) 12/20/17 05:05 BUN 28 mg/dL (7-18) H 12/20/17 05:05 Creatinine 1.28 mg/dL (0.70-1.30) 12/20/17 05:05 Est GFR (MDRD) Af Amer 70 mL/min (>60) 12/20/17 05:05 Est GFR (MDRD) Non-Af 58 mL/min (>60) L 12/20/17 05:05 BUN/Creatinine Ratio 21.9 RATIO (10-20) H 12/20/17 05:05 Glucose 105 mg/dL (74-106) 12/20/17 05:05 Assessment/Plan: 1) Pain APAP for mild pain, prednisone daily. Continue to monitor prn medication use, daily pain scores. 2) CAD/DVT/CHF Carvedilol, isosorbide, apixaban, furosemide/KCl. Avg BP/HR within goal ranges, K wnl. Continue to monitor BP/HR, electrolytes, BUN/SCr, hgb/hct, s/s bleeding, for chest pain. 3) Pulm Duoneb aerosols as needed. Continue to monitor prn medication use, for shortness of breath. 4) DM2 Insulin aspart 3x daily, detemir twice daily. BGT fluctuating, mainly low-200s on average, highest at HS. Continue to monitor insulin requirements, s/s hyper/hypoglycemia. 5) BPH Finasteride daily. Continue to monitor for symptoms. 6) Nutrition Rayshawn, Glucerna, ergocalciferol. Continue to monitor clinically. Psychotropic Medications: 7) Depression Escitalopram daily. Continue to monitor s/s depression. Unnecessary Medications: None Bowel Regimen: 8) Senna/s, PEG, prn bisacodyl. Continue to monitor prn medication use, for constipation/diarrhea. Date of Note:: 12/22/17 - Provider Comments Provider responsibility: Provider responsible to enter orders to implement recommendations <Guy Gu Chi - Last Filed: 12/22/17 17:57> Progress Note - Pharmacy Subjective: [] Objective: Allergies erythromycin base Allergy (Mild, Verified 11/22/17 10:36) Hives cyclobenzaprine HCl [From Flexeril] Allergy (Verified 11/21/17 12:35) Rash latex Allergy (Verified 11/21/17 12:35) Swelling Penicillins Allergy (Verified 11/21/17 12:35) Rash Sulfa (Sulfonamide Antibiotics) Allergy (Verified 11/21/17 12:35) Rash tetracycline Allergy (Verified 11/22/17 10:36) Hives acetaminophen [From Percocet] Adverse Reaction (Verified 11/21/17 12:35) Other HALLUCINATES oxycodone [From Percocet] Adverse Reaction (Verified 11/21/17 12:35) Other HALLUCINATES iv dye Adverse Reaction (Uncoded 11/21/17 12:35) only has 1 kidney Home Medications Medication Instructions Recorded Ergocalciferol [Vitamin D] 50,000 unit PO QMONTH 11/21/17 Escitalopram Oxalate [Lexapro] 20 mg PO DAILY 11/21/17 Finasteride [Proscar] 5 mg PO DAILY 11/21/17 Potassium Chloride [K-Dur] 20 meq PO DAILY 11/21/17 Apixaban [Eliquis] 5 mg PO BID #0 11/23/17 Baclofen 10 mg PO QHS PRN PRN 12/14/17 Insulin Glargine,Hum.rec.anlog 20 unit SQ BID 12/14/17 [Lantus] Prednisone 5 mg PO DAILY 12/14/17 Carvedilol [Coreg (Beta Tae)] 6.25 mg PO BID 12/19/17 Furosemide [Lasix] 40 mg PO BID@1000,1800 12/19/17 Ipratropium/Albuterol Sulfate 3 ml INHALATION Q4H PRN ampul.neb 12/19/17 [Duoneb] Isosorbide DN [Isordil] 10 mg PO TID 12/19/17 Psyllium [Metamucil] 1 packet PO DAILY PRN PRN packet 12/19/17 Senna/Docusate Sodium [Senokot-S] 2 tablet PO BID PRN tablet 12/19/17 Current Medications Generic Name Dose Route Start Last Admin Trade Name Freq PRN Reason Stop Dose Admin Acetaminophen 1,000 mg 12/19/17 21:00 Tylenol PO Q8H PRN PRN MILD PAIN (1-3/10) Albuterol/Ipratropium 3 ml 12/19/17 15:59 Duoneb INHALATION Q4H PRN sob Apixaban 5 mg 12/21/17 18:00 12/22/17 17:13 Eliquis PO 5 mg BID [facility] Administration Bisacodyl 10 mg 12/19/17 16:06 Dulcolax RECTAL DAILY PRN Constipation Calamine/Phenol 1 applic 12/20/17 06:00 12/22/17 17:14 Calmoseptine Ointment TOPICAL 1 applicatio BID [facility] Administration Protocol Carvedilol 6.25 mg 12/19/17 18:00 12/22/17 17:13 Coreg PO 6.25 mg BID SE[facility] Administration Dextrose 0 gm 12/20/17 01:00 D50w Syringe IV X1 PRN Hypoglycemia Protocol Ergocalciferol 50,000 unit 01/01/18 08:00 Vitamin D PO QMONTH [facility] Escitalopram Oxalate 20 mg 12/20/17 06:00 12/22/17 04:22 Lexapro PO 20 mg DAILY [facility] Administration Finasteride 5 mg 12/20/17 06:00 12/22/17 04:22 Proscar PO 5 mg DAILY [facility] Administration Furosemide 40 mg 12/19/17 18:00 12/22/17 17:21 Lasix PO 40 mg BID@1000,1800 [facility] Administration Glucagon 1 mg 12/20/17 01:00 IM .X1 PRN Hypoglycemia Insulin Aspart 10 units 12/22/17 06:45 12/22/17 17:14 Novolog Flexpen (c) SC 10 units TIDAC [facility] Administration Insulin Detemir 15 units 12/21/17 21:25 12/22/17 17:20 Levemir ([facility]) SC 15 units BID [facility] Administration Isosorbide Dinitrate 10 mg 12/19/17 22:00 12/22/17 13:17 Isordil PO 10 mg TID [facility] Administration Nutritional Formula 1 packet 12/19/17 17:00 12/22/17 17:12 Rayshawn - [place] Flavor PO 1 packet BIDCM [facility] Administration Nutritional Formula (Lactose Free) 120 ml 12/19/17 22:00 12/22/17 17:14 Glucerna Shake PO Not Given 4X/DAY [facility] Polyethylene Glycol 17 gm 12/20/17 06:00 12/22/17 04:24 Miralax PO Not Given DAILY [facility] Potassium Chloride 20 meq 12/20/17 06:00 12/22/17 04:21 K-Dur PO 20 meq DAILY [facility] Administration Prednisone 5 mg 12/20/17 08:00 12/22/17 08:07 PO 5 mg DAILYCM [facility] Administration Senna/Docusate Sodium 1 tablet 12/20/17 06:00 12/22/17 17:51 Senokot-S, Maggie-Colace PO 1 tablet BID [facility] Administration Tuberculin PPD 5 tu 12/27/17 10:00 Tubersol, Aplisol, Ppd ID 12/27/17 10:01 X1 ONE Problem List (Last Updated 08/29/17 @ 10:33 by Karon Nick) Chronic systolic congestive heart failure (Chronic) Depression (Chronic) Acute kidney injury (Acute) Vital Signs Temp Pulse Resp BP Pulse Ox 97.8 F 74 18 100/53 L 100 12/22/17 15:01 12/22/17 15:01 12/22/17 15:01 12/22/17 15:01 12/22/17 15:01 Oxygen Flow Rate (L/min) 2 Oxygen Delivery Method Nasal Cannula Weight: 104.15 kg Body Mass Index (BMI) 35.0 Finger Stick Blood Glucose 357 Sodium 143 mmol/L (136-145) 12/20/17 05:05 Potassium 3.6 mmol/L (3.5-5.1) 12/20/17 05:05 Chloride 105 mmol/L (98-107) 12/20/17 05:05 Carbon Dioxide 33.0 mmol/L (21.0-32.0) H 12/20/17 05:05 Anion Gap 5 (5-15) 12/20/17 05:05 BUN 28 mg/dL (7-18) H 12/20/17 05:05 Creatinine 1.28 mg/dL (0.70-1.30) 12/20/17 05:05 Est GFR (MDRD) Af Amer 70 mL/min (>60) 12/20/17 05:05 Est GFR (MDRD) Non-Af 58 mL/min (>60) L 12/20/17 05:05 BUN/Creatinine Ratio 21.9 RATIO (10-20) H 12/20/17 05:05 Glucose 105 mg/dL (74-106) 12/20/17 05:05 Assessment/Plan: Psychotropic Medications: Unnecessary Medications: Bowel Regimen: - Provider Comments Provider responsibility: Provider responsible to enter orders to implement recommendations Provider Comments to Recommendations by Pharmacy: Agree
--- NOTE | 2017-12-22 12:16 | PHA.CONS_ITS ---
<Lee Sy D - Last Filed: 12/22/17 12:08> Progress Note - Pharmacy Subjective: TCU Admission Objective: Allergies erythromycin base Allergy (Mild, Verified 11/22/17 10:36) Hives cyclobenzaprine HCl [From Flexeril] Allergy (Verified 11/21/17 12:35) Rash latex Allergy (Verified 11/21/17 12:35) Swelling Penicillins Allergy (Verified 11/21/17 12:35) Rash Sulfa (Sulfonamide Antibiotics) Allergy (Verified 11/21/17 12:35) Rash tetracycline Allergy (Verified 11/22/17 10:36) Hives acetaminophen [From Percocet] Adverse Reaction (Verified 11/21/17 12:35) Other HALLUCINATES oxycodone [From Percocet] Adverse Reaction (Verified 11/21/17 12:35) Other HALLUCINATES iv dye Adverse Reaction (Uncoded 11/21/17 12:35) only has 1 kidney Home Medications Medication Instructions Recorded Ergocalciferol [Vitamin D] 50,000 unit PO QMONTH 11/21/17 Escitalopram Oxalate [Lexapro] 20 mg PO DAILY 11/21/17 Finasteride [Proscar] 5 mg PO DAILY 11/21/17 Potassium Chloride [K-Dur] 20 meq PO DAILY 11/21/17 Apixaban [Eliquis] 5 mg PO BID #0 11/23/17 Baclofen 10 mg PO QHS PRN PRN 12/14/17 Insulin Glargine,Hum.rec.anlog 20 unit SQ BID 12/14/17 [Lantus] Prednisone 5 mg PO DAILY 12/14/17 Carvedilol [Coreg (Beta Tae)] 6.25 mg PO BID 12/19/17 Furosemide [Lasix] 40 mg PO BID@1000,1800 12/19/17 Ipratropium/Albuterol Sulfate 3 ml INHALATION Q4H PRN ampul.neb 12/19/17 [Duoneb] Isosorbide DN [Isordil] 10 mg PO TID 12/19/17 Psyllium [Metamucil] 1 packet PO DAILY PRN PRN packet 12/19/17 Senna/Docusate Sodium [Senokot-S] 2 tablet PO BID PRN tablet 12/19/17 Current Medications Generic Name Dose Route Start Last Admin Trade Name Freq PRN Reason Stop Dose Admin Acetaminophen 1,000 mg 12/19/17 21:00 Tylenol PO Q8H PRN PRN MILD PAIN (1-3/10) Albuterol/Ipratropium 3 ml 12/19/17 15:59 Duoneb INHALATION Q4H PRN sob Apixaban 5 mg 12/21/17 18:00 12/22/17 04:21 Eliquis PO 5 mg BID [facility] Administration Bisacodyl 10 mg 12/19/17 16:06 Dulcolax RECTAL DAILY PRN Constipation Calamine/Phenol 1 applic 12/20/17 06:00 12/22/17 04:24 Calmoseptine Ointment TOPICAL 1 applicatio BID [facility] Administration Protocol Carvedilol 6.25 mg 12/19/17 18:00 12/22/17 04:23 Coreg PO 6.25 mg BID [facility] Administration Dextrose 0 gm 12/20/17 01:00 D50w Syringe IV X1 PRN Hypoglycemia Protocol Ergocalciferol 50,000 unit 01/01/18 08:00 Vitamin D PO QMONTH [facility] Escitalopram Oxalate 20 mg 12/20/17 06:00 12/22/17 04:22 Lexapro PO 20 mg DAILY [facility] Administration Finasteride 5 mg 12/20/17 06:00 12/22/17 04:22 Proscar PO 5 mg DAILY [facility] Administration Furosemide 40 mg 12/19/17 18:00 12/22/17 08:07 Lasix PO 40 mg BID@1000,1800 [facility] Administration Glucagon 1 mg 12/20/17 01:00 IM .X1 PRN Hypoglycemia Insulin Aspart 10 units 12/22/17 06:45 12/22/17 11:48 Novolog Flexpen (Bkc) SC 10 units TIDAC [facility] Administration Insulin Detemir 15 units 12/21/17 21:25 12/22/17 08:10 Levemir (Bkc) SC 15 units BID [facility] Administration Isosorbide Dinitrate 10 mg 12/19/17 22:00 12/22/17 04:23 Isordil PO 10 mg TID [facility] Administration Nutritional Formula 1 packet 12/19/17 17:00 12/22/17 08:07 Rayshawn - [place] Flavor PO 1 packet BIDCM [facility] Administration Nutritional Formula (Lactose Free) 120 ml 12/19/17 22:00 12/22/17 11:47 Glucerna Shake PO 120 ml 4X/DAY [facility] Administration Polyethylene Glycol 17 gm 12/20/17 06:00 12/22/17 04:24 Miralax PO Not Given DAILY [facility] Potassium Chloride 20 meq 12/20/17 06:00 12/22/17 04:21 K-Dur PO 20 meq DAILY [facility] Administration Prednisone 5 mg 12/20/17 08:00 12/22/17 08:07 PO 5 mg DAILYCM [facility] Administration Senna/Docusate Sodium 1 tablet 12/20/17 06:00 12/22/17 04:23 Senokot-S, Maggie-Colace PO 1 tablet BID [facility] Administration Tuberculin PPD 5 tu 12/27/17 10:00 Tubersol, Aplisol, Ppd ID 12/27/17 10:01 X1 ONE Problem List (Last Updated 08/29/17 @ 10:33 by Karon Nick) Chronic systolic congestive heart failure (Chronic) Depression (Chronic) Acute kidney injury (Acute) Vital Signs Temp Pulse Resp BP Pulse Ox 98.7 F 82 18 100/62 97 12/21/17 15:25 12/22/17 07:00 12/22/17 07:00 12/21/17 15:25 12/22/17 07:00 Oxygen Flow Rate (L/min) 2 Oxygen Delivery Method Nasal Cannula Weight: 104.15 kg Body Mass Index (BMI) 35.0 Finger Stick Blood Glucose 357 Sodium 143 mmol/L (136-145) 12/20/17 05:05 Potassium 3.6 mmol/L (3.5-5.1) 12/20/17 05:05 Chloride 105 mmol/L (98-107) 12/20/17 05:05 Carbon Dioxide 33.0 mmol/L (21.0-32.0) H 12/20/17 05:05 Anion Gap 5 (5-15) 12/20/17 05:05 BUN 28 mg/dL (7-18) H 12/20/17 05:05 Creatinine 1.28 mg/dL (0.70-1.30) 12/20/17 05:05 Est GFR (MDRD) Af Amer 70 mL/min (>60) 12/20/17 05:05 Est GFR (MDRD) Non-Af 58 mL/min (>60) L 12/20/17 05:05 BUN/Creatinine Ratio 21.9 RATIO (10-20) H 12/20/17 05:05 Glucose 105 mg/dL (74-106) 12/20/17 05:05 Assessment/Plan: 1) Pain APAP for mild pain, prednisone daily. Continue to monitor prn medication use , daily pain scores. 2) CAD/DVT/CHF Carvedilol, isosorbide, apixaban, furosemide/KCl. Avg BP/HR within goal ranges, K wnl. Continue to monitor BP/HR, electrolytes, BUN/SCr, hgb/hct, s/s bleeding, for chest pain. 3) Pulm Duoneb aerosols as needed. Continue to monitor prn medication use, for shortness of breath. 4) DM2 Insulin aspart 3x daily, detemir twice daily. BGT fluctuating, mainly low- 200s on average, highest at HS. Continue to monitor insulin requirements, s/s hyper/hypoglycemia. 5) BPH Finasteride daily. Continue to monitor for symptoms. 6) Nutrition Rayshawn, Glucerna, ergocalciferol. Continue to monitor clinically. Psychotropic Medications: 7) Depression Escitalopram daily. Continue to monitor s/s depression. Unnecessary Medications: None Bowel Regimen: 8) Senna/s, PEG, prn bisacodyl. Continue to monitor prn medication use, for constipation/diarrhea. Date of Note:: 12/22/17 - Provider Comments Provider responsibility: Provider responsible to enter orders to implement recommendations <Guy Gu Chi - Last Filed: 12/22/17 17:57> Progress Note - Pharmacy Subjective: [] Objective: Allergies erythromycin base Allergy (Mild, Verified 11/22/17 10:36) Hives cyclobenzaprine HCl [From Flexeril] Allergy (Verified 11/21/17 12:35) Rash latex Allergy (Verified 11/21/17 12:35) Swelling Penicillins Allergy (Verified 11/21/17 12:35) Rash Sulfa (Sulfonamide Antibiotics) Allergy (Verified 11/21/17 12:35) Rash tetracycline Allergy (Verified 11/22/17 10:36) Hives acetaminophen [From Percocet] Adverse Reaction (Verified 11/21/17 12:35) Other HALLUCINATES oxycodone [From Percocet] Adverse Reaction (Verified 11/21/17 12:35) Other HALLUCINATES iv dye Adverse Reaction (Uncoded 11/21/17 12:35) only has 1 kidney Home Medications Medication Instructions Recorded Ergocalciferol [Vitamin D] 50,000 unit PO QMONTH 11/21/17 Escitalopram Oxalate [Lexapro] 20 mg PO DAILY 11/21/17 Finasteride [Proscar] 5 mg PO DAILY 11/21/17 Potassium Chloride [K-Dur] 20 meq PO DAILY 11/21/17 Apixaban [Eliquis] 5 mg PO BID #0 11/23/17 Baclofen 10 mg PO QHS PRN PRN 12/14/17 Insulin Glargine,Hum.rec.anlog 20 unit SQ BID 12/14/17 [Lantus] Prednisone 5 mg PO DAILY 12/14/17 Carvedilol [Coreg (Beta Tae)] 6.25 mg PO BID 12/19/17 Furosemide [Lasix] 40 mg PO BID@1000,1800 12/19/17 Ipratropium/Albuterol Sulfate 3 ml INHALATION Q4H PRN ampul.neb 12/19/17 [Duoneb] Isosorbide DN [Isordil] 10 mg PO TID 12/19/17 Psyllium [Metamucil] 1 packet PO DAILY PRN PRN packet 12/19/17 Senna/Docusate Sodium [Senokot-S] 2 tablet PO BID PRN tablet 12/19/17 Current Medications Generic Name Dose Route Start Last Admin Trade Name Freq PRN Reason Stop Dose Admin Acetaminophen 1,000 mg 12/19/17 21:00 Tylenol PO Q8H PRN PRN MILD PAIN (1-3/10) Albuterol/Ipratropium 3 ml 12/19/17 15:59 Duoneb INHALATION Q4H PRN sob Apixaban 5 mg 12/21/17 18:00 12/22/17 17:13 Eliquis PO 5 mg BID [facility] Administration Bisacodyl 10 mg 12/19/17 16:06 Dulcolax RECTAL DAILY PRN Constipation Calamine/Phenol 1 applic 12/20/17 06:00 12/22/17 17:14 Calmoseptine Ointment TOPICAL 1 applicatio BID [facility] Administration Protocol Carvedilol 6.25 mg 12/19/17 18:00 12/22/17 17:13 Coreg PO 6.25 mg BID [facility] Administration Dextrose 0 gm 12/20/17 01:00 D50w Syringe IV X1 PRN Hypoglycemia Protocol Ergocalciferol 50,000 unit 01/01/18 08:00 Vitamin D PO QMONTH [facility] Escitalopram Oxalate 20 mg 12/20/17 06:00 12/22/17 04:22 Lexapro PO 20 mg DAILY [facility] Administration Finasteride 5 mg 12/20/17 06:00 12/22/17 04:22 Proscar PO 5 mg DAILY [facility] Administration Furosemide 40 mg 12/19/17 18:00 12/22/17 17:21 Lasix PO 40 mg BID@1000,1800 [facility] Administration Glucagon 1 mg 12/20/17 01:00 IM .X1 PRN Hypoglycemia Insulin Aspart 10 units 12/22/17 06:45 12/22/17 17:14 Novolog Flexpen (c) SC 10 units TIDAC [facility] Administration Insulin Detemir 15 units 12/21/17 21:25 12/22/17 17:20 Levemir ([facility]) SC 15 units BID [facility] Administration Isosorbide Dinitrate 10 mg 12/19/17 22:00 12/22/17 13:17 Isordil PO 10 mg TID [facility] Administration Nutritional Formula 1 packet 12/19/17 17:00 12/22/17 17:12 [place] Flavor PO 1 packet BIDCM [facility] Administration Nutritional Formula (Lactose Free) 120 ml 12/19/17 22:00 12/22/17 17:14 Glucerna Shake PO Not Given 4X/DAY [facility] Polyethylene Glycol 17 gm 12/20/17 06:00 12/22/17 04:24 Miralax PO Not Given DAILY [facility] Potassium Chloride 20 meq 12/20/17 06:00 12/22/17 04:21 K-Dur PO 20 meq DAILY [facility] Administration Prednisone 5 mg 12/20/17 08:00 12/22/17 08:07 PO 5 mg DAILYCM [facility] Administration Senna/Docusate Sodium 1 tablet 12/20/17 06:00 12/22/17 17:51 Senokot-S, Maggie-Colace PO 1 tablet BID [facility] Administration Tuberculin PPD 5 tu 12/27/17 10:00 Tubersol, Aplisol, Ppd ID 12/27/17 10:01 X1 ONE Problem List (Last Updated 08/29/17 @ 10:33 by Karon Nick) Chronic systolic congestive heart failure (Chronic) Depression (Chronic) Acute kidney injury (Acute) Vital Signs Temp Pulse Resp BP Pulse Ox 97.8 F 74 18 100/53 L 100 12/22/17 15:01 12/22/17 15:01 12/22/17 15:01 12/22/17 15:01 12/22/17 15:01 Oxygen Flow Rate (L/min) 2 Oxygen Delivery Method Nasal Cannula Weight: 104.15 kg Body Mass Index (BMI) 35.0 Finger Stick Blood Glucose 357 Sodium 143 mmol/L (136-145) 12/20/17 05:05 Potassium 3.6 mmol/L (3.5-5.1) 12/20/17 05:05 Chloride 105 mmol/L (98-107) 12/20/17 05:05 Carbon Dioxide 33.0 mmol/L (21.0-32.0) H 12/20/17 05:05 Anion Gap 5 (5-15) 12/20/17 05:05 BUN 28 mg/dL (7-18) H 12/20/17 05:05 Creatinine 1.28 mg/dL (0.70-1.30) 12/20/17 05:05 Est GFR (MDRD) Af Amer 70 mL/min (>60) 12/20/17 05:05 Est GFR (MDRD) Non-Af 58 mL/min (>60) L 12/20/17 05:05 BUN/Creatinine Ratio 21.9 RATIO (10-20) H 12/20/17 05:05 Glucose 105 mg/dL (74-106) 12/20/17 05:05 Assessment/Plan: Psychotropic Medications: Unnecessary Medications: Bowel Regimen: - Provider Comments Provider responsibility: Provider responsible to enter orders to implement recommendations Provider Comments to Recommendations by Pharmacy: Agree
[2017-12-22 15:01] VITALS: BP 100/53; PULSE 74; RESP 18; TEMP 36.6; O2SAT 100
--- NOTE | 2017-12-22 16:11 | CHAPLAIN ---
Type of Pastoral Visit _x__ Initial Visit ___ Follow-up Visit ___ On-call Visit ___ General Patient Visit ___ Spiritual Assessment ___ Family Conference ___ Bereavement ___ Rapid Response ___ Code Blue ___ Other (describe below) Pastoral Care Referral From _x__ Patient ___ Family ___ Nurse ___ Physician ___ Assembler Arranger ___ Feed Mill Supervisor ___ Other (describe below) Sacrament/Intervention _x__ Active listening ___ Anointing ___ Zoroastrianism ___ Bereavement ___ Communion ___ Katalina exploration ___ ___ Life review _x__ Prayer ___ Reconciliation ___ Sacrament of Sick ___ Supportive presence ___ Wedding ___ Other (describe below) Pastoral Comments
[2017-12-22 16:56] LABS: Bedside Glucose 229 mg/dL (70-110)
[2017-12-22 21:16] LABS: Bedside Glucose 221 mg/dL (70-110)
[2017-12-23] MEDS: Glucerna Shake 120 ML LIQUID PO ×4 (04:46→21:57)
[2017-12-23] MEDS: Senna/Docusate Sodium 1 Tablet PO ×2 (04:47→17:23)
[2017-12-23] MEDS: Escitalopram Oxalate 20 MG Tablet PO (04:47)
[2017-12-23] MEDS: Acetaminophen 500 MG Tablet 1000 MG PO (04:47)
[2017-12-23] MEDS: Carvedilol 6.25 MG Tablet PO ×2 (04:47→17:24)
[2017-12-23] MEDS: Isosorbide DN 10 MG Tablet PO ×3 (04:47→21:58)
[2017-12-23] MEDS: SACUBITRIL/VALSARTAN 24/26 MG TABLET 1 EACH PO ×2 (04:47→17:23)
[2017-12-23] MEDS: APIXABAN 5 MG TABLET PO ×2 (04:48→17:24)
[2017-12-23] MEDS: Finasteride 5 MG Tablet PO (04:49)
[2017-12-23] MEDS: Menthol/Lanolin/Calamine/Znox 113 GM Tube 1 APPLIC TOPICAL ×2 (04:49→17:27)
[2017-12-23] MEDS: Polyethylene Glycol 3350 17 GM PACKET PO (04:52)
[2017-12-23 06:45] LABS: Bedside Glucose 203 mg/dL (70-110)
[2017-12-23] MEDS: predniSONE 5 MG Tablet PO (07:49)
[2017-12-23] MEDS: Furosemide 40 MG Tablet PO ×2 (09:13→17:23)
--- NOTE | 2017-12-23 10:56 | CASEMGMT ---
Insurance Continued stay approved with next update due on 12/28/17. Auth#[id number] Donna PATEL, COMPUTER SYSTEMS TECHNOLOGY INSTRUCTOR
[2017-12-23 11:36] LABS: Bedside Glucose 177 mg/dL (70-110)
[2017-12-23 15:44] VITALS: BP 112/72; PULSE 77; RESP 20; TEMP 36.8; O2SAT 97
[2017-12-23 16:50] LABS: Bedside Glucose 98 mg/dL (70-110)
[2017-12-23 18:05] LABS: Bedside Glucose 149 mg/dL (70-110)
--- NOTE | 2017-12-23 18:27 | NURSING ---
Dr. Gu reviewed blood sugars, N.O. to hold Novolog and Levemir doses tonight. Pt updated.
[2017-12-23 21:10] LABS: Bedside Glucose 161 mg/dL (70-110)
[2017-12-23 22:02] VITALS: PULSE 77; O2SAT 98
[2017-12-24] MEDS: Menthol/Lanolin/Calamine/Znox 113 GM Tube 1 APPLIC TOPICAL ×2 (05:09→17:39)
[2017-12-24] MEDS: Escitalopram Oxalate 20 MG Tablet PO ×2 (05:10→17:41)
[2017-12-24] MEDS: APIXABAN 5 MG TABLET PO ×2 (05:10→17:41)
[2017-12-24] MEDS: Finasteride 5 MG Tablet PO (05:10)
[2017-12-24] MEDS: SACUBITRIL/VALSARTAN 24/26 MG TABLET 1 EACH PO ×2 (05:10→17:42)
[2017-12-24] MEDS: Glucerna Shake 120 ML LIQUID PO ×3 (05:10→19:46)
[2017-12-24] MEDS: Senna/Docusate Sodium 1 Tablet PO (05:10)
[2017-12-24] MEDS: Isosorbide DN 10 MG Tablet PO ×3 (05:10→19:47)
[2017-12-24] MEDS: Carvedilol 6.25 MG Tablet PO ×2 (05:10→17:41)
[2017-12-24 06:55] LABS: Bedside Glucose 170 mg/dL (70-110)
[2017-12-24 07:41] VITALS: O2SAT 95
[2017-12-24] MEDS: Furosemide 40 MG Tablet PO ×2 (08:42→17:41)
[2017-12-24] MEDS: predniSONE 5 MG Tablet PO (08:42)
[2017-12-24 11:26] LABS: Bedside Glucose 215 mg/dL (70-110)
[2017-12-24] MEDS: Acetaminophen 500 MG Tablet 1000 MG PO (15:11)
[2017-12-24 15:21] LABS: Bedside Glucose 160 mg/dL (70-110)
--- NOTE | 2017-12-24 15:28 | NURSING ---
Addendum entered by Joann Reynolds 12/24/17 15:33: stool softeners changed to PRN. Will continue to monitor. Original Note: Pt C/o having head and abdominal pain of a 7 out of 10. This nurse administered Tylenol to help with pain. Pt b/p 96/60 Temp 98.9 R 18 SPO2 95% on 2 Liters of o2. Pt current blood glucose 160. Joann KOEHLER notified
[2017-12-24 15:33] VITALS: BP 95/56; PULSE 70; RESP 18; TEMP 37.1; O2SAT 98
--- NOTE | 2017-12-24 15:38 | NURSING ---
Addendum entered by Joann Reynolds 12/24/17 16:27: pt resting in bed, called out and asked for ginerale, diet given. states headache is almost gone. Original Note: Addendum to previous note. Pt denies having any chest pain, shortness of breath or dizziness at this time. will continue to monitor.
[2017-12-24 16:55] LABS: Bedside Glucose 134 mg/dL (70-110)
[2017-12-24 19:54] VITALS: PULSE 80; RESP 15
[2017-12-24 21:06] LABS: Bedside Glucose 135 mg/dL (70-110)
[2017-12-25] MEDS: Acetaminophen 500 MG Tablet 1000 MG PO ×2 (01:53→13:32)
[2017-12-25] MEDS: Glucerna Shake 120 ML LIQUID PO ×4 (05:19→21:09)
[2017-12-25] MEDS: Finasteride 5 MG Tablet PO (05:20)
[2017-12-25] MEDS: Isosorbide DN 10 MG Tablet PO ×3 (05:20→21:09)
[2017-12-25] MEDS: Menthol/Lanolin/Calamine/Znox 113 GM Tube 1 APPLIC TOPICAL ×2 (05:27→17:40)
[2017-12-25] MEDS: Carvedilol 6.25 MG Tablet PO ×2 (05:27→17:40)
[2017-12-25] MEDS: APIXABAN 5 MG TABLET PO ×2 (05:28→17:40)
[2017-12-25] MEDS: SACUBITRIL/VALSARTAN 24/26 MG TABLET 1 EACH PO ×2 (05:29→17:40)
[2017-12-25 07:01] LABS: Bedside Glucose 73 mg/dL (70-110)
--- NOTE | 2017-12-25 07:34 | NURSING ---
AM BLOOD SUGAR REPORTED BY RENT AND MISCELLANEOUS REMITTANCE CLERK: 73 AND ORANGE JUICE GIVEN RECHECKED BLOOD SUGAR AT 0730 AND NOTED AT 93. ORANGE JUICE GIVEN AGAIN AND AM INSULINS HELD.
[2017-12-25 07:36] LABS: Bedside Glucose 93 mg/dL (70-110)
[2017-12-25 07:49] VITALS: O2SAT 98
[2017-12-25] MEDS: predniSONE 5 MG Tablet PO (08:14)
[2017-12-25] MEDS: Furosemide 40 MG Tablet PO ×2 (09:32→17:40)
--- NOTE | 2017-12-25 11:01 | NURSING ---
according to night nurse report, pt up all night. Dr Gu notified, new order for melatonin QHS
[2017-12-25 11:20] LABS: Bedside Glucose 180 mg/dL (70-110)
[2017-12-25 15:50] VITALS: BP 109/59; PULSE 88; RESP 20; TEMP 36.6; O2SAT 99
[2017-12-25 16:56] LABS: Bedside Glucose 185 mg/dL (70-110)
[2017-12-25 20:56] LABS: Bedside Glucose 177 mg/dL (70-110)
[2017-12-25 21:00] VITALS: PULSE 76; RESP 15; O2SAT 98
[2017-12-25] MEDS: MELATONIN 10 MG TABLET PO (21:09)
[2017-12-26 01:55] LABS: Bedside Glucose 151 mg/dL (70-110)
[2017-12-26] MEDS: Escitalopram Oxalate 20 MG Tablet PO (04:40)
[2017-12-26] MEDS: APIXABAN 5 MG TABLET PO ×2 (04:40→17:48)
[2017-12-26] MEDS: Isosorbide DN 10 MG Tablet PO ×3 (04:40→19:40)
[2017-12-26] MEDS: SACUBITRIL/VALSARTAN 24/26 MG TABLET 1 EACH PO ×2 (04:40→17:48)
[2017-12-26] MEDS: Carvedilol 6.25 MG Tablet PO ×2 (04:40→17:48)
[2017-12-26] MEDS: Finasteride 5 MG Tablet PO (04:41)
[2017-12-26] MEDS: Menthol/Lanolin/Calamine/Znox 113 GM Tube 1 APPLIC TOPICAL ×2 (04:41→17:52)
[2017-12-26] MEDS: Glucerna Shake 120 ML LIQUID PO ×4 (04:43→19:40)
[2017-12-26 06:31] LABS: Bedside Glucose 127 mg/dL (70-110)
[2017-12-26] MEDS: predniSONE 5 MG Tablet PO (08:38)
[2017-12-26] MEDS: Furosemide 40 MG Tablet PO ×2 (08:41→17:48)
[2017-12-26 11:31] LABS: Bedside Glucose 127 mg/dL (70-110)
--- NOTE | 2017-12-26 14:24 | CASEMGMT ---
Brief interview for mental status (BIMS) and resident mood interview (PHQ-9) completed on this day. BIMS score 07/29. PHQ-9 score 10/11
[2017-12-26 16:00] VITALS: BP 116/61; PULSE 74; RESP 18; TEMP 36.6; O2SAT 100
[2017-12-26 17:01] LABS: Bedside Glucose 92 mg/dL (70-110)
--- NOTE | 2017-12-26 17:13 | NURSING ---
Dr. Gu reviewed blood sugars, Novolog and Levemir decreased, both held tonight. Pt updated.
[2017-12-26] MEDS: MELATONIN 10 MG TABLET PO (19:40)
[2017-12-26 21:21] LABS: Bedside Glucose 167 mg/dL (70-110)
[2017-12-27] MEDS: SACUBITRIL/VALSARTAN 24/26 MG TABLET 1 EACH PO ×2 (05:14→17:57)
[2017-12-27] MEDS: Isosorbide DN 10 MG Tablet PO ×3 (05:14→22:00)
[2017-12-27] MEDS: APIXABAN 5 MG TABLET PO ×2 (05:14→17:56)
[2017-12-27] MEDS: Glucerna Shake 120 ML LIQUID PO ×4 (05:14→22:00)
[2017-12-27] MEDS: Carvedilol 6.25 MG Tablet PO ×2 (05:14→17:58)
[2017-12-27] MEDS: Finasteride 5 MG Tablet PO (05:14)
[2017-12-27] MEDS: Escitalopram Oxalate 20 MG Tablet PO (05:14)
[2017-12-27] MEDS: Menthol/Lanolin/Calamine/Znox 113 GM Tube 1 APPLIC TOPICAL ×2 (05:14→18:30)
[2017-12-27] MEDS: Senna/Docusate Sodium 1 Tablet PO (05:19)
[2017-12-27 06:08] LABS: Absolute Lymphocyte Count 1.74 X10^3/ul (0.83-4.51); Absolute Neutrophil Count 6.6 X10^3/uL (2.0-7.7); Basophil# 0.05 X10^3/uL; Basophil% 0.5 % (0-1); Eosinophil# 0.12 X10^3/uL; Eosinophils% 1.3 % (0-5); Hematocrit 36.1 % (40-54); Hemoglobin 10.3 g/dl (13.0-16.5); Lymphocyte # 1.74 X10^3/ul (4.0); Mean Corp Hgb Conc 28.5 g/gl (32-36); Mean Corpuscular Hgb 25.1 pg (27.0-32.0); Mean Corpuscular Volume 87.8 fL (80-94); Mean Platelet Vol. 10.3 fl (6.2-12.0); Monocyte# 0.51 X10^3/uL; Monocyte% 5.6 % (0-10); Neutrophil # 6.57 X10^3/uL (2.7-7.7); Platelet Count 194 K/mm3 (150-450); RBC Distribution Width CV 16.7 % (11.6-14.6); RBC Distribution Width SD 53.5 fl (35.1-43.9); Red Blood Count 4.11 M/mm3 (4.6-6.2); White Blood Count 9.1 K/mm3 (4.4-11.0)
[2017-12-27 06:14] LABS: POSITIVE COUNT NO; POSITIVE DIFFERENTIAL NO; POSITIVE MORPHOLOGY NO
[2017-12-27 06:20] LABS: Bedside Glucose 190 mg/dL (70-110)
[2017-12-27 06:25] LABS: Anion Gap 4 (5-15); BUN 50 mg/dL (7-18); BUN/Creat Ratio 39.4 RATIO (10-20); Calcium,Total 10.1 mg/dL (8.5-10.1); Chloride 101 mmol/L (98-107); Creatinine, Serum 1.27 mg/dL (0.70-1.30); EST Glomerular Filtration Rate 58 mL/min (>60); Est Glom Filt Rate - Afr Amer 71 mL/min (>60); Estimated Creatinine Clearance 47.13 ml/min; Glucose 196 mg/dL (74-106); Potassium 3.9 mmol/L (3.5-5.1); Sodium Level 141 mmol/L (136-145)
[2017-12-27] MEDS: predniSONE 5 MG Tablet PO (08:58)
--- NOTE | 2017-12-27 09:03 | CASEMGMT ---
Plan of care meeting held. Resident present as well as resident spouse, Stephanie and resident daughter, Jayshree. No discharge date set at this time. Resident to continue with further care and treatment on the Transitional Care Unit. Resident does have an insurance update due on 12/28/17 and is aware that continued stay is not granted. Resident plans to discharge home with spouse at time of discharge. Support given. Will continue to follow. Donna PATEL, PRINCIPAL JAVA DEVELOPER
[2017-12-27 10:00] VITALS: O2SAT 98
[2017-12-27] MEDS: Furosemide 40 MG Tablet PO ×2 (11:23→17:56)
[2017-12-27] MEDS: Tuberculin,Purif.prot.deriv. 50 TU/ML Vial 5 ML ID (11:23)
[2017-12-27 11:26] VITALS: BP 114/68; PULSE 81
[2017-12-27 11:36] LABS: Bedside Glucose 210 mg/dL (70-110)
[2017-12-27 13:31] VITALS: O2SAT 99
[2017-12-27 15:40] VITALS: BP 114/70; PULSE 88; RESP 18; TEMP 36.1; O2SAT 96
[2017-12-27] MEDS: Acetaminophen 500 MG Tablet 1000 MG PO (15:47)
[2017-12-27 17:00] LABS: Bedside Glucose 184 mg/dL (70-110)
[2017-12-27 21:26] LABS: Bedside Glucose 206 mg/dL (70-110)
[2017-12-27] MEDS: MELATONIN 10 MG TABLET PO (22:00)
[2017-12-27] MEDS: Nystatin Powder 15gm Bottle 1 APPLIC TOPICAL (22:01)
[2017-12-28] MEDS: Finasteride 5 MG Tablet PO (06:03)
[2017-12-28] MEDS: Escitalopram Oxalate 20 MG Tablet PO (06:03)
[2017-12-28] MEDS: Carvedilol 6.25 MG Tablet PO ×2 (06:03→17:18)
[2017-12-28] MEDS: Isosorbide DN 10 MG Tablet PO ×3 (06:03→21:17)
[2017-12-28] MEDS: APIXABAN 5 MG TABLET PO ×2 (06:03→17:18)
[2017-12-28] MEDS: SACUBITRIL/VALSARTAN 24/26 MG TABLET 1 EACH PO ×2 (06:03→17:18)
[2017-12-28] MEDS: Nystatin Powder 15gm Bottle 1 APPLIC TOPICAL ×2 (06:04→21:17)
[2017-12-28] MEDS: Menthol/Lanolin/Calamine/Znox 113 GM Tube 1 APPLIC TOPICAL ×2 (06:04→17:19)
[2017-12-28] MEDS: Glucerna Shake 120 ML LIQUID PO ×4 (06:04→21:17)
[2017-12-28 06:36] LABS: Bedside Glucose 165 mg/dL (70-110)
[2017-12-28 07:11] LABS: Bedside Glucose 170 mg/dL (70-110)
[2017-12-28 08:01] VITALS: O2SAT 95
[2017-12-28] MEDS: Furosemide 40 MG Tablet PO ×2 (08:48→17:18)
[2017-12-28] MEDS: predniSONE 5 MG Tablet PO (08:48)
[2017-12-28 11:50] LABS: Bedside Glucose 202 mg/dL (70-110)
--- NOTE | 2017-12-28 15:05 | CASEMGMT ---
Insurance Clinical information faxed. Pending continued stay approval. Auth#[id number] Donna PATEL, SIGNAL WIRER
[2017-12-28 15:48] VITALS: BP 120/71; PULSE 89; RESP 18; TEMP 36.4; O2SAT 100
[2017-12-28 17:11] LABS: Bedside Glucose 200 mg/dL (70-110)
[2017-12-28 19:55] LABS: Bedside Glucose 156 mg/dL (70-110)
[2017-12-28 20:10] VITALS: PULSE 85; O2SAT 97
--- NOTE | 2017-12-28 21:12 | NURSING ---
Pt lethargic this evening. Unable to stay awake for dinner, blood sugar 156, BP 96/66 HR 85. Pt arousable to verbal stimuli, answers questions appropriately. Dr Gu aware. N.O. to monitor.
[2017-12-28 21:16] LABS: Bedside Glucose 143 mg/dL (70-110)
[2017-12-28] MEDS: MELATONIN 10 MG TABLET PO (21:17)
[2017-12-29] MEDS: Menthol/Lanolin/Calamine/Znox 113 GM Tube 1 APPLIC TOPICAL ×2 (05:57→17:55)
[2017-12-29] MEDS: Carvedilol 6.25 MG Tablet PO ×2 (05:58→17:52)
[2017-12-29] MEDS: Finasteride 5 MG Tablet PO (05:58)
[2017-12-29] MEDS: APIXABAN 5 MG TABLET PO ×2 (05:58→17:52)
[2017-12-29] MEDS: Glucerna Shake 120 ML LIQUID PO ×4 (05:58→22:06)
[2017-12-29] MEDS: SACUBITRIL/VALSARTAN 24/26 MG TABLET 1 EACH PO ×2 (05:58→17:52)
[2017-12-29] MEDS: Nystatin Powder 15gm Bottle 1 APPLIC TOPICAL ×2 (05:58→22:29)
[2017-12-29] MEDS: Escitalopram Oxalate 20 MG Tablet PO (05:58)
[2017-12-29] MEDS: Isosorbide DN 10 MG Tablet PO ×3 (05:58→22:06)
[2017-12-29 06:51] LABS: Bedside Glucose 108 mg/dL (70-110)
[2017-12-29 08:01] VITALS: O2SAT 95
[2017-12-29] MEDS: Furosemide 40 MG Tablet PO ×2 (08:12→17:52)
[2017-12-29] MEDS: predniSONE 5 MG Tablet PO (08:12)
[2017-12-29 11:20] LABS: Bedside Glucose 216 mg/dL (70-110)
[2017-12-29 15:37] VITALS: BP 114/74; PULSE 92; RESP 20; TEMP 36.6; O2SAT 100
[2017-12-29 17:41] LABS: Bedside Glucose 187 mg/dL (70-110)
[2017-12-29 21:21] LABS: Bedside Glucose 322 mg/dL (70-110)
[2017-12-29] MEDS: MELATONIN 10 MG TABLET PO (22:07)
[2017-12-29 22:30] VITALS: PULSE 86; O2SAT 98
[2017-12-29] MEDS: Acetaminophen 500 MG Tablet 1000 MG PO (23:43)
[2017-12-30] MEDS: Glucerna Shake 120 ML LIQUID PO ×4 (04:40→21:04)
[2017-12-30] MEDS: Carvedilol 6.25 MG Tablet PO ×2 (04:41→17:52)
[2017-12-30] MEDS: Menthol/Lanolin/Calamine/Znox 113 GM Tube 1 APPLIC TOPICAL ×2 (04:41→17:58)
[2017-12-30] MEDS: APIXABAN 5 MG TABLET PO ×2 (04:44→17:52)
[2017-12-30] MEDS: SACUBITRIL/VALSARTAN 24/26 MG TABLET 1 EACH PO ×2 (04:44→17:52)
[2017-12-30] MEDS: Isosorbide DN 10 MG Tablet PO ×3 (04:44→21:05)
[2017-12-30] MEDS: Escitalopram Oxalate 20 MG Tablet PO (04:45)
[2017-12-30] MEDS: Finasteride 5 MG Tablet PO (04:45)
[2017-12-30 04:56] LABS: Bedside Glucose 146 mg/dL (70-110)
[2017-12-30] MEDS: Nystatin Powder 15gm Bottle 1 APPLIC TOPICAL ×2 (05:06→21:05)
[2017-12-30 05:30] VITALS: PULSE 80; O2SAT 97
[2017-12-30 07:06] LABS: Bedside Glucose 173 mg/dL (70-110)
[2017-12-30 07:34] VITALS: O2SAT 98
[2017-12-30] MEDS: predniSONE 5 MG Tablet PO (08:01)
[2017-12-30] MEDS: Furosemide 40 MG Tablet PO ×2 (08:01→17:52)
[2017-12-30 11:50] LABS: Bedside Glucose 199 mg/dL (70-110)
--- NOTE | 2017-12-30 12:37 | CASEMGMT ---
Insurance Continued stay approved with next update due on 01/04/18 Auth#[id number] Donna PATEL, BLASTING HELPER
--- NOTE | 2017-12-30 14:18 | MDS.RN ---
Information for the mds was obtained from review of the clinical record, interview of resident, staff, and direct observation of resident's care.
[2017-12-30 15:27] VITALS: BP 126/69; PULSE 100; RESP 22; TEMP 36.8; O2SAT 98
[2017-12-30 17:10] LABS: Bedside Glucose 157 mg/dL (70-110)
[2017-12-30] MEDS: guaiFENesin Dm 10 ML UDC PO (19:23)
[2017-12-30] MEDS: MELATONIN 10 MG TABLET PO (21:06)
[2017-12-30 21:10] LABS: Bedside Glucose 246 mg/dL (70-110)
--- NOTE | 2017-12-31 02:47 | NURSING ---
PATIENT FOUND HALF SITTING ON RECLINER NAKED. T SHIRT OFF WITH ALARM ON SHIRT. URINE NOTED ON FLOOR FROM BED TO BATHROOM. STAFF ASSISTED PATIENT INTO RECLINER. REDRESSED PATIENT ALARM PLACED ON SHIRT. POST INC CARE GIVEN. ATTENDS ON. PATIENT REMINDED TO RING FOR ASSISTANCE. VERBALIZES UNDERSTANDING BUT DOES NOT FOLLOW THROUGH. O2 REAPPLIED AND FEET ELEVATED FOR COMFORT. DENIES ANY OTHER NEEDS AT THIS TIME. ZAKIA MCKEON. IN ROOM WITH THIS NURSE AND LARA PARKS AND UNA LORA. WILL CONT TO MONITOR. SAME REPORTED TO ZAKIA MENDOZA.
[2017-12-31] MEDS: SACUBITRIL/VALSARTAN 24/26 MG TABLET 1 EACH PO ×2 (04:26→17:00)
[2017-12-31] MEDS: Isosorbide DN 10 MG Tablet PO ×3 (04:26→20:58)
[2017-12-31] MEDS: Carvedilol 6.25 MG Tablet PO ×2 (04:26→17:00)
[2017-12-31] MEDS: Glucerna Shake 120 ML LIQUID PO ×3 (04:26→20:56)
[2017-12-31] MEDS: APIXABAN 5 MG TABLET PO ×2 (04:27→17:00)
[2017-12-31] MEDS: Finasteride 5 MG Tablet PO (04:27)
[2017-12-31] MEDS: Escitalopram Oxalate 20 MG Tablet PO (04:27)
[2017-12-31] MEDS: Menthol/Lanolin/Calamine/Znox 113 GM Tube 1 APPLIC TOPICAL ×2 (04:28→17:01)
[2017-12-31] MEDS: Nystatin Powder 15gm Bottle 1 APPLIC TOPICAL ×2 (04:29→20:58)
[2017-12-31 06:41] LABS: Bedside Glucose 191 mg/dL (70-110)
[2017-12-31 07:00] VITALS: PULSE 102; RESP 20; O2SAT 92
[2017-12-31] MEDS: predniSONE 5 MG Tablet PO (08:55)
[2017-12-31] MEDS: Furosemide 40 MG Tablet PO ×2 (11:03→17:00)
[2017-12-31 11:51] LABS: Bedside Glucose 196 mg/dL (70-110)
--- NOTE | 2017-12-31 13:19 | NURSING ---
Addendum entered by Hazel Swanson 12/31/17 20:01: Patient, , and daughter updated on results. Original Note: Addendum entered by Hazel Swanson 12/31/17 19:52: Dr. Gu notified of UA results. New orders for Cipro 250 mg BID x 10 days and send for culture. Original Note: Addendum entered by Alea Arango 12/31/17 17:34: Dr. Gu aware, N.O. for UA, pt and updated. Original Note: Pt confused and yelling out for his . Pt c/o of having some back pain and being uncomfortable, this nurse helped Pt into bed, and arranged pillows for comfort. Pt denied needing any medication for pain just stated he wanted to try lying down for awhile. Alea KOEHLER notified
[2017-12-31 15:45] VITALS: BP 108/64; PULSE 64; RESP 16; TEMP 36.1; O2SAT 100
[2017-12-31 17:01] LABS: Bedside Glucose 229 mg/dL (70-110)
[2017-12-31 18:36] LABS: Bacteria 0 SEEN /hpf (None Seen); Mucous, Urine 0 SEEN /hpf (<or=2+)
[2017-12-31 18:40] LABS: Color, Urine Yellow (Yellow); Glucose, Dipstick Normal (Normal); Ketone-Dipstick Negative (Negative); Leukocyte Esterase-Dipstick 500 /ul (Negative); Nitrite-Dipstick Negative (Negative); Occult Blood-Urine 25 /ul (Negative); Protein-Dipstick Negative (Negative); Specific Gravity, Urine 1.015 (1.002-1.030); Urine Bilirubin Dipstick Negative (Negative); Urine Clarity Sl. Cloudy (Clear); Urine Urobilinogen Normal (Normal)
[2017-12-31 18:53] LABS: Red Blood Cells-Urine 5-10 SEEN /hpf (0-5); Squamous Epithelial Cells - UA 0-5 SEEN /hpf (0-5); White Blood Cells 10-25 SEEN /hpf (0-5)
[2017-12-31 20:55] LABS: Bedside Glucose 238 mg/dL (70-110)
[2017-12-31] MEDS: Ciprofloxacin 250 MG Tablet PO (20:55)
[2017-12-31] MEDS: MELATONIN 10 MG TABLET PO (20:58)
[2018-01-01] MEDS: Acetaminophen 500 MG Tablet 1000 MG PO (04:43)
[2018-01-01] MEDS: Menthol/Lanolin/Calamine/Znox 113 GM Tube 1 APPLIC TOPICAL ×2 (04:43→17:38)
[2018-01-01] MEDS: SACUBITRIL/VALSARTAN 24/26 MG TABLET 1 EACH PO ×2 (04:44→17:37)
[2018-01-01] MEDS: Nystatin Powder 15gm Bottle 1 APPLIC TOPICAL ×2 (04:44→20:53)
[2018-01-01] MEDS: Ciprofloxacin 250 MG Tablet PO ×2 (04:44→17:37)
[2018-01-01] MEDS: Glucerna Shake 120 ML LIQUID PO ×4 (04:44→20:51)
[2018-01-01] MEDS: Finasteride 5 MG Tablet PO (04:44)
[2018-01-01] MEDS: APIXABAN 5 MG TABLET PO ×2 (04:44→17:37)
[2018-01-01] MEDS: Isosorbide DN 10 MG Tablet PO ×3 (04:44→20:52)
[2018-01-01] MEDS: Escitalopram Oxalate 20 MG Tablet PO (04:44)
[2018-01-01] MEDS: Carvedilol 6.25 MG Tablet PO ×2 (04:44→17:37)
[2018-01-01] MEDS: Cyanocobalamin (B12) 1,000 MCG/ML Vial 1000 MCG IM (04:45)
[2018-01-01 05:00] VITALS: PULSE 95; O2SAT 96
[2018-01-01 06:56] LABS: Bedside Glucose 205 mg/dL (70-110)
[2018-01-01] MEDS: predniSONE 5 MG Tablet PO (08:14)
[2018-01-01] MEDS: Furosemide 40 MG Tablet PO ×2 (09:13→17:37)
[2018-01-01 11:40] LABS: Bedside Glucose 153 mg/dL (70-110)
[2018-01-01 12:56] LABS: Bedside Glucose 205 mg/dL (70-110)
[2018-01-01 15:57] VITALS: BP 111/75; PULSE 71; RESP 20; TEMP 36.3; O2SAT 91
[2018-01-01 17:16] LABS: Bedside Glucose 100 mg/dL (70-110)
--- NOTE | 2018-01-01 18:35 | NURSING ---
Dr. Gu updated on blood sugar tonight, N.O. received, pt encouraged to eat, states he's just not hungry tonight. Cont to monitor.
[2018-01-01] MEDS: MELATONIN 10 MG TABLET PO (20:52)
[2018-01-01 21:31] LABS: Bedside Glucose 161 mg/dL (70-110)
[2018-01-02] MEDS: Ciprofloxacin 250 MG Tablet PO ×2 (05:57→17:48)
[2018-01-02] MEDS: Isosorbide DN 10 MG Tablet PO ×3 (05:57→20:39)
[2018-01-02] MEDS: SACUBITRIL/VALSARTAN 24/26 MG TABLET 1 EACH PO ×2 (05:57→17:47)
[2018-01-02] MEDS: Finasteride 5 MG Tablet PO (05:57)
[2018-01-02] MEDS: APIXABAN 5 MG TABLET PO ×2 (05:57→17:48)
[2018-01-02] MEDS: Menthol/Lanolin/Calamine/Znox 113 GM Tube 1 APPLIC TOPICAL ×2 (05:57→17:50)
[2018-01-02] MEDS: Escitalopram Oxalate 20 MG Tablet PO (05:57)
[2018-01-02] MEDS: Carvedilol 6.25 MG Tablet PO ×2 (05:57→17:47)
[2018-01-02] MEDS: Nystatin Powder 15gm Bottle 1 APPLIC TOPICAL ×2 (05:58→20:38)
[2018-01-02 06:03] VITALS: PULSE 80
[2018-01-02 07:01] LABS: Bedside Glucose 101 mg/dL (70-110)
[2018-01-02] MEDS: Glucerna Shake 120 ML LIQUID PO ×4 (07:04→20:36)
[2018-01-02 08:06] VITALS: O2SAT 93
[2018-01-02] MEDS: predniSONE 5 MG Tablet PO (08:11)
[2018-01-02] MEDS: Acetaminophen 500 MG Tablet 1000 MG PO (08:18)
--- NOTE | 2018-01-02 08:44 | NURSING ---
wound photo: left posterior lower leg
[2018-01-02 11:00] VITALS: PULSE 82; RESP 18
[2018-01-02] MEDS: Furosemide 40 MG Tablet PO ×2 (11:20→17:47)
[2018-01-02 11:56] LABS: Bedside Glucose 129 mg/dL (70-110)
[2018-01-02 15:35] VITALS: BP 110/66; PULSE 82; RESP 20; TEMP 36.2; O2SAT 95
--- NOTE | 2018-01-02 17:09 | NURSING ---
blood sugar 64, pt asymptomatic, oj and minerva dunes given. will recheck in 15 minutes.
[2018-01-02 17:10] LABS: Bedside Glucose 64 mg/dL (70-110)
[2018-01-02 17:35] LABS: Bedside Glucose 105 mg/dL (70-110)
--- NOTE | 2018-01-02 18:07 | NURSING ---
Dr. Gu reviewed blood sugars tuyet N.O. to hold Novolog, pt updated.
--- NOTE | 2018-01-02 20:34 | NURSING ---
Dtr of pt called in at 2030 in regards to pt starting Cipro antibiotic for UTI and pt having increased confusion yesterday. This nurse informed daughter that the antibiotic takes a few days to begin taking effect and it was started on 12/31. Dtr also expressing concerns about the amount of time it takes staff to answer pt's call light- states that his accidents most likely contributed to his UTI. This nurse reassured daughter that it will be passed along to be more timely with call light answering. Dtr was pleasant and understanding since she works in long term care pharmacist care facility.
[2018-01-02] MEDS: MELATONIN 10 MG TABLET PO (20:38)
[2018-01-02 21:36] LABS: Bedside Glucose 162 mg/dL (70-110)
[2018-01-03] MEDS: Glucerna Shake 120 ML LIQUID PO ×4 (04:16→21:33)
[2018-01-03] MEDS: Isosorbide DN 10 MG Tablet PO ×3 (04:17→21:33)
[2018-01-03] MEDS: Carvedilol 6.25 MG Tablet PO (04:17)
[2018-01-03] MEDS: Escitalopram Oxalate 20 MG Tablet PO (04:17)
[2018-01-03] MEDS: SACUBITRIL/VALSARTAN 24/26 MG TABLET 1 EACH PO (04:17)
[2018-01-03] MEDS: Finasteride 5 MG Tablet PO (04:17)
[2018-01-03] MEDS: Ciprofloxacin 250 MG Tablet PO (04:17)
[2018-01-03] MEDS: APIXABAN 5 MG TABLET PO ×2 (04:17→16:56)
[2018-01-03] MEDS: Menthol/Lanolin/Calamine/Znox 113 GM Tube 1 APPLIC TOPICAL ×2 (04:18→16:54)
[2018-01-03] MEDS: Nystatin Powder 15gm Bottle 1 APPLIC TOPICAL ×2 (04:21→21:33)
[2018-01-03 05:56] LABS: Absolute Lymphocyte Count 1.18 X10^3/ul (0.83-4.51); Basophil# 0.03 X10^3/uL; Basophil% 0.4 % (0-1); Eosinophil# 0.15 X10^3/uL; Eosinophils% 2.2 % (0-5); Hematocrit 33.1 % (40-54); Hemoglobin 9.7 g/dl (13.0-16.5); Lymphocyte # 1.18 X10^3/ul (4.0); Lymphocyte % 17.1 % (19-41); Mean Corp Hgb Conc 29.3 g/gl (32-36); Mean Corpuscular Hgb 25.5 pg (27.0-32.0); Mean Corpuscular Volume 87.1 fL (80-94); Mean Platelet Vol. 10.4 fl (6.2-12.0); Monocyte# 0.47 X10^3/uL; Monocyte% 6.8 % (0-10); Neutrophil # 4.98 X10^3/uL (2.7-7.7); Neutrophil % 72.3 % (47-70); Platelet Count 142 K/mm3 (150-450); RBC Distribution Width CV 17.4 % (11.6-14.6); RBC Distribution Width SD 55.1 fl (35.1-43.9); White Blood Count 6.9 K/mm3 (4.4-11.0)
[2018-01-03 06:00] LABS: POSITIVE COUNT NO; POSITIVE DIFFERENTIAL NO; POSITIVE MORPHOLOGY NO
[2018-01-03 06:13] LABS: Anion Gap 5 (5-15); BUN 49 mg/dL (7-18); Calcium,Total 9.7 mg/dL (8.5-10.1); Chloride 101 mmol/L (98-107); Creatinine, Serum 1.36 mg/dL (0.70-1.30); EST Glomerular Filtration Rate 54 mL/min (>60); Est Glom Filt Rate - Afr Amer 65 mL/min (>60); Estimated Creatinine Clearance 44.01 ml/min; Glucose 111 mg/dL (74-106); Sodium Level 142 mmol/L (136-145)
[2018-01-03 06:45] LABS: Bedside Glucose 105 mg/dL (70-110)
[2018-01-03 06:55] VITALS: O2SAT 92
[2018-01-03 07:00] VITALS: PULSE 66; RESP 18; O2SAT 97
--- NOTE | 2018-01-03 09:02 | NURSING ---
DR CULLEN NOTIFIED OF PT COGNITION PER FAMILY CONCERN OF CIPRO, NEW ORDER FOR CEFTIN.
[2018-01-03] MEDS: predniSONE 5 MG Tablet PO (09:12)
[2018-01-03] MEDS: Furosemide 40 MG Tablet PO ×2 (09:37→16:56)
[2018-01-03 11:16] LABS: Bedside Glucose 200 mg/dL (70-110)
--- NOTE | 2018-01-03 11:40 | NURSING ---
blood sugar [address] Gu updated, no new orders at this time
[2018-01-03] MEDS: Ondansetron ODT 4 MG Tablet PO (14:57)
[2018-01-03 16:00] VITALS: BP 100/51; PULSE 90; RESP 20; TEMP 36.2; O2SAT 95
[2018-01-03] MEDS: CEFUROXIME AXETIL 250 MG TABLET 500 MG PO (16:55)
[2018-01-03 17:06] LABS: Bedside Glucose 213 mg/dL (70-110)
--- NOTE | 2018-01-03 17:57 | NURSING ---
low BP, Dr Gu notified, coreg and lasix decreased. held tonight
[2018-01-03 21:06] LABS: Bedside Glucose 210 mg/dL (70-110)
[2018-01-03] MEDS: MELATONIN 10 MG TABLET PO (21:33)
--- NOTE | 2018-01-03 22:32 | NURSING ---
Pt was found in room with Lt leg behind tucked behind foot rest of recliner trying to push it down. +3 Pitting edema noted to bilateral lower extremities. A red, indented area noted below knee. Encouraged pt to call for assistance. PA in place and call light in reach.
--- NOTE | 2018-01-04 04:07 | RAD_ITS ---
STUDY: X-RAY CHEST REASON FOR EXAM: Male, 77 years old. Near fall. Hip and right flank pain. TECHNIQUE: AP portable chest. COMPARISON: December 14, 2017. FINDINGS: The lungs are clear and expanded. There is no demonstrated pleural abnormality. Borderline cardiomegaly. Normal mediastinum and gaye. Normal visualized pulmonary arteries. Normal visualized aortic arch and descending thoracic aorta. Sternal wires. Cardiac pacemaker left hemithorax. Normal visualized thoracic spine. Normal visualized ribs, clavicles, and shoulders. There is no demonstrated abnormality of the visualized soft tissue structures of the upper abdomen. Surgical clips left upper quadrant. RAD/Chest 1 View (Portable) IMPRESSION: No acute cardiopulmonary disease. Electronically Signed: Juan Briscoe MD at 5:35 EDT , Service support ,
--- NOTE | 2018-01-04 04:08 | NURSING ---
Addendum entered by Natalya Yo 01/05/18 18:59: renewable energy division manager notified at 01-04-18 at 0745 Original Note: Ecchymosis noted to mid rt buttock. Dark purple in color. Pt denies mistreatment from staff. Pt currently on Eliquis.
--- NOTE | 2018-01-04 04:09 | NURSING ---
Addendum entered by Natalya Yo 01/05/18 18:58: pmo manager notified 01-04-18 [id number] Original Note: Pt called out to nurses' station stating, I'm half in the bed, half out of the bed. This nurse rushed back to pt's room. Pt lying naked on right side half way out of recliner. One lokie engineer sock noted to left foot, other lokie engineer sock noted on floor at pt's feet. Pt's feet only resting on floor-all other body parts touching recliner. Pt's brief on floor. Pt gown on bed. Alarm unclipped from pt's gown, as previously placed by HIGH CLIMBER. PA clip noted lying in recliner, not alarming. Call light on over bed table next to patient. This nurse yelled for assistance. Gait belt applied to pt. Pt assisted on to folding chair by two staff members. Front End Alignment Specialist sock applied to right foot. Pt able to stand from folding chair and sit in recliner. Gown, brief and alarm reapplied. Legs elevated in recliner. Many placed on pt for comfort. Call light within reach. Pt AOx3 and agreeable to call for assistance with transfers. No visible injury/ecchymosis noted. Pt c/o pain to right rib area and right hip. Dr Gu aware, N.O. xrays. Will continue to monitor and asses.
--- NOTE | 2018-01-04 04:40 | RAD_ITS ---
STUDY: X-RAY - PELVIS AND RIGHT HIP REASON FOR EXAM: Male, 77 years old. Near fall. Hip pain. TECHNIQUE: Radiological exam, hip, unilateral, with pelvis when performed; 2 or 3 views. COMPARISON: CT abdomen and pelvis November 22, 2017. FINDINGS: There is a non-specific bowel gas pattern. Normal visualized soft tissue structures. Normal bilateral iliac wings, sacroiliac joints and visualized sacrum. Normal bilateral superior and inferior pubic rami. Normal pubic symphysis. Normal bilateral ischial tuberosities. Normal visualized femoral head. Normal acetabulum. Normal hip joint. Bilateral femoral vascular calcifications. Surgical clips left lower quadrant. RAD/Hip 2-3 Views with Pelvis IMPRESSION: No fracture in the pelvis and right hip. Electronically Signed: Juan Briscoe MD at 5:36 EDT , Service support ,
--- NOTE | 2018-01-04 04:59 | NURSING ---
This nurse and STEAM HEATING INSTALLER assisted pt down to xray via bed. Pt assisted by slide board to xray table. Pt stated I cant lay on that! Pt in agreement to try. Pt was assisted to lay flat without difficulty. Xray techs prompted pt to lift and move nyla lower extremities and pt completed without assistance. Pt began to get irritated and complained of needing to sit up. Pt was assisted in the upright position. Pt began to demand to sit on the end of the xray table. This nurse and techs advised pt that it was not in the best interest of the pt d/t safety. Pt refusing to complete the rest of the xrays at this time. Will update Dr. Gu.
[2018-01-04] MEDS: Ondansetron ODT 4 MG Tablet PO ×2 (05:11→13:17)
[2018-01-04] MEDS: Menthol/Lanolin/Calamine/Znox 113 GM Tube 1 APPLIC TOPICAL ×2 (05:59→17:36)
[2018-01-04] MEDS: CEFUROXIME AXETIL 250 MG TABLET 500 MG PO ×2 (06:00→17:33)
[2018-01-04] MEDS: APIXABAN 5 MG TABLET PO ×2 (06:00→17:33)
[2018-01-04] MEDS: SACUBITRIL/VALSARTAN 49-51 MG TABLET 1 EACH PO ×2 (06:00→17:33)
[2018-01-04] MEDS: Carvedilol 3.125 MG TABLET PO ×2 (06:00→17:33)
[2018-01-04] MEDS: Furosemide 40 MG Tablet PO (06:01)
[2018-01-04] MEDS: Isosorbide DN 10 MG Tablet PO ×3 (06:01→20:56)
[2018-01-04] MEDS: Escitalopram Oxalate 20 MG Tablet PO (06:01)
[2018-01-04] MEDS: Glucerna Shake 120 ML LIQUID PO ×4 (06:01→20:56)
[2018-01-04] MEDS: Finasteride 5 MG Tablet PO (06:02)
[2018-01-04] MEDS: Nystatin Powder 15gm Bottle 1 APPLIC TOPICAL ×2 (06:02→20:57)
[2018-01-04 06:30] VITALS: O2SAT 94
[2018-01-04 06:41] LABS: Bedside Glucose 244 mg/dL (70-110)
[2018-01-04] MEDS: predniSONE 5 MG Tablet PO (09:08)
--- NOTE | 2018-01-04 09:48 | NURSING ---
Xray results reviewed by KIRSTEN Conrad.
[2018-01-04 11:41] LABS: Bedside Glucose 279 mg/dL (70-110)
[2018-01-04] MEDS: Acetaminophen 500 MG Tablet 1000 MG PO (13:17)
--- NOTE | 2018-01-04 13:18 | CASEMGMT ---
Insurance Clinical information faxed. Pending continued stay approval at this time. Auth#[id number] Donna PATEL, MANAGED CARE MANAGER
[2018-01-04 16:00] VITALS: BP 114/74; PULSE 96; RESP 18; TEMP 36.9; O2SAT 97
[2018-01-04 16:55] LABS: Bedside Glucose 247 mg/dL (70-110)
--- NOTE | 2018-01-04 18:56 | NURSING ---
urine culture reviewed by KIRSTEN Conrad.
[2018-01-04] MEDS: MELATONIN 10 MG TABLET PO (20:57)
[2018-01-04 21:05] LABS: Bedside Glucose 207 mg/dL (70-110)
[2018-01-04 21:46] VITALS: PULSE 68; RESP 18
--- NOTE | 2018-01-05 04:05 | NURSING ---
Addendum entered by Maddy Farley 01/05/18 04:09: Will update restaurant and bar manager. Original Note: This nurse notified at this time by BAR HOST/HOSTESS that a new bruise was found on pt's lower back above rt buttocks- found while washing pt for am care. this nurse looked at bruise- bruise dark purple in color and not present yesterday. pt on eliquis. when asked, pt denies knowledge of bruise or how he obtained it. pt denies mistreatment by staff. RN notified of new bruise at this time.
[2018-01-05] MEDS: Menthol/Lanolin/Calamine/Znox 113 GM Tube 1 APPLIC TOPICAL ×2 (05:26→20:06)
[2018-01-05] MEDS: CEFUROXIME AXETIL 250 MG TABLET 500 MG PO ×2 (05:26→17:17)
[2018-01-05] MEDS: Carvedilol 3.125 MG TABLET PO ×2 (05:27→17:17)
[2018-01-05] MEDS: Isosorbide DN 10 MG Tablet PO ×3 (05:27→20:07)
[2018-01-05] MEDS: Glucerna Shake 120 ML LIQUID PO ×3 (05:27→17:17)
[2018-01-05] MEDS: SACUBITRIL/VALSARTAN 49-51 MG TABLET 1 EACH PO ×2 (05:27→17:17)
[2018-01-05] MEDS: APIXABAN 5 MG TABLET PO ×2 (05:27→17:17)
[2018-01-05] MEDS: Nystatin Powder 15gm Bottle 1 APPLIC TOPICAL ×2 (05:28→20:09)
[2018-01-05] MEDS: Escitalopram Oxalate 20 MG Tablet PO (05:28)
[2018-01-05] MEDS: Furosemide 40 MG Tablet PO (05:28)
[2018-01-05] MEDS: Finasteride 5 MG Tablet PO (05:28)
[2018-01-05 06:32] VITALS: O2SAT 96
[2018-01-05 08:21] LABS: Bedside Glucose 187 mg/dL (70-110)
[2018-01-05] MEDS: predniSONE 5 MG Tablet PO (08:39)
[2018-01-05 11:11] LABS: Bedside Glucose 228 mg/dL (70-110)
[2018-01-05 15:47] VITALS: BP 131/78; PULSE 90; RESP 22; TEMP 37.1; O2SAT 93
[2018-01-05 16:51] LABS: Bedside Glucose 221 mg/dL (70-110)
[2018-01-05] MEDS: MELATONIN 10 MG TABLET PO (20:09)
[2018-01-05] MEDS: Acetaminophen 500 MG Tablet 1000 MG PO (20:19)
[2018-01-05 21:01] LABS: Bedside Glucose 250 mg/dL (70-110)
[2018-01-06] MEDS: Glucerna Shake 120 ML LIQUID PO ×4 (04:28→22:30)
[2018-01-06] MEDS: APIXABAN 5 MG TABLET PO ×2 (04:28→17:02)
[2018-01-06] MEDS: SACUBITRIL/VALSARTAN 49-51 MG TABLET 1 EACH PO ×2 (04:29→17:02)
[2018-01-06] MEDS: Carvedilol 3.125 MG TABLET PO ×2 (04:29→17:02)
[2018-01-06] MEDS: Furosemide 40 MG Tablet PO (04:30)
[2018-01-06] MEDS: CEFUROXIME AXETIL 250 MG TABLET 500 MG PO ×2 (04:30→17:02)
[2018-01-06] MEDS: Escitalopram Oxalate 20 MG Tablet PO (04:30)
[2018-01-06] MEDS: Isosorbide DN 10 MG Tablet PO ×3 (04:30→22:31)
[2018-01-06] MEDS: Nystatin Powder 15gm Bottle 1 APPLIC TOPICAL ×2 (04:30→22:30)
[2018-01-06] MEDS: Finasteride 5 MG Tablet PO (04:30)
[2018-01-06] MEDS: Menthol/Lanolin/Calamine/Znox 113 GM Tube 1 APPLIC TOPICAL ×2 (04:31→22:30)
[2018-01-06 06:41] LABS: Bedside Glucose 166 mg/dL (70-110)
[2018-01-06 07:00] VITALS: PULSE 65; RESP 16; O2SAT 96
[2018-01-06 07:35] VITALS: O2SAT 93
[2018-01-06] MEDS: predniSONE 5 MG Tablet PO (07:59)
--- NOTE | 2018-01-06 08:38 | CPS ---
patient was on o2 at 2.5 lpm earlier this am.
[2018-01-06 10:00] VITALS: PULSE 64; RESP 18; O2SAT 96
[2018-01-06 11:21] LABS: Bedside Glucose 180 mg/dL (70-110)
--- NOTE | 2018-01-06 14:03 | CASEMGMT ---
Insurance Continued stay denied. Last cover day: 01/08/18 with resident to discharge or financial liability to begin on 01/09/18. Auth#[id number] Donna PATEL, HEARING THERAPY TEACHER
--- NOTE | 2018-01-06 14:04 | CASEMGMT ---
Social Work Spoke with resident and resident spouse. This social research assistant communicating that continued stay has been denied with a last cover day of 01/08/18 and resident to discharge or financial liability to begin on 01/09/18. Resident is agreeable to discharge date and signed NOMNOC. Resident plans to discharge home with spouse at time of discharge. Resident active with home health services through [facility] ([facility]) and plans to continue with physical and occupational therapy as well as intermediate. Resident reporting to have oxygen and a walker within the home. Resident is also active with the [facility] ([facility]). Resident plans to continue with the [facility] at this time. Resident spouse plans to provide transportation home for resident at time of discharge. Support given. [facility] This social research assistant making referral for physical and occupational therapy as well as intermediate. Order to be completed. Notified [place] with the [facility] of resident discharge date. Proposed discharge date: 01/09/18 PLAN: Discharge home with spouse and home health services along with [facility]. Donna PATEL, BELLHOP
--- NOTE | 2018-01-06 14:10 | CASEMGMT ---
Brief interview for mental status (BIMS) and resident mood interview completed on this day. BIMS score 07/29. PHQ-9 score 02/08.
--- NOTE | 2018-01-06 14:45 | PCM.DC ---
- Discharge Diagnoses Current Active Problems: Current Active and Chronic Problems (Last Updated 08/29/17 @ 10:33 by Karon Nick) Chronic systolic congestive heart failure (Chronic) Depression (Chronic) Acute kidney injury (Acute) You will use the following diet at home:: No restrictions, Regular Your food should be the consistency of: Regular Your liquids should be the consistency of: Regular/Thin Discharge Activity: Return to Normal Activity, May Shower, Use Walker Weight Bearing Status: Weight bearing as tolerated Call your doctor if you observe: Fever of 101 or Higher, Inability to urinate, Inability to have a bowel movement, Shortness of breath, Chest pain, Uncontrolled pain Allergies/Adverse Reactions: Allergies erythromycin base Allergy (Mild, Verified 11/22/17 10:36) Hives cyclobenzaprine HCl [From Flexeril] Allergy (Verified 11/21/17 12:35) Rash latex Allergy (Verified 11/21/17 12:35) Swelling Penicillins Allergy (Verified 11/21/17 12:35) Rash Sulfa (Sulfonamide Antibiotics) Allergy (Verified 11/21/17 12:35) Rash tetracycline Allergy (Verified 11/22/17 10:36) Hives acetaminophen [From Percocet] Adverse Reaction (Verified 11/21/17 12:35) Other HALLUCINATES oxycodone [From Percocet] Adverse Reaction (Verified 11/21/17 12:35) Other HALLUCINATES iv dye Adverse Reaction (Uncoded 11/21/17 12:35) only has 1 kidney Medications to take at Discharge Ergocalciferol [Vitamin D] 50,000 unit PO QMONTH 11/21/17 Escitalopram Oxalate [Lexapro] 20 mg PO DAILY 11/21/17 Finasteride [Proscar] 5 mg PO DAILY 11/21/17 Potassium Chloride [K-Dur] 20 meq PO DAILY 11/21/17 Apixaban [Eliquis] 5 mg PO BID #0 11/23/17 Prednisone 5 mg PO DAILY 12/14/17 Acetaminophen [Tylenol] 1,000 mg PO Q8H PRN PRN tablet 01/06/18 Carvedilol [Coreg (Beta Tae)] 3.125 mg PO BID #60 tab 01/06/18 Cefuroxime Axetil [Ceftin] 500 mg PO Q12 #3 tab 01/06/18 Furosemide [Lasix] 40 mg PO DAILY@0600 #30 tab 01/06/18 Insulin Detemir [Levemir FlexPen] 10 units SC BID #1 insuln.pen 01/06/18 Isosorbide DN [Isordil] 10 mg PO TID #90 tab 01/06/18 Melatonin 10 mg PO QHS tablet 01/06/18 Menthol [Bengay Vanishing Scent] 1 applic TOPICAL TID PRN PRN tube 01/06/18 Menthol/Lanolin/Calamine/Znox [Calmoseptine Ointment] 1 applic TOPICAL 0600,2200 tube 01/06/18 Nutritional Supplement [Rayshawn - ORANGE FLAVOR] 1 packet PO BIDCM #60 packet 01/06/18 Nystatin Powder [Mycostatin Powder] 1 applic TOPICAL 0600,2200 bottle 01/06/18 Sacubitril/Valsartan 49-51 mg [Entresto 49 mg-51 mg Tablet] 1 ea PO BID #60 tab 01/06/18 The following prescriptions were given: Cefuroxime Axetil [Ceftin] 500 mg PO Q12 #3 tab Furosemide [Lasix] 40 mg PO DAILY@0600 #30 tab Carvedilol [Coreg (Beta Tae)] 3.125 mg PO BID #60 tab Insulin Detemir [Levemir FlexPen] 10 units SC BID #1 insuln.pen Nutritional Supplement [Rayshawn - ORANGE FLAVOR] 1 packet PO BIDCM #60 packet Sacubitril/Valsartan 49-51 mg [Entresto 49 mg-51 mg Tablet] 1 ea PO BID #60 tab Isosorbide DN [Isordil] 10 mg PO TID #90 tab Primary Care Physician: Guy Gu Chi, MD [Primary Care Provider] - Please follow up with your Primary Care Physician in: 1 week. Please Follow Up With: Dr Velazquez When: 2 weeks. Proposed Discharge Date: 01/09/18
--- NOTE | 2018-01-06 14:46 | PCM.DC.SUM ---
Discharge Date and Diagnosis - Problem List Patient Problems: Active and Suspected Problems (Last Updated 08/29/17 @ 10:33 by Karon Nick) Acute kidney injury (Acute) Date of Admission: 12/19/17 Date of Discharge: 01/09/18 - Primary Discharge Diagnosis Active and Suspected Problems (Last Updated 08/29/17 @ 10:33 by Karon Flytenow) Acute kidney injury (Acute) - Secondary Discharge Diagnosis Chronic Problems (Last Updated 08/29/17 @ 10:33 by Karon [email or web address]) Chronic systolic congestive heart failure (Chronic) Depression (Chronic) Ulcer of left lower extremity with fat layer exposed (Chronic) Type 2 diabetes mellitus with diabetic polyneuropathy (Chronic) Foot ulcer with fat layer exposed (Chronic) Onycholysis (Chronic) Tinea unguium (Chronic) Ulcer of left lower extremity with fat layer exposed (Chronic) UTI (urinary tract infection) (Chronic) Atherosclerosis of [place] coronary artery of [place] heart without angina pectoris (Chronic) MOULTON to LAD, SVG to circumflex, and SVG to RCA in 1986 Left ventricular failure (Chronic) Peripheral vascular disease (Chronic) ASHD (arteriosclerotic heart disease) (Chronic) Automatic implantable cardiac defibrillator in situ (Chronic) ICD implant: 02/2010 HLD (hyperlipidemia) (Chronic) HTN (hypertension) (Chronic) Atherosclerosis 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 [facility] 1987, 01/29/2010, 02/24. Ischemic cardiomyopathy (Chronic) Paroxysmal ventricular tachycardia (Chronic) H/O coronary artery bypass surgery (Chronic) CABG MOULTON graft to anterior descending, saphenous vein graft to CFX, saphenous vein graft to RCA 1986. 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 Electronically Signed: Juan Briscoe MD at 5:35 EDT , Service support , Hip/Pelvis X-Ray 01/04/18 04:40 IMPRESSION: No fracture in the pelvis and right hip. Electronically Signed: Juan Briscoe MD at 5:36 EDT , Service support , Labs (Last 48 Hours) 01/04/18 01/04/18 01/05/18 16:47 21:00 06:48 POC Glucose 247 H 207 H 187 H 01/05/18 01/05/18 01/05/18 11:04 16:43 20:53 POC Glucose 228 H 221 H 250 H 01/06/18 01/06/18 06:33 11:17 POC Glucose 166 H 180 H Consultations 12/20/17 Consult: Onc/Wound/incident response coordinator Routine Comment: Reason for Consult:: LT POST LEG WOUND Operations: None Procedures: None Summary of Care Provided: The patient is a 77 year old Male with below past medical history hospitalized for acute encephalopathy secondary to viral gastroenteritis, complicated by acute kidney injury, chronic systolic heart failure (EF 15%), elevated troponin, admitted to TCU with debility, here for rehabilitation, strengthening, prior to discharge home with spouse. Discharge home with spouse and Home Health Services along with [facility]. Discharge Diet: No Restrictions Discharge Activity: Return to Normal Activity, May Shower, Use Walker Weight Bearing Status: Weight bearing as tolerated Call your doctor if you observe: Fever of 101 or Higher, Inability to urinate, Inability to have a bowel movement, Shortness of breath, Chest pain, Uncontrolled pain Home Medications: Medications to take at Discharge Ergocalciferol [Vitamin D] 50,000 unit PO QMONTH 11/21/17 Escitalopram Oxalate [Lexapro] 20 mg PO DAILY 11/21/17 Finasteride [Proscar] 5 mg PO DAILY 11/21/17 Potassium Chloride [K-Dur] 20 meq PO DAILY 11/21/17 Apixaban [Eliquis] 5 mg PO BID #0 11/23/17 Prednisone 5 mg PO DAILY 12/14/17 Acetaminophen [Tylenol] 1,000 mg PO Q8H PRN PRN tablet 01/06/18 Carvedilol [Coreg (Beta Tae)] 3.125 mg PO BID #60 tab 01/06/18 Cefuroxime Axetil [Ceftin] 500 mg PO Q12 #3 tab 01/06/18 Furosemide [Lasix] 40 mg PO DAILY@0600 #30 tab 01/06/18 Insulin Detemir [Levemir FlexPen] 10 units SC BID #1 insuln.pen 01/06/18 Isosorbide DN [Isordil] 10 mg PO TID #90 tab 01/06/18 Melatonin 10 mg PO QHS tablet 01/06/18 Menthol [Bengay Vanishing Scent] 1 applic TOPICAL TID PRN PRN tube 01/06/18 Menthol/Lanolin/Calamine/Znox [Calmoseptine Ointment] 1 applic TOPICAL 0600,2200 tube 01/06/18 Nutritional Supplement [Rayshawn - ORANGE FLAVOR] 1 packet PO BIDCM #60 packet 01/06/18 Nystatin Powder [Mycostatin Powder] 1 applic TOPICAL 0600,2200 bottle 01/06/18 Sacubitril/Valsartan 49-51 mg [Entresto 49 mg-51 mg Tablet] 1 ea PO BID #60 tab 01/06/18 Following Prescrptions Were Given to Patient: Cefuroxime Axetil [Ceftin] 500 mg PO Q12 #3 tab Furosemide [Lasix] 40 mg PO DAILY@0600 #30 tab Carvedilol [Coreg (Beta Tae)] 3.125 mg PO BID #60 tab Insulin Detemir [Levemir FlexPen] 10 units SC BID #1 insuln.pen Nutritional Supplement [Rayshawn - ORANGE FLAVOR] 1 packet PO BIDCM #60 packet Sacubitril/Valsartan 49-51 mg [Entresto 49 mg-51 mg Tablet] 1 ea PO BID #60 tab Isosorbide DN [Isordil] 10 mg PO TID #90 tab Primary Care Physician: Guy Gu Chi, MD [Primary Care Provider] - Please follow up with your Primary Care Physician in: 1 week. Please Follow Up With: Dr Velazquez When: 2 weeks. Disposition: Home with Home Health Minutes spent on discharge:: 35 Patient Condition:: Stable Medical Necessity - Tobacco Use Smoking Status: Former smoker Tobacco Use: Non-smoker Meaningful Use Info Meaningful Use Diagnoses (Choose all that apply): None applicable
--- NOTE | 2018-01-06 14:48 | PCM.PN.HH ---
Home Health Note - Plan Overview of reason of hospitalization: The patient is a 77 year old Male with below past medical history hospitalized for acute encephalopathy secondary to viral gastroenteritis, complicated by acute kidney injury, chronic systolic heart failure (EF 15%), elevated troponin, admitted to TCU with debility, here for rehabilitation, strengthening, prior to discharge home with spouse. Discharge home with spouse and Home Health Services along with [facility]. Problems: Patient was seen for (Last Updated 08/29/17 @ 10:33 by Karon Nick) Chronic systolic congestive heart failure (Chronic) Depression (Chronic) Acute kidney injury (Acute) Complete List of Medical Problems (Last Updated 08/29/17 @ 10:33 by Karon Nick) Acute metabolic encephalopathy (Acute) Acute kidney injury on CKD stage III (Acute) Abnormal cardiac enzyme level (Acute) Sepsis (Acute) Chronic systolic congestive heart failure (Chronic) Depression (Chronic) Acute kidney injury (Acute) Contusion of right foot (Acute) Ulcer of left lower extremity with fat layer exposed (Chronic) Type 2 diabetes mellitus with diabetic polyneuropathy (Chronic) Foot ulcer with fat layer exposed (Chronic) Onycholysis (Chronic) Tinea unguium (Chronic) Ulcer of left lower extremity with fat layer exposed (Chronic) Metabolic encephalopathy (Acute) UTI (urinary tract infection) (Chronic) Atherosclerosis of [place] coronary artery of [place] heart without angina pectoris (Chronic) Left ventricular failure (Chronic) Peripheral vascular disease (Chronic) ASHD (arteriosclerotic heart disease) (Chronic) Automatic implantable cardiac defibrillator in situ (Chronic) HLD (hyperlipidemia) (Chronic) HTN (hypertension) (Chronic) Atherosclerosis of coronary artery bypass graft without angina pectoris (Chronic) Ischemic cardiomyopathy (Chronic) Paroxysmal ventricular tachycardia (Chronic) H/O coronary artery bypass surgery (Chronic) 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) Open wound of lower extremity without complication (Chronic) Chronic renal insufficiency, stage III (moderate) (Chronic) PAOD (peripheral arterial occlusive disease) (Chronic) - Requirements and Reasons Disciplines Needed/Ordered: Mcfp, Physical Therapy Reason for Disciplines: Gait Training, Stair Training, Fall Prevention, Home Safety/Equipment Instruction, Balance and/or Posture Training, Transfer Training Related To: Limited/Poor Endurance, Shortness of Breath with Activity, Physical Impairments, Unsteady Gait/Balance, Fall Risk Patient is unable to leave the home: Without Aid of Supportive Devices (crutches, cane, wheelchair, walker), Without the assistance of another person - Additional Disciplines Additional Disciplines Needed/Ordered: Occupational Therapy, Home Health Aide
[2018-01-06 15:30] VITALS: BP 108/60; PULSE 80; RESP 18; TEMP 37; O2SAT 96
[2018-01-06 17:07] LABS: Bedside Glucose 223 mg/dL (70-110)
[2018-01-06 22:06] LABS: Bedside Glucose 184 mg/dL (70-110)
[2018-01-06] MEDS: MELATONIN 10 MG TABLET PO (22:33)
[2018-01-07] MEDS: Glucerna Shake 120 ML LIQUID PO ×3 (04:44→21:11)
[2018-01-07] MEDS: CEFUROXIME AXETIL 250 MG TABLET 500 MG PO ×2 (04:45→16:55)
[2018-01-07] MEDS: Finasteride 5 MG Tablet PO (04:46)
[2018-01-07] MEDS: Isosorbide DN 10 MG Tablet PO ×3 (04:46→21:12)
[2018-01-07] MEDS: Furosemide 40 MG Tablet PO (04:46)
[2018-01-07] MEDS: Escitalopram Oxalate 20 MG Tablet PO (04:46)
[2018-01-07] MEDS: Carvedilol 3.125 MG TABLET PO ×2 (04:46→16:55)
[2018-01-07] MEDS: SACUBITRIL/VALSARTAN 49-51 MG TABLET 1 EACH PO ×2 (04:46→16:55)
[2018-01-07] MEDS: APIXABAN 5 MG TABLET PO ×2 (04:46→16:55)
[2018-01-07] MEDS: Menthol/Lanolin/Calamine/Znox 113 GM Tube 1 APPLIC TOPICAL ×2 (04:47→21:19)
[2018-01-07] MEDS: Nystatin Powder 15gm Bottle 1 APPLIC TOPICAL ×2 (04:47→21:20)
[2018-01-07 06:30] VITALS: PULSE 76; RESP 15; O2SAT 95
[2018-01-07 07:01] LABS: Bedside Glucose 152 mg/dL (70-110)
[2018-01-07] MEDS: predniSONE 5 MG Tablet PO (08:55)
[2018-01-07 11:30] LABS: Bedside Glucose 189 mg/dL (70-110)
[2018-01-07] MEDS: Ondansetron ODT 4 MG Tablet PO (11:53)
[2018-01-07 15:21] VITALS: BP 114/78; PULSE 90; RESP 18; TEMP 36.6; O2SAT 97
[2018-01-07 16:50] LABS: Bedside Glucose 223 mg/dL (70-110)
[2018-01-07 21:05] LABS: Bedside Glucose 250 mg/dL (70-110)
[2018-01-07 21:11] LABS: Bedside Glucose 244 mg/dL (70-110)
[2018-01-07] MEDS: MELATONIN 10 MG TABLET PO (21:12)
[2018-01-08] MEDS: Finasteride 5 MG Tablet PO (05:49)
[2018-01-08] MEDS: Glucerna Shake 120 ML LIQUID PO ×4 (05:49→21:32)
[2018-01-08] MEDS: Escitalopram Oxalate 20 MG Tablet PO (05:49)
[2018-01-08] MEDS: Isosorbide DN 10 MG Tablet PO ×3 (05:50→21:32)
[2018-01-08] MEDS: CEFUROXIME AXETIL 250 MG TABLET 500 MG PO ×2 (05:50→17:02)
[2018-01-08] MEDS: SACUBITRIL/VALSARTAN 49-51 MG TABLET 1 EACH PO ×2 (05:50→17:03)
[2018-01-08] MEDS: APIXABAN 5 MG TABLET PO ×2 (05:50→17:03)
[2018-01-08] MEDS: Furosemide 40 MG Tablet PO (05:50)
[2018-01-08] MEDS: Carvedilol 3.125 MG TABLET PO ×2 (05:54→17:03)
[2018-01-08] MEDS: Nystatin Powder 15gm Bottle 1 APPLIC TOPICAL ×2 (06:01→21:32)
[2018-01-08] MEDS: Menthol/Lanolin/Calamine/Znox 113 GM Tube 1 APPLIC TOPICAL ×2 (06:02→21:32)
[2018-01-08 06:06] LABS: Bedside Glucose 210 mg/dL (70-110)
[2018-01-08] MEDS: predniSONE 5 MG Tablet PO (07:39)
[2018-01-08 08:25] VITALS: O2SAT 96
[2018-01-08 11:10] LABS: Bedside Glucose 224 mg/dL (70-110)
[2018-01-08] MEDS: Ondansetron ODT 4 MG Tablet PO (11:12)
[2018-01-08 15:10] VITALS: BP 106/62; PULSE 87; RESP 20; TEMP 36.2; O2SAT 97
[2018-01-08 16:50] LABS: Bedside Glucose 260 mg/dL (70-110)
[2018-01-08 20:51] LABS: Bedside Glucose 263 mg/dL (70-110)
[2018-01-08] MEDS: MELATONIN 10 MG TABLET PO (21:32)
[2018-01-09] MEDS: Glucerna Shake 120 ML LIQUID PO (04:58)
[2018-01-09] MEDS: CEFUROXIME AXETIL 250 MG TABLET 500 MG PO (05:00)
[2018-01-09] MEDS: APIXABAN 5 MG TABLET PO (05:00)
[2018-01-09] MEDS: SACUBITRIL/VALSARTAN 49-51 MG TABLET 1 EACH PO (05:00)
[2018-01-09] MEDS: Carvedilol 3.125 MG TABLET PO (05:00)
[2018-01-09] MEDS: Finasteride 5 MG Tablet PO (05:00)
[2018-01-09] MEDS: Escitalopram Oxalate 20 MG Tablet PO (05:00)
[2018-01-09] MEDS: Furosemide 40 MG Tablet PO (05:00)
[2018-01-09] MEDS: Nystatin Powder 15gm Bottle 1 APPLIC TOPICAL (05:00)
[2018-01-09] MEDS: Menthol/Lanolin/Calamine/Znox 113 GM Tube 1 APPLIC TOPICAL (05:01)
[2018-01-09] MEDS: Isosorbide DN 10 MG Tablet PO (05:06)
[2018-01-09 05:26] VITALS: PULSE 82; RESP 16; O2SAT 98
[2018-01-09 06:55] VITALS: O2SAT 98
[2018-01-09 06:56] LABS: Bedside Glucose 179 mg/dL (70-110)
[2018-01-09] MEDS: predniSONE 5 MG Tablet PO (08:33)
[2018-01-09 11:49] VITALS: BP 107/68; PULSE 81; RESP 20; TEMP 36.6; O2SAT 98
--- NOTE | 2018-01-10 11:01 | CASEMGMT ---
Insurance Notified insurance of resident discharge on 01/09/18 to home with spouse and home health services. Auth#[id number] Donna PATEL, CUPOLA OPERATOR INSULATION
--- NOTE | 2018-01-19 17:07 | MDS.RN ---
Information for the mds was obtained from review of the clinical record, interview of resident, staff, and direct observation of resident's care.
--- NOTE | 2018-01-23 07:52 | MDS.RN ---
14 day MDS assessment due by 01/16/18 was completed on 01/19/18 due to hospital computers down
== END 2018-01-09 11:45 | disposition home health service (06) | DRG 947 ==
PROVIDERS: Admitting Provider Family Medicine Geriatric Medicine; Family Provider Family Medicine Geriatric Medicine; PCP Family Medicine Geriatric Medicine; Visit Provider Family Medicine Geriatric Medicine
DX: R53.81 Other malaise (principal); G93.41 Metabolic encephalopathy; I13.0 Hypertensive heart and chronic kidney disease with heart failure and stage 1 through stage 4 chronic kidney disease, or unspecified chronic kidney disease; I50.22 Chronic systolic (congestive) heart failure; N13.8 Other obstructive and reflux uropathy; N18.3 Chronic kidney disease, stage 3 (moderate); E11.22 Type 2 diabetes mellitus with diabetic chronic kidney disease; E11.42 Type 2 diabetes mellitus with diabetic polyneuropathy; J44.9 Chronic obstructive pulmonary disease, unspecified; I89.0 Lymphedema, not elsewhere classified; N40.1 Benign prostatic hyperplasia with lower urinary tract symptoms; E78.5 Hyperlipidemia, unspecified; I25.10 Atherosclerotic heart disease of native coronary artery without angina pectoris; E11.51 Type 2 diabetes mellitus with diabetic peripheral angiopathy without gangrene; E11.65 Type 2 diabetes mellitus with hyperglycemia; F32.9 Major depressive disorder, single episode, unspecified; F41.9 Anxiety disorder, unspecified; E87.6 Hypokalemia; M35.3 Polymyalgia rheumatica; Z95.1 Presence of aortocoronary bypass graft; Z95.810 Presence of automatic (implantable) cardiac defibrillator; Z79.899 Other long term (current) drug therapy; Z79.01 Long term (current) use of anticoagulants; Z79.4 Long term (current) use of insulin; Z79.52 Long term (current) use of systemic steroids; Z87.891 Personal history of nicotine dependence; I25.5 Ischemic cardiomyopathy
CPT/HCPCS: 36415; 71045; 73502; 80048; 81001; 82962; 85025; 87077; 87086; 87088; 97110; 97116; 97162; 97166; 97530; 97535; 97802; J3420

== ENCOUNTER 2018-01-11 16:16 | Emergency (ER) | payer MEDICARE, SELFPAY ==
[2018-01-11 16:17] VITALS: BP 120/90; PULSE 108; RESP 20; TEMP 36.8; O2SAT 96; BMI 38.0
--- NOTE | 2018-01-11 16:38 | CT_ITS ---
STUDY: CT BRAIN WITHOUT CONTRAST REASON FOR EXAM: Male, 77 years old. Trauma. RADIATION DOSAGE (If Supplied By Facility): CTDIvol = ( 44.99 ) mGy, DLP = ( 812.98 ) mGycm TECHNIQUE: Transaxial CT imaging of the brain was performed without administration of intravenous contrast material. Individualized dose optimization techniques were used for this CT. COMPARISON: December 14, 2017 FINDINGS: Normal soft tissue structures. Normal calvarium. There is mild cerebral atrophy with widening of the extra-axial spaces and ventricular dilatation. There are areas of decreased attenuation within the white matter tracts of the supratentorial brain, consistent with microvascular disease changes. Normal basal ganglia and thalami. Normal brainstem. There is mild cerebellar atrophy. There are peripheral calcifications of the visualized vertebral and internal carotid arteries. There is no intracranial hemorrhage. There are no findings of an acute ischemic infarction. Normal visualized paranasal sinuses. CT/Brain/Head without Contrast IMPRESSION: Chronic involutional changes of the brain. Small vessel ischemia. Atherosclerosis. Electronically Signed: Jenny Kumar MD at 18:14 EDT Tel , Service support ,
--- NOTE | 2018-01-11 16:38 | EKG12_ITS ---
Test Reason : WEAKNESS Blood Pressure : / mmHG Vent. Rate : 104 BPM Atrial Rate : 104 BPM P-R Int : 248 ms QRS Dur : 116 ms QT Int : 340 ms P-R-T Axes : 026 -05 156 degrees QTc Int : 447 ms Sinus tachycardia with 1st degree A-V block Incomplete left bundle branch block ST & T wave abnormality, consider lateral ischemia Abnormal ECG Confirmed by SETH LEOS ([id number]), senior technical editor DERECK MARAVILLA ([id number]) on 01/23/2018 5:39:56 PM Referred By: PREETHI Confirmed By:SETH LEOS
[2018-01-11 16:59] LABS: Absolute Lymphocyte Count 1.28 X10^3/ul (0.83-4.51); Absolute Neutrophil Count 6.1 X10^3/uL (2.0-7.7); Basophil# 0.06 X10^3/uL; Basophil% 0.7 % (0-1); Eosinophil# 0.13 X10^3/uL; Eosinophils% 1.6 % (0-5); Hematocrit 39.1 % (40-54); Hemoglobin 11.4 g/dl (13.0-16.5); Lymphocyte # 1.28 X10^3/ul (4.0); Lymphocyte % 15.6 % (19-41); Mean Corp Hgb Conc 29.2 g/gl (32-36); Mean Corpuscular Hgb 24.8 pg (27.0-32.0); Mean Platelet Vol. 9.6 fl (6.2-12.0); Monocyte# 0.54 X10^3/uL; Monocyte% 6.6 % (0-10); Neutrophil # 6.09 X10^3/uL (2.7-7.7); Platelet Count 181 K/mm3 (150-450); RBC Distribution Width CV 17.3 % (11.6-14.6); RBC Distribution Width SD 53.5 fl (35.1-43.9); White Blood Count 8.2 K/mm3 (4.4-11.0)
[2018-01-11] MEDS: Ondansetron 4 MG/2 ML Vial IV (16:59)
[2018-01-11] MEDS: Morphine 4 MG/ML Syringe IV (16:59)
[2018-01-11 17:00] LABS: POSITIVE COUNT NO; POSITIVE DIFFERENTIAL NO; POSITIVE MORPHOLOGY NO
[2018-01-11 17:14] LABS: ALB/GLOB Ratio 0.8 RATIO (0.9-2.4); AST(SGOT) 15 U/L (15-37); Alanine Aminotransfer ALT/SGPT 24 U/L (16-61); Albumin, Serum 2.9 g/dL (3.2-5.0); Alkaline Phosphatase 58 U/L (45-117); Anion Gap 7 (5-15); BUN 39 mg/dL (7-18); Chloride 101 mmol/L (98-107); Creatinine, Serum 1.56 mg/dL (0.70-1.30); EST Glomerular Filtration Rate 46 mL/min (>60); Est Glom Filt Rate - Afr Amer 56 mL/min (>60); Estimated Creatinine Clearance 38.37 ml/min; Globulin 3.7 g/dL (2.2-4.2); Glucose 165 mg/dL (74-106); Lipase 187 U/L (73-393); Potassium 4.6 mmol/L (3.5-5.1); Protein, Total 6.6 g/dL (6.4-8.2); Sodium Level 138 mmol/L (136-145)
--- NOTE | 2018-01-11 17:45 | RAD_ITS ---
STUDY: X-RAY CHEST REASON FOR EXAM: Male, 77 years old. Weakness TECHNIQUE: Frontal and lateral views COMPARISON: January 04, 2018 FINDINGS: Stable sternotomy wires and left-sided pacemaker. The lungs are not fully expanded. Bibasal infiltrates/atelectasis. Mild cardiomegaly. Normal mediastinum and gaye. Slightly prominent central pulmonary arteries. Calcified aortic arch and descending thoracic aorta. Degenerative changes of the thoracic spine. Normal visualized ribs, clavicles, and shoulders. Stable surgical clips in the upper abdomen. RAD/Chest PA and Lateral IMPRESSION: Cardiomegaly and mild central pulmonary vascular prominence. Bibasilar infiltrates/atelectasis. Electronically Signed: Renato Matute DO at 18:31 EDT Tel [phone], Service support ,
[2018-01-11 19:05] VITALS: BP 106/88; PULSE 96; RESP 16; O2SAT 96
[2018-01-11 19:43] LABS: Bacteria 0 SEEN /hpf (None Seen); Mucous, Urine 0 SEEN /hpf (<or=2+); Red Blood Cells-Urine 0 SEEN /hpf (0-5)
[2018-01-11 20:32] LABS: Color, Urine Yellow (Yellow); Glucose, Dipstick Normal (Normal); Ketone-Dipstick Negative (Negative); Leukocyte Esterase-Dipstick 25 /ul (Negative); Nitrite-Dipstick Negative (Negative); Occult Blood-Urine Negative /ul (Negative); Protein-Dipstick 30 mg/dl (Negative); Specific Gravity, Urine 1.015 (1.002-1.030); Urine Bilirubin Dipstick Negative (Negative); Urine Clarity Clear (Clear); Urine Urobilinogen 1 mg/dl (Normal); Urine pH 6.5 (5.0 - 8.0)
[2018-01-11 20:35] LABS: Squamous Epithelial Cells - UA 0-5 SEEN /hpf (0-5); White Blood Cells 0-5 SEEN /hpf (0-5)
[2018-01-11 20:36] LABS: Hyaline Cast 10-25 SEEN /lpf (0-5)
[2018-01-11 22:16] VITALS: BP 121/81; PULSE 104; RESP 26; O2SAT 100
--- NOTE | 2018-01-11 23:04 | ED.VISSUMM ---
- ER Visit Summary Date of Service: 01/11/18 Chief Complaint: Weakness and tired History of Present Illness: The patient is a [address] Gu and Dr. Velazquez. Family reports that he was discharged in the TCU 5 days ago on Ceftin for a UTI. They report over the past 3 days that he will not eat. He is much more tired than usual. He is weak diffusely. He also complains that he hurts all over. Patient did fall this morning. He had a blow to his head. No loss of consciousness. He denies any shoulder, wrist, hip, neck, or back pain. Patient denies any fever or chills. No chest pain. He has a chronic cough that is unchanged. He is short of breath when I bend over. He denies any abdominal pain. He has been nauseated. He has not vomited. He reports that he has had diarrhea on and off. He had a loose stool today. Physical Examination: Vitals: 98.3, 120/90, 108, 20, 96% on 2 L nasal cannula which is his home O2.. General: Well-nourished and well-developed. Head: Normocephalic atraumatic. Neck: Supple, no lymphadenopathy. No JVD. Nontender. Cardiovascular: Tachycardic irregular rhythm with a 2 out of 6 systolic murmur. Respiratory: No respiratory distress. Clear to auscultation bilaterally. Abdominal: Soft, mild diffuse tenderness to palpation, nondistended, normal bowel sounds. No guarding, rebound, or peritoneal signs. Back: Nontender. Extremities: Nontender, 2+ pitting edema of his lower extremity bilaterally. There is approximately 6 cm vesicle on the anterior surface of his left leg. There is no purulent appearance to this. There is no surrounding erythema.. Skin: Normal color, no rash. Neurologic: Alert and oriented ?3. Cranial nerves II through XII are intact. Normal strength and sensation. Psych: Normal affect. Test Results: EKG is sinus tach with a first-degree AV block rate of 104. Son change from the third of this month. CBC is remarkable for an H&H of 11.4 39.1, 7 neutrophils 74, lymphs at 16. Chem-7 is more for glucose 165, BUN 39, creatinine 1.56. LFTs marked for an albumin of 2.9. Lipase is normal. UA has 10-25 white blood cells and 510 red blood cells. However, there is no bacteria. This was sent for culture. Troponin is 0.305. Troponin from the second and third of this month was 0.28-0.36. Chest x-ray shows mild cardiomegaly and central pulmonary vascular prominence. There is a poor inspiration atelectasis. CT brain shows chronic changes. Emergency Department Course and Treatment: Patient was given a dose of morphine and Zofran IV. He is resting comfortably. He was given cefepime IV. Treatment Plan: This time I do not have an explanation for the patient's lethargy. He was discussed with Dr. Velazquez who has offered medical management here, but if the patient wants a more comprehensive cardiology evaluation he needs to go to a tertiary care center. The family chose [facility], where he had his last heart catheterization. He has been accepted and is awaiting transfer there. Disposition: Transferred in improved condition. Impression: 1. Generalized weakness. 2. Indeterminate troponin. 3. Chronic renal insufficiency. 4. Coagulopathy on Eliquis. This note was generated with [employer] dictation software. It may contain incorrect words, spelling, and punctuation that were not noted in review of the chart prior to signing ED Disposition - Plan for ED Patient: Chief Complaint: Weakness Referrals: Guy Gu Chi, MD [Primary Care Provider] -
[2018-01-12] VITALS: BP 124/82; PULSE 93; RESP 24; O2SAT 100
== END 2018-01-12 00:07 | disposition short-term general hospital (02) ==
LOC: ED 17:02
PROVIDERS: Emergency Provider Emergency Medicine; Family Provider Family Medicine Geriatric Medicine; PCP Family Medicine Geriatric Medicine
DX: R53.1 Weakness (principal); R79.89 Other specified abnormal findings of blood chemistry; I13.0 Hypertensive heart and chronic kidney disease with heart failure and stage 1 through stage 4 chronic kidney disease, or unspecified chronic kidney disease; E11.22 Type 2 diabetes mellitus with diabetic chronic kidney disease; N18.9 Chronic kidney disease, unspecified; I50.9 Heart failure, unspecified; I25.10 Atherosclerotic heart disease of native coronary artery without angina pectoris; J44.9 Chronic obstructive pulmonary disease, unspecified; E78.00 Pure hypercholesterolemia, unspecified; E03.9 Hypothyroidism, unspecified; I25.5 Ischemic cardiomyopathy; Z79.4 Long term (current) use of insulin; Z99.81 Dependence on supplemental oxygen; Z79.02 Long term (current) use of antithrombotics/antiplatelets; Z79.52 Long term (current) use of systemic steroids; Z79.899 Other long term (current) drug therapy
CPT/HCPCS: 36415; 70450; 71046; 80053; 81001; 83690; 84484; 85025; 87040; 87086; 87088; 93005; 99285; J7050; A4216; J2405